=== PATIENT | male | born 1970 | race Caucasian/White ===

== ENCOUNTER 2019-01-29 12:25 | Emergency (ER) | payer MEDICARE, MEDICAID, SELFPAY ==
[2019-01-29 12:52] VITALS: BP 137/80; PULSE 95; RESP 20; TEMP 36.4; O2SAT 98
--- NOTE | 2019-01-29 12:58 | DI.RAD.S_ITS ---
PROCEDURE: XR THORACIC SPINE 3V INDICATIONS: pain TECHNIQUE: 3 views of the thoracic spine were acquired. COMPARISON: None. FINDINGS: Bones: No fractures or dislocations. No suspicious bony lesions. All pairs of ribs are noted, and appear intact where visualized. Mild thoracic spinal degenerative change. Soft tissues: No paravertebral stripe thickening. IMPRESSION: No evidence acute bony abnormality of the thoracic spine. Mild degenerative change. Dictated by: Alejandro Gaston M.D. on 01/29/2019 at 14:03 Approved by: Alejandro Gaston M.D. on 01/29/2019 at 14:04
--- NOTE | 2019-01-29 13:12 | PC.NURSE ---
pt reports the day after mothers day his back pain started, believed he was bending over too much. helped when he went to chiropractor. yesterday pain started back up, states never been this bad. denies weakness, numbness, tingling.
--- NOTE | 2019-01-29 13:20 | ED.BACK ---
HPI - Back Pain/Injury <TALIB Chapman - Last Filed: 01/29/19 14:41> General Chief Complaint: Back Pain/Injury Stated Complaint: middle back something happened since mothers day Time Seen by Provider: 01/29/19 13:10 Source: patient Mode of arrival: ambulatory Limitations: no limitations History of Present Illness HPI Narrative: The patient is a 48-year-old male current smoker with history of hypertension who presents with a chief complaint of back pain. This has been ongoing since mother's Day in October. He states it started after he was hunched over a grill while cooking for his neighborhood for mother's Day. Since then his pain has been coming and going. He has seen a chiropractor. He has not tried any Tylenol or ibuprofen. He states that his pain got worse last night so elected to come to the emergency department today. He denies any incontinence of bowel, incontinence of bladder or saddle anesthesia. He denies any fevers or history of cancer. He denies any chest pain, shortness of breath, nausea vomiting or diarrhea. He states that the pain is in the middle of his back, worse with movement. Related Data Home Medications Medication Instructions Recorded Confirmed lisinopril 20 mg PO BID #0 03/06/10 01/29/19 amlodipine 5 mg PO BID 01/29/19 01/29/19 doxepin 150 mg PO BEDTIME 01/29/19 01/29/19 fenofibrate 160 mg PO DAILY 01/29/19 01/29/19 gabapentin 300 mg PO DAILY PRN 01/29/19 01/29/19 Previous Rx's Medication Instructions Recorded ketorolac 10 mg PO TID PRN #20 tab 01/29/19 Allergies Allergy/AdvReac Type Severity Reaction Status Date / Time No Known Drug Allergies Allergy Verified 01/29/19 12:55 Review of Systems <TALIB Chapman - Last Filed: 01/29/19 14:41> Review of Systems GENERAL: Denies chills, fatigue, malaise, fever, sweats. HEENT: Denies sinus pain, ear pain, sore throat, difficulty swallowing, dizziness. RESPIRATORY: Denies dyspnea, cough, wheezing, hemoptysis, sputum. CARDIOVASCULAR: Denies chest pain, palpitations, orthopnea, edema, GASTROINTESTINAL: Denies nausea, vomiting, abdominal pain, diarrhea, constipation, melena. : Denies dysuria, frequency, incontinence, hematuria, urinary retention. MUSCULOSKELETAL: see HPI SKIN: Denies rash, skin lesions, or other NEUROLOGIC: Denies weakness, headache, numbness, change in speech, confusion, seizures, incoordination. PSYCHIATRIC: No concerning psychosocial issues. 12 point review of systems is negative except for those stated above PFSH <TALIB Chapman - Last Filed: 01/29/19 14:41> Medical History Hypertension (Acute) Social History Smoking Status: Current every day smoker Social History Smoking Status: Current every day smoker Exam <TALIB Chapman - Last Filed: 01/29/19 14:41> Narrative Exam Narrative: GENERAL: This is a well-nourished, well-developed patient, appears slightly uncomfortable HEAD: Atraumatic. Normocephalic. No temporal or scalp tenderness. EYES: Pupils equal round and reactive. Extraocular motions intact. No scleral icterus. No injection or drainage. ENT: Nose without bleeding, purulent drainage or septal hematoma. Throat without erythema, tonsillar hypertrophy or exudate. Uvula midline. Airway patent. NECK: Trachea midline. No JVD or lymphadenopathy. Supple, nontender, no meningeal signs. CARDIOVASCULAR: Regular rate and rhythm without murmurs, gallops, or rubs. RESPIRATORY: Clear to auscultation. Breath sounds equal bilaterally. No wheezes, rales, or rhonchi. No cough. No increased respiratory effort. No accessory muscle use. GASTROINTESTINAL: Abdomen soft, non-tender, nondistended. No hepato-splenomegaly, or palpable masses. No guarding. EXTREMITIES: No clubbing, cyanosis, or edema. No joint tenderness, effusion, or edema noted. BACK: Generalized pain to thoracic spine palpation. No pain to CT or L-spine palpation. Pain to bilateral paraspinal muscles. NEURO: AOx3. Strength is equal upper and lower extremities bilaterally. Stable gait. No gross cranial nerve deficit. SKIN: No rash or erythema. No erythema ecchymosis rash laceration or abrasion noted on back. Initial Vital Signs Initial Vital Signs: Vital Signs Temperature 97.5 F L 01/29/19 12:52 Pulse Rate 95 H 01/29/19 12:52 Respiratory Rate 20 01/29/19 12:52 Blood Pressure 137/80 01/29/19 12:52 Pulse Oximetry 98 01/29/19 12:52 <Fausto Rae DO - Last Filed: 01/29/19 15:21> Initial Vital Signs Initial Vital Signs: Vital Signs Temperature 97.5 F L 01/29/19 12:52 Pulse Rate 95 H 01/29/19 12:52 Respiratory Rate 20 01/29/19 12:52 Blood Pressure 137/80 01/29/19 12:52 Pulse Oximetry 98 01/29/19 12:52 Course <TALIB Chapman - Last Filed: 01/29/19 14:41> Orders Ordered: ED Orders 01/29/19 12:58 XR thoracic spine 3V Stat Discontinued Medications Ketorolac Tromethamine (Toradol) 60 mg IM NOW ONE Stop: 01/29/19 13:21 Last Admin: 01/29/19 13:33 Dose: 60 mg Lidocaine (Lidoderm) 1 each TOP NOW ONE Stop: 01/29/19 13:21 Last Admin: 01/29/19 13:33 Dose: 1 each Vital Signs - 8 hr 01/29/19 12:52 01/29/19 14:37 Temperature 97.5 F L Pulse Rate 95 H 83 Respiratory Rate 20 18 Blood Pressure 137/80 134/84 Pulse Oximetry 98 <DO Emil Leonard Last Filed: 01/29/19 15:21> Orders Ordered: ED Orders 01/29/19 12:58 XR thoracic spine 3V Stat Discontinued Medications Ketorolac Tromethamine (Toradol) 60 mg IM NOW ONE Stop: 01/29/19 13:21 Last Admin: 01/29/19 13:33 Dose: 60 mg Lidocaine (Lidoderm) 1 each TOP NOW ONE Stop: 01/29/19 13:21 Last Admin: 01/29/19 13:33 Dose: 1 each Vital Signs - 8 hr 01/29/19 12:52 01/29/19 14:37 Temperature 97.5 F L Pulse Rate 95 H 83 Respiratory Rate 20 18 Blood Pressure 137/80 134/84 Pulse Oximetry 98 MDM - Back Pain/Injury <TALIB Chapman - Last Filed: 01/29/19 14:41> Imaging Data T-spine x-ray: Radiologist's impression: [address] [address] XRay Report Signed Patient: Joao Candelaria MMR#: [id number] : 1970Acct:[id number] Age/Sex: 48 / MDate of Service: 01/29/19 Loc: ED Accession Number: [id number] Procedure: XR thoracic spine 3V Ordering Provider: Ev Poe PROCEDURE: XR THORACIC SPINE 3V INDICATIONS: pain TECHNIQUE: 3 views of the thoracic spine were acquired. COMPARISON: None. FINDINGS: Bones: No fractures or dislocations. No suspicious bony lesions. All pairs of ribs are noted, and appear intact where visualized. Mild thoracic spinal degenerative change. Soft tissues: No paravertebral stripe thickening. IMPRESSION: No evidence acute bony abnormality of the thoracic spine. Mild degenerative change. Dictated by: Alejandro Gaston M.D. on 01/29/2019 at 14:03 Approved by: Alejandro Gaston M.D. on 01/29/2019 at 14:04 [facility] Narrative Medical decision making narrative: The patient is a 48-year-old male who presents with a chief complaint of thoracic back pain since October. He does not have any red flag symptoms of incontinence of bowel, incontinence of bladder saddle anesthesia. I discussed at length to come back to the ER if he develops any of these red flag symptoms. He is afebrile with no history of cancer. I did obtain images, which shows no acute bony abnormality. He was treated in the emergency department with Toradol as well as a lidocaine patch and felt much relief. I discussed at length following up with primary care provider as well as coming back to the emergency department for any acute concerns as we discussed such as incontinence, neurological changes etc. Patient has no questions or concerns upon discharge and states understanding of follow-up precautions as well as return precautions. Discharge Plan Departure Patient Disposition: Home Clinical Impression: Thoracic back pain Qualifiers: Chronicity: acute Back pain laterality: bilateral Qualified Code(s): M54.6 - Pain in thoracic spine Discharge Date/Time: 01/29/19 14:37 Interventions: ED Discharge Assessment Last Done: 01/29/19 14:37 Instructions: DI for Back Strain or Sprain, DI for Thoracic Back Pain Activity Restrictions/Additional Instructions: Your x-ray showed no acute abnormality. I have given you a prescription of anti-inflammatory medicine. Do not take it with ibuprofen or Aleve or any other NSAIDs. Please monitor for any acute neurological concerns such as incontinence of bowel, incontinence of bladder or groin numbness. Please follow up with primary care provider. I have given you contact information for [facility] human resources director, who can help you identify a primary care provider. Come back to the emergency department for any acute concerns. Prescriptions: New ketorolac 10 mg tablet 10 mg PO TID PRN (Reason: pain) Qty: 20 RF: 0 No Action lisinopril 20 MG tablet 20 mg PO BID Qty: 0 RF: 0 doxepin 50 mg capsule 150 mg PO BEDTIME RF: 0 amlodipine 5 mg tablet 5 mg PO BID RF: 0 gabapentin 300 mg capsule 300 mg PO DAILY PRN (Reason: nerve pain) RF: 0 fenofibrate 160 mg tablet 160 mg PO DAILY RF: 0 Referrals: [facility] [Outside] <Fausto Rae DO - Last Filed: 01/29/19 15:21> [facility] Attending Susanne Attestation: I was available for consultation during this patient's emergency department encounter
[2019-01-29] MEDS: KETOROLAC 60 MG/2 ML VIAL IM (13:33)
[2019-01-29] MEDS: LIDOCAINE PATCH 1 EACH ADH..PATCH TOP (13:33)
--- NOTE | 2019-01-29 13:41 | ED_ITS ---
HPI - Back Pain/Injury <TALIB Chapman - Last Filed: 01/29/19 14:41> General Chief Complaint: Back Pain/Injury Stated Complaint: middle back something happened since mothers day Time Seen by Provider: 01/29/19 13:10 Source: patient Mode of arrival: ambulatory Limitations: no limitations History of Present Illness HPI Narrative: The patient is a 48-year-old male current smoker with history of hypertension who presents with a chief complaint of back pain. This has been ongoing since mother's Day in October. He states it started after he was hunched over a grill while cooking for his neighborhood for mother's Day. Since then his pain has been coming and going. He has seen a chiropractor. He has not tried any Tylenol or ibuprofen. He states that his pain got worse last night so elected to come to the emergency department today. He denies any incontinence of bowel, incontinence of bladder or saddle anesthesia. He denies any fevers or history of cancer. He denies any chest pain, shortness of breath, nausea vomiting or diarrhea. He states that the pain is in the middle of his back, worse with movement. Related Data Home Medications Medication Instructions Recorded Confirmed lisinopril 20 mg PO BID #0 03/06/10 01/29/19 amlodipine 5 mg PO BID 01/29/19 01/29/19 doxepin 150 mg PO BEDTIME 01/29/19 01/29/19 fenofibrate 160 mg PO DAILY 01/29/19 01/29/19 gabapentin 300 mg PO DAILY PRN 01/29/19 01/29/19 Previous Rx's Medication Instructions Recorded ketorolac 10 mg PO TID PRN #20 tab 01/29/19 Allergies Allergy/AdvReac Type Severity Reaction Status Date / Time No Known Drug Allergies Allergy Verified 01/29/19 12:55 Review of Systems <TALIB Chapman - Last Filed: 01/29/19 14:41> Review of Systems GENERAL: Denies chills, fatigue, malaise, fever, sweats. HEENT: Denies sinus pain, ear pain, sore throat, difficulty swallowing, dizziness. RESPIRATORY: Denies dyspnea, cough, wheezing, hemoptysis, sputum. CARDIOVASCULAR: Denies chest pain, palpitations, orthopnea, edema, GASTROINTESTINAL: Denies nausea, vomiting, abdominal pain, diarrhea, constipation, melena. : Denies dysuria, frequency, incontinence, hematuria, urinary retention. MUSCULOSKELETAL: see HPI SKIN: Denies rash, skin lesions, or other NEUROLOGIC: Denies weakness, headache, numbness, change in speech, confusion, seizures, incoordination. PSYCHIATRIC: No concerning psychosocial issues. 12 point review of systems is negative except for those stated above PFSH <TALIB Chapman - Last Filed: 01/29/19 14:41> Medical History Hypertension (Acute) Social History Smoking Status: Current every day smoker Social History Smoking Status: Current every day smoker Exam <TALIB Chapman - Last Filed: 01/29/19 14:41> Narrative Exam Narrative: GENERAL: This is a well-nourished, well-developed patient, appears slightly uncomfortable HEAD: Atraumatic. Normocephalic. No temporal or scalp tenderness. EYES: Pupils equal round and reactive. Extraocular motions intact. No scleral icterus. No injection or drainage. ENT: Nose without bleeding, purulent drainage or septal hematoma. Throat without erythema, tonsillar hypertrophy or exudate. Uvula midline. Airway patent. NECK: Trachea midline. No JVD or lymphadenopathy. Supple, nontender, no meningeal signs. CARDIOVASCULAR: Regular rate and rhythm without murmurs, gallops, or rubs. RESPIRATORY: Clear to auscultation. Breath sounds equal bilaterally. No wheezes, rales, or rhonchi. No cough. No increased respiratory effort. No accessory muscle use. GASTROINTESTINAL: Abdomen soft, non-tender, nondistended. No hepato- splenomegaly, or palpable masses. No guarding. EXTREMITIES: No clubbing, cyanosis, or edema. No joint tenderness, effusion, or edema noted. BACK: Generalized pain to thoracic spine palpation. No pain to CT or L-spine palpation. Pain to bilateral paraspinal muscles. NEURO: AOx3. Strength is equal upper and lower extremities bilaterally. Stable gait. No gross cranial nerve deficit. SKIN: No rash or erythema. No erythema ecchymosis rash laceration or abrasion noted on back. Initial Vital Signs Initial Vital Signs: Vital Signs Temperature 97.5 F L 01/29/19 12:52 Pulse Rate 95 H 01/29/19 12:52 Respiratory Rate 20 01/29/19 12:52 Blood Pressure 137/80 01/29/19 12:52 Pulse Oximetry 98 01/29/19 12:52 <Fausto Rae DO - Last Filed: 01/29/19 15:21> Initial Vital Signs Initial Vital Signs: Vital Signs Temperature 97.5 F L 01/29/19 12:52 Pulse Rate 95 H 01/29/19 12:52 Respiratory Rate 20 01/29/19 12:52 Blood Pressure 137/80 01/29/19 12:52 Pulse Oximetry 98 01/29/19 12:52 Course <TALIB Chapman - Last Filed: 01/29/19 14:41> Orders Ordered: ED Orders 01/29/19 12:58 XR thoracic spine 3V Stat Discontinued Medications Ketorolac Tromethamine (Toradol) 60 mg IM NOW ONE Stop: 01/29/19 13:21 Last Admin: 01/29/19 13:33 Dose: 60 mg Lidocaine (Lidoderm) 1 each TOP NOW ONE Stop: 01/29/19 13:21 Last Admin: 01/29/19 13:33 Dose: 1 each Vital Signs - 8 hr 01/29/19 12:52 01/29/19 14:37 Temperature 97.5 F L Pulse Rate 95 H 83 Respiratory Rate 20 18 Blood Pressure 137/80 134/84 Pulse Oximetry 98 <DO Emil Leonard Last Filed: 01/29/19 15:21> Orders Ordered: ED Orders 01/29/19 12:58 XR thoracic spine 3V Stat Discontinued Medications Ketorolac Tromethamine (Toradol) 60 mg IM NOW ONE Stop: 01/29/19 13:21 Last Admin: 01/29/19 13:33 Dose: 60 mg Lidocaine (Lidoderm) 1 each TOP NOW ONE Stop: 01/29/19 13:21 Last Admin: 01/29/19 13:33 Dose: 1 each Vital Signs - 8 hr 01/29/19 12:52 01/29/19 14:37 Temperature 97.5 F L Pulse Rate 95 H 83 Respiratory Rate 20 18 Blood Pressure 137/80 134/84 Pulse Oximetry 98 MDM - Back Pain/Injury <TALIB Chapman - Last Filed: 01/29/19 14:41> Imaging Data T-spine x-ray: Radiologist's impression: [address] [address] XRay Report Signed Patient: Joao Candelaria MMR#: [id number] : 1970Acct:[id number] Age/Sex: 48 / MDate of Service: 01/29/19 Loc: ED Accession Number: [id number] Procedure: XR thoracic spine 3V Ordering Provider: Ev Poe PROCEDURE: XR THORACIC SPINE 3V INDICATIONS: pain TECHNIQUE: 3 views of the thoracic spine were acquired. COMPARISON: None. FINDINGS: Bones: No fractures or dislocations. No suspicious bony lesions. All pairs of ribs are noted, and appear intact where visualized. Mild thoracic spinal degenerative change. Soft tissues: No paravertebral stripe thickening. IMPRESSION: No evidence acute bony abnormality of the thoracic spine. Mild degenerative change. Dictated by: Alejandro Gaston M.D. on 01/29/2019 at 14:03 Approved by: Alejandro Gaston M.D. on 01/29/2019 at 14:04 [facility] Narrative Medical decision making narrative: The patient is a 48-year-old male who presents with a chief complaint of thoracic back pain since October. He does not have any red flag symptoms of incontinence of bowel, incontinence of bladder saddle anesthesia. I discussed at length to come back to the ER if he develops any of these red flag symptoms. He is afebrile with no history of cancer. I d id obtain images, which shows no acute bony abnormality. He was treated in the emergency department with Toradol as well as a lidocaine patch and felt much relief. I discussed at length following up with primary care provider as well as coming back to the emergency department for any acute concerns as we discussed such as incontinence, neurological changes etc. Patient has no questions or concerns upon discharge and states understanding of follow-up precautions as well as return precautions. Discharge Plan Departure Patient Disposition: Home Clinical Impression: Thoracic back pain Qualifiers: Chronicity: acute Back pain laterality: bilateral Qualified Code(s): M54.6 - Pain in thoracic spine Discharge Date/Time: 01/29/19 14:37 Interventions: ED Discharge Assessment Last Done: 01/29/19 14:37 Instructions: DI for Back Strain or Sprain, DI for Thoracic Back Pain Activity Restrictions/Additional Instructions: Your x-ray showed no acute abnormality. I have given you a prescription of anti-inflammatory medicine. Do not take it with ibuprofen or Aleve or any other NSAIDs. Please monitor for any acute neurological concerns such as incontinence of bowel, incontinence of bladder or groin numbness. Please follow up with primary care provider. I have given you contact information for Located within [facility] human resources trainee, who can help you identify a primary care provider. Come back to the emergency department for any acute concerns. Prescriptions: New ketorolac 10 mg tablet 10 mg PO TID PRN (Reason: pain) Qty: 20 RF: 0 No Action lisinopril 20 MG tablet 20 mg PO BID Qty: 0 RF: 0 doxepin 50 mg capsule 150 mg PO BEDTIME RF: 0 amlodipine 5 mg tablet 5 mg PO BID RF: 0 gabapentin 300 mg capsule 300 mg PO DAILY PRN (Reason: nerve pain) RF: 0 fenofibrate 160 mg tablet 160 mg PO DAILY RF: 0 Referrals: [facility] [Outside] <Fausto Rae DO - Last Filed: 01/29/19 15:21> [facility] Attending Susanne Attestation: I was available for consultation during this patient's emergency department encounter
[2019-01-29 14:37] VITALS: BP 134/84; PULSE 83; RESP 18
== END 2019-01-29 14:37 | disposition home or self-care (01) ==
PROVIDERS: Emergency Provider Nurse Practitioner Family
DX: M54.6 Pain in thoracic spine (principal)
CPT/HCPCS: 72072; 96372; 99282; 99283; J1885

== ENCOUNTER 2019-02-14 13:51 | Emergency (ER) | payer MEDICARE, MEDICAID, SELFPAY ==
[2019-02-14 13:52] VITALS: BP 145/88; PULSE 86; RESP 14; O2SAT 98
[2019-02-14] MEDS: KETOROLAC 60 MG/2 ML VIAL IM (14:57)
[2019-02-14 15:09] VITALS: BP 142/94; PULSE 81; RESP 17; O2SAT 100
--- NOTE | 2019-02-14 16:43 | ED_ITS ---
HPI - Dental/Oral <PERICO Chapman-BC - Last Filed: 02/14/19 16:47> General Chief complaint: Dental/Oral Stated complaint: chest lump [id number] tooth pain Time Seen by Provider: 02/14/19 14:00 Source: patient Mode of arrival: ambulatory Limitations: no limitations History of Present Illness HPI Narrative: The patient is a 48-year-old male current smoker with history of thoracic back pain who presents with a chief complaint of tooth pain. He states that he had is left upper 2nd molar pulled 3 weeks ago and states he has increasing pain and swelling. He is concerned about a dental infection, and he was evaluated by a friend dentist to recommend he comes in for antibiotics. He denies any fevers nausea vomiting or diarrhea. He states he also has a mole on the front of his chest that has been there for months that you would like looked at. Related Data Home Medications Medication Instructions Recorded Confirmed lisinopril 20 mg PO BID #0 03/06/10 01/29/19 amlodipine 5 mg PO BID 01/29/19 01/29/19 doxepin 150 mg PO BEDTIME 01/29/19 01/29/19 fenofibrate 160 mg PO DAILY 01/29/19 01/29/19 gabapentin 300 mg PO DAILY PRN 01/29/19 01/29/19 Previous Rx's Medication Instructions Recorded ketorolac 10 mg PO TID PRN #20 tab 01/29/19 ketorolac 10 mg PO TID PRN #20 tab 02/14/19 penicillin V potassium 500 mg PO QID #40 tab 02/14/19 Allergies Allergy/AdvReac Type Severity Reaction Status Date / Time No Known Drug Allergies Allergy Verified 02/14/19 14:30 Review of Systems <PERICO Chapman-BC - Last Filed: 02/14/19 16:47> Review of Systems Narrative: GENERAL: Denies chills, fatigue, malaise, fever, sweats. HEENT: See HPI RESPIRATORY: Denies dyspnea, cough, wheezing, hemoptysis, sputum. CARDIOVASCULAR: Denies chest pain, palpitations, orthopnea, edema, GASTROINTESTINAL: Denies nausea, vomiting, abdominal pain, diarrhea, constipation, melena. : Denies dysuria, frequency, incontinence, hematuria, urinary retention. MUSCULOSKELETAL: denies weakness, joint pain, or bony pain SKIN: See HPI NEUROLOGIC: Denies weakness, headache, numbness, change in speech, confusion, seizures, incoordination. PSYCHIATRIC: No concerning psychosocial issues. 12 point review of systems is negative except for those stated above PFSH <TALIB Chapman - Last Filed: 02/14/19 16:47> Social History Smoking Status: Current every day smoker Social History Smoking Status: Current every day smoker Exam <TALIB Chapman - Last Filed: 02/14/19 16:47> Narrative Exam Narrative: GENERAL: This is a well-nourished, well-developed patient, no acute distress HEAD: Atraumatic. Normocephalic. No temporal or scalp tenderness. EYES: Pupils equal round and reactive. Extraocular motions intact. No scleral icterus. No injection or drainage. ENT: Nose without bleeding, purulent drainage or septal hematoma. Throat without erythema, tonsillar hypertrophy or exudate. Uvula midline. Airway patent. Poor dentition noted. Left 2nd molar noted pulled, surrounding erythema and gumline. No palpable or obvious abscess to drain. NECK: Trachea midline. No JVD or lymphadenopathy. Supple, nontender, no meningeal signs. CARDIOVASCULAR: Regular rate and rhythm RESPIRATORY: Clear to auscultation. Breath sounds equal bilaterally. No wheezes, rales, or rhonchi. No cough. No increased respiratory effort. No accessory muscle use. GASTROINTESTINAL: Abdomen soft, non-tender, nondistended. No hepato- splenomegaly, or palpable masses. No guarding. EXTREMITIES: No clubbing, cyanosis, or edema. No joint tenderness, effusion, or edema noted. BACK: Nontender without deformity or crepitance. No flank tenderness. NEURO: AOx3. SKIN: 2 mm nevus on center of chest Initial Vital Signs Initial Vital Signs: Vital Signs Pulse Rate 86 02/14/19 13:52 Respiratory Rate 14 02/14/19 13:52 Blood Pressure 145/88 H 02/14/19 13:52 Pulse Oximetry 98 02/14/19 13:52 <Fausto Rae DO - Last Filed: 02/14/19 16:58> Initial Vital Signs Initial Vital Signs: Vital Signs Pulse Rate 86 02/14/19 13:52 Respiratory Rate 14 02/14/19 13:52 Blood Pressure 145/88 H 02/14/19 13:52 Pulse Oximetry 98 02/14/19 13:52 Course <TALIB Chapman - Last Filed: 02/14/19 16:47> Orders Ordered: Discontinued Medications Ketorolac Tromethamine (Toradol) 60 mg IM NOW ONE Stop: 02/14/19 14:09 Last Admin: 02/14/19 14:57 Dose: 60 mg Documented by: SUNNY Vital Signs Vital signs: Vital Signs - 8 hr 02/14/19 13:52 02/14/19 15:09 Pulse Rate 86 81 Respiratory Rate 14 17 Blood Pressure 145/88 H Blood Pressure [Left Arm] 142/94 H Pulse Oximetry 98 100 <Fausto Rae DO - Last Filed: 02/14/19 16:58> Orders Ordered: Discontinued Medications Ketorolac Tromethamine (Toradol) 60 mg IM NOW ONE Stop: 02/14/19 14:09 Last Admin: 02/14/19 14:57 Dose: 60 mg Documented by: SUNNY Vital Signs Vital signs: Vital Signs - 8 hr 02/14/19 13:52 02/14/19 15:09 Pulse Rate 86 81 Respiratory Rate 14 17 Blood Pressure 145/88 H Blood Pressure [Left Arm] 142/94 H Pulse Oximetry 98 100 MDM - Dental/Oral <TALIB Chapman - Last Filed: 02/14/19 16:47> MDM Narrative Medical decision making narrative: The patient is a 48-year-old male who presents with a chief complaint of a mole on the center of his chest as well as a possible dental infection. His exam is concerning for dental infection, so I started him on penicillin. I discussed at length that he needs to follow up with primary care provider regarding his skin concerns, as I am unable to do a biopsy in the emergency department. Encourage PCP follow-up the next few days. Discussed at length follow up with a dentist as well. Encourage monitoring for signs of systemic illness such as fever, vomiting etc. Patient has no questions or concerns upon discharge. I did give him a prescription of Toradol for pain. Discussed not taking with Aleve ibuprofen or any other NSAIDs Discharge Plan Departure Patient Disposition: Home Clinical Impression: Dental infection, Skin mole Discharge Date/Time: 02/14/19 15:15 Instructions: Moles, DI for Tooth Abscess, DI for Dental Pain Activity Restrictions/Additional Instructions: I have started you on antibiotics for your tooth infection. Please follow up with your dentist. I have also given you a prescription of Toradol. Do not combine this with other anti-inflammatory such as Mobic or ibuprofen Regarding your new chest nevus, please follow up with primary care provider Prescriptions: New penicillin V potassium 500 mg tablet 500 mg PO QID Qty: 40 RF: 0 ketorolac 10 mg tablet 10 mg PO TID PRN (Reason: pain) Qty: 20 RF: 0 No Action lisinopril 20 MG tablet 20 mg PO BID Qty: 0 RF: 0 doxepin 50 mg capsule 150 mg PO BEDTIME RF: 0 amlodipine 5 mg tablet 5 mg PO BID RF: 0 gabapentin 300 mg capsule 300 mg PO DAILY PRN (Reason: nerve pain) RF: 0 fenofibrate 160 mg tablet 160 mg PO DAILY RF: 0 ketorolac 10 mg tablet 10 mg PO TID PRN (Reason: pain) Qty: 20 RF: 0 Referrals: Yazan Dailey MD [Primary Care Provider] - <Fausto Rae DO - Last Filed: 02/14/19 16:58> Sign Out Provider Sign Out Attestation: I was available for consultation during this patient's emergency department encounter
== END 2019-02-14 15:15 | disposition home or self-care (01) ==
PROVIDERS: Emergency Provider Nurse Practitioner Family; PCP Internal Medicine
DX: K04.7 Periapical abscess without sinus (principal); D22.9 Melanocytic nevi, unspecified
CPT/HCPCS: 96372; 99282; J1885

== ENCOUNTER → 2019-05-18 10:51 | Outpatient (CLI) | payer MEDICARE, MEDICAID, SELFPAY ==
[2019-05-18 12:09] LABS: Alanine Aminotransferase 26 IU/L (<50); Albumin 4.6 g/dL (3.5-5.0); Albumin Globulin Ratio 1.5 (1.0-2.8); Alkaline Phosphatase 82 U/L (38-126); Aspartate Aminotransferase 31 IU/L (17-59); BUN Creatinine Ratio 12.5 (6-22); Bilirubin Total 0.5 mg/dL (0.2-1.3); Blood Urea Nitrogen 10 mg/dL (9-20); Calcium 9.5 mg/dL (8.4-10.2); Carbon Dioxide 29 mmol/L (22-32); Chloride 100 mmol/L (98-107); Cholesterol 228 mg/dL (140-199); Estimated Glomerular Filt Rate > 60.0 mL/min (>60); Glucose 120 mg/dL (70-100); HDL Cholesterol 38 mg/dL (40-60); HEMOLYSIS < 15 (0-50); Potassium 4.9 mmol/L (3.4-5.1); Sodium 139 mmol/L (137-145); Total Protein 7.6 g/dL (6.3-8.2); Triglycerides 437 mg/dL (35-150)
[2019-05-22 09:58] LABS: Testosterone Free 54.2 pg/mL (35.0-155.0); Testosterone Total 464 ng/dL (250-1100)
== END ==
PROVIDERS: PCP Internal Medicine; Visit Provider Internal Medicine
DX: I10 Essential (primary) hypertension (principal)
CPT/HCPCS: 36415; 80053; 80061; 84402; 84403

== ENCOUNTER → 2019-07-21 10:45 | Outpatient (CLI) | payer MEDICARE, MEDICAID, SELFPAY ==
[2019-07-21 12:30] LABS: Cholesterol 239 mg/dL (140-199); HDL Cholesterol 36 mg/dL (40-60); Triglycerides 502 mg/dL (35-150)
== END ==
PROVIDERS: PCP Internal Medicine; Referring Provider Internal Medicine; Visit Provider Internal Medicine
DX: E78.5 Hyperlipidemia, unspecified (principal)
CPT/HCPCS: 36415; 80061

== ENCOUNTER → 2019-07-28 12:46 | Outpatient (CLI) | payer MEDICARE, MEDICAID, SELFPAY ==
--- NOTE | 2019-07-28 12:50 | DI.RAD.S_ITS ---
PROCEDURE: XR LUMBAR SPINE MIN 4V INDICATIONS: LBP with foot paresthesias TECHNIQUE: 4 views of the lumbar spine were acquired. COMPARISON: [facility], [place], ABDOMEN WITH CONTRAST, 06/21/2015, 9:55. FINDINGS: Bones: 5 nonrib-bearing vertebrae are present. There is normal bony alignment. No acute vertebral body compression fractures. No suspicious bony lesions. Multilevel lumbar spondylitic changes identified most pronounced at L3-4 and L4-5. Anterior bridging osteophyte noted at T12-L1. Mid and lower lumbar facet arthropathy. Soft tissues: Overlying bowel gas pattern is normal. No suspicious soft tissue calcifications. Oblique images: No pars defects. IMPRESSION: Lumbar spine without acute fracture or malalignment. Multilevel lumbar spondylosis. No pars defects identified. Dictated by: Steven Lay M.D. on 07/28/2019 at 16:41 Approved by: Steven Lay M.D. on 07/28/2019 at 16:43
== END ==
PROVIDERS: PCP Internal Medicine; Referring Provider Physical Medicine & Rehabilitation; Visit Provider Physical Medicine & Rehabilitation
DX: M54.5 Low back pain (principal); R20.0 Anesthesia of skin; M47.816 Spondylosis without myelopathy or radiculopathy, lumbar region
CPT/HCPCS: 72110

== ENCOUNTER → 2019-08-18 14:08 | Outpatient (CLI) | payer MEDICARE, MEDICAID, SELFPAY ==
[2019-08-18 15:20] LABS: Add Manual Diff / Slide Review NO; Basophils Absolute Auto 0 /uL (0-100); Basophils Percent Auto 0.5 % (0-2); Eosinophils Absolute Auto 300 /uL (0-450); Eosinophils Percent Auto 4.4 % (2-4); Hematocrit 42.5 % (41-53); Hemoglobin 15.2 g/dL (13.5-17.5); Lymphocytes Absolute Auto 1800 /uL (1100-4500); Lymphocytes Percent Auto 24.3 % (25-40); Mean Corpuscular HGB Conc 35.8 % (30-36); Mean Corpuscular Hemoglobin 33.2 PG (26-34); Mean Corpuscular Volume 92.7 fL (80-100); Monocytes Absolute Auto 500 /uL (0-900); Monocytes Percent Auto 6.8 % (3-14); Neutrophils Absolute Auto 4700 /uL (1500-7000); Platelet Count 201 X10^3/uL (150-400); Red Blood Cell Count 4.59 X10^6/uL (4.5-5.9); Red Cell Distribution Width 12.6 % (11.6-14.8); White Blood Cell Count 7.3 X10^3/uL (4.5-11.0)
[2019-08-18 15:39] LABS: Glucose 90 mg/dL (70-100)
[2019-08-18 15:57] LABS: Free T3, Triiodothyronine Free 4.22 pg/mL (2.77-5.27); T7 (Free Thyroxine Index) 2.28 (1.65-3.89); Triiodothryronine T3 Uptake 32.1 % (23.5-40.5)
[2019-08-18 16:11] LABS: Thyroid Stimulating Hormone 1.61 uIU/mL (0.47-4.68)
[2019-08-18 16:30] LABS: Vitamin B12 325 pg/mL (239-931)
[2019-08-18 19:04] LABS: Folate 8.2 ng/mL (2.76-20.0)
== END ==
PROVIDERS: PCP Internal Medicine; Referring Provider Podiatrist; Visit Provider Podiatrist
DX: G60.9 Hereditary and idiopathic neuropathy, unspecified (principal)
CPT/HCPCS: 36415; 82607; 82746; 82947; 84436; 84443; 84479; 84481; 85025

== ENCOUNTER 2019-10-29 10:12 | Emergency (ER) | payer MEDICARE, MEDICAID, SELFPAY ==
[2019-10-29 10:20] VITALS: BP 141/80; PULSE 80; RESP 15; TEMP 36.3; O2SAT 98
--- NOTE | 2019-10-29 10:23 | ED_ITS ---
HPI - Back Pain/Injury General Chief Complaint: Back Pain/Injury Stated Complaint: back pain Time Seen by Provider: 10/29/19 10:18 Source: patient Mode of arrival: Ambulatory Limitations: no limitations History of Present Illness HPI Narrative: 49M smoker with history of hypertension and back pain for over 1 year presents with a chief complaint of ongoing, gradually worsening back pain and requesting an MRI. He denies any saddle anesthesia nor difficulty with controlling bowel or bladder. He denies any numbness or weakness of his lower extremities. He denies any foot drop. He denies any recent injuries or worsening of pain. He states that 1 of his doctors said he could come to the emergency department and requested an MRI if he wanted one MD Complaint: back pain Onset (ago): month(s) Duration: constant Similar Symptoms Previously: Yes Location: lumbar spine Severity: moderate Quality: aching Radiation: none Relieving factors: supine Exacerbating factors: movement and walking Associated symptoms: denies other symptoms Related Data Home Medications Medication Instructions Recorded Confirmed lisinopril 20 mg PO BID #0 03/06/10 07/29/19 amlodipine 5 mg PO BID 01/29/19 07/29/19 doxepin 150 mg PO BEDTIME 01/29/19 01/29/19 fenofibrate 160 mg PO DAILY 01/29/19 01/29/19 gabapentin 300 mg PO DAILY PRN 01/29/19 01/29/19 Previous Rx's Medication Instructions Recorded ketorolac 10 mg PO TID PRN #20 tab 01/29/19 ketorolac 10 mg PO TID PRN #20 tab 02/14/19 Allergies Allergy/AdvReac Type Severity Reaction Status Date / Time No Known Drug Allergies Allergy Verified 10/29/19 10:24 Review of Systems Constitutional Constitutional: Denies chills, Denies fatigue, Denies fever(s), Denies frequent falls, Denies lethargy and Denies weakness Eyes Eyes: Denies change in vision, Denies eye discharge, Denies irritation and Denies loss of vision ENT Ears, Nose, Mouth, and Throat: Denies change in voice, Denies dizziness, Denies neck pain, Denies sore throat and Denies throat swelling Cardiovascular Cardiovascular: Denies chest pain, Denies irregular heart rhythm, Denies lightheadedness, Denies palpitations, Denies dyspnea, Denies dyspnea on exertion and Denies orthopnea Respiratory Respiratory: Denies cough, Denies dyspnea, Denies dyspnea on exertion and Denies wheezing Gastrointestinal Gastrointestinal: Denies abdominal pain, Denies change in bowel habits, Denies diarrhea, Denies nausea and Denies vomiting Genitourinary Genitourinary: Denies hematuria, Denies flank pain, Denies urinary incontinence and Denies urinary urgency Musculoskeletal Musculoskeletal: Reports back pain, Denies muscle weakness, Denies neck pain, Denies numbness and Denies tingling Integumentary/Breasts Skin/Breast: Denies pruritus, Denies erythema, Denies rash and Denies wounds Neurologic Neurologic: Denies behavioral changes, Denies confusion, Denies dizziness, Denies frequent falls, Denies loss of vision, Denies numbness, Denies tingling and Denies weakness Psychiatric Psychiatric: Denies anxiety, Denies behavioral changes, Denies confusion, Denies depression, Denies homicidal ideation and Denies suicidal ideation Endocrine Endocrine: Denies fatigue, Denies flushing and Denies palpitations Hematologic/Lymphatic Hematologic/Lymphatic: Denies easy bruising Allergic/Immunologic Allergic/Immunologic: Denies urticaria, Denies throat swelling and Denies wheezing Patient History Medical History Bilateral foot pain (Acute) Hypertension (Acute) Lumbosacral spondylosis (Acute) Recto-perineal fistula (Acute) Family History Father Alive and well Mother Alive and well Social History marital status: unmarried,single occupational status: disabled Smoking Status: Current every day smoker second hand exposure: No alcohol intake: current Smoking Status: Current every day smoker alcohol intake frequency: 0-2 drinks per day Substance Use Type: does not use Exam Narrative Exam Narrative: GENERAL: [49] year old patient appears stated age. Well- nourished, well-developed patient, in mild distress. HEAD: Atraumatic. Normocephalic. EYES: Pupils equal round and reactive. Extraocular motions intact. No scleral icterus. No injection or drainage. ENT: Nose without bleeding, purulent drainage. Throat without erythema, tonsillar hypertrophy or exudate. Airway patent. NECK: Trachea midline. Non tender CARDIOVASCULAR: Regular rate and rhythm without murmurs, gallops, or rubs. RESPIRATORY: Clear to auscultation. Breath sounds equal bilaterally. No wheezes, rales, or rhonchi. GASTROINTESTINAL: Abdomen soft, non-tender, nondistended. EXTREMITIES: No edema or joint tenderness. BACK: Nontender without deformity or crepitance. No flank tenderness. No saddle anesthesia, relexes 1+ bilaterally. 5/5 strength NEURO: AOx3. SKIN: No rash or erythema of visible areas Initial Vital Signs Initial Vital Signs: Vital Signs Temperature 97.3 F L 10/29/19 10:20 Pulse Rate 80 10/29/19 10:20 Respiratory Rate 15 10/29/19 10:20 Blood Pressure 141/80 H 10/29/19 10:20 Pulse Oximetry 98 10/29/19 10:20 Course Course Course Narrative: call to [facility], Dr. Dewitt, who reviews Dr. Zelaya's notes which state patient is to get PT and follow up in 2 months which would be about now. Vital Signs Vital signs: Vital Signs - 8 hr 10/29/19 10:20 Temperature 97.3 F L Pulse Rate 80 Respiratory Rate 15 Blood Pressure 141/80 H Pulse Oximetry 98 Discharge Plan Departure Patient Disposition: Home Clinical Impression: Lumbosacral spondylosis Discharge Date/Time: 10/29/19 11:10 Instructions: DI for Low Back Pain Activity Restrictions/Additional Instructions: *You have been diagnosed with [ acute on chronic lumbar pain with spondylolysis ] *What to do: *Take medications as directed *Follow up with Dr. Zelaya in 2-3 days, call for an appointment. Let them know you were seen in the Emergency Department and that we ask that you be seen in follow up *Return to ER if you should have any new, worsening or concerning symptoms Prescriptions: No Action lisinopril 20 MG tablet 20 mg PO BID Qty: 0 RF: 0 doxepin 50 mg capsule 150 mg PO BEDTIME RF: 0 amlodipine 5 mg tablet 5 mg PO BID RF: 0 gabapentin 300 mg capsule 300 mg PO DAILY PRN (Reason: nerve pain) RF: 0 fenofibrate 160 mg tablet 160 mg PO DAILY RF: 0 ketorolac 10 mg tablet 10 mg PO TID PRN (Reason: pain) Qty: 20 RF: 0 ketorolac 10 mg tablet 10 mg PO TID PRN (Reason: pain) Qty: 20 RF: 0 Referrals: Yazan Dailey MD [Primary Care Provider] - Rafael Zelaya MD [Physician] -
== END 2019-10-29 11:10 | disposition home or self-care (01) ==
PROVIDERS: Emergency Provider Emergency Medicine; PCP Internal Medicine
DX: M47.817 Spondylosis without myelopathy or radiculopathy, lumbosacral region (principal)
CPT/HCPCS: 99281

== ENCOUNTER 2019-11-03 16:33 | Emergency (ER) | payer MEDICARE, MEDICAID, SELFPAY ==
[2019-11-03 16:42] VITALS: BP 118/75; PULSE 82; RESP 18; TEMP 37.2; O2SAT 96; BMI 32.5
--- NOTE | 2019-11-03 17:00 | ED_ITS ---
HPI - Back Pain/Injury <JENARO Faith - Last Filed: 11/03/19 17:43> General Chief Complaint: Back Pain/Injury Stated Complaint: back pain Time Seen by Provider: 11/03/19 16:36 History of Present Illness HPI Narrative: 49-year-old male with a history of chronic back pain for the past year hypertension, and current smoker, presents emergency department an anti- inflammatory shot and ketorolac for the pain. Patient was seen for back pain on 10/29/2019 in the emergency department, at that time he requested MRI. Patient has been seeing Dr. Zelaya who recommends physical therapy and follow-up with for imaging (per prior note). Patient states that he has been drinking alcohol today to help with pain. He states this pain is a dull aching right-sided pain with occasional sharp radiation to his leg with various movements. He does report intermittent muscle spasms that occur with certain movements. He denies any saddle paresthesias, loss of bowel or bladder control, fevers, chills, trauma to the area, dizziness, chest pain, shortness of breath, or any other concerns. Related Data Home Medications Medication Instructions Recorded Confirmed lisinopril 20 mg PO BID #0 03/06/10 07/29/19 amlodipine 5 mg PO BID 01/29/19 07/29/19 doxepin 150 mg PO BEDTIME 01/29/19 01/29/19 fenofibrate 160 mg PO DAILY 01/29/19 01/29/19 gabapentin 300 mg PO DAILY PRN 01/29/19 01/29/19 Previous Rx's Medication Instructions Recorded ketorolac 10 mg PO TID PRN #20 tab 01/29/19 ketorolac 10 mg PO TID PRN #20 tab 02/14/19 cyclobenzaprine 10 mg PO BEDTIME PRN #14 tab 11/03/19 ketorolac 10 mg PO Q6H PRN 5 Days #20 tab 11/03/19 Allergies Allergy/AdvReac Type Severity Reaction Status Date / Time No Known Drug Allergies Allergy Verified 10/29/19 10:24 Review of Systems <JENARO Faith - Last Filed: 11/03/19 17:43> Review of Systems Narrative: REVIEW OF SYSTEMS: GENERAL: Denies fever or chills. HENT: No head trauma. CARDIOVASCULAR: No chest pain. RESPIRATORY: No shortness of breath or cough. GASTROINTESTINAL: No nausea, vomiting, diarrhea, or constipation. GENITOURINARY: No flank pain or dysuria. MUSCULOSKELETAL: Complains of right-sided low back pain, see HPI. INTEGUMENTARY: No rash, lesions, or pruritus. NEURO: No saddle paresthesias. Patient History <JENARO Faith - Last Filed: 11/03/19 17:43> Medical History Bilateral foot pain (Acute) Hypertension (Acute) Lumbosacral spondylosis (Acute) Recto-perineal fistula (Acute) Family History Father Alive and well Mother Alive and well Social History marital status: unmarried,single occupational status: disabled Smoking Status: Current every day smoker second hand exposure: No alcohol intake: current Smoking Status: Current every day smoker alcohol intake frequency: 3 or more drinks per day Alcohol type: beer and hard liquor Substance Use Type: does not use Exam <JENARO Faith - Last Filed: 11/03/19 17:43> Initial Vital Signs Initial Vital Signs: Vital Signs Temperature 99.0 F 11/03/19 16:42 Pulse Rate 82 11/03/19 16:42 Respiratory Rate 18 11/03/19 16:42 Blood Pressure 118/75 11/03/19 16:42 Pulse Oximetry 96 11/03/19 16:42 PHYSICAL EXAMINATION: GENERAL: Disheveled, cooperative. Appears intoxicated but alert and answered questions appropriately. Vital signs noted. HENT: Normocephalic, atraumatic. EYES: Symmetrical, sclera white, no periorbital swelling. RESPIRATORY: Normal respiratory rate, trachea midline, airway patent. No stridor, nasal flaring or accessory muscle use. MUSCULOSKELETAL: Tenderness to palpation of the lower lumbar muscle, no spinal tenderness. no hip tenderness. Positive straight leg test to right leg. Normal gait and coordination. Equal tone and mass bilaterally. No spinal tenderness or deformities. Patient wearing a cloth brace. EXTREMITIES: CMS intact. SKIN: Warm, dry, soft, appropriate color for ethnicity. No lesions, rashes, or wounds. NEURO: Alert and Oriented X 3. No sensory deficits. PSYCH: Appropriate affect and mood. <Fausto Rae DO - Last Filed: 11/03/19 17:50> Initial Vital Signs Initial Vital Signs: Vital Signs Temperature 99.0 F 11/03/19 16:42 Pulse Rate 82 11/03/19 16:42 Respiratory Rate 18 11/03/19 16:42 Blood Pressure 118/75 11/03/19 16:42 Pulse Oximetry 96 11/03/19 16:42 Course <JENARO Faith - Last Filed: 11/03/19 17:43> Course Course Narrative: Patient given a Toradol injection, reports improved pain. Orders Ordered: Discontinued Medications Ketorolac Tromethamine (Toradol) 30 mg IM NOW ONE Stop: 11/03/19 17:01 Last Admin: 11/03/19 17:23 Dose: 30 mg Documented by: RONY Vital Signs Vital signs: Vital Signs - 8 hr 11/03/19 16:42 Temperature 99.0 F Pulse Rate 82 Respiratory Rate 18 Blood Pressure 118/75 Pulse Oximetry 96 <Fausto Rae DO - Last Filed: 11/03/19 17:50> Orders Ordered: Discontinued Medications Ketorolac Tromethamine (Toradol) 30 mg IM NOW ONE Stop: 11/03/19 17:01 Last Admin: 11/03/19 17:23 Dose: 30 mg Documented by: RONY Vital Signs Vital signs: Vital Signs - 8 hr 11/03/19 16:42 Temperature 99.0 F Pulse Rate 82 Respiratory Rate 18 Blood Pressure 118/75 Pulse Oximetry 96 [facility] - Back Pain/Injury <JENARO Faith - Last Filed: 11/03/19 17:43> Medical Records Attestation: I reviewed the patient's medical records. Lab Data Attestation: I reviewed the patient's lab results. [facility] Narrative Medical decision making narrative: 49-year-old male with chronic back pain, presents emergency department for continued pain and requesting a anti- inflammatory shot, ketorolac, Flexeril. Due to examination and description of pain, patient appears to be having muscle spasms along with suspected sciatica. Less concern for spinal injury due to lack of trauma, no spinal tenderness. No indication for images at this time. Less concern for cauda equina due to lack of saddle paresthesias, no loss of bowel or bladder control. Patient able to ambulate without difficulty. Patient was recently seen in the emergency department and requested MRI, was told to follow up with Dr. Zelaya for physical therapy prior to MRI. Patient was referred back to Dr. Zelaya. He was instructed to avoid taking Flexeril and alcohol together. Patient was agreeable to plan of care, denies any other concerns. Discharge Plan Departure Patient Disposition: Home Clinical Impression: Muscle spasm Chronic back pain Qualifiers: Back pain location: low back pain Back pain laterality: right Sciatica presence: without sciatica Qualified Code(s): M54.5 - Low back pain Discharge Date/Time: 11/03/19 17:46 Instructions: DI for Back Spasm Activity Restrictions/Additional Instructions: Thank you for entrusting me with your care today. As discussed, I prescribed you ketorolac and Flexeril to help with pain and spasms. These medications were sent to [facility] in [place]. Please follow-up with Dr. Zelaya in the next week as suggested from last visit. Please return emergency department for any new or worsening symptoms loss of bowel or bladder control, numbness or tingling in your pelvis, limb weakness, or any other concerns. Prescriptions: New ketorolac 10 mg tablet 10 mg PO Q6H PRN (Reason: pain) 5 Days Qty: 20 RF: 0 cyclobenzaprine 10 mg tablet 10 mg PO BEDTIME PRN (Reason: muscle spasm) Qty: 14 RF: 0 No Action lisinopril 20 MG tablet 20 mg PO BID Qty: 0 RF: 0 doxepin 50 mg capsule 150 mg PO BEDTIME RF: 0 amlodipine 5 mg tablet 5 mg PO BID RF: 0 gabapentin 300 mg capsule 300 mg PO DAILY PRN (Reason: nerve pain) RF: 0 fenofibrate 160 mg tablet 160 mg PO DAILY RF: 0 ketorolac 10 mg tablet 10 mg PO TID PRN (Reason: pain) Qty: 20 RF: 0 ketorolac 10 mg tablet 10 mg PO TID PRN (Reason: pain) Qty: 20 RF: 0 Referrals: Yazan Dailey MD [Primary Care Provider] - <Fausto Rae DO - Last Filed: 11/03/19 17:50> Cosign ED Attending Cosignature Attestation: Dr Rae Co-Sign Statement: I was available for consultation during this patient's emergency department visit. This chart is signed by myself for administrative purposes only. I did not have direct contact with this patient during this visit. They were seen independently by the APC.
[2019-11-03] MEDS: KETOROLAC 60 MG/2 ML VIAL 30 MG IM (17:23)
== END 2019-11-03 17:46 | disposition home or self-care (01) ==
PROVIDERS: Emergency Provider Nurse Practitioner; PCP Internal Medicine
DX: M54.5 Low back pain (principal); M62.830 Muscle spasm of back
CPT/HCPCS: 96372; 99283; J1885

== ENCOUNTER → 2019-11-05 15:58 | Outpatient (CLI) | payer MEDICARE, MEDICAID, SELFPAY ==
--- NOTE | 2019-11-05 15:59 | DI.MRI.S_ITS ---
PROCEDURE: MR LUMBAR SPINE WO CON INDICATIONS: USPECIFIED THPORACIC, THOROCOLOMBAR AND LUMBOSACRAL TECHNIQUE: Noncontrast sagittal T1 spin echo and T2 fast echo, sagittal STIR, axial T1 and T2 fast spin echo through the lumbar spine. In cases with scoliosis, additional coronal T2 fast spin echo may be performed. COMPARISON: None. FINDINGS: Image quality: Excellent. Alignment and Curvature: There is normal bony alignment. Bone Marrow: Marrow is of normal overall signal. No acute vertebral body compression fractures. Spinal Cord: Conus medullaris terminates at the L1 level. Visualized cord demonstrates normal signal and size. Paraspinous Soft Tissues: No paravertebral masses. T12-L1: Normal appearance. L1-L2: Normal appearance. L2-L3: No significant central canal narrowing is seen. L3-L4: The disc height is well-preserved. Loss of disc signal is seen at this level. Mild to moderate disc bulge is seen. There is mild bilateral neural foraminal narrowing seen. Mild to moderate central canal narrowing is seen. L4-L5: The disc height and disc signal relatively well-preserved. Mild to moderate disc bulge is seen. There is a mild central disc protrusion. Mild facet joint hypertrophy is seen. There is minimal to mild right-sided and mild to moderate left-sided neural foraminal narrowing seen. Mild central canal narrowing is seen. L5-S1: No significant abnormality is seen. IMPRESSION: Mild lower lumbar spine degenerative changes are seen. Dictated by: Robert Wise M.D. on 11/05/2019 at 16:23 Approved by: Robert Wise M.D. on 11/05/2019 at 16:26
== END ==
PROVIDERS: PCP Internal Medicine; Referring Provider Orthopaedic Surgery Orthopaedic Surgery of the Spine; Visit Provider Orthopaedic Surgery Orthopaedic Surgery of the Spine
DX: M51.9 Unspecified thoracic, thoracolumbar and lumbosacral intervertebral disc disorder (principal); M47.816 Spondylosis without myelopathy or radiculopathy, lumbar region
CPT/HCPCS: 72148

== ENCOUNTER → 2020-03-15 10:18 | Outpatient (CLI) | payer MEDICARE, MEDICAID, SELFPAY ==
[2020-03-15 12:07] LABS: Alanine Aminotransferase 60 IU/L (<50); Albumin 4.2 g/dL (3.5-5.0); Albumin Globulin Ratio 1.4 (1.0-2.8); Alkaline Phosphatase 129 U/L (38-126); Aspartate Aminotransferase 61 IU/L (17-59); BUN Creatinine Ratio 11.9 (6-22); Bilirubin Total 0.5 mg/dL (0.2-1.3); Blood Urea Nitrogen 8 mg/dL (9-20); Calcium 9.2 mg/dL (8.4-10.2); Carbon Dioxide 30 mmol/L (22-32); Chloride 104 mmol/L (98-107); Cholesterol 222 mg/dL (140-199); Estimated Glomerular Filt Rate > 60.0 mL/min (>60); Globulin 3.1 g/dL (1.7-4.1); Glucose 124 mg/dL (70-100); HDL Cholesterol 55 mg/dL (40-60); HEMOLYSIS < 15 (0-50); LDL Cholesterol Calculated 110 mg/dL (<100); Potassium 4.3 mmol/L (3.4-5.1); Sodium 141 mmol/L (137-145); Total Protein 7.3 g/dL (6.3-8.2); Triglycerides 286 mg/dL (35-150)
[2020-03-15 12:45] LABS: Free T3, Triiodothyronine Free 4.35 pg/mL (2.77-5.27)
[2020-03-15 12:58] LABS: Thyroid Stimulating Hormone 1.91 uIU/mL (0.47-4.68)
[2020-03-15 14:43] LABS: Creatinine Urine Random 212.3 mg/dL
[2020-03-15 14:47] LABS: Microalbumi Creatinin Ratio Ur 8.4 ug/mg CR (<30); Microalbumin Urine Random 1.8 mg/dL (0-1.6)
[2020-03-17 16:11] LABS: Prostate Specific Antigen 0.515 ng/mL (0.10-4.00)
== END ==
PROVIDERS: PCP Nurse Practitioner; Referring Provider Nurse Practitioner; Visit Provider Nurse Practitioner
DX: Z00.00 Encounter for general adult medical examination without abnormal findings (principal); E78.5 Hyperlipidemia, unspecified; I10 Essential (primary) hypertension; Z79.899 Other long term (current) drug therapy
CPT/HCPCS: 36415; 80053; 80061; 82043; 82570; 84153; 84439; 84443; 84481

== ENCOUNTER → 2020-07-08 09:17 | Outpatient (CLI) | payer MEDICARE, MEDICAID, SELFPAY ==
--- NOTE | 2020-07-08 09:20 | DI.US.S_ITS ---
PROCEDURE: US SCROTUM INDICATIONS: RIGHT TESTICULAR PAIN, prior history of torsion, patient reports bilateral fixation procedure approximately 25 years ago. 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 TECHNIQUE: Real-time scanning was performed of the scrotum and testicles, with image documentation. Color and pulse Doppler interrogation was performed of both testicles. COMPARISON: None. FINDINGS: Right: Testicle is normal in size at 1.8 x 3.4 x 4.6 cm, and homogenous in echotexture. Epididymis is normal in overall size and morphology. No hydrocele or varicoceles. Overlying scrotal skin is normal in thickness. Left: Testicle is normal in size at 2.1 x 2.7 x 4.7 cm, and homogeneous in echotexture. Epididymis is normal in overall size and morphology. No hydrocele or varicoceles. Overlying scrotal skin is normal in thickness. Doppler: Color and pulse Doppler demonstrate normal and symmetric arterial flow in both testicles. IMPRESSION: No sign of torsion, intact arterial and venous flow at this time. 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 Dictated by: Roverto Cedeno M.D. on 07/08/2020 at 11:13 Approved by: Roverto Cedeno M.D. on 07/08/2020 at 11:15
[2020-07-08 11:18] LABS: Alanine Aminotransferase 56 IU/L (<50); Albumin 4.4 g/dL (3.5-5.0); Albumin Globulin Ratio 1.3 (1.0-2.8); Alkaline Phosphatase 107 U/L (38-126); Aspartate Aminotransferase 51 IU/L (17-59); BUN Creatinine Ratio 16.1 (6-22); Bilirubin Total 0.5 mg/dL (0.2-1.3); Blood Urea Nitrogen 10 mg/dL (9-20); Calcium 9.3 mg/dL (8.4-10.2); Carbon Dioxide 33 mmol/L (22-32); Chloride 103 mmol/L (98-107); Cholesterol 213 mg/dL (140-199); Estimated Glomerular Filt Rate > 60.0 mL/min (>60); Globulin 3.3 g/dL (1.7-4.1); Glucose 124 mg/dL (70-100); HDL Cholesterol 47 mg/dL (40-60); HEMOLYSIS < 15 (0-50); LDL Cholesterol Calculated 126 mg/dL (<100); Potassium 4.2 mmol/L (3.4-5.1); Sodium 140 mmol/L (137-145); Total Protein 7.7 g/dL (6.3-8.2); Triglycerides 201 mg/dL (35-150)
[2020-07-08 11:57] LABS: Hemoglobin A1C% w Est Avg Glu 5.5 % (4.0-6.0)
[2020-07-10 05:17] LABS: Hepatitis B Surface Antigen NEGATIVE s/c (NEGATIVE)
[2020-07-10 05:35] LABS: Hep C Virus Ab w/Reflex Quant NEGATIVE s/c (NEGATIVE)
== END ==
PROVIDERS: Family Provider Nurse Practitioner; PCP Nurse Practitioner; Referring Provider Nurse Practitioner; Visit Provider Nurse Practitioner
DX: N50.811 Right testicular pain (principal); R79.89 Other specified abnormal findings of blood chemistry; R73.9 Hyperglycemia, unspecified; E78.5 Hyperlipidemia, unspecified; F10.20 Alcohol dependence, uncomplicated; I10 Essential (primary) hypertension; Z87.438 Personal history of other diseases of male genital organs
CPT/HCPCS: 36415; 76870; 80053; 80061; 83036; 86803; 87340

== ENCOUNTER 2020-07-12 10:30 | Outpatient (RCR) | payer MEDICARE, MEDICAID, SELFPAY ==
[2020-04-11 14:33] VITALS: BP 136/70
--- NOTE | 2020-04-11 17:15 | PT.OIE ---
Current Diagnoses Spondylosis without myelopathy or radiculopathy, lumbosacral region (04/11/20) Pain in right foot (04/11/20) Pain in left foot (04/11/20) Past Medical History Alcohol dependence, daily use (Acute) Bilateral foot pain (Acute) Blood glucose elevated (Acute) Class 1 obesity in adult (Acute) Elevated LFTs (Acute) Hyperlipidemia (Acute) Hypertension (Acute) Hypertension (Acute) Lumbosacral spondylosis (Acute) Recto-perineal fistula (Acute) Smokes tobacco daily (Acute) Visit Care Team Role Provider Type JENARO Ashford Attending Provider Advanced Supervisor Of Research Family Provider Primary Care Provider Referring Provider Specialty: Family Practice Address: [address] [place] [address], [facility] Email: [email or web address] Physical Therapy Initial Evaluation PT-OP-A Visit Information Start: 04/11/20 12:51 Freq: Status: Active Protocol: Document 04/11/20 14:33 (Rec: 04/11/20 17:14 [email or web address]) Out-Patient Physical Therapy Visit Information Visit Information Visit Type Initial Evaluation Visit Start Time 14:33 Visit Stop Time 15:15 Total Visit Minutes 42 Visit Number 1 Number of SUPERVISOR BUILDING MAINTENANCE Visits 0 Evaluation Information Evaluation Date 04/11/20 PT-OP-B Current Condition Start: 04/11/20 12:51 Freq: Status: Active Protocol: Document 04/11/20 14:33 HH (Rec: 04/11/20 12:58 [email or web address]) Current Condition History of Current Condition Onset Date more than a year ago Current Complaints Chronic LBP and bilateral foot pain History of Current Condition Pt is a 49yo male with a hx of chronic LBP, along with hypertension, current smoker ( 1.5 packs/day) and drinker (6 cans of beer and 2 fingers of vodka with orange juice daily) . Pt said that he tends to drink alcohol to take the pain away. His pain is mostly achy and located at the center of low back and R side with occasional sharp pain with certain movements. Lifting, moving around, bending over tend to aggravate his symptoms . And he has been moving slowly since last year and wearing back brace since a few months ago. Pt was admitted to ER twice 10/29/19 and 11/03/19 d/t severe back pain. He went to see orthopedist Dr. Zelaya for consult who recommended him physical therapy and stated he does not require surgery. 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 Prior Treatments and Tests MRI 11/05/19 T12-L1: Normal appearance. L1-L2: Normal appearance. L2-L3: No significant central canal narrowing is seen. L3-L4: The disc height is well-preserved. Loss of disc signal is seen at this level. Mild to moderate disc bulge is seen. There is mild bilateral neural foraminal narrowing seen. Mild to moderate central canal narrowing is seen. L4-L5: The disc height and disc signal relatively well- preserved. Mild to moderate disc bulge is seen. There is a mild central disc protrusion. Mild facet joint hypertrophy is seen. There is minimal to mild right-sided and mild to moderate left-sided neural foraminal narrowing seen. Mild central canal narrowing is seen. L5-S1: No significant abnormality is seen. Personal Factors Other Personal Factors That May Effect hypertension, current smoker ( Therapy/Recovery 1.5 packs/day) and drinker (6 cans of beer and 2 fingers of vodka with orange juice daily) PT-OP-C Subjective Start: 04/11/20 12:51 Freq: Status: Active Protocol: Document 04/11/20 14:33 (Rec: 04/11/20 17:14 [email or web address]) Patient Questionnaires Lower Extremity Functional Scale LEFS Score 25 LEFS Impairment 60 to 79% Impaired (Score 17- 31) Oswestry Low Back Index Oswestry Score 42 Oswestry Impairment 40 to 59% Impaired (Score 40- 59) OP-PT Pain Assessment Location lumbar Pain Location Details lumbar spine Intensity 6 Scale Used Numeric (0 - 10) Description Aching,Sharp,Tightness,With Movement Frequency Constant Pain Aggravating Factors Position,Changing Position, Activity,Exercise,Standing, Walking,Bending,Lifting Pain Alleviating Factors Lying Supine PT-OP-D Balance Start: 04/11/20 12:51 Freq: Status: Active Protocol: Document 04/11/20 14:33 HH (Rec: 04/11/20 17:14 [email or web address]) Balance Tests Single Limb Standing Single Limb- Right 10 Single Limb- Left 12 PT-OP-F Manual Assessment Start: 04/11/20 12:51 Freq: Status: Active Protocol: Document 04/11/20 14:33 HH (Rec: 04/11/20 17:14 [email or web address]) Manual Assessments Joint Mobility Assessment Joint Mobility Assessment significant pain to PA mob from T4-T10 mild pain to PA mob L2-L5 PT-OP-H Neuro Start: 04/11/20 12:51 Freq: Status: Active Protocol: Document 04/11/20 14:33 HH (Rec: 04/11/20 17:14 [email or web address]) Sensation Evaluation Gross Sensation Gross Sensation WNL Deep Tendon Reflex & Clonus Assessment Deep Tendon Reflex Bilateral Achilles Deep Tendon Reflex 2+ Normal Bilateral Patellar Deep Tendon Reflex 1+ Diminished Vital Signs Blood Pressure Sitting Blood Pressure (90/60-120/80 mmHg) 136/70 H Blood Pressure Source Manual Cuff,Right Upper Extremity PT-OP-K Range of Motion Start: 04/11/20 12:51 Freq: Status: Active Protocol: Document 04/11/20 14:33 HH (Rec: 04/11/20 17:14 [email or web address]) Lumbar Spine Range of Motion Lumbar Spine Active Degrees Comments toe toe test= 3' from floor with pain at LB L lateral flexion = 25 R lateral flexion= 25 extension = shoulder meet heels with significant pain. Hip Goniometric Range of Motion Hip Left Active Straight Leg Raise 75 Comments slight discomfort at R low back Right Active Hip ROM WFL Yes Straight Leg Raise 85 Comments no discomfort noted except hamstrings tightness PT-OP-L Special Tests Start: 04/11/20 12:51 Freq: Status: Active Protocol: Document 04/11/20 14:33 HH (Rec: 04/11/20 17:14 [email or web address]) Special Tests Lumbar Spine Special Tests PA mob Test Results at mid to low T spine Comments significant pain to PA mob from T4-T10 Straight Leg Raise Test Results +ve L Comments slight discomfort at R low back with SLR on L Prone Instability Test Test Results +ve B Comments pain improved Will Test Results -ve B PT-OP-T Assessment and Plan Start: 04/11/20 12:51 Freq: Status: Active Protocol: Document 04/11/20 14:33 HH (Rec: 04/11/20 17:14 [email or web address]) Physical Therapy Assessment Rehab Potential Rehabilitation Potential Good Evaluation Complexity Number of Personal Factors/Comorbidities 3 or More Number of Body Systems Impaired 3 Clinical Presentation at Evaluation Stable Impairments Impairments Activity Tolerance,Balance, Functional Activities, Functional Mobility,Gait,Pain, Posture,ROM,Soft Tissue Mobility,Strength Other Concerns Barriers to Rehabilitation Pt is a current smoker (1.5 packs/ day) and alcohol abuser (6 cans/week). 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 LTG Duration 12 weeks LEFS Impairment pt scores 25 on LEFS Short Term Goal (STG) pt will score 40 or above on LEFS STG Duration 6 weeks Floorwalker Goal (LTG) pt will score 50 or above on LEFS to improve his functional mobility and strength so he can work on his [employer] project without aggravation. LTG Duration 12 weeks Assessment Summary Assessment Pt is a 49yo male presented to clinic with c/o chronic LBP > 1 year who is also a current smoker (1.5 packs a day) and alcohol user (6 cans/day). Upon assessment, pt does not have any neurological signs except slight increased pain at R lumbar with SLR on L. He does not have any radiating pain nor significant LE weakness/ sensation loss. Pt overall demonstrates good trunk (worst at T-spine) and hip mobility but he was extremely cautious with his movements. Pt did report he is very skeptical regarding mvoing his body. In my professional opinion, Pt possibly has Complex regional pain syndrome who is very pain sensitive to movement and pressure at his lumbar region. This Pt spent approx 15 mins to explain role of PT and pain science regarding chronic pain. Pt was receptive and agreed to attempt PT even though this is possibly going to be a long course of rehab d /t his chronic pain and his tobacco and alcohol use. 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 Physical Therapy Plan Frequency and Duration Frequency of Treatment 2x/Week Duration of Treatment 12 weeks Plan of Care Start Date 04/11/20 Plan of Care End Date 07/10/20 Next Visit Focus/Plan Next Note Type Treatment Note Next Visit Plan bike cat camel seated reach LTR with ball ab curl with ball.
--- NOTE | 2020-04-11 17:15 | PT.OPPOC ---
Physical, Occupational & Speech Therapy At [facility] Current Diagnoses Spondylosis without myelopathy or radiculopathy, lumbosacral region (04/11/20) Pain in right foot (04/11/20) Pain in left foot (04/11/20) Visit Care Team Role Provider Type JENARO Ashford Attending Provider Advanced Clock Repair Technician Family Provider Primary Care Provider Referring Provider Specialty: Family Practice Address: [address] [place] [address], [facility] Email: [email or web address] Plan Of Care PT-OP-T Assessment and Plan Start: 04/11/20 12:51 Freq: Status: Active Protocol: Document 04/11/20 14:33 HH (Rec: 04/11/20 17:14 [email or web address]) Physical Therapy Assessment Rehab Potential Rehabilitation Potential Good Evaluation Complexity Number of Personal Factors/Comorbidities 3 or More Number of Body Systems Impaired 3 Clinical Presentation at Evaluation Stable Impairments Impairments Activity Tolerance,Balance, Functional Activities, Functional Mobility,Gait,Pain, Posture,ROM,Soft Tissue Mobility,Strength Other Concerns Barriers to Rehabilitation Pt is a current smoker (1.5 packs/ day) and alcohol abuser (6 cans/week). 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 LTG Duration 12 weeks LEFS Impairment pt scores 25 on LEFS Short Term Goal (STG) pt will score 40 or above on LEFS STG Duration 6 weeks Mcfp Goal (LTG) pt will score 50 or above on LEFS to improve his functional mobility and strength so he can work on his [employer] project without aggravation. LTG Duration 12 weeks Assessment Summary Assessment Pt is a 49yo male presented to clinic with c/o chronic LBP > 1 year who is also a current smoker (1.5 packs a day) and alcohol user (6 cans/day). Upon assessment, pt does not have any neurological signs except slight increased pain at R lumbar with SLR on L. He does not have any radiating pain nor significant LE weakness/ sensation loss. Pt overall demonstrates good trunk (worst at T-spine) and hip mobility but he was extremely cautious with his movements. Pt did report he is very skeptical regarding mvoing his body. In my professional opinion, Pt possibly has Complex regional pain syndrome who is very pain sensitive to movement and pressure at his lumbar region. This Pt spent approx 15 mins to explain role of PT and pain science regarding chronic pain. Pt was receptive and agreed to attempt PT even though this is possibly going to be a long course of rehab d /t his chronic pain and his tobacco and alcohol use. 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 Physical Therapy Plan Frequency and Duration Frequency of Treatment 2x/Week Duration of Treatment 12 weeks Plan of Care Start Date 04/11/20 Plan of Care End Date 07/10/20 Next Visit Focus/Plan Next Note Type Treatment Note Next Visit Plan bike cat camel seated reach LTR with ball ab curl with ball. Plan of Care Dates Plan of Care Start Date 04/11/20 Plan of Care End Date 07/10/20 Electronically Signed by: Juan A Bermudez PT 04/11/20 [id number] Please Sign and Return: I have reviewed this Plan of Care and certify that the skilled therapy services above are required to meet the patient?s needs. Physician Signature Date Printed Name and Credentials Clinical Instructor Signature Printed Name and Credentials
--- NOTE | 2020-04-21 07:29 | PT-OP ANOTE ---
Pt cancelled today's appt last night, couldn't sleep.
--- NOTE | 2020-04-26 11:13 | PT.OTN ---
Current Diagnoses Spondylosis without myelopathy or radiculopathy, lumbosacral region (04/26/20) Pain in right foot (04/26/20) Pain in left foot (04/26/20) Physical Therapy Treatment Note PT-OP-A Visit Information Start: 04/11/20 12:51 Freq: Status: Active Protocol: Document 04/26/20 10:35 HH (Rec: 04/26/20 11:13 HH [id number]) Out-Patient Physical Therapy Visit Information Visit Information Visit Type Treatment Note Visit Start Time 10:32 Visit Stop Time 11:15 Total Visit Minutes 43 Visit Number 2 Number of LEAD SOFTWARE TESTER Visits 0 PT-OP-B Current Condition Start: 04/11/20 12:51 Freq: Status: Active Protocol: Document 04/11/20 14:33 HH (Rec: 04/11/20 12:58 HH [email or web address]) Current Condition History of Current Condition Onset Date more than a year ago Current Complaints Chronic LBP and bilateral foot pain History of Current Condition Pt is a 49yo male with a hx of chronic LBP, along with hypertension, current smoker ( 1.5 packs/day) and drinker (6 cans of beer and 2 fingers of vodka with orange juice daily) . Pt said that he tends to drink alcohol to take the pain away. His pain is mostly achy and located at the center of low back and R side with occasional sharp pain with certain movements. Lifting, moving around, bending over tend to aggravate his symptoms . And he has been moving slowly since last year and wearing back brace since a few months ago. Pt was admitted to ER twice 10/29/19 and 11/03/19 d/t severe back pain. He went to see orthopedist Dr. Zelaya for consult who recommended him physical therapy and stated he does not require surgery. 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 Prior Treatments and Tests MRI 11/05/19 T12-L1: Normal appearance. L1-L2: Normal appearance. L2-L3: No significant central canal narrowing is seen. L3-L4: The disc height is well-preserved. Loss of disc signal is seen at this level. Mild to moderate disc bulge is seen. There is mild bilateral neural foraminal narrowing seen. Mild to moderate central canal narrowing is seen. L4-L5: The disc height and disc signal relatively well- preserved. Mild to moderate disc bulge is seen. There is a mild central disc protrusion. Mild facet joint hypertrophy is seen. There is minimal to mild right-sided and mild to moderate left-sided neural foraminal narrowing seen. Mild central canal narrowing is seen. L5-S1: No significant abnormality is seen. Personal Factors Other Personal Factors That May Effect hypertension, current smoker ( Therapy/Recovery 1.5 packs/day) and drinker (6 cans of beer and 2 fingers of vodka with orange juice daily) PT-OP-C Subjective Start: 04/11/20 12:51 Freq: Status: Active Protocol: Document 04/26/20 10:35 HH (Rec: 04/26/20 11:13 HH [id number]) OP-PT Subjective Patient Comments Patient Comments Im very sleepy and i am not a morning person. PT-OP-D Balance Start: 04/11/20 12:51 Freq: Status: Active Protocol: Document 04/11/20 14:33 HH (Rec: 04/11/20 17:14 HH [email or web address]) Balance Tests Single Limb Standing Single Limb- Right 10 Single Limb- Left 12 PT-OP-F Manual Assessment Start: 04/11/20 12:51 Freq: Status: Active Protocol: Document 04/11/20 14:33 HH (Rec: 04/11/20 17:14 HH [email or web address]) Manual Assessments Joint Mobility Assessment Joint Mobility Assessment significant pain to PA mob from T4-T10 mild pain to PA mob L2-L5 PT-OP-H Neuro Start: 04/11/20 12:51 Freq: Status: Active Protocol: Document 04/11/20 14:33 HH (Rec: 04/11/20 17:14 HH [email or web address]) Sensation Evaluation Gross Sensation Gross Sensation WNL Deep Tendon Reflex & Clonus Assessment Deep Tendon Reflex Bilateral Achilles Deep Tendon Reflex 2+ Normal Bilateral Patellar Deep Tendon Reflex 1+ Diminished Vital Signs Blood Pressure Sitting Blood Pressure (90/60-120/80 mmHg) 136/70 H Blood Pressure Source Manual Cuff,Right Upper Extremity PT-OP-K Range of Motion Start: 04/11/20 12:51 Freq: Status: Active Protocol: Document 04/11/20 14:33 HH (Rec: 04/11/20 17:14 HH [email or web address]) Lumbar Spine Range of Motion Lumbar Spine Active Degrees Comments toe toe test= 3' from floor with pain at LB L lateral flexion = 25 R lateral flexion= 25 extension = shoulder meet heels with significant pain. Hip Goniometric Range of Motion Hip Left Active Straight Leg Raise 75 Comments slight discomfort at R low back Right Active Hip ROM WFL Yes Straight Leg Raise 85 Comments no discomfort noted except hamstrings tightness PT-OP-L Special Tests Start: 04/11/20 12:51 Freq: Status: Active Protocol: Document 04/11/20 14:33 HH (Rec: 04/11/20 17:14 [email or web address]) Special Tests Lumbar Spine Special Tests PA mob Test Results at mid to low T spine Comments significant pain to PA mob from T4-T10 Straight Leg Raise Test Results +ve L Comments slight discomfort at R low back with SLR on L Prone Instability Test Test Results +ve B Comments pain improved Will Test Results -ve B PT-OP-Q Treatments Start: 04/11/20 12:51 Freq: Status: Active Protocol: Document 04/26/20 10:35 HH (Rec: 04/26/20 11:13 [id number]) Cardio Equipment Bicycle (Upright) Duration (Minutes) 6 Resistance 5 Therapeutic Exercises Prone Exercises cat camel Side bilateral Reps/Minutes 15 x 2 Sidelying Exercises seated flexion and extension Sidelying Exercise Name floor touch then back to neutral spine Reps/Minutes 10 x2 Sitting Exercises pelvic tilt Reps/Minutes 10x2 Comments for hep, min cues needed. Manual Therapy Treatment Soft Tissue Mobilization paraspinals Mobilization Type Rolling,Sustained Pressure, Trigger Point Release Intensity/Depth Moderate Body Position Prone Joint Mobilizations T spine Joint PA mob Direction PA mob Grade II Body Position Prone Comments significant discomfort during mob PT-OP-R Modalities Start: 04/11/20 12:51 Freq: Status: Active Protocol: Document 04/26/20 11:13 HH (Rec: 04/26/20 11:13 [id number]) Hot Pack/Cold Pack Treatment Hot Pack Location lumbar Patient Position Supine Treatment Duration (minutes) 10 Patient Tolerance Good PT-OP-T Assessment and Plan Start: 04/11/20 12:51 Freq: Status: Active Protocol: Document 04/26/20 10:35 HH (Rec: 04/26/20 11:13 [id number]) Physical Therapy Assessment Goals pain Impairment Pt has constant LBP >6/10 in a daily basis Short Term Goal (STG) pt will have no more than 5/10 in a daily basis STG Duration 6 weeks Fpc Goal (LTG) pt will have no more than 4/10 LBP in a daily basis including light lifting activities and walk >0.5 miles LTG Duration 12 weeks Oswestry LBP Impairment Pt scores 42% on Oswestry Short Term Goal (STG) Pt will score less than 30 on Oswestry LBP questionnaire STG Duration 6 weeks Fpc Goal (LTG) pt will score less than 20 on Oswestry LBP questionnaire so 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 LTG Duration 12 weeks LEFS Impairment pt scores 25 on LEFS Short Term Goal (STG) pt will score 40 or above on LEFS STG Duration 6 weeks Fpc Goal (LTG) pt will score 50 or above on LEFS to improve his functional mobility and strength so he can work on his [employer] project without aggravation. LTG Duration 12 weeks Assessment Summary Assessment Pt is very sleepy today and he stated that this is normal to him since this is morning session. Pt had a hard time staying awake but he acutually felt a lot better with his LB after manual therapy and movement education. Pt was able to toe touch with min discomfort at the end of session. Physical Therapy Plan Frequency and Duration Frequency of Treatment 2x/Week Duration of Treatment 12 weeks Plan of Care Start Date 04/11/20 Plan of Care End Date 07/10/20 Next Visit Focus/Plan Next Note Type Treatment Note Next Visit Plan bike cat camel seated reach LTR with ball ab curl with ball.
--- NOTE | 2020-04-28 13:45 | PT.OTN ---
Current Diagnoses Spondylosis without myelopathy or radiculopathy, lumbosacral region (04/28/20) Pain in right foot (04/28/20) Pain in left foot (04/28/20) Physical Therapy Treatment Note PT-OP-A Visit Information Start: 04/11/20 12:51 Freq: Status: Active Protocol: Document 04/28/20 13:01 HH (Rec: 04/28/20 13:43 [id number]) Out-Patient Physical Therapy Visit Information Visit Information Visit Type Treatment Note Visit Start Time 13:02 Visit Stop Time 13:45 Total Visit Minutes 43 Visit Number 3 Number of DIESEL TRUCK DRIVER Visits 0 PT-OP-B Current Condition Start: 04/11/20 12:51 Freq: Status: Active Protocol: Document 04/11/20 14:33 HH (Rec: 04/11/20 12:58 [email or web address]) Current Condition History of Current Condition Onset Date more than a year ago Current Complaints Chronic LBP and bilateral foot pain History of Current Condition Pt is a 49yo male with a hx of chronic LBP, along with hypertension, current smoker ( 1.5 packs/day) and drinker (6 cans of beer and 2 fingers of vodka with orange juice daily) . Pt said that he tends to drink alcohol to take the pain away. His pain is mostly achy and located at the center of low back and R side with occasional sharp pain with certain movements. Lifting, moving around, bending over tend to aggravate his symptoms . And he has been moving slowly since last year and wearing back brace since a few months ago. Pt was admitted to ER twice 10/29/19 and 11/03/19 d/t severe back pain. He went to see orthopedist Dr. Zelaya for consult who recommended him physical therapy and stated he does not require surgery. 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 Prior Treatments and Tests MRI 11/05/19 T12-L1: Normal appearance. L1-L2: Normal appearance. L2-L3: No significant central canal narrowing is seen. L3-L4: The disc height is well-preserved. Loss of disc signal is seen at this level. Mild to moderate disc bulge is seen. There is mild bilateral neural foraminal narrowing seen. Mild to moderate central canal narrowing is seen. L4-L5: The disc height and disc signal relatively well- preserved. Mild to moderate disc bulge is seen. There is a mild central disc protrusion. Mild facet joint hypertrophy is seen. There is minimal to mild right-sided and mild to moderate left-sided neural foraminal narrowing seen. Mild central canal narrowing is seen. L5-S1: No significant abnormality is seen. Personal Factors Other Personal Factors That May Effect hypertension, current smoker ( Therapy/Recovery 1.5 packs/day) and drinker (6 cans of beer and 2 fingers of vodka with orange juice daily) PT-OP-C Subjective Start: 04/11/20 12:51 Freq: Status: Active Protocol: Document 04/28/20 13:01 HH (Rec: 04/28/20 13:43 HH [id number]) OP-PT Subjective Patient Comments Patient Comments Im doing pretty good and i felt really good after last session Patient Reported Progress Improving PT-OP-D Balance Start: 04/11/20 12:51 Freq: Status: Active Protocol: Document 04/11/20 14:33 HH (Rec: 04/11/20 17:14 [email or web address]) Balance Tests Single Limb Standing Single Limb- Right 10 Single Limb- Left 12 PT-OP-F Manual Assessment Start: 04/11/20 12:51 Freq: Status: Active Protocol: Document 04/11/20 14:33 HH (Rec: 04/11/20 17:14 [email or web address]) Manual Assessments Joint Mobility Assessment Joint Mobility Assessment significant pain to PA mob from T4-T10 mild pain to PA mob L2-L5 PT-OP-H Neuro Start: 04/11/20 12:51 Freq: Status: Active Protocol: Document 04/11/20 14:33 HH (Rec: 04/11/20 17:14 [email or web address]) Sensation Evaluation Gross Sensation Gross Sensation WNL Deep Tendon Reflex & Clonus Assessment Deep Tendon Reflex Bilateral Achilles Deep Tendon Reflex 2+ Normal Bilateral Patellar Deep Tendon Reflex 1+ Diminished Vital Signs Blood Pressure Sitting Blood Pressure (90/60-120/80 mmHg) 136/70 H Blood Pressure Source Manual Cuff,Right Upper Extremity PT-OP-K Range of Motion Start: 04/11/20 12:51 Freq: Status: Active Protocol: Document 04/11/20 14:33 HH (Rec: 04/11/20 17:14 [email or web address]) Lumbar Spine Range of Motion Lumbar Spine Active Degrees Comments toe toe test= 3' from floor with pain at LB L lateral flexion = 25 R lateral flexion= 25 extension = shoulder meet heels with significant pain. Hip Goniometric Range of Motion Hip Left Active Straight Leg Raise 75 Comments slight discomfort at R low back Right Active Hip ROM WFL Yes Straight Leg Raise 85 Comments no discomfort noted except hamstrings tightness PT-OP-L Special Tests Start: 04/11/20 12:51 Freq: Status: Active Protocol: Document 04/11/20 14:33 HH (Rec: 04/11/20 17:14 HH [email or web address]) Special Tests Lumbar Spine Special Tests PA mob Test Results at mid to low T spine Comments significant pain to PA mob from T4-T10 Straight Leg Raise Test Results +ve L Comments slight discomfort at R low back with SLR on L Prone Instability Test Test Results +ve B Comments pain improved Will Test Results -ve B PT-OP-Q Treatments Start: 04/11/20 12:51 Freq: Status: Active Protocol: Document 04/28/20 13:01 HH (Rec: 04/28/20 13:43 [id number]) Cardio Equipment Recumbent Stepper (Sci-Fit) Duration (Minutes) 8 Seat Position position ten Gym Equipment Shuttle Recovery U squat Resistance #50 Shuttle Recovery Platform Stable Therapeutic Exercises Supine Exercises piriformis stretch Side bilateral Reps/Minutes 10 sec hold x 5 Comments PT assisted, pt reports pain is gone for SLR after. HS stretch Side bilateral Reps/Minutes 10 sec hold x5 Comments PT assisted Prone Exercises cat camel Side bilateral Reps/Minutes 15 x 2 Sidelying Exercises seated flexion and extension Sidelying Exercise Name floor touch then back to neutral spine Reps/Minutes 10 x2 Sitting Exercises seated Tspine flexion and extension Reps/Minutes 10 x 2 pelvic tilt Reps/Minutes 10x2 Comments for hep, min cues needed. Manual Therapy Treatment Soft Tissue Mobilization paraspinals Mobilization Type Rolling,Sustained Pressure, Trigger Point Release Intensity/Depth Moderate Body Position Prone Joint Mobilizations T spine Joint PA mob Direction PA mob Grade II Body Position Prone Comments min discomfort during mob PT-OP-R Modalities Start: 04/11/20 12:51 Freq: Status: Active Protocol: Document 04/26/20 11:13 HH (Rec: 04/26/20 11:13 [id number]) Hot Pack/Cold Pack Treatment Hot Pack Location lumbar Patient Position Supine Treatment Duration (minutes) 10 Patient Tolerance Good PT-OP-T Assessment and Plan Start: 04/11/20 12:51 Freq: Status: Active Protocol: Document 04/28/20 13:01 (Rec: 04/28/20 13:43 [id number]) Physical Therapy Assessment Goals pain Impairment Pt has constant LBP >6/10 in a daily basis Short Term Goal (STG) pt will have no more than 5/10 in a daily basis STG Duration 6 weeks Buffet Attendant Goal (LTG) pt will have no more than 4/10 LBP in a daily basis including light lifting activities and walk >0.5 miles LTG Duration 12 weeks Oswestry LBP Impairment Pt scores 42% on Oswestry Short Term Goal (STG) Pt will score less than 30 on Oswestry LBP questionnaire STG Duration 6 weeks Detention Goal (LTG) pt will score less than 20 on Oswestry LBP questionnaire so he can lift 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 LTG Duration 12 weeks LEFS Impairment pt scores 25 on LEFS Short Term Goal (STG) pt will score 40 or above on LEFS STG Duration 6 weeks Buffet Attendant Goal (LTG) pt will score 50 or above on LEFS to improve his functional mobility and strength so he can work on his [employer] project without aggravation. LTG Duration 12 weeks Assessment Summary Assessment Pt shows good progress today with min discomfort during PA mob. He is also able to full ROM ex for T spine and L spine . Pt overall shows decreased pain sensivitity to movement today. Cont POC Physical Therapy Plan Frequency and Duration Frequency of Treatment 2x/Week Duration of Treatment 12 weeks Plan of Care Start Date 04/11/20 Plan of Care End Date 07/10/20 Next Visit Focus/Plan Next Note Type Treatment Note Next Visit Plan bike cat camel seated reach LTR with ball ab curl with ball.
--- NOTE | 2020-05-09 12:05 | PT.OTN ---
Current Diagnoses Spondylosis without myelopathy or radiculopathy, lumbosacral region (05/09/20) Pain in right foot (05/09/20) Pain in left foot (05/09/20) Physical Therapy Treatment Note PT-OP-A Visit Information Start: 04/11/20 12:51 Freq: Status: Active Protocol: Document 05/09/20 11:25 HH (Rec: 05/09/20 12:05 [id number]) Out-Patient Physical Therapy Visit Information Visit Information Visit Type Treatment Note Visit Start Time 11:19 Visit Stop Time 12:00 Total Visit Minutes 41 Visit Number 4 Number of AUTOMOTIVE SALES SPECIALIST Visits 0 PT-OP-B Current Condition Start: 04/11/20 12:51 Freq: Status: Active Protocol: Document 04/11/20 14:33 HH (Rec: 04/11/20 12:58 [email or web address]) Current Condition History of Current Condition Onset Date more than a year ago Current Complaints Chronic LBP and bilateral foot pain History of Current Condition Pt is a 49yo male with a hx of chronic LBP, along with hypertension, current smoker ( 1.5 packs/day) and drinker (6 cans of beer and 2 fingers of vodka with orange juice daily) . Pt said that he tends to drink alcohol to take the pain away. His pain is mostly achy and located at the center of low back and R side with occasional sharp pain with certain movements. Lifting, moving around, bending over tend to aggravate his symptoms . And he has been moving slowly since last year and wearing back brace since a few months ago. Pt was admitted to ER twice 10/29/19 and 11/03/19 d/t severe back pain. He went to see orthopedist Dr. Zelaya for consult who recommended him physical therapy and stated he does not require surgery. 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 Prior Treatments and Tests MRI 11/05/19 T12-L1: Normal appearance. L1-L2: Normal appearance. L2-L3: No significant central canal narrowing is seen. L3-L4: The disc height is well-preserved. Loss of disc signal is seen at this level. Mild to moderate disc bulge is seen. There is mild bilateral neural foraminal narrowing seen. Mild to moderate central canal narrowing is seen. L4-L5: The disc height and disc signal relatively well- preserved. Mild to moderate disc bulge is seen. There is a mild central disc protrusion. Mild facet joint hypertrophy is seen. There is minimal to mild right-sided and mild to moderate left-sided neural foraminal narrowing seen. Mild central canal narrowing is seen. L5-S1: No significant abnormality is seen. Personal Factors Other Personal Factors That May Effect hypertension, current smoker ( Therapy/Recovery 1.5 packs/day) and drinker (6 cans of beer and 2 fingers of vodka with orange juice daily) PT-OP-C Subjective Start: 04/11/20 12:51 Freq: Status: Active Protocol: Document 05/09/20 11:25 HH (Rec: 05/09/20 12:05 HH [id number]) OP-PT Subjective Patient Comments Patient Comments Im more confident for bending over now. Overall its pretty good and elena been doing my exercises. Patient Reported Progress Improving PT-OP-D Balance Start: 04/11/20 12:51 Freq: Status: Active Protocol: Document 04/11/20 14:33 HH (Rec: 04/11/20 17:14 HH [email or web address]) Balance Tests Single Limb Standing Single Limb- Right 10 Single Limb- Left 12 PT-OP-F Manual Assessment Start: 04/11/20 12:51 Freq: Status: Active Protocol: Document 04/11/20 14:33 HH (Rec: 04/11/20 17:14 HH [email or web address]) Manual Assessments Joint Mobility Assessment Joint Mobility Assessment significant pain to PA mob from T4-T10 mild pain to PA mob L2-L5 PT-OP-H Neuro Start: 04/11/20 12:51 Freq: Status: Active Protocol: Document 04/11/20 14:33 HH (Rec: 04/11/20 17:14 HH [email or web address]) Sensation Evaluation Gross Sensation Gross Sensation WNL Deep Tendon Reflex & Clonus Assessment Deep Tendon Reflex Bilateral Achilles Deep Tendon Reflex 2+ Normal Bilateral Patellar Deep Tendon Reflex 1+ Diminished Vital Signs Blood Pressure Sitting Blood Pressure (90/60-120/80 mmHg) 136/70 H Blood Pressure Source Manual Cuff,Right Upper Extremity PT-OP-K Range of Motion Start: 04/11/20 12:51 Freq: Status: Active Protocol: Document 04/11/20 14:33 HH (Rec: 04/11/20 17:14 HH [email or web address]) Lumbar Spine Range of Motion Lumbar Spine Active Degrees Comments toe toe test= 3' from floor with pain at LB L lateral flexion = 25 R lateral flexion= 25 extension = shoulder meet heels with significant pain. Hip Goniometric Range of Motion Hip Left Active Straight Leg Raise 75 Comments slight discomfort at R low back Right Active Hip ROM WFL Yes Straight Leg Raise 85 Comments no discomfort noted except hamstrings tightness PT-OP-L Special Tests Start: 04/11/20 12:51 Freq: Status: Active Protocol: Document 04/11/20 14:33 HH (Rec: 04/11/20 17:14 [email or web address]) Special Tests Lumbar Spine Special Tests PA mob Test Results at mid to low T spine Comments significant pain to PA mob from T4-T10 Straight Leg Raise Test Results +ve L Comments slight discomfort at R low back with SLR on L Prone Instability Test Test Results +ve B Comments pain improved Will Test Results -ve B PT-OP-Q Treatments Start: 04/11/20 12:51 Freq: Status: Active Protocol: Document 05/09/20 11:25 HH (Rec: 05/09/20 12:05 [id number]) Cardio Equipment Bicycle (Upright) Duration (Minutes) 6 Resistance 5 Therapeutic Exercises Supine Exercises piriformis stretch Side bilateral Reps/Minutes 10 sec hold x 5 Comments PT assisted, pt reports pain is gone for SLR after. HS stretch Side bilateral Reps/Minutes 10 sec hold x5 Comments PT assisted Sidelying Exercises open book Side bilateral Reps/Minutes 10 x1 Comments pt reports feel good seated flexion and extension Sidelying Exercise Name floor touch then back to neutral spine Reps/Minutes 10 x2 Sitting Exercises seated Tspine flexion and extension Reps/Minutes 10 x 2 pelvic tilt Reps/Minutes 10x2 Comments for hep, min cues needed. Standing Exercises J curl Side bilateral Reps/Minutes 5 x 2 Manual Therapy Treatment Soft Tissue Mobilization paraspinals Mobilization Type Rolling,Sustained Pressure, Trigger Point Release Intensity/Depth Moderate Body Position Prone Joint Mobilizations T spine Joint PA mob Direction PA mob Grade II Body Position Prone Comments min discomfort during mob PT-OP-R Modalities Start: 04/11/20 12:51 Freq: Status: Active Protocol: Document 04/26/20 11:13 HH (Rec: 04/26/20 11:13 [id number]) Hot Pack/Cold Pack Treatment Hot Pack Location lumbar Patient Position Supine Treatment Duration (minutes) 10 Patient Tolerance Good PT-OP-T Assessment and Plan Start: 04/11/20 12:51 Freq: Status: Active Protocol: Document 05/09/20 11:25 (Rec: 05/09/20 12:05 [id number]) Physical Therapy Assessment Goals pain Impairment Pt has constant LBP >6/10 in a daily basis Short Term Goal (STG) pt will have no more than 5/10 in a daily basis STG Duration 6 weeks Business Line Controller Goal (LTG) pt will have no more than 4/10 LBP in a daily basis including light lifting activities and walk >0.5 miles LTG Duration 12 weeks Oswestry LBP Impairment Pt scores 42% on Oswestry Short Term Goal (STG) Pt will score less than 30 on Oswestry LBP questionnaire STG Duration 6 weeks Senior Care Goal (LTG) pt will score less than 20 on Oswestry LBP questionnaire so 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 LTG Duration 12 weeks Assessment Summary Assessment Pt has min discomfort for PA mob but needs cue for segmental spinal flexion, especially mid Tspine. Physical Therapy Plan Frequency and Duration Frequency of Treatment 2x/Week Duration of Treatment 12 weeks Plan of Care Start Date 04/11/20 Plan of Care End Date 07/10/20 Next Visit Focus/Plan Next Note Type Treatment Note Next Visit Plan bike cat camel seated reach LTR with ball ab curl with ball.
--- NOTE | 2020-05-23 14:30 | PT.OTN ---
Current Diagnoses Spondylosis without myelopathy or radiculopathy, lumbosacral region (05/23/20) Pain in right foot (05/23/20) Pain in left foot (05/23/20) Physical Therapy Treatment Note PT-OP-A Visit Information Start: 04/11/20 12:51 Freq: Status: Active Protocol: Document 05/23/20 13:50 HH (Rec: 05/23/20 14:30 HH [id number]) Out-Patient Physical Therapy Visit Information Visit Information Visit Type Treatment Note Visit Start Time 13:48 Visit Stop Time 14:30 Total Visit Minutes 42 Visit Number 5 Number of GRAPHIC DESIGN SPECIALIST Visits 0 PT-OP-B Current Condition Start: 04/11/20 12:51 Freq: Status: Active Protocol: Document 04/11/20 14:33 HH (Rec: 04/11/20 12:58 HH [email or web address]) Current Condition History of Current Condition Onset Date more than a year ago Current Complaints Chronic LBP and bilateral foot pain History of Current Condition Pt is a 49yo male with a hx of chronic LBP, along with hypertension, current smoker ( 1.5 packs/day) and drinker (6 cans of beer and 2 fingers of vodka with orange juice daily) . Pt said that he tends to drink alcohol to take the pain away. His pain is mostly achy and located at the center of low back and R side with occasional sharp pain with certain movements. Lifting, moving around, bending over tend to aggravate his symptoms . And he has been moving slowly since last year and wearing back brace since a few months ago. Pt was admitted to ER twice 10/29/19 and 11/03/19 d/t severe back pain. He went to see orthopedist Dr. Zelaya for consult who recommended him physical therapy and stated he does not require surgery. 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 Prior Treatments and Tests MRI 11/05/19 T12-L1: Normal appearance. L1-L2: Normal appearance. L2-L3: No significant central canal narrowing is seen. L3-L4: The disc height is well-preserved. Loss of disc signal is seen at this level. Mild to moderate disc bulge is seen. There is mild bilateral neural foraminal narrowing seen. Mild to moderate central canal narrowing is seen. L4-L5: The disc height and disc signal relatively well- preserved. Mild to moderate disc bulge is seen. There is a mild central disc protrusion. Mild facet joint hypertrophy is seen. There is minimal to mild right-sided and mild to moderate left-sided neural foraminal narrowing seen. Mild central canal narrowing is seen. L5-S1: No significant abnormality is seen. Personal Factors Other Personal Factors That May Effect hypertension, current smoker ( Therapy/Recovery 1.5 packs/day) and drinker (6 cans of beer and 2 fingers of vodka with orange juice daily) PT-OP-C Subjective Start: 04/11/20 12:51 Freq: Status: Active Protocol: Document 05/23/20 13:50 HH (Rec: 05/23/20 14:30 HH [id number]) OP-PT Subjective Patient Comments Patient Comments Im doing pretty good and i dont have much of the pain as before. But my back is still sore often Patient Reported Progress Improving PT-OP-D Balance Start: 04/11/20 12:51 Freq: Status: Active Protocol: Document 04/11/20 14:33 HH (Rec: 04/11/20 17:14 HH [email or web address]) Balance Tests Single Limb Standing Single Limb- Right 10 Single Limb- Left 12 PT-OP-F Manual Assessment Start: 04/11/20 12:51 Freq: Status: Active Protocol: Document 04/11/20 14:33 HH (Rec: 04/11/20 17:14 HH [email or web address]) Manual Assessments Joint Mobility Assessment Joint Mobility Assessment significant pain to PA mob from T4-T10 mild pain to PA mob L2-L5 PT-OP-H Neuro Start: 04/11/20 12:51 Freq: Status: Active Protocol: Document 04/11/20 14:33 HH (Rec: 04/11/20 17:14 HH [email or web address]) Sensation Evaluation Gross Sensation Gross Sensation WNL Deep Tendon Reflex & Clonus Assessment Deep Tendon Reflex Bilateral Achilles Deep Tendon Reflex 2+ Normal Bilateral Patellar Deep Tendon Reflex 1+ Diminished Vital Signs Blood Pressure Sitting Blood Pressure (90/60-120/80 mmHg) 136/70 H Blood Pressure Source Manual Cuff,Right Upper Extremity PT-OP-K Range of Motion Start: 04/11/20 12:51 Freq: Status: Active Protocol: Document 04/11/20 14:33 HH (Rec: 04/11/20 17:14 [email or web address]) Lumbar Spine Range of Motion Lumbar Spine Active Degrees Comments toe toe test= 3' from floor with pain at LB L lateral flexion = 25 R lateral flexion= 25 extension = shoulder meet heels with significant pain. Hip Goniometric Range of Motion Hip Left Active Straight Leg Raise 75 Comments slight discomfort at R low back Right Active Hip ROM WFL Yes Straight Leg Raise 85 Comments no discomfort noted except hamstrings tightness PT-OP-L Special Tests Start: 04/11/20 12:51 Freq: Status: Active Protocol: Document 04/11/20 14:33 HH (Rec: 04/11/20 17:14 [email or web address]) Special Tests Lumbar Spine Special Tests PA mob Test Results at mid to low T spine Comments significant pain to PA mob from T4-T10 Straight Leg Raise Test Results +ve L Comments slight discomfort at R low back with SLR on L Prone Instability Test Test Results +ve B Comments pain improved Will Test Results -ve B PT-OP-Q Treatments Start: 04/11/20 12:51 Freq: Status: Active Protocol: Document 05/23/20 13:50 HH (Rec: 05/23/20 14:30 [id number]) Therapeutic Exercises Supine Exercises piriformis stretch Side bilateral Reps/Minutes 10 sec hold x 5 Comments PT assisted, pt reports pain is gone for SLR after. HS stretch Side bilateral Reps/Minutes 10 sec hold x5 Comments PT assisted Sitting Exercises seated Tspine flexion and extension Reps/Minutes 10 x 2 Standing Exercises pigeon stretch Side bilateral Reps/Minutes 10 sec each x 3 sets J curl Side bilateral Equipment Used 20lbs KB Reps/Minutes 6 x2 Comments cues on segmental mobility Manual Therapy Treatment Soft Tissue Mobilization paraspinals Mobilization Type Rolling,Sustained Pressure, Trigger Point Release Intensity/Depth Moderate Body Position Prone Joint Mobilizations T spine Joint PA mob Direction PA mob Grade II Body Position Prone Comments min discomfort during mob PT-OP-R Modalities Start: 04/11/20 12:51 Freq: Status: Active Protocol: Document 04/26/20 11:13 HH (Rec: 04/26/20 11:13 [id number]) Hot Pack/Cold Pack Treatment Hot Pack Location lumbar Patient Position Supine Treatment Duration (minutes) 10 Patient Tolerance Good PT-OP-T Assessment and Plan Start: 04/11/20 12:51 Freq: Status: Active Protocol: Document 05/23/20 13:50 HH (Rec: 05/23/20 14:30 HH [id number]) Physical Therapy Assessment Goals pain Impairment Pt has constant LBP >6/10 in a daily basis Short Term Goal (STG) pt will have no more than 5/10 in a daily basis STG Duration 6 weeks Intermediate Goal (LTG) pt will have no more than 4/10 LBP in a daily basis including light lifting activities and walk >0.5 miles LTG Duration 12 weeks Oswestry LBP Impairment Pt scores 42% on Oswestry Short Term Goal (STG) Pt will score less than 30 on Oswestry LBP questionnaire STG Duration 6 weeks Instrument Repair Supervisor Goal (LTG) pt will score less than 20 on Oswestry LBP questionnaire so he can lift 30 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 LTG Duration 12 weeks LEFS Impairment pt scores 25 on LEFS Short Term Goal (STG) pt will score 40 or above on LEFS STG Duration 6 weeks Instrument Repair Supervisor Goal (LTG) pt will score 50 or above on LEFS to improve his functional mobility and strength so he can work on his [employer] project without aggravation. LTG Duration 12 weeks Assessment Summary Assessment Pt progress well so far who doesnt show lea sign recovering from bend over position. Added weighted J curl and deadlift with 20lbs KB. Physical Therapy Plan Frequency and Duration Frequency of Treatment 2x/Week Duration of Treatment 12 weeks Plan of Care Start Date 04/11/20 Plan of Care End Date 07/10/20 Next Visit Focus/Plan Next Note Type Treatment Note Next Visit Plan bike cat camel seated reach LTR with ball ab curl with ball.
--- NOTE | 2020-05-26 14:30 | PT.OTN ---
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 Pt said that he tends to drink alcohol to take the pain away. His pain is mostly achy and located at the center of low back and R side with occasional sharp pain with certain movements. Lifting, moving around, bending over tend to aggravate his symptoms . And he has been moving slowly since last year and wearing back brace since a few months ago. Pt was admitted to ER twice 10/29/19 and 11/03/19 d/t severe back pain. He went to see orthopedist Dr. Zelaya for consult who recommended him physical therapy and stated he does not require surgery. 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 Prior Treatments and Tests MRI 11/05/19 T12-L1: Normal appearance. L1-L2: Normal appearance. L2-L3: No significant central canal narrowing is seen. L3-L4: The disc height is well-preserved. Loss of disc signal is seen at this level. Mild to moderate disc bulge is seen. There is mild bilateral neural foraminal narrowing seen. Mild to moderate central canal narrowing is seen. L4-L5: The disc height and disc signal relatively well- preserved. Mild to moderate disc bulge is seen. There is a mild central disc protrusion. Mild facet joint hypertrophy is seen. There is minimal to mild right-sided and mild to moderate left-sided neural foraminal narrowing seen. Mild central canal narrowing is seen. L5-S1: No significant abnormality is seen. Personal Factors Other Personal Factors That May Effect hypertension, current smoker ( Therapy/Recovery 1.5 packs/day) and drinker (6 cans of beer and 2 fingers of vodka with orange juice daily) PT-OP-C Subjective Start: 04/11/20 12:51 Freq: Status: Active Protocol: Document 05/26/20 13:47 HH (Rec: 05/26/20 14:26 HH [id number]) OP-PT Subjective Patient Comments Patient Comments I felt very good from last time and my pain was totally gone. Patient Reported Progress Improving PT-OP-D Balance Start: 04/11/20 12:51 Freq: Status: Active Protocol: Document 04/11/20 14:33 HH (Rec: 04/11/20 17:14 HH [email or web address]) Balance Tests Single Limb Standing Single Limb- Right 10 Single Limb- Left 12 PT-OP-F Manual Assessment Start: 04/11/20 12:51 Freq: Status: Active Protocol: Document 04/11/20 14:33 HH (Rec: 04/11/20 17:14 HH [email or web address]) Manual Assessments Joint Mobility Assessment Joint Mobility Assessment significant pain to PA mob from T4-T10 mild pain to PA mob L2-L5 PT-OP-H Neuro Start: 04/11/20 12:51 Freq: Status: Active Protocol: Document 04/11/20 14:33 HH (Rec: 04/11/20 17:14 HH [email or web address]) Sensation Evaluation Gross Sensation Gross Sensation WNL Deep Tendon Reflex & Clonus Assessment Deep Tendon Reflex Bilateral Achilles Deep Tendon Reflex 2+ Normal Bilateral Patellar Deep Tendon Reflex 1+ Diminished Vital Signs Blood Pressure Sitting Blood Pressure (90/60-120/80 mmHg) 136/70 H Blood Pressure Source Manual Cuff,Right Upper Extremity PT-OP-K Range of Motion Start: 04/11/20 12:51 Freq: Status: Active Protocol: Document 04/11/20 14:33 HH (Rec: 04/11/20 17:14 HH [email or web address]) Lumbar Spine Range of Motion Lumbar Spine Active Degrees Comments toe toe test= 3' from floor with pain at LB L lateral flexion = 25 R lateral flexion= 25 extension = shoulder meet heels with significant pain. Hip Goniometric Range of Motion Hip Left Active Straight Leg Raise 75 Comments slight discomfort at R low back Right Active Hip ROM WFL Yes Straight Leg Raise 85 Comments no discomfort noted except hamstrings tightness PT-OP-L Special Tests Start: 04/11/20 12:51 Freq: Status: Active Protocol: Document 04/11/20 14:33 HH (Rec: 04/11/20 17:14 [email or web address]) Special Tests Lumbar Spine Special Tests PA mob Test Results at mid to low T spine Comments significant pain to PA mob from T4-T10 Straight Leg Raise Test Results +ve L Comments slight discomfort at R low back with SLR on L Prone Instability Test Test Results +ve B Comments pain improved Will Test Results -ve B PT-OP-Q Treatments Start: 04/11/20 12:51 Freq: Status: Active Protocol: Document 05/26/20 13:47 HH (Rec: 05/26/20 14:26 [id number]) Therapeutic Exercises Supine Exercises piriformis stretch Side bilateral Reps/Minutes 10 sec hold x 5 Comments PT assisted, pt reports pain is gone for SLR after. HS stretch Side bilateral Reps/Minutes 10 sec hold x5 Comments PT assisted Prone Exercises quad stretch Side bilateral Reps/Minutes 15 sec x5 Comments no pain noted Sitting Exercises Tspine rotation Sitting Exercise Name PT assisted passively Side bilateral Reps/Minutes 5 x 3 seated Tspine flexion and extension Side bilateral Reps/Minutes 10 x 2 Standing Exercises deadlift Side bilateral Equipment Used 20lbs KB Reps/Minutes 8 x2 Comments cues on hip hinge, neutral spine pigeon stretch Side bilateral Reps/Minutes 10 sec each x 3 sets J curl Side bilateral Equipment Used 20lbs KB Reps/Minutes 6 x2 Comments cues on segmental mobility Manual Therapy Treatment Soft Tissue Mobilization paraspinals Mobilization Type Rolling,Sustained Pressure, Trigger Point Release Intensity/Depth Moderate Body Position Prone Joint Mobilizations T spine Joint PA mob Direction PA mob Grade II Body Position Prone Comments min discomfort during mob PT-OP-R Modalities Start: 04/11/20 12:51 Freq: Status: Active Protocol: Document 04/26/20 11:13 HH (Rec: 04/26/20 11:13 [id number]) Hot Pack/Cold Pack Treatment Hot Pack Location lumbar Patient Position Supine Treatment Duration (minutes) 10 Patient Tolerance Good PT-OP-T Assessment and Plan Start: 04/11/20 12:51 Freq: Status: Active Protocol: Document 05/26/20 13:47 (Rec: 05/26/20 14:26 [id number]) Physical Therapy Assessment Goals pain Impairment Pt has constant LBP >6/10 in a daily basis Short Term Goal (STG) pt will have no more than 5/10 in a daily basis STG Duration 6 weeks Fci Goal (LTG) pt will have no more than 4/10 LBP in a daily basis including light lifting activities and walk >0.5 miles LTG Duration 12 weeks Oswestry LBP Impairment Pt scores 42% on Oswestry Short Term Goal (STG) Pt will score less than 30 on Oswestry LBP questionnaire STG Duration 6 weeks Fci Goal (LTG) pt will score less than 20 on Oswestry LBP questionnaire so 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 LTG Duration 12 weeks LEFS Impairment pt scores 25 on LEFS Short Term Goal (STG) pt will score 40 or above on LEFS STG Duration 6 weeks Fci Goal (LTG) pt will score 50 or above on LEFS to improve his functional mobility and strength so he can work on his RV project without aggravation. LTG Duration 12 weeks Assessment Summary Assessment Pt shows good progress with less pain recently. Able to tolerate ROM and strengthening ex very well. Physical Therapy Plan Frequency and Duration Frequency of Treatment 2x/Week Duration of Treatment 12 weeks Plan of Care Start Date 04/11/20 Plan of Care End Date 07/10/20 Next Visit Focus/Plan Next Note Type Treatment Note Next Visit Plan bike cat camel seated reach LTR with ball ab curl with ball.
--- NOTE | 2020-06-13 14:50 | PT-OP ANOTE ---
Pt has been cancelling his 3-4 appointments d/t being sick from stomach virus. Will f/u with him once he is fully recovered.
--- NOTE | 2020-07-04 12:20 | PT.OPPOC ---
Physical, Occupational & Speech Therapy At [facility] Current Diagnoses Spondylosis without myelopathy or radiculopathy, lumbosacral region (07/04/20) Pain in right foot (07/04/20) Pain in left foot (07/04/20) Visit Care Team Role Provider Type JENARO Ash[place] Attending Provider Advanced Convertible Sofa Bedspring Tester Family Provider Primary Care Provider Referring Provider Specialty: Family Practice Address: [address] [place] [address], [id number] Email: [email or web address] Plan Of Care PT-OP-T Assessment and Plan Start: 04/11/20 12:51 Freq: Status: Active Protocol: Document 07/04/20 10:33 HH (Rec: 07/04/20 12:20 HH [id number]) Physical Therapy Assessment Goals pain Impairment Pt has constant LBP >6/10 in a daily basis Short Term Goal (STG) 07/04/20 pt has pain at 4/10 in average during the week, but 6 when he has to lift often pt will have no more than 5/10 in a daily basis STG Duration 6 weeks Long-Term Goal (LTG) pt will have no more than 4/10 LBP in a daily basis including light lifting activities and walk >0.5 miles LTG Duration 12 weeks Oswestry LBP Impairment Pt scores 46% on Oswestry Short Term Goal (STG) 07/04/20 pt scores 40 on Oswestry Pt will score less than 30 on Oswestry LBP questionnaire STG Duration 6 weeks Long-Term Goal (LTG) pt will score less than 20 on Oswestry LBP questionnaire so 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 LTG Duration 12 weeks LEFS Impairment pt scores 25 on LEFS Short Term Goal (STG) 07/04 pt scores 36 on LEFS STG Duration 6 weeks Art Class Model Goal (LTG) pt will score 50 or above on LEFS to improve his functional mobility and strength so he can work on his RV project without aggravation. LTG Duration 12 weeks Progress Towards Goals Progress Towards Goals Slow Progress due to Attendance Issues,Slow Progress due to Noncompliance Assessment Summary Assessment Pt's last session = 05/26/20 d /t freya mehta . Pt has shown good progress for pain, trunk and hip mobility considering with 1 month of rehab (Nov) but he still lacks of trunk stability and strength since pt tends to get sore as his activity increases. In addition, pt admits he cont to have drinking issue and intend to seek for conseling to assist him. Pt will cont benefit from skilled therapy to address his overall trunk, hip mobility and strengthen his trunk stabilizers so he can cont with his lifting activities with minimal discomfort. Physical Therapy Plan Frequency and Duration Frequency of Treatment 2x/Week Duration of Treatment 12 weeks Plan of Care Start Date 07/04/20 Plan of Care End Date 10/02/20 Therapeutic Interventions Therapeutic Interventions Balance Training,Gait Training ,Home Exercise Program,Joint Mobilizations,Manual Therapy, Neuromuscular Re-education, Patient/Caregiver Education, Self-Care/Home Management,Soft Tissue Mobilization,Taping, Therapeutic Activities, Therapeutic Exercises Modalities Cold Pack/Ice Massage,Electric Stimulation,Hot Packs, Infrared Therapy,Traction- Mechanical,Ultrasound Next Visit Focus/Plan Next Note Type Treatment Note Next Visit Plan bike cat camel seated reach LTR with ball ab curl with ball. Plan of Care Dates Plan of Care Start Date 07/04/20 Plan of Care End Date 10/02/20 Electronically Signed by: Juan A Bermudez PT 07/04/20 0739 Please Sign and Return: I have reviewed this Plan of Care and certify that the skilled therapy services above are required to meet the patient?s needs. Physician Signature Date Printed Name and Credentials Clinical Instructor Signature Printed Name and Credentials
--- NOTE | 2020-07-04 12:21 | PT.OTN ---
Current Diagnoses Spondylosis without myelopathy or radiculopathy, lumbosacral region (07/04/20) Pain in right foot (07/04/20) Pain in left foot (07/04/20) Physical Therapy Treatment Note PT-OP-A Visit Information Start: 04/11/20 12:51 Freq: Status: Active Protocol: Document 07/04/20 10:33 HH (Rec: 07/04/20 12:20 [id number]) Out-Patient Physical Therapy Visit Information Visit Information Visit Type Progress Note Visit Note Last session = 05/26 due to his stomache Visit Start Time 10:32 Visit Stop Time 11:15 Total Visit Minutes 43 Visit Number 7 Number of GAMING DEPARTMENT HEAD Visits 0 PT-OP-B Current Condition Start: 04/11/20 12:51 Freq: Status: Active Protocol: Document 04/11/20 14:33 HH (Rec: 04/11/20 12:58 HH [email or web address]) Current Condition History of Current Condition Onset Date more than a year ago Current Complaints Chronic LBP and bilateral foot pain History of Current Condition Pt is a 49yo male with a hx of chronic LBP, along with hypertension, current smoker ( 1.5 packs/day) and drinker (6 cans of beer and 2 fingers of vodka with orange juice daily) . Pt said that he tends to drink alcohol to take the pain away. His pain is mostly achy and located at the center of low back and R side with occasional sharp pain with certain movements. Lifting, moving around, bending over tend to aggravate his symptoms . And he has been moving slowly since last year and wearing back brace since a few months ago. Pt was admitted to ER twice 10/29/19 and 11/03/19 d/t severe back pain. He went to see orthopedist Dr. Zelaya for consult who recommended him physical therapy and stated he does not require surgery. 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 Prior Treatments and Tests MRI 11/05/19 T12-L1: Normal appearance. L1-L2: Normal appearance. L2-L3: No significant central canal narrowing is seen. L3-L4: The disc height is well-preserved. Loss of disc signal is seen at this level. Mild to moderate disc bulge is seen. There is mild bilateral neural foraminal narrowing seen. Mild to moderate central canal narrowing is seen. L4-L5: The disc height and disc signal relatively well- preserved. Mild to moderate disc bulge is seen. There is a mild central disc protrusion. Mild facet joint hypertrophy is seen. There is minimal to mild right-sided and mild to moderate left-sided neural foraminal narrowing seen. Mild central canal narrowing is seen. L5-S1: No significant abnormality is seen. Personal Factors Other Personal Factors That May Effect hypertension, current smoker ( Therapy/Recovery 1.5 packs/day) and drinker (6 cans of beer and 2 fingers of vodka with orange juice daily) PT-OP-C Subjective Start: 04/11/20 12:51 Freq: Status: Active Protocol: Document 07/04/20 10:33 HH (Rec: 07/04/20 12:20 [id number]) OP-PT Subjective Patient Comments Patient Comments My back is doing pretty good so far. I did my stretches here and there and it does help. However, my back does hurt sometimes since im not as compliant Patient Reported Progress Improving PT-OP-D Balance Start: 04/11/20 12:51 Freq: Status: Active Protocol: Document 04/11/20 14:33 HH (Rec: 04/11/20 17:14 HH [email or web address]) Balance Tests Single Limb Standing Single Limb- Right 10 Single Limb- Left 12 PT-OP-F Manual Assessment Start: 04/11/20 12:51 Freq: Status: Active Protocol: Document 04/11/20 14:33 HH (Rec: 04/11/20 17:14 HH [email or web address]) Manual Assessments Joint Mobility Assessment Joint Mobility Assessment significant pain to PA mob from T4-T10 mild pain to PA mob L2-L5 PT-OP-H Neuro Start: 04/11/20 12:51 Freq: Status: Active Protocol: Document 04/11/20 14:33 HH (Rec: 04/11/20 17:14 HH [email or web address]) Sensation Evaluation Gross Sensation Gross Sensation WNL Deep Tendon Reflex & Clonus Assessment Deep Tendon Reflex Bilateral Achilles Deep Tendon Reflex 2+ Normal Bilateral Patellar Deep Tendon Reflex 1+ Diminished Vital Signs Blood Pressure Sitting Blood Pressure (90/60-120/80 mmHg) 136/70 H Blood Pressure Source Manual Cuff,Right Upper Extremity PT-OP-K Range of Motion Start: 04/11/20 12:51 Freq: Status: Active Protocol: Document 04/11/20 14:33 HH (Rec: 04/11/20 17:14 [email or web address]) Lumbar Spine Range of Motion Lumbar Spine Active Degrees Comments toe toe test= 3' from floor with pain at LB L lateral flexion = 25 R lateral flexion= 25 extension = shoulder meet heels with significant pain. Hip Goniometric Range of Motion Hip Left Active Straight Leg Raise 75 Comments slight discomfort at R low back Right Active Hip ROM WFL Yes Straight Leg Raise 85 Comments no discomfort noted except hamstrings tightness PT-OP-L Special Tests Start: 04/11/20 12:51 Freq: Status: Active Protocol: Document 04/11/20 14:33 HH (Rec: 04/11/20 17:14 [email or web address]) Special Tests Lumbar Spine Special Tests PA mob Test Results at mid to low T spine Comments significant pain to PA mob from T4-T10 Straight Leg Raise Test Results +ve L Comments slight discomfort at R low back with SLR on L Prone Instability Test Test Results +ve B Comments pain improved Will Test Results -ve B PT-OP-Q Treatments Start: 04/11/20 12:51 Freq: Status: Active Protocol: Document 07/04/20 10:33 HH (Rec: 07/04/20 12:20 [id number]) Cardio Equipment Bicycle (Upright) Duration (Minutes) 8 Resistance 7 Seat Position 6 Therapeutic Exercises Supine Exercises piriformis stretch Side bilateral Reps/Minutes 10 sec hold x 5 Comments PT assisted, pt reports pain is gone for SLR after. Prone Exercises quad stretch Side bilateral Reps/Minutes 15 sec x5 Comments no pain noted Sidelying Exercises open book Side bilateral Reps/Minutes 8x2 seated flexion and extension Side bilateral Reps/Minutes 8 x2 Manual Therapy Treatment Soft Tissue Mobilization paraspinals Mobilization Type Rolling,Sustained Pressure, Trigger Point Release Intensity/Depth Moderate Body Position Prone Joint Mobilizations T spine Joint PA mob Direction PA mob Grade II Body Position Prone Comments min discomfort during mob PT-OP-R Modalities Start: 04/11/20 12:51 Freq: Status: Active Protocol: Document 04/26/20 11:13 HH (Rec: 04/26/20 11:13 [id number]) Hot Pack/Cold Pack Treatment Hot Pack Location lumbar Patient Position Supine Treatment Duration (minutes) 10 Patient Tolerance Good PT-OP-T Assessment and Plan Start: 04/11/20 12:51 Freq: Status: Active Protocol: Document 07/04/20 10:33 (Rec: 07/04/20 12:20 [id number]) Physical Therapy Assessment Goals pain Impairment Pt has constant LBP >6/10 in a daily basis Short Term Goal (STG) 07/04/20 pt has pain at 4/10 in average during the week, but 6 when he has to lift often pt will have no more than 5/10 in a daily basis STG Duration 6 weeks Intermediate Goal (LTG) pt will have no more than 4/10 LBP in a daily basis including light lifting activities and walk >0.5 miles LTG Duration 12 weeks Oswestry LBP Impairment Pt scores 46% on Oswestry Short Term Goal (STG) 07/04/20 pt scores 40 on Oswestry Pt will score less than 30 on Oswestry LBP questionnaire STG Duration 6 weeks Steam Box Operator Goal (LTG) pt will score less than 20 on Oswestry LBP questionnaire so 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 LTG Duration 12 weeks LEFS Impairment pt scores 25 on LEFS Short Term Goal (STG) 07/04 pt scores 36 on LEFS STG Duration 6 weeks Intermediate Goal (LTG) pt will score 50 or above on LEFS to improve his functional mobility and strength so he can work on his RV project without aggravation. LTG Duration 12 weeks Progress Towards Goals Progress Towards Goals Slow Progress due to Attendance Issues,Slow Progress due to Noncompliance Assessment Summary Assessment Pt's last session = 05/26/20 d /t freya mehta . Pt has shown good progress for pain, trunk and hip mobility considering with 1 month of rehab (Nov) but he still lacks of trunk stability and strength since pt tends to get sore as his activity increases. In addition, pt admits he cont to have drinking issue and intend to seek for conseling to assist him. Pt will cont benefit from skilled therapy to address his overall trunk, hip mobility and strengthen his trunk stabilizers so he can cont with his lifting activities with minimal discomfort. Physical Therapy Plan Frequency and Duration Frequency of Treatment 2x/Week Duration of Treatment 12 weeks Plan of Care Start Date 07/04/20 Plan of Care End Date 10/02/20 Therapeutic Interventions Therapeutic Interventions Balance Training,Gait Training ,Home Exercise Program,Joint Mobilizations,Manual Therapy, Neuromuscular Re-education, Patient/Caregiver Education, Self-Care/Home Management,Soft Tissue Mobilization,Taping, Therapeutic Activities, Therapeutic Exercises Modalities Cold Pack/Ice Massage,Electric Stimulation,Hot Packs, Infrared Therapy,Traction- Mechanical,Ultrasound Next Visit Focus/Plan Next Note Type Treatment Note Next Visit Plan bike cat camel seated reach LTR with ball ab curl with ball.
--- NOTE | 2020-07-08 13:00 | PT.OTN ---
Current Diagnoses Spondylosis without myelopathy or radiculopathy, lumbosacral region (07/08/20) Pain in right foot (07/08/20) Pain in left foot (07/08/20) Physical Therapy Treatment Note PT-OP-A Visit Information Start: 04/11/20 12:51 Freq: Status: Active Protocol: Document 07/08/20 12:14 SP (Rec: 07/08/20 13:04 SP [id number]) Out-Patient Physical Therapy Visit Information Visit Information Visit Type Treatment Note Visit Start Time 12:14 Visit Stop Time 13:00 Total Visit Minutes 44 Visit Number 8 Number of DIRECTOR SHIP Visits 1 PT-OP-B Current Condition Start: 04/11/20 12:51 Freq: Status: Active Protocol: Document 04/11/20 14:33 HH (Rec: 04/11/20 12:58 HH [email or web address]) Current Condition History of Current Condition Onset Date more than a year ago Current Complaints Chronic LBP and bilateral foot pain History of Current Condition Pt is a 49yo male with a hx of chronic LBP, along with hypertension, current smoker ( 1.5 packs/day) and drinker (6 cans of beer and 2 fingers of vodka with orange juice daily) . Pt said that he tends to drink alcohol to take the pain away. His pain is mostly achy and located at the center of low back and R side with occasional sharp pain with certain movements. Lifting, moving around, bending over tend to aggravate his symptoms . And he has been moving slowly since last year and wearing back brace since a few months ago. Pt was admitted to ER twice 10/29/19 and 11/03/19 d/t severe back pain. He went to see orthopedist Dr. Zelaya for consult who recommended him physical therapy and stated he does not require surgery. 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 Prior Treatments and Tests MRI 11/05/19 T12-L1: Normal appearance. L1-L2: Normal appearance. L2-L3: No significant central canal narrowing is seen. L3-L4: The disc height is well-preserved. Loss of disc signal is seen at this level. Mild to moderate disc bulge is seen. There is mild bilateral neural foraminal narrowing seen. Mild to moderate central canal narrowing is seen. L4-L5: The disc height and disc signal relatively well- preserved. Mild to moderate disc bulge is seen. There is a mild central disc protrusion. Mild facet joint hypertrophy is seen. There is minimal to mild right-sided and mild to moderate left-sided neural foraminal narrowing seen. Mild central canal narrowing is seen. L5-S1: No significant abnormality is seen. Personal Factors Other Personal Factors That May Effect hypertension, current smoker ( Therapy/Recovery 1.5 packs/day) and drinker (6 cans of beer and 2 fingers of vodka with orange juice daily) PT-OP-C Subjective Start: 04/11/20 12:51 Freq: Status: Active Protocol: Document 07/08/20 12:14 SP (Rec: 07/08/20 13:04 SP [id number]) OP-PT Subjective Patient Comments Patient Comments Pt stated was hurting in LB after last tx but finds PT has been very beneficial and seeing imrovements, It is ok so far but when hurts has been 2-3/10 lately. Compliant with HEP as much as can with pain, wanting to get back to the gym. Trying to quit smoking using nicotine gum and patch. Only puffs at time and only 4 in past 2 days. Patient Reported Progress Improving PT-OP-D Balance Start: 04/11/20 12:51 Freq: Status: Active Protocol: Document 04/11/20 14:33 HH (Rec: 04/11/20 17:14 HH [email or web address]) Balance Tests Single Limb Standing Single Limb- Right 10 Single Limb- Left 12 PT-OP-F Manual Assessment Start: 04/11/20 12:51 Freq: Status: Active Protocol: Document 04/11/20 14:33 HH (Rec: 04/11/20 17:14 HH [email or web address]) Manual Assessments Joint Mobility Assessment Joint Mobility Assessment significant pain to PA mob from T4-T10 mild pain to PA mob L2-L5 PT-OP-H Neuro Start: 04/11/20 12:51 Freq: Status: Active Protocol: Document 04/11/20 14:33 HH (Rec: 04/11/20 17:14 HH [email or web address]) Sensation Evaluation Gross Sensation Gross Sensation WNL Deep Tendon Reflex & Clonus Assessment Deep Tendon Reflex Bilateral Achilles Deep Tendon Reflex 2+ Normal Bilateral Patellar Deep Tendon Reflex 1+ Diminished Vital Signs Blood Pressure Sitting Blood Pressure (90/60-120/80 mmHg) 136/70 H Blood Pressure Source Manual Cuff,Right Upper Extremity PT-OP-K Range of Motion Start: 04/11/20 12:51 Freq: Status: Active Protocol: Document 04/11/20 14:33 HH (Rec: 04/11/20 17:14 HH [email or web address]) Lumbar Spine Range of Motion Lumbar Spine Active Degrees Comments toe toe test= 3' from floor with pain at LB L lateral flexion = 25 R lateral flexion= 25 extension = shoulder meet heels with significant pain. Hip Goniometric Range of Motion Hip Left Active Straight Leg Raise 75 Comments slight discomfort at R low back Right Active Hip ROM WFL Yes Straight Leg Raise 85 Comments no discomfort noted except hamstrings tightness PT-OP-L Special Tests Start: 04/11/20 12:51 Freq: Status: Active Protocol: Document 04/11/20 14:33 HH (Rec: 04/11/20 17:14 HH [email or web address]) Special Tests Lumbar Spine Special Tests PA mob Test Results at mid to low T spine Comments significant pain to PA mob from T4-T10 Straight Leg Raise Test Results +ve L Comments slight discomfort at R low back with SLR on L Prone Instability Test Test Results +ve B Comments pain improved Will Test Results -ve B PT-OP-Q Treatments Start: 04/11/20 12:51 Freq: Status: Active Protocol: Document 07/08/20 12:14 SP (Rec: 07/08/20 13:04 SP [id number]) Cardio Equipment Recumbent Stepper (Sci-Fit) Duration (Minutes) 8 Resistance 3 Seat Position 14 Other RPMs 44, 0.95miles Therapeutic Exercises Supine Exercises LTR Supine Exercise Name review Side bilateral Resistance vc Reps/Minutes 30 x3 Comments did as home self ex. piriformis stretch Supine Exercise Name reivew Side bilateral Reps/Minutes 10 sec hold x 5 Comments PT assisted, pt reports pain is gone for SLR after. HS stretch Supine Exercise Name seated, supine (review) Side bilateral Equipment Used strap in supine Reps/Minutes 10 sec hold x5 Comments PT assisted Prone Exercises cat camel Prone Exercise Name review Side bilateral Reps/Minutes 15 x 2 Sidelying Exercises open book Sidelying Exercise Name review Side bilateral Reps/Minutes 8x2 Sitting Exercises seated trunk flex/ ext Sitting Exercise Name review Side bilateral Reps/Minutes 8x2 seated Tspine flexion and extension Sitting Exercise Name review Side bilateral Reps/Minutes 10 x 2, pause end feel Standing Exercises deadlift Standing Exercise Name review Side bilateral Equipment Used 20lbs KB Reps/Minutes 8 Comments cues on hip hinge, neutral spine PT-OP-R Modalities Start: 04/11/20 12:51 Freq: Status: Active Protocol: Document 04/26/20 11:13 HH (Rec: 04/26/20 11:13 HH [email or web address]) Hot Pack/Cold Pack Treatment Hot Pack Location lumbar Patient Position Supine Treatment Duration (minutes) 10 Patient Tolerance Good PT-OP-T Assessment and Plan Start: 04/11/20 12:51 Freq: Status: Active Protocol: Document 07/08/20 12:14 SP (Rec: 07/08/20 13:04 SP [id number]) Physical Therapy Assessment Goals pain Impairment Pt has constant LBP >6/10 in a daily basis Short Term Goal (STG) 07/04/20 pt has pain at 4/10 in average during the week, but 6 when he has to lift often pt will have no more than 5/10 in a daily basis STG Duration 6 weeks Quality Assurance Consultant Goal (LTG) pt will have no more than 4/10 LBP in a daily basis including light lifting activities and walk >0.5 miles LTG Duration 12 weeks Oswestry LBP Impairment Pt scores 46% on Oswestry Short Term Goal (STG) 07/04/20 pt scores 40 on Oswestry Pt will score less than 30 on Oswestry LBP questionnaire STG Duration 6 weeks Quality Assurance Consultant Goal (LTG) pt will score less than 20 on Oswestry LBP questionnaire so he can 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 LTG Duration 12 weeks LEFS Impairment pt scores 25 on LEFS Short Term Goal (STG) 07/04 pt scores 36 on LEFS STG Duration 6 weeks Mcc Goal (LTG) pt will score 50 or above on LEFS to improve his functional mobility and strength so he can work on his RV project without aggravation. LTG Duration 12 weeks Assessment Summary Assessment Tx focused on HEP review, poor recall, provided chart copy for self recall and Mod cuing for set up and proper form for most. Pt responded well to tx , commented R LB discomfort at end range L LTR when return to neutral, cued for core facilitation to decrease LS over recruit. Physical Therapy Plan Frequency and Duration Frequency of Treatment 2x/Week Duration of Treatment 12 weeks Plan of Care Start Date 07/04/20 Plan of Care End Date 10/02/20 Therapeutic Interventions Therapeutic Interventions Balance Training,Gait Training ,Home Exercise Program,Joint Mobilizations,Manual Therapy, Neuromuscular Re-education, Patient/Caregiver Education, Self-Care/Home Management,Soft Tissue Mobilization,Taping, Therapeutic Activities, Therapeutic Exercises Modalities Cold Pack/Ice Massage,Electric Stimulation,Hot Packs, Infrared Therapy,Traction- Mechanical,Ultrasound Next Visit Focus/Plan Next Note Type Treatment Note Next Visit Plan Assess HEP review last tx: Continue per PT POC: bike cat camel seated reach LTR with ball ab curl with ball.
--- NOTE | 2020-07-12 11:20 | PT.OTN ---
Current Diagnoses Spondylosis without myelopathy or radiculopathy, lumbosacral region (07/12/20) Pain in right foot (07/12/20) Pain in left foot (07/12/20) Physical Therapy Treatment Note PT-OP-A Visit Information Start: 04/11/20 12:51 Freq: Status: Active Protocol: Document 07/12/20 10:35 SP (Rec: 07/12/20 11:42 SP [id number]) Out-Patient Physical Therapy Visit Information Visit Information Visit Type Treatment Note Visit Note MIKHAIL Acevedo attended, provided cues when needed to support DIRECTOR RISK [place]. Visit Start Time 10:35 Visit Stop Time 11:20 Total Visit Minutes 45 Visit Number 9 Number of DIRECTOR RISK Visits 2 PT-OP-B Current Condition Start: 04/11/20 12:51 Freq: Status: Active Protocol: Document 04/11/20 14:33 HH (Rec: 04/11/20 12:58 HH [email or web address]) Current Condition History of Current Condition Onset Date more than a year ago Current Complaints Chronic LBP and bilateral foot pain History of Current Condition Pt is a 49yo male with a hx of chronic LBP, along with hypertension, current smoker ( 1.5 packs/day) and drinker (6 cans of beer and 2 fingers of vodka with orange juice daily) . Pt said that he tends to drink alcohol to take the pain away. His pain is mostly achy and located at the center of low back and R side with occasional sharp pain with certain movements. Lifting, moving around, bending over tend to aggravate his symptoms . And he has been moving slowly since last year and wearing back brace since a few months ago. Pt was admitted to ER twice 10/29/19 and 11/03/19 d/t severe back pain. He went to see orthopedist Dr. Zelaya for consult who recommended him physical therapy and stated he does not require surgery. 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 Prior Treatments and Tests MRI 11/05/19 T12-L1: Normal appearance. L1-L2: Normal appearance. L2-L3: No significant central canal narrowing is seen. L3-L4: The disc height is well-preserved. Loss of disc signal is seen at this level. Mild to moderate disc bulge is seen. There is mild bilateral neural foraminal narrowing seen. Mild to moderate central canal narrowing is seen. L4-L5: The disc height and disc signal relatively well- preserved. Mild to moderate disc bulge is seen. There is a mild central disc protrusion. Mild facet joint hypertrophy is seen. There is minimal to mild right-sided and mild to moderate left-sided neural foraminal narrowing seen. Mild central canal narrowing is seen. L5-S1: No significant abnormality is seen. Personal Factors Other Personal Factors That May Effect hypertension, current smoker ( Therapy/Recovery 1.5 packs/day) and drinker (6 cans of beer and 2 fingers of vodka with orange juice daily) PT-OP-C Subjective Start: 04/11/20 12:51 Freq: Status: Active Protocol: Document 07/12/20 10:35 SP (Rec: 07/12/20 11:42 SP [id number]) OP-PT Subjective Patient Comments Patient Comments Pt reported doing well / LBP, had my birthday yesterday and had little to much fun/ some drinks. Patient Reported Progress Improving PT-OP-D Balance Start: 04/11/20 12:51 Freq: Status: Active Protocol: Document 04/11/20 14:33 HH (Rec: 04/11/20 17:14 HH [email or web address]) Balance Tests Single Limb Standing Single Limb- Right 10 Single Limb- Left 12 PT-OP-F Manual Assessment Start: 04/11/20 12:51 Freq: Status: Active Protocol: Document 04/11/20 14:33 HH (Rec: 04/11/20 17:14 HH [email or web address]) Manual Assessments Joint Mobility Assessment Joint Mobility Assessment significant pain to PA mob from T4-T10 mild pain to PA mob L2-L5 PT-OP-H Neuro Start: 04/11/20 12:51 Freq: Status: Active Protocol: Document 04/11/20 14:33 HH (Rec: 04/11/20 17:14 HH [email or web address]) Sensation Evaluation Gross Sensation Gross Sensation WNL Deep Tendon Reflex & Clonus Assessment Deep Tendon Reflex Bilateral Achilles Deep Tendon Reflex 2+ Normal Bilateral Patellar Deep Tendon Reflex 1+ Diminished Vital Signs Blood Pressure Sitting Blood Pressure (90/60-120/80 mmHg) 136/70 H Blood Pressure Source Manual Cuff,Right Upper Extremity PT-OP-K Range of Motion Start: 04/11/20 12:51 Freq: Status: Active Protocol: Document 04/11/20 14:33 HH (Rec: 04/11/20 17:14 HH [email or web address]) Lumbar Spine Range of Motion Lumbar Spine Active Degrees Comments toe toe test= 3' from floor with pain at LB L lateral flexion = 25 R lateral flexion= 25 extension = shoulder meet heels with significant pain. Hip Goniometric Range of Motion Hip Left Active Straight Leg Raise 75 Comments slight discomfort at R low back Right Active Hip ROM WFL Yes Straight Leg Raise 85 Comments no discomfort noted except hamstrings tightness PT-OP-L Special Tests Start: 04/11/20 12:51 Freq: Status: Active Protocol: Document 04/11/20 14:33 HH (Rec: 04/11/20 17:14 HH [email or web address]) Special Tests Lumbar Spine Special Tests PA mob Test Results at mid to low T spine Comments significant pain to PA mob from T4-T10 Straight Leg Raise Test Results +ve L Comments slight discomfort at R low back with SLR on L Prone Instability Test Test Results +ve B Comments pain improved Will Test Results -ve B PT-OP-Q Treatments Start: 04/11/20 12:51 Freq: Status: Active Protocol: Document 07/12/20 10:35 SP (Rec: 07/12/20 11:42 SP [id number]) Cardio Equipment Recumbent Elliptical (Biodex) Duration (Minutes) 8 Resistance 5 Seat Position 12 Other SPM , miles Therapeutic Exercises Prone Exercises bird dog Prone Exercise Name quadruped (initated PT only) Side bilateral Resistance AROM Reps/Minutes 5 reps Comments max cued slow pacing, LE contact slide, PPT/ level scap complex cat camel Prone Exercise Name review Side bilateral Reps/Minutes 15 x 2 Sidelying Exercises open book Sidelying Exercise Name review Side bilateral Reps/Minutes 10x2 Comments cued stable pelvis Sitting Exercises seated trunk flex/ ext Sitting Exercise Name HEP review: lumbar trunk flexion Side bilateral Equipment Used chair 18 Reps/Minutes 8x2 Tspine rotation Sitting Exercise Name PT AAROM Side bilateral Equipment Used chair 18 Reps/Minutes 5 x 3 seated Tspine flexion and extension Sitting Exercise Name HEP review Side bilateral Equipment Used chair 18 Reps/Minutes 10 x 2, pause end feel Standing Exercises deadlift Standing Exercise Name HEP review Side bilateral Equipment Used 20lbs KB Reps/Minutes 8 Comments cues on hip hinge, neutral spine pigeon stretch Standing Exercise Name discontinue Comments unable due to maintain lack range hip ER Manual Therapy Treatment Joint Mobilizations T spine Joint PA mob Direction PA mob Grade II Body Position Prone Comments no pain PT-OP-R Modalities Start: 04/11/20 12:51 Freq: Status: Active Protocol: Document 04/26/20 11:13 HH (Rec: 04/26/20 11:13 HH [id number]) Hot Pack/Cold Pack Treatment Hot Pack Location lumbar Patient Position Supine Treatment Duration (minutes) 10 Patient Tolerance Good PT-OP-T Assessment and Plan Start: 04/11/20 12:51 Freq: Status: Active Protocol: Document 07/12/20 10:35 SP (Rec: 07/12/20 11:42 SP [id number]) Physical Therapy Assessment Goals pain Impairment Pt has constant LBP >6/10 in a daily basis Short Term Goal (STG) 07/04/20 pt has pain at 4/10 in average during the week, but 6 when he has to lift often pt will have no more than 5/10 in a daily basis STG Duration 6 weeks Residential Goal (LTG) pt will have no more than 4/10 LBP in a daily basis including light lifting activities and walk >0.5 miles LTG Duration 12 weeks Oswestry LBP Impairment Pt scores 46% on Oswestry Short Term Goal (STG) 07/04/20 pt scores 40 on Oswestry Pt will score less than 30 on Oswestry LBP questionnaire STG Duration 6 weeks Residential Goal (LTG) pt will score less than 20 on Oswestry LBP questionnaire so 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 LTG Duration 12 weeks LEFS Impairment pt scores 25 on LEFS Short Term Goal (STG) 07/04 pt scores 36 on LEFS STG Duration 6 weeks Residential Goal (LTG) pt will score 50 or above on LEFS to improve his functional mobility and strength so he can work on his RV project without aggravation. LTG Duration 12 weeks Assessment Summary Assessment Tx focused on HEP review with education emphasis on self performance using HO at home for set up and recall to progress. Manual end of tx to decrease TS stiffness and LS soreness post activity with good result feedback. DIRECTOR RISK inquired how he feels is progressing, pt stated wants to return to gym and wondering if can do more. DIRECTOR RISK notices is still requirng cuing for set up, recall and proper form and unsure of home compliance . Physical Therapy Plan Frequency and Duration Frequency of Treatment 2x/Week Duration of Treatment 12 weeks Plan of Care Start Date 07/04/20 Plan of Care End Date 10/02/20 Therapeutic Interventions Therapeutic Interventions Balance Training,Gait Training ,Home Exercise Program,Joint Mobilizations,Manual Therapy, Neuromuscular Re-education, Patient/Caregiver Education, Self-Care/Home Management,Soft Tissue Mobilization,Taping, Therapeutic Activities, Therapeutic Exercises Modalities Cold Pack/Ice Massage,Electric Stimulation,Hot Packs, Infrared Therapy,Traction- Mechanical,Ultrasound Next Visit Focus/Plan Next Note Type Treatment Note Next Visit Plan Assess HEP review last tx: Next tx continue to recall HEP , add self STMs using rac balll wall and functional strengthening toward gym program. Continue per PT POC: bike (upright has been unavailable) cat camel seated reach *LTR with ball *ab curl with ball.
--- NOTE | 2020-07-18 12:03 | PT.OPDS ---
Current Diagnoses Spondylosis without myelopathy or radiculopathy, lumbosacral region (07/12/20) Pain in right foot (07/12/20) Pain in left foot (07/12/20) Visit Care Team Role Provider Type JENARO [place] Attending Provider Advanced Butt Maker Family Provider Primary Care Provider Referring Provider Specialty: [facility] Practice Address: [address] [place] [address], [facility] Email: [email or web address] Visit Number Visit Number 9 Discharge Summary PT-OP-T Assessment and Plan Start: 04/11/20 12:51 Freq: Status: Active Protocol: Document 07/18/20 12:01 (Rec: 07/18/20 12:03 [id number]) Physical Therapy Plan Discharge Physical Therapy Discharge Reasons Patient Request Discharge Comments Pt called in to cancel and wanted to reschedule in a couple weeks without specify particular reasons. Admin notified pt that we will not keep account opened and pt agreed to be DC at this point who has shown good progress so far. Pt stated he might get referral again if needed. DC from PT today.
== END 2020-07-18 14:07 | disposition home or self-care (01) ==
LOC: PHYS 10:30
PROVIDERS: Family Provider Nurse Practitioner; PCP Nurse Practitioner; Referring Provider Nurse Practitioner; Visit Provider Nurse Practitioner
DX: M47.817 Spondylosis without myelopathy or radiculopathy, lumbosacral region (principal); M79.671 Pain in right foot; M79.672 Pain in left foot
CPT/HCPCS: 97110; 97140; 97161

== ENCOUNTER → 2020-11-25 14:04 | Outpatient (CLI) | payer MEDICARE, MEDICAID, SELFPAY ==
[2020-11-25 15:52] LABS: Add Manual Diff / Slide Review NO; Basophils Absolute Auto 100 /uL (0-100); Basophils Percent Auto 0.8 % (0-2); Eosinophils Absolute Auto 300 /uL (0-450); Eosinophils Percent Auto 3.8 % (2-4); Hematocrit 37.9 % (41-53); Hemoglobin 13.1 g/dL (13.5-17.5); Lymphocytes Absolute Auto 2100 /uL (1100-4500); Lymphocytes Percent Auto 24.5 % (25-40); Mean Corpuscular HGB Conc 34.5 % (30-36); Mean Corpuscular Hemoglobin 32.3 PG (26-34); Mean Corpuscular Volume 93.6 fL (80-100); Monocytes Absolute Auto 600 /uL (0-900); Neutrophils Absolute Auto 5600 /uL (1500-7000); Neutrophils Percent Auto 63.9 % (50-75); Platelet Count 221 X10^3/uL (150-400); Red Blood Cell Count 4.05 X10^6/uL (4.5-5.9); White Blood Cell Count 8.7 X10^3/uL (4.5-11.0)
[2020-11-25 16:17] LABS: Alanine Aminotransferase 23 IU/L (<50); Albumin 4.4 g/dL (3.5-5.0); Albumin Globulin Ratio 1.5 (1.0-2.8); Alkaline Phosphatase 72 U/L (38-126); Aspartate Aminotransferase 27 IU/L (17-59); BUN Creatinine Ratio 13.1 (6-22); Bilirubin Total 0.4 mg/dL (0.2-1.3); Blood Urea Nitrogen 13 mg/dL (9-20); Calcium 9.9 mg/dL (8.4-10.2); Carbon Dioxide 28 mmol/L (22-32); Chloride 100 mmol/L (98-107); Cholesterol 178 mg/dL (140-199); Estimated Glomerular Filt Rate > 60.0 mL/min (>60); Glucose 98 mg/dL (70-100); HDL Cholesterol 38 mg/dL (40-60); HEMOLYSIS < 15 (0-50); LDL Cholesterol Calculated 79 mg/dL (<100); Potassium 4.1 mmol/L (3.4-5.1); Sodium 137 mmol/L (137-145); Total Protein 7.4 g/dL (6.3-8.2); Triglycerides 306 mg/dL (35-150)
[2020-11-25 16:32] LABS: Free T4, Direct Thyroxine 0.97 ng/dL (0.78-2.19)
[2020-11-25 16:46] LABS: Thyroid Stimulating Hormone 1.87 uIU/mL (0.47-4.68)
== END ==
PROVIDERS: Family Provider Nurse Practitioner; PCP Nurse Practitioner; Referring Provider Nurse Practitioner; Visit Provider Nurse Practitioner
DX: R53.83 Other fatigue (principal); E78.5 Hyperlipidemia, unspecified; R73.9 Hyperglycemia, unspecified; I10 Essential (primary) hypertension; F10.20 Alcohol dependence, uncomplicated; R79.89 Other specified abnormal findings of blood chemistry; Z79.899 Other long term (current) drug therapy
CPT/HCPCS: 36415; 80053; 80061; 83036; 84439; 84443; 84481; 85025

== ENCOUNTER 2021-05-13 15:45 | Emergency (ER) | payer MEDICARE, MEDICAID, SELFPAY ==
[2021-05-13 15:53] VITALS: BP 166/99; PULSE 92; RESP 18; TEMP 36.7; O2SAT 97; BMI 32.2
[2021-05-13 16:26] LABS: COVID19 -Nasal RAPID POSITIVE (Negative)
[2021-05-13 16:51] VITALS: BP 170/99; PULSE 97; RESP 18; O2SAT 97
--- NOTE | 2021-05-13 17:01 | PC.NURSE ---
Patient presents today for covid testing. States experiencing no signs/symptoms. Mother is covid+
--- NOTE | 2021-05-13 17:03 | ED.GENADULT ---
HPI - General Adult General Chief complaint: Upper Respiratory Symptoms Stated complaint: Thinks COPD Time Seen by Provider: 05/13/21 16:46 Source: patient Mode of arrival: Ambulatory Limitations: no limitations History of Present Illness HPI narrative: Patient is a 50-year-old male. History of high blood pressure. On vaccinated against COVID-19. Patient's mother was just admitted to the hospital today for respiratory distress secondary to COVID-19. Patient has no symptoms although he is concerned about COVID-19. A couple days ago he was biking. He states he has been trying to get more exercise that he can lose weight in became somewhat short of breath. He has no fevers. He is concerned about COVID-19 and also COPD. He does have a history of smoking. Does not currently smoke. Related Data Previous Rx's Medication Instructions Recorded amlodipine 5 mg tablet 5 mg PO BID #180 tab 07/15/20 gabapentin 300 mg capsule 300 mg PO DAILY PRN #90 cap 07/15/20 lisinopril 20 mg tablet 20 mg PO BID #180 tab 07/15/20 sildenafil 100 mg tablet 100 mg PO DAILY PRN #30 tab 07/15/20 simvastatin 20 mg tablet 20 mg PO QPM #90 tab 07/15/20 doxepin 150 mg capsule 150 mg PO BEDTIME #90 cap 01/30/21 hydrochlorothiazide 25 mg tablet 25 mg PO DAILY #90 tab 01/30/21 cyclobenzaprine 10 mg tablet See Rx Instructions .ROUTE 05/04/21 .COMPLEX #14 tab albuterol sulfate 90 mcg/actuation 2 puff INHALATION Q4-6H PRN #8.5 g 05/13/21 aerosol inhaler Allergies Allergy/AdvReac Type Severity Reaction Status Date / Time No Known Drug Allergies Allergy Verified 01/30/21 14:02 Review of Systems Constitutional Constitutional: Denies fever(s) and Denies headache(s) ENT Ears, Nose, Mouth, and Throat: Denies headache(s) Cardiovascular Cardiovascular: Reports system reviewed and no additional complaints, except as documented Respiratory Respiratory: Reports system reviewed and no additional complaints, except as documented Gastrointestinal Gastrointestinal: Reports system reviewed and no additional complaints, except as documented Integumentary/Breasts Skin/Breast: Reports system reviewed and no additional complaints, except as documented Neurologic Neurologic: Denies headache(s) Hematologic/Lymphatic On Anticoagulants: No Patient History Medical History Alcohol dependence, daily use Alcohol use disorder Atypical chest pain Back pain Bilateral foot pain Blood glucose elevated Class 1 obesity in adult COVID-19 vaccine series declined Depression with anxiety Elevated LFTs Hyperlipidemia Hypertension Hypertension Insomnia Lower GI bleed Lumbosacral spondylosis Rectal bleeding Recto-perineal fistula Smokes tobacco daily Tobacco use disorder, mild, in early remission Family History Father Alive and well Mother Alive and well Social History marital status: unmarried,single occupational status: disabled Smoking Status: Former smoker second hand exposure: No alcohol intake: current Smoking Status: Former smoker tobacco type: cigarettes alcohol intake frequency: 3 or more drinks per day Alcohol type: beer and hard liquor Substance Use Type: marijuana Exam Initial Vital Signs Initial Vital Signs: Vital Signs Temperature 98.1 F 05/13/21 15:53 Pulse Rate 92 H 05/13/21 15:53 Respiratory Rate 18 05/13/21 15:53 Blood Pressure 166/99 H 05/13/21 15:53 Pulse Oximetry 97 05/13/21 15:53 Const General: cooperative, healthy appearing, comfortable, well developed and well groomed Limitations: mental status not altered HENMT Head: normal to inspection and normocephalic Resp Effort & Inspection: normal respiratory effort Auscultation: clear to auscultation bilaterally Cardio Rate: regular rate Rhythm: regular rhythm GI Inspection: normal to inspection and non-distended Palpation: soft Skin General: no rashes or lesions noted Neuro General: patient alert, patient awake, patient oriented x3 and moves all extremities Extrem General: normal to inspection Psych Appearance: grossly normal and well kempt Course Orders Ordered: ED Orders 05/13/21 16:05 COVID19 -Nasal swab/Pre-Proc Stat Vital Signs Vital signs: Vital Signs - 8 hr 05/13/21 15:53 05/13/21 16:51 Temperature 98.1 F Pulse Rate 92 H 97 H Respiratory Rate 18 18 Blood Pressure 166/99 H 170/99 H Pulse Oximetry 97 97 Medical Decision Making Lab Data Lab results reviewed: Yes I reviewed the patient's lab results. Labs: Lab Results 05/13/21 Range/Units 16:05 SARS-CoV-2 (PCR) Positive H (Negative) MDM Narrative Medical decision making narrative: Patient is COVID positive. He has no symptoms. Afebrile. Not hypoxic. No further workup needed the emergency department. He was informed of his COVID diagnosis. He was informed that he needs to quarantine himself for the next 10 days and be symptom free. He was given return precautions. He expressed understanding agreement. I did offer him a referral to have monoclonal antibody infusion however the patient declined. Discharge Plan Departure Patient Disposition: Home Clinical Impression: COVID-19 Instructions: DI for COVID-19 (Suspected or Confirmed ) Activity Restrictions/Additional Instructions: You were positive for COVID-19 today. Current guidelines state that you need to quarantine yourself for the next 10 days and be fever free for 24 hours and any other symptoms need to be improving. Contact her primary doctor for follow-up. Return to the emergency department for any new or worsening symptoms Prescriptions: New albuterol sulfate 90 mcg/actuation HFA aerosol inhaler 2 puff inhalation Q4-6H PRN (Reason: shortness of breath or wheezing) Qty: 8.5 0RF No Action cyclobenzaprine 10 mg tablet See Rx Instructions .ROUTE .COMPLEX Qty: 14 0RF Dose Instruction: take 1 tablet by mouth at bedtime if needed for muscle spasm Rx Instructions: take 1 tablet by mouth at bedtime if needed for muscle spasm simvastatin 20 mg tablet 20 mg PO QPM Qty: 90 3RF Hold Instructions: patient stopped, concerned about s/e Rx Instructions: Take 1 tab every evening for elevated cholesterol lisinopril 20 mg tablet 20 mg PO BID Qty: 180 3RF Rx Instructions: Take 1 tab by mouth twice daily for hypertension gabapentin 300 mg capsule 300 mg PO DAILY PRN (Reason: nerve pain) Qty: 90 3RF Rx Instructions: Take 1 cap by mouth daily as needed for neuropathic pain amlodipine 5 mg tablet 5 mg PO BID Qty: 180 3RF Rx Instructions: Take 1 tab twice per day for hypertension sildenafil 100 mg tablet 100 mg PO DAILY PRN (Reason: sexual activity) Qty: 30 2RF Rx Instructions: administer 1/2 tab 30 minutes to 4 hours before activity doxepin 150 mg capsule 150 mg PO BEDTIME Qty: 90 3RF Rx Instructions: Take 1 capsule at bedtime daily for sleep. hydrochlorothiazide 25 mg tablet 25 mg PO DAILY Qty: 90 3RF Rx Instructions: Take 1 tab each morning for HTN Referrals: CarolA nn Dailey ARNP [Primary Care Provider] -
== END 2021-05-13 17:10 | disposition home or self-care (01) ==
PROVIDERS: Emergency Provider Emergency Medicine; Family Provider Nurse Practitioner; PCP Nurse Practitioner
DX: U07.1 COVID-19 (principal); Z87.891 Personal history of nicotine dependence; Z20.822 Contact with and (suspected) exposure to COVID-19
CPT/HCPCS: 87635; 99281; C9803

== ENCOUNTER → 2021-10-04 15:25 | Outpatient (CLI) | payer MEDICARE, MEDICAID, SELFPAY ==
[2021-10-04 16:39] LABS: Hematocrit 44.4 % (41-53); Hemoglobin 15.4 g/dL (13.5-17.5); Mean Corpuscular HGB Conc 34.6 % (30-36); Mean Corpuscular Hemoglobin 31.9 PG (26-34); Mean Corpuscular Volume 92.3 fL (80-100); Platelet Count 222 X10^3/uL (150-400); Red Blood Cell Count 4.81 X10^6/uL (4.5-5.9); Red Cell Distribution Width 12.4 % (11.6-14.8)
[2021-10-04 16:44] LABS: Alanine Aminotransferase 45 IU/L (<50); Albumin 4.9 g/dL (3.5-5.0); Albumin Globulin Ratio 1.4 (1.0-2.8); Alkaline Phosphatase 86 U/L (38-126); Aspartate Aminotransferase 50 IU/L (17-59); BUN Creatinine Ratio 10.8 (6-22); Bilirubin Total 0.7 mg/dL (0.2-1.3); Blood Urea Nitrogen 8 mg/dL (9-20); Calcium 9.4 mg/dL (8.4-10.2); Carbon Dioxide 29 mmol/L (22-32); Chloride 100 mmol/L (98-107); Cholesterol 290 mg/dL (140-199); Estimated Glomerular Filt Rate > 60 mL/min (>60); Globulin 3.6 g/dL (1.7-4.1); Glucose 183 mg/dL (70-100); HDL Cholesterol 36 mg/dL (40-60); HEMOLYSIS < 15 (0-50); Potassium 4.2 mmol/L (3.4-5.1); Sodium 140 mmol/L (137-145); Total Protein 8.5 g/dL (6.3-8.2)
[2021-10-04 16:52] LABS: Triglycerides 670 mg/dL (35-150)
[2021-10-04 17:04] LABS: Microalbumi Creatinin Ratio Ur 64.8 ug/mg CR (<30); Microalbumin Urine Random 9.4 mg/dL (0-1.6)
[2021-10-04 17:21] LABS: Free T3, Triiodothyronine Free 4.48 pg/mL (2.77-5.27); Free T4, Direct Thyroxine 1.27 ng/dL (0.78-2.19)
[2021-10-04 17:35] LABS: Thyroid Stimulating Hormone 1.65 uIU/mL (0.47-4.68)
== END ==
PROVIDERS: Family Provider Nurse Practitioner; PCP Nurse Practitioner; Referring Provider Nurse Practitioner; Visit Provider Nurse Practitioner
DX: I10 Essential (primary) hypertension (principal); Z00.00 Encounter for general adult medical examination without abnormal findings
CPT/HCPCS: 36415; 80053; 80061; 82043; 82570; 84439; 84443; 84481; 85027; 86900; 86901

== ENCOUNTER → 2021-10-09 16:08 | Outpatient (CLI) | payer MEDICARE, MEDICAID, SELFPAY ==
[2021-10-09 18:23] LABS: Hemoglobin A1C% w Est Avg Glu 7.6 % (4.0-6.0)
[2021-10-09 18:41] LABS: Glucose 191 mg/dL (70-100)
== END ==
PROVIDERS: Family Provider Nurse Practitioner; PCP Nurse Practitioner; Referring Provider Nurse Practitioner; Visit Provider Nurse Practitioner
DX: R73.01 Impaired fasting glucose (principal)
CPT/HCPCS: 36415; 82947; 83036

== ENCOUNTER 2021-12-03 20:49 | Emergency (ER) | payer MEDICARE, MEDICAID, SELFPAY ==
[2021-12-03] VITALS (7 sets, daily range): BP systolic 140–174; BP diastolic 67–104; PULSE 87–92; RESP 20; TEMP 36.9; O2SAT 94–99; BMI 32.7
--- NOTE | 2021-12-03 22:05 | ED_ITS ---
HPI - General Adult General Chief complaint: Diabetic Problem Stated complaint: BL swelling lower extremeties, T2D Time Seen by Provider: 12/03/21 21:46 History of Present Illness HPI narrative: Patient is a 51-year-old male history of hypertension diabetes hyperlipidemia with alcohol abuse presenting today with 5 days of bilateral lower extremity edema. He denies any chest pain or shortness of breath. He says the swelling actually goes down in the morning. Although it is becoming a little bit more painful. Today he noticed a little bit of redness on both legs. He has not had any fever or chills. He states he drinks quite a bit of vodka and hurrcaines. Related Data Previous Rx's Medication Instructions Recorded sildenafil 100 mg tablet 100 mg PO DAILY PRN sexual 07/15/20 activity #30 tabs simvastatin 20 mg tablet 20 mg PO QPM #90 tabs 07/15/20 doxepin 150 mg capsule 150 mg PO BEDTIME #90 caps 01/30/21 hydrochlorothiazide 25 mg tablet 25 mg PO DAILY #90 tabs 01/30/21 cyclobenzaprine 10 mg tablet See Rx Instructions .Route 05/04/21 .COMPLEX #14 tabs albuterol sulfate 90 mcg/actuation 2 puff inhalation Q4-6H PRN 05/13/21 aerosol inhaler shortness of breath or wheezing #8.5 grams amlodipine 5 mg tablet 5 mg PO BID #180 tabs 09/11/21 gabapentin 300 mg capsule 300 mg PO DAILY PRN nerve pain #90 09/11/21 caps lisinopril 20 mg tablet See Rx Instructions .Route 10/09/21 .COMPLEX #180 tabs Glucometer #1 ea 10/12/21 Glucometer Test Strips #100 ea 10/12/21 Lancettes #100 ea 10/12/21 Lancing Pen #1 ea 10/12/21 metformin 500 mg tablet 500 mg PO BID #60 tabs 12/01/21 omega-3 acid ethyl esters 1 gram 1 cap PO BID #180 caps 12/01/21 capsule (Lovaza) Allergies Allergy/AdvReac Type Severity Reaction Status Date / Time No Known Drug Allergies Allergy Verified 11/22/21 08:43 Review of Systems Review of Systems Narrative: GENERAL: Denies chills, fatigue, malaise, fever, sweats, travel HEENT: Denies sinus pain, ear pain, sore throat, difficulty swallowing, neck pain RESPIRATORY: Denies dyspnea, cough, wheezing, hemoptysis, sputum. CARDIOVASCULAR: Denies chest pain, palpitations, orthopnea, edema GASTROINTESTINAL: Denies nausea, vomiting, abdominal pain, diarrhea, constipation, melena. : Denies dysuria, frequency, incontinence, hematuria, urinary retention, flank pain. MUSCULOSKELETAL: See HPI SKIN: No rash, no erythema, no pruritus NEUROLOGIC: Denies weakness, dizziness, headache, numbness, change in speech, co nfusion PSYCHIATRIC: No concerning psychosocial issues. 12 point review of systems is negative except for those stated above and HPI Patient History Medical History Alcohol cessation counseling Alcohol dependence, daily use Alcohol use disorder Atypical chest pain Back pain Bilateral foot pain Blood glucose elevated Class 1 obesity in adult COVID-19 vaccine series declined Depression with anxiety Elevated fasting blood sugar Elevated LFTs High triglycerides Hyperlipidemia Hypertension Hypertension Insomnia Lower GI bleed Lumbosacral spondylosis Mixed hyperlipidemia due to type 2 diabetes mellitus Non-insulin dependent diabetes mellitus Paresthesia of both feet Rectal bleeding Recto-perineal fistula Smokes tobacco daily Tobacco use disorder, mild, in early remission Family History Father Alive and well Mother Alive and well Social History marital status: unmarried,single occupational status: disabled Smoking Status: Former smoker second hand exposure: No alcohol intake: current Smoking Status: Former smoker tobacco type: cigarettes alcohol intake frequency: 3 or more drinks per day Alcohol type: beer and hard liquor Substance Use Type: marijuana Exam Initial Vital Signs Initial Vital Signs: Vital Signs Blood Pressure 174/104 H 12/03/21 20:56 GENERAL: Alert pleasant well-appearing 51-year-old male and in no acute distress. HEENT: Head atraumatic,EOMI, pupils reactive, face symmetric, moist mucous membr anes CARDIOVASCULAR: Regular rate and rhythm without murmurs, rubs or gallops. RESPIRATORY: Breath sounds equal bilaterally, no wheezes rales or rhonchi. ABDOMEN: Soft, nontender. Normoactive bowel sounds all 4 quadrants. No guarding or rebound. EXTREMITIES: Normal range of motion, no clubbing. No lower extremity pitting edema +2. Neurovascularly intact NEUROLOGICAL: Alert and oriented x4. SKIN: Warm, dry, no laceration, no petechiae, no rashes or lesions. Course Orders Ordered: ED Orders 12/03/21 22:11 XR chest 1V Stat 12/03/21 22:19 Complete Blood Count AUTO DIFF Stat Comprehensive Metabolic Panel Stat D Dimer Stat Lipase Stat NT-proBNP (BNP-Adult 18+) Stat Troponin & CK Cardiac Panel Stat EKG-12 Lead Stat Vital Signs Vital signs: Vital Signs - 8 hr 12/03/21 21:01 12/03/21 20:56 12/03/21 20:57 Temperature 98.4 F Pulse Rate 90 92 H Respiratory Rate 20 Blood Pressure 174/104 H 174/104 H Pulse Oximetry 99 96 Oxygen Delivery Method Room Air Room Air 12/03/21 21:00 12/03/21 21:00 12/03/21 21:30 Temperature Pulse Rate 88 Respiratory Rate Blood Pressure 159/82 H 168/98 H Pulse Oximetry 94 Oxygen Delivery Method Room Air 12/03/21 21:30 12/03/21 22:00 12/03/21 22:00 Temperature Pulse Rate 92 H 87 Respiratory Rate Blood Pressure 140/67 Pulse Oximetry 94 94 Oxygen Delivery Method Room Air Room Air 12/03/21 23:34 Temperature Pulse Rate 90 Respiratory Rate Blood Pressure 168/97 H Pulse Oximetry 98 Oxygen Delivery Method Room Air Medical Decision Making Lab Data Result diagrams: 12/03/21 22:19 12/03/21 22:19 Labs: Lab Results 12/03/21 12/03/21 12/03/21 Range/Units 22:19 22:19 22:19 WBC 7.2 (4.5-11.0) X10^3/uL RBC 4.64 (4.5-5.9) X10^6/uL Hgb 15.3 (13.5-17.5) g/dL Hct 44.1 (41-53) % MCV 95.1 (80-100) fL MCH 32.8 (26-34) PG MCHC 34.6 (30-36) % RDW 13.3 (11.6-14.8) % Plt Count 192 (150-400) X10^3/uL Neut % (Auto) 63.6 (50-75) % Lymph % (Auto) 25.9 (25-40) % Rains % (Auto) 6.1 (3-14) % Eos % (Auto) 3.6 (2-4) % Baso % (Auto) 0.8 (0-2) % Neut # (Auto) 4600 (0433-0250) /uL Lymph # (Auto) 1900 (5836-9364) /uL Rains # (Auto) 400 (0-900) /uL Eos # (Auto) 300 (0-450) /uL Baso # (Auto) 100 (0-100) /uL D-Dimer < 200 (<230) ng/mL Sodium 138 (137-145) mmol/L Potassium 3.9 (3.4-5.1) mmol/L Chloride 102 (98-107) mmol/L Carbon Dioxide 27 (22-32) mmol/L BUN 12 (9-20) mg/dL Creatinine 0.75 (0.66-1.25) mg/dL Estimated GFR > 60 (>60) mL/min BUN/Creatinine Ratio 16.0 (6-22) Glucose 146 H (70-100) mg/dL Calcium 9.0 (8.4-10.2) mg/dL Total Bilirubin 0.6 (0.2-1.3) mg/dL AST 38 (17-59) IU/L ALT 35 (<50) IU/L Alkaline Phosphatase 89 (38-126) U/L Total Creatine Kinase 208 H (55-170) U/L CK-MB (CK-2) 2.42 H (<2.37) ng/mL CK-MB (CK-2) Rel Index 1.2 L (1.5-5.0) % Troponin I < 0.012 (0.01-0.034) ng/mL NT-Pro-B Natriuret Pep 39 (<125) pg/mL Total Protein 8.1 (6.3-8.2) g/dL Albumin 4.5 (3.5-5.0) g/dL Globulin 3.6 (1.7-4.1) g/dL Albumin/Globulin Ratio 1.3 (1.0-2.8) Lipase 66 (23-300) U/L Imaging Data Chest x-ray: My Impression: No acute cardiopulmonary process ECG Data Interpretation: Normal sinus rhythm rate 76 [place] interval 140 QRS [address] changes T-wave inversion, similar to previous in 2016 MDM Narrative Medical decision making narrative: Patient has bilateral lower extremity swelling. Blood work is overall reassuring D-dimer negative. Probably venous stasis, it seems to get better in the mornings. However he is on amlodipine this may also be contributing. He is at very minimal erythema he has not no fever or leukocytosis. At this time I not think antibiotics are indicated. However I distracted him to monitor it. Patient is quite anxious in the ED asking to leave multiple times. At this time he certainly does not meet or need any admission. Discharge Plan Departure Patient Disposition: Home Clinical Impression: Venous stasis Instructions: DI for Edema Due to Venous Stasis Activity Restrictions/Additional Instructions: *You have been diagnosed with venous stasis *What to do: At this time I recommend wearing compression socks as he felt helped her swelling. Please talk with her primary care provider if swelling is getting significantly worse you may need a water pill to help get some swelling off. Blood work today is overall reassuring. No need for antibiotics at this time. Please monitor redness. Swelling may also be due to a medication called amlodipine that you are taking. His again please follow-up your primary care provider. *Continue to take medications as directed *Follow up with your primary care provider in 2-3 days or call [phone] *Return to ER if you should have worsening redness, worsening swelling, chest pain shortness of breath or any new, worsening or concerning symptoms Prescriptions: No Action cyclobenzaprine 10 mg tablet See Rx Instructions .ROUTE .COMPLEX Qty: 14 0RF Dose Instruction: take 1 tablet by mouth at bedtime if needed for muscle spasm Rx Instructions: take 1 tablet by mouth at bedtime if needed for muscle spasm gabapentin 300 mg capsule 300 mg PO DAILY PRN (Reason: nerve pain) Qty: 90 0RF Rx Instructions: Take 1 cap by mouth daily as needed for neuropathic pain amlodipine 5 mg tablet 5 mg PO BID Qty: 180 0RF Rx Instructions: Take 1 tab twice per day for hypertension lisinopril 20 mg tablet See Rx Instructions .ROUTE .COMPLEX Qty: 180 2RF Dose Instruction: take 1 tablet by mouth twice a day Rx Instructions: take 1 tablet by mouth twice a day metformin 500 mg tablet 500 mg PO BID Qty: 60 1RF Rx Instructions: Take 500mg with dinner daily. If tolerated, in 2 weeks, start taking 500mg with breakfast daily. omega-3 acid ethyl esters [Lovaza] 1 gram capsule 1 cap PO BID Qty: 180 3RF Rx Instructions: Take 1 tab twice daily for elevated triglycerides simvastatin 20 mg tablet 20 mg PO QPM Qty: 90 3RF Hold Instructions: patient stopped, concerned about s/e Rx Instructions: Take 1 tab every evening for elevated cholesterol sildenafil 100 mg tablet 100 mg PO DAILY PRN (Reason: sexual activity) Qty: 30 2RF Rx Instructions: administer 1/2 tab 30 minutes to 4 hours before activity doxepin 150 mg capsule 150 mg PO BEDTIME Qty: 90 3RF Rx Instructions: Take 1 capsule at bedtime daily for sleep. hydrochlorothiazide 25 mg tablet 25 mg PO DAILY Qty: 90 3RF Rx Instructions: Take 1 tab each morning for HTN (DME) Glucometer See Rx Instructions .Route .MEDSUPPLY Qty: 1 0RF Rx Instructions: As directed, whatever is covered by patient's insurance (DME) Glucometer Test Strips See Rx Instructions .Route .MEDSUPPLY Qty: 100 3RF Rx Instructions: Check blood sugars daily fasting each morning (DME) Lancettes See Rx Instructions .Route .MEDSUPPLY Qty: 100 3RF Rx Instructions: Check blood sugars fasting each morning and as needed (DME) Lancing Pen See Rx Instructions .Route .MEDSUPPLY Qty: 1 0RF Rx Instructions: As directed albuterol sulfate 90 mcg/actuation HFA aerosol inhaler 2 puff inhalation Q4-6H PRN (Reason: shortness of breath or wheezing) Qty: 8.5 0RF Referrals: Carol Ann Dailey ARNP [Primary Care Provider] - Visit Report Forms: Patient Portal/API
--- NOTE | 2021-12-03 22:11 | DI.RAD.S_ITS ---
PROCEDURE: XR CHEST 1V INDICATIONS: leg swelling sob TECHNIQUE: One view of the chest was acquired. COMPARISON: [facility], , CHEST 1 VIEW, 01/21/2016, 15:57. FINDINGS: Surgical changes and devices: None. Lungs and pleura: Visualized lungs are clear. The medial lung apices are partially obscured by patient's neck soft tissues. No pleural effusions or definite pneumothorax. Mediastinum: Mediastinal contours appear normal. Heart size is normal. Bones and chest wall: No suspicious bony lesions. Overlying soft tissues appear unremarkable. IMPRESSION: 1. Slightly limited study demonstrates no definite acute cardiopulmonary disease. Dictated by: Arnaldo Ibrahim M.D. on 12/03/2021 at 23:33 Approved by: Arnaldo Ibrahim M.D. on 12/03/2021 at 23:34
[2021-12-03 22:29] LABS: Add Manual Diff / Slide Review NO; Basophils Absolute Auto 100 /uL (0-100); Basophils Percent Auto 0.8 % (0-2); Eosinophils Absolute Auto 300 /uL (0-450); Eosinophils Percent Auto 3.6 % (2-4); Hematocrit 44.1 % (41-53); Hemoglobin 15.3 g/dL (13.5-17.5); Lymphocytes Absolute Auto 1900 /uL (1100-4500); Lymphocytes Percent Auto 25.9 % (25-40); Mean Corpuscular HGB Conc 34.6 % (30-36); Mean Corpuscular Hemoglobin 32.8 PG (26-34); Mean Corpuscular Volume 95.1 fL (80-100); Monocytes Absolute Auto 400 /uL (0-900); Monocytes Percent Auto 6.1 % (3-14); Neutrophils Absolute Auto 4600 /uL (1500-7000); Neutrophils Percent Auto 63.6 % (50-75); Platelet Count 192 X10^3/uL (150-400); Red Blood Cell Count 4.64 X10^6/uL (4.5-5.9); Red Cell Distribution Width 13.3 % (11.6-14.8); White Blood Cell Count 7.2 X10^3/uL (4.5-11.0)
[2021-12-03 22:40] LABS: Alanine Aminotransferase 35 IU/L (<50); Albumin 4.5 g/dL (3.5-5.0); Albumin Globulin Ratio 1.3 (1.0-2.8); Alkaline Phosphatase 89 U/L (38-126); Aspartate Aminotransferase 38 IU/L (17-59); Bilirubin Total 0.6 mg/dL (0.2-1.3); Blood Urea Nitrogen 12 mg/dL (9-20); Carbon Dioxide 27 mmol/L (22-32); Chloride 102 mmol/L (98-107); Creatine Kinase 208 U/L (55-170); Estimated Glomerular Filt Rate > 60 mL/min (>60); Globulin 3.6 g/dL (1.7-4.1); Glucose 146 mg/dL (70-100); HEMOLYSIS 32 (0-50); Lipase 66 U/L (23-300); Potassium 3.9 mmol/L (3.4-5.1); Sodium 138 mmol/L (137-145); Total Protein 8.1 g/dL (6.3-8.2)
[2021-12-03 22:52] LABS: NT-proBNP (BNP-Adult 18+) 39 pg/mL (<125); Troponin I < 0.012 ng/mL (0.01-0.034)
[2021-12-03 22:56] LABS: CKMB % Relative Index 1.2 % (1.5-5.0); Creatine Kinase MB 2.42 ng/mL (<2.37)
[2021-12-03 23:02] LABS: D Dimer < 200 ng/mL (<230)
== END 2021-12-03 23:34 | disposition home or self-care (01) ==
PROVIDERS: Emergency Provider Emergency Medicine; Family Provider Nurse Practitioner; PCP Nurse Practitioner
DX: I87.8 Other specified disorders of veins (principal)
CPT/HCPCS: 36415; 71045; 80053; 82550; 82553; 83690; 83880; 84484; 85025; 85379; 93005; 99283; 99284

== ENCOUNTER → 2021-12-25 12:12 | Outpatient (CLI) | payer MEDICARE, MEDICAID, SELFPAY ==
--- NOTE | 2021-12-25 12:14 | DI.US.S_ITS ---
PROCEDURE: US PERIPH VENOUS LOW EXTREM BI INDICATIONS: LE edema, venous stasis TECHNIQUE: Real-time imaging, as well as color and pulse Doppler interrogation, were performed of the deep veins of both legs from the inguinal ligament to the popliteal fossa. COMPARISON: None. FINDINGS: Right: The common femoral, femoral and popliteal veins are normally compressible, and free of intraluminal thrombus. Color and pulse Doppler demonstrate normal phasic intravascular flow. There is normal augmentation response to distal compression maneuver. Left: The common femoral, femoral and popliteal veins are normally compressible, and free of intraluminal thrombus. Color and pulse Doppler demonstrate normal phasic intravascular flow. There is normal augmentation response to distal compression maneuver. IMPRESSION: No sonographic evidence of deep venous thrombosis in the right or left lower extremity. Dictated by: Nilay Guevara M.D. on 12/25/2021 at 12:52 Approved by: Nilay Guevara M.D. on 12/25/2021 at 12:53
== END ==
PROVIDERS: Family Provider Nurse Practitioner; PCP Nurse Practitioner; Referring Provider Nurse Practitioner; Visit Provider Nurse Practitioner
DX: I87.8 Other specified disorders of veins (principal); R60.0 Localized edema; R20.2 Paresthesia of skin; F17.201 Nicotine dependence, unspecified, in remission; I10 Essential (primary) hypertension
CPT/HCPCS: 93970

== ENCOUNTER 2021-12-26 02:07 | Emergency (ER) | payer MEDICARE, MEDICAID, SELFPAY ==
[2021-12-26 02:10] VITALS: BP 143/83; PULSE 105; RESP 20; TEMP 37.1; O2SAT 92; BMI 31.0
--- NOTE | 2021-12-26 02:46 | DI.RAD.S_ITS ---
PROCEDURE: XR FOOT LT MIN 3V INDICATIONS: pain on dorsum of foot TECHNIQUE: 3 views of the foot were acquired. COMPARISON: None. FINDINGS: Bones: No fractures or dislocations. No suspicious bony lesions. Scattered mild degenerative changes are noted in the midfoot and forefoot. Prominent posterior and plantar calcaneal enthesophytes. Soft tissues: Mild soft tissue edema is seen at the dorsum of the foot and surrounding the ankle IMPRESSION: No acute osseous abnormality. If clinical suspicion and/or symptoms persist, additional imaging with repeat plain films, or advanced imaging (e.g. CT, MRI) may be helpful for further assessment. There is no significant discrepancy when compared to the overnight preliminary report. Dictated by: Nilay Guevara M.D. on 12/26/2021 at 8:20 Approved by: Nilay Guevara M.D. on 12/26/2021 at 8:22
--- NOTE | 2021-12-26 02:46 | DI.RAD.S_ITS ---
PROCEDURE: XR ANKLE LT MIN 3V INDICATIONS: ankle swelling TECHNIQUE: Three views of the ankle were acquired. COMPARISON: None. FINDINGS: Bones: Small osseous fragment adjacent to the tip of the medial malleolus is of uncertain chronicity. Ankle mortise is normally aligned. No suspicious bony lesions. Prominent posterior calcaneal enthesophyte is seen as well as a moderate plantar calcaneal enthesophyte. Soft tissues: Soft tissue edema is seen surrounding the ankle. IMPRESSION: Small ossification adjacent to the medial malleolar tip is most likely the sequela of an avulsion injury of uncertain age. Recommend correlation for point tenderness. Nonspecific soft tissue edema surrounding the ankle. If the symptoms persist, consider cross sectional imaging such as MRI or CT for further assessment. There is no significant discrepancy when compared to the overnight preliminary report. Dictated by: Nilay Guevara M.D. on 12/26/2021 at 8:22 Approved by: Nilay Guevara M.D. on 12/26/2021 at 8:24
--- NOTE | 2021-12-26 02:46 | ED.SKABFB ---
HPI - Skin/Abscess/Foreign Bdy General Chief complaint: Skin/Abscess/Foreign Body Stated complaint: pain in left foot swollen Time Seen by Provider: 12/26/21 02:12 Source: patient and family Mode of arrival: Ambulatory History of Present Illness HPI narrative: 51-year-old male who is a gyf-kucaacp-dvxioptfd diabetic who is here for evaluation pain to his left foot and a swelling of his left ankle and color changes to the outside of his left foot. He has been seen here in the emergency department recently for lower extremity issues. Is determined that he would venous stasis changes. He had an ultrasound performed yesterday of his lower extremities which showed no signs of DVT. He denies any specific trauma. He does admit that he has sensation decreased in both of his feet but this is not new. He started having pain on the top of his left foot. He stated that he tried to ?drink away the pain ?however he gets sharp discomfort on the top of his foot seems to come and go. Not worse with palpation. Related Data Previous Rx's Medication Instructions Recorded simvastatin 20 mg tablet 20 mg PO QPM #90 tabs 07/15/20 doxepin 150 mg capsule 150 mg PO BEDTIME #90 caps 01/30/21 cyclobenzaprine 10 mg tablet See Rx Instructions .Route 05/04/21 .COMPLEX #14 tabs albuterol sulfate 90 mcg/actuation 2 puff inhalation Q4-6H PRN 05/13/21 aerosol inhaler shortness of breath or wheezing #8.5 grams gabapentin 300 mg capsule 300 mg PO DAILY PRN nerve pain #90 09/11/21 caps lisinopril 20 mg tablet See Rx Instructions .Route 10/09/21 .COMPLEX #180 tabs Glucometer #1 ea 10/12/21 Glucometer Test Strips #100 ea 10/12/21 Lancettes #100 ea 10/12/21 Lancing Pen #1 ea 10/12/21 metformin 500 mg tablet 500 mg PO BID #60 tabs 12/01/21 omega-3 acid ethyl esters 1 gram 1 cap PO BID #180 caps 12/01/21 capsule (Lovaza) amoxicillin 500 mg-potassium 1 tab PO Q12H #20 tabs 12/25/21 clavulanate 125 mg tablet (Augmentin) hydrochlorothiazide 25 mg tablet 50 mg PO DAILY #180 tabs 12/25/21 sildenafil 100 mg tablet 100 mg PO DAILY PRN sexual 12/25/21 activity #30 tabs Allergies Allergy/AdvReac Type Severity Reaction Status Date / Time No Known Drug Allergies Allergy Verified 12/25/21 11:43 Review of Systems Constitutional Constitutional: Denies fever(s) Musculoskeletal Musculoskeletal: Reports system reviewed and no additional complaints, except as documented and Reports as per HPI Integumentary/Breasts Skin/Breast: Reports system reviewed and no additional complaints, except as documented and Reports as per HPI Neurologic Neurologic: Reports system reviewed and no additional complaints, except as documented and Reports as per HPI Hematologic/Lymphatic On Anticoagulants: No Patient History Medical History Alcohol cessation counseling Alcohol dependence, daily use Alcohol use disorder Atypical chest pain Back pain Bilateral foot pain Blood glucose elevated Class 1 obesity in adult COVID-19 vaccine series declined Depression with anxiety Elevated fasting blood sugar Elevated LFTs High triglycerides Hyperlipidemia Hypertension Hypertension Insomnia Lower GI bleed Lumbosacral spondylosis Mixed hyperlipidemia due to type 2 diabetes mellitus Non-insulin dependent diabetes mellitus Paresthesia of both feet Rectal bleeding Recto-perineal fistula Smokes tobacco daily Tobacco use disorder, mild, in early remission Family History Father Alive and well Mother Alive and well Social History marital status: unmarried,single occupational status: disabled Smoking Status: Former smoker second hand exposure: No alcohol intake: current Smoking Status: Former smoker tobacco type: cigarettes alcohol intake frequency: 3 or more drinks per day Alcohol type: beer and hard liquor Substance Use Type: marijuana Exam Initial Vital Signs Initial Vital Signs: Vital Signs Temperature 98.8 F 12/26/21 02:10 Pulse Rate 105 H 12/26/21 02:10 Respiratory Rate 20 12/26/21 02:10 Blood Pressure 143/83 H 12/26/21 02:10 Pulse Oximetry 92 12/26/21 02:10 Oxygen Delivery Method 12/26/21 02:10 HENMT Head: normal to inspection and normocephalic Cardio Pulses: dorsalis pedis present on the left Skin Other: He does have skin changes in his lower extremity consistent with venous stasis changes. He also has a quarter-size blood blister on the lateral aspect at the base of his left little toe. Neuro Other: He reports decreased sensation of his lower extremity circumferentially from just proximal to the ankle to the toes. This is not new for him. Extrem Other: Does have swelling to his ankle and foot. No specific tenderness over medial or lateral malleoli. No reproducible tenderness to palpation on the dorsum of his foot. Course Orders Ordered: ED Orders 12/26/21 02:46 XR ankle LT min 3V Stat XR foot LT min 3V Stat 12/26/21 03:07 Basic Metabolic Panel Stat Complete Blood Count AUTO DIFF Stat Uric Acid Stat Discontinued Medications Hydrocodone Bitart/Acetaminophen (Hydrocodone/Acet 5/325 Tablet) 1 tab PO NOW ONE Stop: 12/26/21 02:48 Last Admin: 12/26/21 02:54 Dose: 1 tab Documented By: JADIEL Vital Signs Vital signs: Vital Signs - 8 hr 12/26/21 02:10 12/26/21 04:01 Temperature 98.8 F Pulse Rate 105 H 93 H Respiratory Rate 20 20 Blood Pressure 143/83 H 106/55 L Pulse Oximetry 92 94 Oxygen Delivery Method Room Air Room Air MDM - Skin/Abscess/Foreign Bdy Lab Data Attestation: I reviewed the patient's lab results. Result diagrams: 12/26/21 03:07 12/26/21 03:07 Labs: Lab Results 12/26/21 12/26/21 Range/Units 03:07 03:07 WBC 10.1 (4.5-11.0) X10^3/uL RBC 4.60 (4.5-5.9) X10^6/uL Hgb 15.1 (13.5-17.5) g/dL Hct 43.9 (41-53) % MCV 95.4 (80-100) fL MCH 32.8 (26-34) PG MCHC 34.4 (30-36) % RDW 13.2 (11.6-14.8) % Plt Count 189 (150-400) X10^3/uL Neut % (Auto) 72.5 (50-75) % Lymph % (Auto) 17.8 L (25-40) % [place] % (Auto) 7.9 (3-14) % Eos % (Auto) 1.6 L (2-4) % Baso % (Auto) 0.2 (0-2) % Neut # (Auto) 7300 H (6277-1161) /uL Lymph # (Auto) 1800 (0668-8261) /uL [place] # (Auto) 800 (0-900) /uL Eos # (Auto) 200 (0-450) /uL Baso # (Auto) 0 (0-100) /uL Sodium 138 (137-145) mmol/L Potassium 3.6 (3.4-5.1) mmol/L Chloride 100 (98-107) mmol/L Carbon Dioxide 23 (22-32) mmol/L BUN 12 (9-20) mg/dL Creatinine 0.79 (0.66-1.25) mg/dL Estimated GFR > 60 (>60) mL/min BUN/Creatinine Ratio 15.2 (6-22) Glucose 126 H (70-100) mg/dL Uric Acid 7.3 (3.5-8.5) mg/dL Calcium 8.9 (8.4-10.2) mg/dL Imaging Data Extremity x-ray #1: Radiologist's Impression: Soft tissue swelling consistent with contusion and/or sprain. Medial malleolar tip avulsion could be acute or chronic. Extremity x-ray #2: Radiologist's Impression: Dorsal soft tissue swelling. No fracture identified. Chronic changes MDM Narrative Medical decision making narrative: The blood blister was drained. There is no specific signs of any infection. He is no leukocytosis. The x-ray does show soft tissue swelling. He is no specific tenderness over the medial malleoli. Low suspicion for gout. Low suspicion for vascular injury. He denies any specific trauma however his exam is consistent with an ankle sprain. Patient is ambulatory. He feels better after 1 dose of pain medication. We will hold on further workup for now. Patient was given care instructions and return precautions. He expressed understanding and agreement. Discharge Plan Departure Patient Disposition: Home Clinical Impression: Injury of ankle, left, Blood blister Instructions: How To Perform RICE (Rest, Ice, Compress, Elevate) Activity Restrictions/Additional Instructions: Your labs today are reassuring and there does not appear to be any signs of an infection. The x-rays do not show any signs of fractures. I do recommend that you put topical antibiotic ointment over the blood blister that was drained here in the ER. Recommend that you keep your foot elevated. Keep ice over the area. Contact your primary doctor for follow-up. Return to the emergency department for new symptoms. Prescriptions: No Action cyclobenzaprine 10 mg tablet See Rx Instructions .ROUTE .COMPLEX Qty: 14 0RF Dose Instruction: take 1 tablet by mouth at bedtime if needed for muscle spasm Rx Instructions: take 1 tablet by mouth at bedtime if needed for muscle spasm gabapentin 300 mg capsule 300 mg PO DAILY PRN (Reason: nerve pain) Qty: 90 0RF Rx Instructions: Take 1 cap by mouth daily as needed for neuropathic pain lisinopril 20 mg tablet See Rx Instructions .ROUTE .COMPLEX Qty: 180 2RF Dose Instruction: take 1 tablet by mouth twice a day Rx Instructions: take 1 tablet by mouth twice a day metformin 500 mg tablet 500 mg PO BID Qty: 60 1RF Rx Instructions: Take 500mg with dinner daily. If tolerated, in 2 weeks, start taking 500mg with breakfast daily. omega-3 acid ethyl esters [Lovaza] 1 gram capsule 1 cap PO BID Qty: 180 3RF Rx Instructions: Take 1 tab twice daily for elevated triglycerides simvastatin 20 mg tablet 20 mg PO QPM Qty: 90 3RF Hold Instructions: patient stopped, concerned about s/e Rx Instructions: Take 1 tab every evening for elevated cholesterol doxepin 150 mg capsule 150 mg PO BEDTIME Qty: 90 3RF Rx Instructions: Take 1 capsule at bedtime daily for sleep. (DME) Glucometer See Rx Instructions .Route .MEDSUPPLY Qty: 1 0RF Rx Instructions: As directed, whatever is covered by patient's insurance (DME) Glucometer Test Strips See Rx Instructions .Route .MEDSUPPLY Qty: 100 3RF Rx Instructions: Check blood sugars daily fasting each morning (DME) Lancettes See Rx Instructions .Route .MEDSUPPLY Qty: 100 3RF Rx Instructions: Check blood sugars fasting each morning and as needed (DME) Lancing Pen See Rx Instructions .Route .MEDSUPPLY Qty: 1 0RF Rx Instructions: As directed hydrochlorothiazide 25 mg tablet 50 mg PO DAILY Qty: 180 3RF Rx Instructions: Take 2 tabs each morning for HTN sildenafil 100 mg tablet 100 mg PO DAILY PRN (Reason: sexual activity) Qty: 30 2RF Rx Instructions: administer 1/2 tab 30 minutes to 4 hours before activity amoxicillin-pot clavulanate [Augmentin] 500-125 mg tablet 1 tab PO Q12H Qty: 20 0RF Rx Instructions: Take 1 tab every 12 hours x10 days albuterol sulfate 90 mcg/actuation HFA aerosol inhaler 2 puff inhalation Q4-6H PRN (Reason: shortness of breath or wheezing) Qty: 8.5 0RF Referrals: Carol Ann Dailey ARNP [Primary Care Provider] - Visit Report Forms: Patient Portal/API
[2021-12-26] MEDS: HYDROCODONE/ACET 5/325 TABLET 1 TAB PO (02:54)
[2021-12-26 03:20] LABS: Add Manual Diff / Slide Review NO; Basophils Absolute Auto 0 /uL (0-100); Basophils Percent Auto 0.2 % (0-2); Eosinophils Absolute Auto 200 /uL (0-450); Eosinophils Percent Auto 1.6 % (2-4); Hematocrit 43.9 % (41-53); Hemoglobin 15.1 g/dL (13.5-17.5); Lymphocytes Absolute Auto 1800 /uL (1100-4500); Lymphocytes Percent Auto 17.8 % (25-40); Mean Corpuscular HGB Conc 34.4 % (30-36); Mean Corpuscular Hemoglobin 32.8 PG (26-34); Mean Corpuscular Volume 95.4 fL (80-100); Monocytes Absolute Auto 800 /uL (0-900); Monocytes Percent Auto 7.9 % (3-14); Neutrophils Absolute Auto 7300 /uL (1500-7000); Neutrophils Percent Auto 72.5 % (50-75); Platelet Count 189 X10^3/uL (150-400); Red Cell Distribution Width 13.2 % (11.6-14.8); White Blood Cell Count 10.1 X10^3/uL (4.5-11.0)
[2021-12-26 03:31] LABS: BUN Creatinine Ratio 15.2 (6-22); Blood Urea Nitrogen 12 mg/dL (9-20); Calcium 8.9 mg/dL (8.4-10.2); Carbon Dioxide 23 mmol/L (22-32); Chloride 100 mmol/L (98-107); Estimated Glomerular Filt Rate > 60 mL/min (>60); Glucose 126 mg/dL (70-100); HEMOLYSIS < 15 (0-50); Potassium 3.6 mmol/L (3.4-5.1); Sodium 138 mmol/L (137-145); Uric Acid 7.3 mg/dL (3.5-8.5)
[2021-12-26 04:01] VITALS: BP 106/55; PULSE 93; RESP 20; O2SAT 94
== END 2021-12-26 04:03 | disposition home or self-care (01) ==
PROVIDERS: Emergency Provider Emergency Medicine; Family Provider Nurse Practitioner; PCP Nurse Practitioner
DX: S93.402A Sprain of unspecified ligament of left ankle, initial encounter (principal); S90.425A Blister (nonthermal), left lesser toe(s), initial encounter
CPT/HCPCS: 36415; 73610; 73630; 80048; 84550; 85025; 99283; 99284

== ENCOUNTER → 2021-12-28 15:27 | Outpatient (CLI) | payer MEDICARE, MEDICAID, SELFPAY ==
[2021-12-28 16:28] LABS: Hemoglobin A1C% w Est Avg Glu 6.6 % (4.0-6.0)
[2021-12-28 16:31] LABS: Alanine Aminotransferase 27 IU/L (<50); Albumin 4.2 g/dL (3.5-5.0); Albumin Globulin Ratio 1.2 (1.0-2.8); Alkaline Phosphatase 112 U/L (38-126); Aspartate Aminotransferase 32 IU/L (17-59); BUN Creatinine Ratio 14.1 (6-22); Bilirubin Total 0.5 mg/dL (0.2-1.3); Blood Urea Nitrogen 11 mg/dL (9-20); Calcium 9.1 mg/dL (8.4-10.2); Carbon Dioxide 31 mmol/L (22-32); Chloride 98 mmol/L (98-107); Cholesterol 158 mg/dL (140-199); Estimated Glomerular Filt Rate > 60 mL/min (>60); Globulin 3.4 g/dL (1.7-4.1); Glucose 203 mg/dL (70-100); HDL Cholesterol 28 mg/dL (40-60); HEMOLYSIS < 15 (0-50); LDL Cholesterol Calculated 74 mg/dL (<100); Potassium 3.9 mmol/L (3.4-5.1); Sodium 138 mmol/L (137-145); Total Protein 7.6 g/dL (6.3-8.2); Triglycerides 279 mg/dL (35-150)
[2021-12-28 16:49] LABS: Free T3, Triiodothyronine Free 4.45 pg/mL (2.77-5.27); Free T4, Direct Thyroxine 1.25 ng/dL (0.78-2.19)
[2021-12-28 16:50] LABS: Creatinine Urine Random 95.7 mg/dL
[2021-12-28 16:55] LABS: Microalbumi Creatinin Ratio Ur 11.4 ug/mg CR (<30); Microalbumin Urine Random 1.1 mg/dL (0-1.6)
[2021-12-28 17:02] LABS: Thyroid Stimulating Hormone 1.65 uIU/mL (0.47-4.68)
== END ==
PROVIDERS: Family Provider Nurse Practitioner; PCP Nurse Practitioner; Referring Provider Nurse Practitioner; Visit Provider Nurse Practitioner
DX: E11.69 Type 2 diabetes mellitus with other specified complication (principal); E78.1 Pure hyperglyceridemia; E78.2 Mixed hyperlipidemia; I10 Essential (primary) hypertension; Z79.899 Other long term (current) drug therapy
CPT/HCPCS: 36415; 80053; 80061; 82043; 82570; 83036; 84439; 84443; 84481

== ENCOUNTER 2022-04-18 10:13 | Emergency (ER) | payer MEDICARE, MEDICAID, SELFPAY ==
[2022-04-18 10:58] VITALS: BP 186/114; PULSE 85; RESP 15; TEMP 36.3; O2SAT 94; BMI 30.6
--- NOTE | 2022-04-18 13:36 | DI.CT.S_ITS ---
PROCEDURE: CT HEAD/BRAIN WO CON INDICATIONS: numbness TECHNIQUE: Noncontrast 4.5 mm thick angled axial sections acquired from the foramen magnum to the vertex, with coronal and sagittal reformats. For radiation dose reduction, the following was used: automated exposure control, adjustment of mA and/or kV according to patient size. COMPARISON: None. FINDINGS: Image quality: Excellent. CSF spaces: Basal cisterns are patent. No extra-axial fluid collections. The ventricles are symmetric in size and shape. Brain: No acute intracranial hemorrhage, mass effect, or midline shift. Normal brain parenchymal attenuation. Skull and face: Calvarium and visualized facial bones appear intact, without suspicious lesions. Sinuses: Visualized sinuses and mastoids are clear. IMPRESSION: No acute intracranial finding Dictated by: Mark Chapman M.D. on 04/18/2022 at 14:56 Approved by: Mark Chapman M.D. on 04/18/2022 at 14:58
--- NOTE | 2022-04-18 13:38 | ED.HA ---
HPI - Headache General Chief Complaint: Headache Stated Complaint: headache, left side of head x2 wks,head pain Time Seen by Provider: 04/18/22 12:42 Mode of arrival: Ambulatory History of Present Illness HPI Narrative: This is a 51-year-old male who presents to the emergency department complaining of a headache on the left side of his scalp. Denies having pain deep to his scalp, he states it is tender to palpation without any wounds. States that a month or so prior he body use pillow and sores on his head which have been resolving. Patient states that he recently had a video appointment with his primary care provider Carol Ann chase, on chart review it appears that this is true. He had this appointment on 04/11/2022 regarding hypertension. Patient tells me that he does not check his blood sugar but he does take metformin, states that he has been taking his medications as prescribed. He has a history of hyperlipidemia, haw-xymwrnd-[id number] diabetes, hypertension, uses daily alcohol, estimates 10 beers with a half of a 5th mixed with cranberry juice does not check his blood sugar. Related Data Previous Rx's Medication Instructions Recorded simvastatin 20 mg tablet 20 mg PO QPM #90 tabs 07/15/20 doxepin 150 mg capsule 150 mg PO BEDTIME #90 caps 01/30/21 cyclobenzaprine 10 mg tablet See Rx Instructions .Route 05/04/21 .COMPLEX #14 tabs albuterol sulfate 90 mcg/actuation 2 puff inhalation Q4-6H PRN 05/13/21 aerosol inhaler shortness of breath or wheezing #8.5 grams gabapentin 300 mg capsule 300 mg PO DAILY PRN nerve pain #90 09/11/21 caps lisinopril 20 mg tablet See Rx Instructions .Route 10/09/21 .COMPLEX #180 tabs Glucometer #1 ea 10/12/21 Glucometer Test Strips #100 ea 10/12/21 Lancettes #100 ea 10/12/21 Lancing Pen #1 ea 10/12/21 omega-3 acid ethyl esters 1 gram 1 cap PO BID #180 caps 12/01/21 capsule (Lovaza) hydrochlorothiazide 25 mg tablet 50 mg PO DAILY #180 tabs 12/25/21 sildenafil 100 mg tablet 100 mg PO DAILY PRN sexual 12/25/21 activity #30 tabs metformin 500 mg tablet 1,000 mg PO BIDWMEAL #360 tabs 01/22/22 Allergies Allergy/AdvReac Type Severity Reaction Status Date / Time No Known Drug Allergies Allergy Verified 04/18/22 10:57 Review of Systems Review of Systems Narrative: Review of systems is negative for acute abnormalities unless otherwise noted in HPI Patient History Medical History Alcohol cessation counseling Alcohol dependence, daily use Alcohol use disorder Alcohol use disorder, moderate, dependence Atypical chest pain Back pain Bilateral foot pain Blood glucose elevated Class 1 obesity in adult COVID-19 vaccine series declined Depression with anxiety Elevated fasting blood sugar Elevated LFTs High triglycerides Hyperlipidemia Hypertension Hypertension Insomnia Lower GI bleed Lumbosacral spondylosis Mixed hyperlipidemia due to type 2 diabetes mellitus Non-insulin dependent diabetes mellitus Paresthesia of both feet Rectal bleeding Recto-perineal fistula Smokes tobacco daily Tobacco use disorder, mild, in early remission Family History Father Alive and well Mother Alive and well Social History marital status: unmarried,single occupational status: disabled Smoking Status: Former smoker second hand exposure: No alcohol intake: current Smoking Status: Former smoker tobacco type: cigarettes alcohol intake frequency: 3 or more drinks per day Alcohol type: beer and hard liquor Substance Use Type: marijuana Exam Narrative Exam Narrative: Reviewed vitals signs and nursing notes. General: cooperative, comfortable, in no acute distress, well groomed, overweight, flight of ideas, alert and oriented x3 HEENT: symmetrical facial expressions, without nystagmus moist mucous membranes, 2 scaled lesions on his scalp without any erythema, drainage, no tenderness over his temporal region on the left parietal scalp, EOMI, Cardiovascular: regular rate and rhythm, no peripheral edema, warm extremities Respiratory: normal effort, able to speak in complete sentences, without wheezing, stridor, or abnormal breath sounds. No retractions or tachypnea. GI: abdomen soft, nontender to palpation, nondistended, without masses, rebound tenderness or exquisite tenderness with exam. MSK: moves all extremities, neurovascularly intact, no weakness, normal tone Skin: brisk capillary refill, without pallor or erythema Neuro: normal speech and cognition, A&O x3, ambulatory, clear speech Psych: mental status is grossly normal, congruent mood, normal affect, pleasant and cooperative Initial Vital Signs Initial Vital Signs: Vital Signs Temperature 97.4 F L 04/18/22 10:58 Pulse Rate 85 04/18/22 10:58 Respiratory Rate 15 04/18/22 10:58 Blood Pressure 186/114 H 04/18/22 10:58 Pulse Oximetry 94 04/18/22 10:58 Oxygen Delivery Method 04/18/22 10:58 Course Orders Ordered: ED Orders 04/18/22 13:36 CT head/brain wo con Stat Vital Signs Vital signs: Vital Signs - 8 hr 04/18/22 10:58 Temperature 97.4 F L Pulse Rate 85 Respiratory Rate 15 Blood Pressure 186/114 H Pulse Oximetry 94 Oxygen Delivery Method Room Air MDM - Headache Imaging Data CT scan - head: Radiologist's Impression: PROCEDURE:? CT HEAD/BRAIN WO CON ? INDICATIONS:? numbness ? TECHNIQUE:? Noncontrast 4.5 mm thick angled axial sections acquired from the foramen magnum to the vertex, with coronal and sagittal reformats.? For radiation dose reduction, the following was used:? automated exposure control, adjustment of mA and/or kV according to patient size.? ? COMPARISON:? None. ? FINDINGS:? Image quality:? Excellent.? ? CSF spaces:? Basal cisterns are patent.? No extra-axial fluid collections.? The ventricles are symmetric in size and shape.? ? Brain:? No acute intracranial hemorrhage, mass effect, or midline shift.? Normal brain parenchymal attenuation. ? Skull and face:? Calvarium and visualized facial bones appear intact, without suspicious lesions.? ? Sinuses:? Visualized sinuses and mastoids are clear.? ? IMPRESSION:? No acute intracranial finding ? ? Dictated by: Mark Chapman M.D. on 04/18/2022 at 14:56 ? ? Approved by: Mark Chapman M.D. on 04/18/2022 at 14:58 ? MDM Narrative Medical decision making narrative: At 13:44, patient walks up after his head CT and states that he needs to leave and he refuses the COVID test as well as IV and additional lab orders. They were canceled, patient is leaving after being seen, will update HPI. Patient came up to the desk and stated that he had his head CT, wanted to leave Against Medical Advice, wishes that we send his labs and results to Dr. Chase and he states he will follow-up with her. In the emergency department, he refused his respiratory panel, IV placement, endorses left parietal scalp numbness and tingling as well as tenderness to palpation. He did not have any tenderness over the temporal region, differential included alcohol withdrawal, altered mental status, diabetic neuropathy, temporal arteritis, alcohol withdrawal, and other. His lab work did result, his glucose is 118, hemoglobin A1c is 6.0. Patient left Against Medical Advice prior to any of his results coming back. CT was negative for acute intracranial abnormality. Discharge Plan Departure Patient Disposition: Left Against Medical Advice Clinical Impression: Patient left before treatment completed, Head pain, Left against medical advice, History of diabetes mellitus, Alcohol abuse Prescriptions: No Action cyclobenzaprine 10 mg tablet See Rx Instructions .ROUTE .COMPLEX Qty: 14 0RF Dose Instruction: take 1 tablet by mouth at bedtime if needed for muscle spasm Rx Instructions: take 1 tablet by mouth at bedtime if needed for muscle spasm gabapentin 300 mg capsule 300 mg PO DAILY PRN (Reason: nerve pain) Qty: 90 0RF Rx Instructions: Take 1 cap by mouth daily as needed for neuropathic pain lisinopril 20 mg tablet See Rx Instructions .ROUTE .COMPLEX Qty: 180 2RF Dose Instruction: take 1 tablet by mouth twice a day Rx Instructions: take 1 tablet by mouth twice a day omega-3 acid ethyl esters [Lovaza] 1 gram capsule 1 cap PO BID Qty: 180 3RF Rx Instructions: Take 1 tab twice daily for elevated triglycerides metformin 500 mg tablet 1,000 mg PO BIDWMEAL Qty: 360 3RF Rx Instructions: Increase dose to 2 tabs with food, twice daily. simvastatin 20 mg tablet 20 mg PO QPM Qty: 90 3RF Hold Instructions: patient stopped, concerned about s/e Rx Instructions: Take 1 tab every evening for elevated cholesterol doxepin 150 mg capsule 150 mg PO BEDTIME Qty: 90 3RF Rx Instructions: Take 1 capsule at bedtime daily for sleep. (DME) Glucometer See Rx Instructions .Route .MEDSUPPLY Qty: 1 0RF Rx Instructions: As directed, whatever is covered by patient's insurance (DME) Glucometer Test Strips See Rx Instructions .Route .MEDSUPPLY Qty: 100 3RF Rx Instructions: Check blood sugars daily fasting each morning (DME) Lancettes See Rx Instructions .Route .MEDSUPPLY Qty: 100 3RF Rx Instructions: Check blood sugars fasting each morning and as needed (DME) Lancing Pen See Rx Instructions .Route .MEDSUPPLY Qty: 1 0RF Rx Instructions: As directed hydrochlorothiazide 25 mg tablet 50 mg PO DAILY Qty: 180 3RF Rx Instructions: Take 2 tabs each morning for HTN sildenafil 100 mg tablet 100 mg PO DAILY PRN (Reason: sexual activity) Qty: 30 2RF Rx Instructions: administer 1/2 tab 30 minutes to 4 hours before activity albuterol sulfate 90 mcg/actuation HFA aerosol inhaler 2 puff inhalation Q4-6H PRN (Reason: shortness of breath or wheezing) Qty: 8.5 0RF Stand Alone Forms: Against Medical Advice
--- NOTE | 2022-04-18 13:39 | PC.NURSE ---
pt refusing nasal swab for covid RSV and flu.
--- NOTE | 2022-04-18 13:44 | PC.NURSE ---
Pt refusing IV. states he just had labs drawn outpt. Call placed to lab and pt needs few extra tubes drawn for add on tests. Pt refused. Pt completed head CT. on arrival back pt walked up to RN station and states i got my head CT im alverto take off now thanks and ambulated out of department with steady gait. Colette PABLO made aware and pt was advised that he needs to f/u with Carol Ann Dailey, PCP.
--- NOTE | 2022-04-18 13:47 | PC.NURSE ---
pt states he had 2 pimples on the side of his head which resolved and states he is having residual pain. concern for shingles. pt AAOx3, ambulatory and no lesions noted on face. pt is wearing a beanie hat which he would not remove for nursing. this RN unable to assess.
== END 2022-04-18 13:53 | disposition left against medical advice (07) ==
PROVIDERS: Emergency Provider Nurse Practitioner Critical Care Medicine; Family Provider Nurse Practitioner; PCP Nurse Practitioner
DX: R51.9 Headache, unspecified (principal); F10.20 Alcohol dependence, uncomplicated; E11.69 Type 2 diabetes mellitus with other specified complication; I10 Essential (primary) hypertension; E78.2 Mixed hyperlipidemia
CPT/HCPCS: 36415; 70450; 80053; 83036; 99283

== ENCOUNTER → 2022-04-18 12:20 | Outpatient (CLI) | payer MEDICARE, MEDICAID, SELFPAY ==
[2022-04-18 13:16] LABS: Alanine Aminotransferase 30 IU/L (<50); Albumin 4.8 g/dL (3.5-5.0); Albumin Globulin Ratio 1.5 (1.0-2.8); Alkaline Phosphatase 85 U/L (38-126); Aspartate Aminotransferase 33 IU/L (17-59); BUN Creatinine Ratio 13.8 (6-22); Bilirubin Total 0.6 mg/dL (0.2-1.3); Blood Urea Nitrogen 11 mg/dL (9-20); Calcium 9.5 mg/dL (8.4-10.2); Carbon Dioxide 34 mmol/L (22-32); Chloride 96 mmol/L (98-107); Estimated Glomerular Filt Rate > 60 mL/min (>60); Globulin 3.3 g/dL (1.7-4.1); Glucose 118 mg/dL (70-100); HEMOLYSIS < 15 (0-50); Potassium 3.9 mmol/L (3.4-5.1); Sodium 139 mmol/L (137-145); Total Protein 8.1 g/dL (6.3-8.2)
== END ==
PROVIDERS: Family Provider Nurse Practitioner; PCP Nurse Practitioner; Referring Provider Nurse Practitioner; Visit Provider Nurse Practitioner
DX: E11.69 Type 2 diabetes mellitus with other specified complication (principal); E78.2 Mixed hyperlipidemia; I10 Essential (primary) hypertension
CPT/HCPCS: 36415; 80053; 83036

== ENCOUNTER 2022-04-22 14:15 | Emergency (ER) | payer MEDICARE, MEDICAID, SELFPAY ==
[2022-04-22 14:23] VITALS: PULSE 97; O2SAT 96
[2022-04-22 14:27] VITALS: BP 192/97; PULSE 99; RESP 18; TEMP 36.2; O2SAT 99
[2022-04-22 14:30] VITALS: PULSE 93; RESP 24; O2SAT 97
[2022-04-22 14:31] VITALS: BP 160/96; PULSE 92; RESP 13; O2SAT 97
--- NOTE | 2022-04-22 14:52 | PC.NURSE ---
Pt reports taking his blood pressure at home and states it was in the 180-190's. Pt reports RALPH at home, denies RALPH at this time. Pt does take lisinopril and HCTZ, does not remember the doses. at bedside at this time discussing his meds.
--- NOTE | 2022-04-22 14:56 | ED_ITS ---
HPI - General Adult General Chief complaint: Hypertension Stated complaint: high blood pressure per pt Time Seen by Provider: 04/22/22 14:26 Source: patient Mode of arrival: Ambulatory History of Present Illness HPI narrative: Patient is a 51-year-old male. History of high blood pressure. Is on 50 mg of hydrochlorothiazide in the morning and 20 mg of lisinopril in the morning and another 20 mg of lisinopril in the evening. He has been taking all of his medications as directed. He has been taking his blood pressure at home over the past 4 days. He was told to do this because he has been having headaches and he was told that maybe his elevated blood pressure was causing his headache. He is not currently having a headache. Ibuprofen seems to improve the symptoms. He denies chest pain. No shortness of breath. He took his blood pressure last evening and the systolic blood pressure was greater than 200. He thought that maybe the machine was broken so he decided to continue to keep drinking with his friend and then passed out him when he rechecked his blood pressure this morning it was 180 systolic. He has been in the 180s systolic over the past several days. He came in because of these elevated pressures. Related Data Previous Rx's Medication Instructions Recorded simvastatin 20 mg tablet 20 mg PO QPM #90 tabs 07/15/20 doxepin 150 mg capsule 150 mg PO BEDTIME #90 caps 01/30/21 cyclobenzaprine 10 mg tablet See Rx Instructions .Route 05/04/21 .COMPLEX #14 tabs albuterol sulfate 90 mcg/actuation 2 puff inhalation Q4-6H PRN 05/13/21 aerosol inhaler shortness of breath or wheezing #8.5 grams gabapentin 300 mg capsule 300 mg PO DAILY PRN nerve pain #90 09/11/21 caps lisinopril 20 mg tablet See Rx Instructions .Route 10/09/21 .COMPLEX #180 tabs Glucometer #1 ea 10/12/21 Glucometer Test Strips #100 ea 10/12/21 Lancettes #100 ea 10/12/21 Lancing Pen #1 ea 10/12/21 omega-3 acid ethyl esters 1 gram 1 cap PO BID #180 caps 12/01/21 capsule (Lovaza) hydrochlorothiazide 25 mg tablet 50 mg PO DAILY #180 tabs 12/25/21 sildenafil 100 mg tablet 100 mg PO DAILY PRN sexual 12/25/21 activity #30 tabs metformin 500 mg tablet 1,000 mg PO BIDWMEAL #360 tabs 01/22/22 amlodipine 2.5 mg tablet 2.5 mg PO DAILY 14 days #14 tabs 04/22/22 losartan 25 mg tablet 25 mg PO DAILY 14 days #14 tabs 04/22/22 Allergies Allergy/AdvReac Type Severity Reaction Status Date / Time No Known Drug Allergies Allergy Verified 04/18/22 10:57 Review of Systems Constitutional Constitutional: Reports system reviewed and no additional complaints, except as documented Cardiovascular Cardiovascular: Reports system reviewed and no additional complaints, except as documented Respiratory Respiratory: Reports system reviewed and no additional complaints, except as documented Gastrointestinal Gastrointestinal: Reports system reviewed and no additional complaints, except as documented Hematologic/Lymphatic On Anticoagulants: No Patient History Medical History Alcohol cessation counseling Alcohol dependence, daily use Alcohol use disorder Alcohol use disorder, moderate, dependence Atypical chest pain Back pain Bilateral foot pain Blood glucose elevated Class 1 obesity in adult COVID-19 vaccine series declined Depression with anxiety Elevated fasting blood sugar Elevated LFTs High triglycerides Hyperlipidemia Hypertension Hypertension Insomnia Lower GI bleed Lumbosacral spondylosis Mixed hyperlipidemia due to type 2 diabetes mellitus Non-insulin dependent diabetes mellitus Paresthesia of both feet Rectal bleeding Recto-perineal fistula Smokes tobacco daily Tobacco use disorder, mild, in early remission Family History Father Alive and well Mother Alive and well Social History marital status: unmarried,single occupational status: disabled Smoking Status: Former smoker second hand exposure: No alcohol intake: current Smoking Status: Former smoker tobacco type: cigarettes alcohol intake frequency: 3 or more drinks per day Alcohol type: beer and hard liquor Substance Use Type: marijuana Exam Initial Vital Signs Initial Vital Signs: Vital Signs Pulse Rate 97 H 04/22/22 14:23 Pulse Oximetry 96 04/22/22 14:23 Oxygen Delivery Method 04/22/22 14:23 Const General: cooperative and comfortable Resp Effort & Inspection: normal respiratory effort Auscultation: clear to auscultation bilaterally Cardio Rate: regular rate Rhythm: regular rhythm Skin General: no rashes or lesions noted Neuro General: patient alert, patient awake, patient oriented x3 and moves all extremities Extrem General: normal to inspection Course Orders Ordered: ED Orders 04/22/22 14:31 EKG-12 Lead Stat Vital Signs Vital signs: Vital Signs - 8 hr 04/22/22 14:27 04/22/22 14:23 04/22/22 14:30 Temperature 97.2 F L Pulse Rate 99 H 97 H 93 H Respiratory Rate 18 24 Blood Pressure 192/97 H Pulse Oximetry 99 96 97 Oxygen Delivery Method Room Air Room Air Room Air 04/22/22 14:31 04/22/22 14:31 Temperature Pulse Rate 92 H Respiratory Rate 13 Blood Pressure 160/96 H Pulse Oximetry 97 Oxygen Delivery Method Room Air Medical Decision Making ECG Data Attestation: I personally reviewed and interpreted this ECG as follows: Interpretation: Sinus rhythm Ventricular rate 92 Normal QRS Normal QTC Nonspecific ST T wave changes MDM Narrative Medical decision making narrative: Patient is maxed out on his lisinopril and also hydrochlorothiazide. His systolic blood pressure here in the ER is 160. He is asymptomatic. He has no chest pain. No shortness of breath. No headache. No lower extremity swelling. 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 I discussed his blood pressure with him. He has a follow-up with his primary doct or the end of this week. The plan will be is start him on a low dose of losartan. I will give him 14 days of this medication so that if he sees his primary doctor this week and his primary provider would like to start him on another medicine that there would not be a waste of the losartan. This medicine is agreeable to his primary provider then she can provide a longer prescription for this. He will continue to take his blood pressure at home. I also informed him that his drinking is not helping the situation both of his diabetes and also his high blood pressure. He expressed understanding of this. Discharge Plan Departure Patient Disposition: Home Clinical Impression: Hypertension Instructions: DI for High Blood Pressure Activity Restrictions/Additional Instructions: Continue to take your blood pressure at home. Record these numbers. Keep your appointment with your primary provider at the end of this week. Return to the emergency department for any new or worsening symptoms. Initially I prescribed you a medicine called losartan. After further thought I feel that a medicine called amlodipine would be best for you. This is why both of these medicines appear on this discharge instruction however you should only receive the amlodipine and start taking this with your other blood pressure medicines. Prescriptions: New losartan 25 mg tablet 25 mg PO DAILY 14 Days Qty: 14 0RF amlodipine 2.5 mg tablet 2.5 mg PO DAILY 14 Days Qty: 14 0RF No Action cyclobenzaprine 10 mg tablet See Rx Instructions .ROUTE .COMPLEX Qty: 14 0RF Dose Instruction: take 1 tablet by mouth at bedtime if needed for muscle spasm Rx Instructions: take 1 tablet by mouth at bedtime if needed for muscle spasm gabapentin 300 mg capsule 300 mg PO DAILY PRN (Reason: nerve pain) Qty: 90 0RF Rx Instructions: Take 1 cap by mouth daily as needed for neuropathic pain lisinopril 20 mg tablet See Rx Instructions .ROUTE .COMPLEX Qty: 180 2RF Dose Instruction: take 1 tablet by mouth twice a day Rx Instructions: take 1 tablet by mouth twice a day omega-3 acid ethyl esters [Lovaza] 1 gram capsule 1 cap PO BID Qty: 180 3RF Rx Instructions: Take 1 tab twice daily for elevated triglycerides metformin 500 mg tablet 1,000 mg PO BIDWMEAL Qty: 360 3RF Rx Instructions: Increase dose to 2 tabs with food, twice daily. simvastatin 20 mg tablet 20 mg PO QPM Qty: 90 3RF Hold Instructions: patient stopped, concerned about s/e Rx Instructions: Take 1 tab every evening for elevated cholesterol doxepin 150 mg capsule 150 mg PO BEDTIME Qty: 90 3RF Rx Instructions: Take 1 capsule at bedtime daily for sleep. (DME) Glucometer See Rx Instructions .Route .MEDSUPPLY Qty: 1 0RF Rx Instructions: As directed, whatever is covered by patient's insurance (DME) Glucometer Test Strips See Rx Instructions .Route .MEDSUPPLY Qty: 100 3RF Rx Instructions: Check blood sugars daily fasting each morning (DME) Lancettes See Rx Instructions .Route .MEDSUPPLY Qty: 100 3RF Rx Instructions: Check blood sugars fasting each morning and as needed (DME) Lancing Pen See Rx Instructions .Route .MEDSUPPLY Qty: 1 0RF Rx Instructions: As directed hydrochlorothiazide 25 mg tablet 50 mg PO DAILY Qty: 180 3RF Rx Instructions: Take 2 tabs each morning for HTN sildenafil 100 mg tablet 100 mg PO DAILY PRN (Reason: sexual activity) Qty: 30 2RF Rx Instructions: administer 1/2 tab 30 minutes to 4 hours before activity albuterol sulfate 90 mcg/actuation HFA aerosol inhaler 2 puff inhalation Q4-6H PRN (Reason: shortness of breath or wheezing) Qty: 8.5 0RF Referrals: Carol Ann Dailey ARNP [Primary Care Provider] -
[2022-04-22 15:00] VITALS: BP 178/101; PULSE 95; RESP 19; O2SAT 96
[2022-04-22 15:39] VITALS: BP 175/103; PULSE 89; RESP 14; O2SAT 94
== END 2022-04-22 15:40 | disposition home or self-care (01) ==
PROVIDERS: Emergency Provider Emergency Medicine; Family Provider Nurse Practitioner; PCP Nurse Practitioner
DX: I10 Essential (primary) hypertension (principal)
CPT/HCPCS: 93005; 93010; 99283

== ENCOUNTER 2022-05-13 12:19 | Emergency (ER) | payer MEDICARE, MEDICAID, SELFPAY ==
[2022-05-13 12:41] VITALS: BP 166/97; PULSE 86; RESP 16; TEMP 37.1; O2SAT 96; BMI 32.1
== END 2022-05-13 13:00 | disposition left against medical advice (07) ==
PROVIDERS: Emergency Provider Emergency Medicine; Family Provider Nurse Practitioner; PCP Nurse Practitioner
CPT/HCPCS: 99281

== ENCOUNTER 2022-05-23 18:50 | Emergency (ER) | payer MEDICARE, MEDICAID, SELFPAY ==
[2022-05-23 19:11] VITALS: BP 176/95; PULSE 88; RESP 16; TEMP 36.1; O2SAT 95; BMI 32.5
== END 2022-05-23 19:19 | disposition left against medical advice (07) ==
PROVIDERS: Emergency Provider Emergency Medicine; Family Provider Nurse Practitioner; PCP Nurse Practitioner
CPT/HCPCS: 99281

== ENCOUNTER 2022-05-25 08:53 | Emergency (ER) | payer MEDICARE, MEDICAID, SELFPAY ==
[2022-05-25 08:58] VITALS: BP 170/105; PULSE 77; RESP 18; TEMP 36.6; O2SAT 99
--- NOTE | 2022-05-25 09:05 | ED.GENADULT ---
HPI - General Adult General Stated complaint: trouble breathing/phlem blocking airway Time Seen by Provider: 05/25/22 08:56 Source: patient Mode of arrival: Ambulatory Limitations: no limitations History of Present Illness HPI narrative: 51-year-old male. History of high blood pressure. States that approximately 1 week ago he had a ?cold ?he did not have a fever but did have sinus congestion and a cough. He feels better now than what he did then but however this morning he had episodes where he had quite a bit of phlegm. He states he tried to cough it up but it got caught in his throat. He was having some problems breathing. He contacted 911. Things did seem to improve so he did not come in by ambulance but did come in by private vehicle. Right now he states that he feels ?great? Related Data Previous Rx's Medication Instructions Recorded simvastatin 20 mg tablet 20 mg PO QPM #90 tabs 07/15/20 doxepin 150 mg capsule 150 mg PO BEDTIME #90 caps 01/30/21 cyclobenzaprine 10 mg tablet See Rx Instructions .Route 05/04/21 .COMPLEX #14 tabs albuterol sulfate 90 mcg/actuation 2 puff inhalation Q4-6H PRN 05/13/21 aerosol inhaler shortness of breath or wheezing #8.5 grams gabapentin 300 mg capsule 300 mg PO DAILY PRN nerve pain #90 09/11/21 caps Glucometer Test Strips #100 ea 10/12/21 Lancettes #100 ea 10/12/21 Lancing Pen #1 ea 10/12/21 hydrochlorothiazide 25 mg tablet 50 mg PO DAILY #180 tabs 12/25/21 metformin 500 mg tablet 1,000 mg PO BIDWMEAL #360 tabs 01/22/22 clonidine HCl 0.2 mg tablet 0.2 mg PO BID #180 tabs 04/25/22 diltiazem HCl 60 mg 60 mg PO BID 14 days #180 caps 04/25/22 capsule,extended release 12 hr omega-3 acid ethyl esters 1 gram 1 cap PO BID #180 caps 04/25/22 capsule (Lovaza) sildenafil 100 mg tablet 100 mg PO DAILY PRN sexual 04/30/22 activity #30 tabs lisinopril 20 mg tablet See Rx Instructions .Route 05/07/22 .COMPLEX #180 tabs blood-glucose meter (OneTouch #1 ea 05/17/22 Verio Flex Meter) Allergies Allergy/AdvReac Type Severity Reaction Status Date / Time No Known Drug Allergies Allergy Verified 05/23/22 19:11 Review of Systems Constitutional Constitutional: Reports system reviewed and no additional complaints, except as documented ENT Ears, Nose, Mouth, and Throat: Reports system reviewed and no additional complaints, except as documented Respiratory Respiratory: Reports system reviewed and no additional complaints, except as documented Integumentary/Breasts Skin/Breast: Reports system reviewed and no additional complaints, except as documented Hematologic/Lymphatic On Anticoagulants: No Patient History Medical History Alcohol cessation counseling Alcohol dependence, daily use Alcohol use disorder Alcohol use disorder, moderate, dependence Atypical chest pain Back pain Bilateral foot pain Blood glucose elevated Class 1 obesity in adult COVID-19 vaccine series declined Depression with anxiety Elevated fasting blood sugar Elevated LFTs High triglycerides Hyperlipidemia Hypertension Hypertension Insomnia Lower GI bleed Lumbosacral spondylosis Mixed hyperlipidemia due to type 2 diabetes mellitus Non-insulin dependent diabetes mellitus Paresthesia of both feet Rectal bleeding Recto-perineal fistula Smokes tobacco daily Tobacco use disorder, mild, in early remission Family History Father Alive and well Mother Alive and well Social History marital status: unmarried,single occupational status: disabled Smoking Status: Former smoker second hand exposure: No alcohol intake: current Smoking Status: Former smoker tobacco type: cigarettes alcohol intake frequency: 3 or more drinks per day Alcohol type: beer and hard liquor Substance Use Type: marijuana Exam HENMT Head: normal to inspection Resp Effort & Inspection: normal respiratory effort Auscultation: clear to auscultation bilaterally Cardio Rate: regular rate Rhythm: regular rhythm Skin General: no rashes or lesions noted Neuro General: patient alert, patient awake and moves all extremities Extrem General: normal to inspection and capillary refill normal Medical Decision Making MDM Narrative Medical decision making narrative: Lungs are clear. Afebrile. No respiratory distress. No indication for radiologic studies. Was given information with regard to expectorants. Will discharge home with return precautions. No indication for antibiotics. Discharge Plan Departure Patient Disposition: Home Clinical Impression: Phlegm in throat, Hypertension Activity Restrictions/Additional Instructions: Recommend that you try some [id number] expectorants such as Mucinex. You can also try Robitussin. These medications can help you break up the phlegm that is in your chest/throat. It is important you continue all of your medications as directed. You do need to stay away from medications such as Sudafed because this can make your blood pressure more elevated. Contact your primary doctor for follow-up. Prescriptions: No Action cyclobenzaprine 10 mg tablet See Rx Instructions .ROUTE .COMPLEX Qty: 14 0RF Dose Instruction: take 1 tablet by mouth at bedtime if needed for muscle spasm Rx Instructions: take 1 tablet by mouth at bedtime if needed for muscle spasm gabapentin 300 mg capsule 300 mg PO DAILY PRN (Reason: nerve pain) Qty: 90 0RF Rx Instructions: Take 1 cap by mouth daily as needed for neuropathic pain metformin 500 mg tablet 1,000 mg PO BIDWMEAL Qty: 360 3RF Rx Instructions: Increase dose to 2 tabs with food, twice daily. sildenafil 100 mg tablet 100 mg PO DAILY PRN (Reason: sexual activity) Qty: 30 2RF Rx Instructions: administer 1/2 tab 30 minutes to 4 hours before activity lisinopril 20 mg tablet See Rx Instructions .ROUTE .COMPLEX Qty: 180 0RF Dose Instruction: take 1 tablet by mouth twice a day Rx Instructions: take 1 tablet by mouth twice a day (DME) blood-glucose meter [OneTouch Verio Flex meter] [facility] [place] See Rx Instructions .ROUTE .COMPLEX Qty: 1 0RF Dose Instruction: use as directed Rx Instructions: use as directed clonidine HCl 0.2 mg tablet 0.2 mg PO BID Qty: 180 2RF Rx Instructions: Take 1 tab twice per day to keep BP under 130/80 consistently. diltiazem HCl 60 mg capsule,extended release 12 hr 60 mg PO BID 14 Days Qty: 180 3RF Rx Instructions: Take 1 tab by mouth twice per day for HTN, keep BP under 130/80 consistently goal omega-3 acid ethyl esters [Lovaza] 1 gram capsule 1 cap PO BID Qty: 180 3RF Rx Instructions: Take 1 tab twice daily for elevated triglycerides simvastatin 20 mg tablet 20 mg PO QPM Qty: 90 3RF Hold Instructions: patient stopped, concerned about s/e Rx Instructions: Take 1 tab every evening for elevated cholesterol doxepin 150 mg capsule 150 mg PO BEDTIME Qty: 90 3RF Rx Instructions: Take 1 capsule at bedtime daily for sleep. (DME) Glucometer Test Strips See Rx Instructions .Route .MEDSUPPLY Qty: 100 3RF Rx Instructions: Check blood sugars daily fasting each morning (DME) Lancettes See Rx Instructions .Route .MEDSUPPLY Qty: 100 3RF Rx Instructions: Check blood sugars fasting each morning and as needed (DME) Lancing Pen See Rx Instructions .Route .MEDSUPPLY Qty: 1 0RF Rx Instructions: As directed hydrochlorothiazide 25 mg tablet 50 mg PO DAILY Qty: 180 3RF Rx Instructions: Take 2 tabs each morning for HTN albuterol sulfate 90 mcg/actuation HFA aerosol inhaler 2 puff inhalation Q4-6H PRN (Reason: shortness of breath or wheezing) Qty: 8.5 0RF Referrals: Carol Ann Dailey ARNP [Primary Care Provider] -
[2022-05-25 09:20] VITALS: BP 158/96; PULSE 76; RESP 18; O2SAT 99
== END 2022-05-25 09:20 | disposition home or self-care (01) ==
PROVIDERS: Emergency Provider Emergency Medicine; Family Provider Nurse Practitioner; PCP Nurse Practitioner
DX: R06.00 Dyspnea, unspecified (principal)
CPT/HCPCS: 99281

== ENCOUNTER 2022-06-06 09:46 | Emergency (ER) | payer MEDICARE, MEDICAID, SELFPAY ==
[2022-06-06 09:55] VITALS: BP 183/98; PULSE 109; RESP 16; TEMP 38.3; O2SAT 94; BMI 32.5
--- NOTE | 2022-06-06 10:24 | DI.RAD.S_ITS ---
PROCEDURE: XR CHEST 1V INDICATIONS: cough fever TECHNIQUE: One view of the chest was acquired. COMPARISON: [facility], CR, XR CHEST 1V, 12/03/2021, 22:24. FINDINGS: Surgical changes and devices: None. Lungs and pleura: Lungs are clear. No pleural effusions or pneumothorax. Mediastinum: Mediastinal contours appear normal. Heart size is normal. Bones and chest wall: No suspicious bony lesions. Overlying soft tissues appear unremarkable. IMPRESSION: No acute cardiopulmonary findings. Dictated by: Criselda Sampson M.D. on 06/06/2022 at 10:56 Approved by: Criselda Sampson M.D. on 06/06/2022 at 10:56
--- NOTE | 2022-06-06 10:24 | ED.SEPSIS ---
HPI - Sepsis General Chief Complaint: Urogenital-Male Mode of arrival: Ambulatory Source: patient Limitations: no limitations Evaluation Sepsis Screen: Possible Sepsis Risk Sepsis Infection Criteria Present: Suspected New Infection Narrative: Patient is a 51-year-old male history of diabetes hypertension alcohol abuse hyperlipidemia presenting today with fever and bright of complaints. He says for the last 2 days it hurts every time he pees. He does not feel like he is peeing very much. Has no abdominal pain nausea or vomiting. He denies any flank pain. Questionable penile discharge. Denies testicular pain. He also is really complaining of a lot of phlegm in his throat. He says he chokes on it and can not breathe he feels like he is almost multiple times. He feels like sometimes his chest is tight from not being able to breathe but currently denies chest pain. He is noted to be febrile and tachycardic here in the ED. He is quite adamant he does not want a nasal swab for COVID afraid that it might give him cancer. He states that he drinks vodka and cranberry every single night to help him go to sleep at least a 5th. Review of Systems Review of Systems ROS Unobtainable: All systems reviewed & are unremarkable except as noted in HPI and below Patient History Medical History Alcohol cessation counseling Alcohol dependence, daily use Alcohol use disorder Alcohol use disorder, moderate, dependence Atypical chest pain Back pain Bilateral foot pain Blood glucose elevated Class 1 obesity in adult COVID-19 vaccine series declined Depression with anxiety Elevated fasting blood sugar Elevated LFTs High triglycerides Hyperlipidemia Hypertension Hypertension Insomnia Lower GI bleed Lumbosacral spondylosis Mixed hyperlipidemia due to type 2 diabetes mellitus Non-insulin dependent diabetes mellitus Paresthesia of both feet Rectal bleeding Recto-perineal fistula Smokes tobacco daily Tobacco use disorder, mild, in early remission Family History Father Alive and well Mother Alive and well Social History marital status: unmarried,single occupational status: disabled Smoking Status: Former smoker second hand exposure: No alcohol intake: current Smoking Status: Former smoker tobacco type: cigarettes alcohol intake frequency: 3 or more drinks per day Alcohol type: beer and hard liquor Substance Use Type: marijuana Exam Initial Vital Signs Initial Vital Signs: Vital Signs Temperature 101.0 F H 06/06/22 09:55 Pulse Rate 109 H 06/06/22 09:55 Respiratory Rate 16 06/06/22 09:55 Blood Pressure 183/98 H 06/06/22 09:55 Pulse Oximetry 94 06/06/22 09:55 Oxygen Delivery Method 06/06/22 09:55 GENERAL: Alert well-dressed appearing 51-year-old male HEENT: Head atraumatic,EOMI, pupils reactive, face symmetric, moist mucous membranes CARDIOVASCULAR: Regular rate and rhythm without murmurs, rubs or gallops. RESPIRATORY: Breath sounds equal bilaterally, no wheezes rales or rhonchi. ABDOMEN: Soft, nontender. Normoactive bowel sounds all 4 quadrants. No guarding or rebound. : No CVA tenderness, minimal suprapubic pain EXTREMITIES: Normal range of motion, no clubbing or edema. Neurovascularly intact NEUROLOGICAL: Alert and oriented x4.Normal gait and speech. SKIN: Warm, dry, no laceration, no petechiae, no rashes or lesions. Course Orders Ordered: ED Orders 06/06/22 10:05 Chlamydia Gonorrhea PCR -URINE Stat Urine Culture Stat Urine Microscopic Stat 06/06/22 10:24 XR chest 1V Stat EKG-12 Lead Stat 06/06/22 11:00 Blood Culture Stat Complete Blood Count AUTO DIFF Stat Comprehensive Metabolic Panel Stat ETOH [Ethanol (ETOH)] Stat Lactate (Lactic Acid) Stat NT-proBNP (BNP-Adult 18+) Stat Partial Thromboplastin Time Stat Procalcitonin Stat Prothrombin Time INR Stat Troponin & CK Cardiac Panel Stat Discontinued Medications Sodium Chloride (Normal Saline 0.9%) 3,538.02 mls @ 1,179.34 mls/hr 30 ml/kg infuse over 3 hr (3538.02 ml) IV NOW ONE Stop: 06/06/22 13:23 Last Infusion: 06/06/22 13:42 Dose: 0 mls/hr Documented By: Admin: 06/06/22 11:04 Dose: 1,179.34 mls/hr Documented By: ADRI Ceftriaxone Sodium 2,000 mg/ (Sodium Chloride) 100 mls @ 200 mls/hr IV NOW ONE Stop: 06/06/22 10:44 Last Infusion: 06/06/22 11:40 Dose: 0 mls/hr Documented By: Admin: 06/06/22 11:05 Dose: 200 mls/hr Documented By: ADRI Vital Signs Vital signs: Vital Signs - 8 hr 06/06/22 13:50 Temperature 99.2 F Pulse Rate 87 Respiratory Rate 18 Blood Pressure 164/72 H Pulse Oximetry 95 Oxygen Delivery Method Room Air Sepsis Evaluation (ED) Triage Screening Sepsis Screen: Possible Sepsis Risk Level 1 - Infection Sepsis Infection Criteria Present: Suspected New Infection Response It is my opinion that his patient have a likely infectious etiology for meeting sepsis criteria: Does Not Fluid calculation based on 30 mL/kg within 1hr of criteria: IBW used due to BMI>30 Antibiotics initiated within 1 hr of Sepis dx: No Tissue Perfusion Reassessed within 6 hrs of infusion start time: No MDM - Sepsis Lab Data Result diagrams: 06/06/22 11:00 06/06/22 11:00 Labs: Lab Results 06/06/22 06/06/22 06/06/22 Range/Units 10:05 10:05 11:00 WBC 10.0 (4.5-11.0) X10^3/uL RBC 4.33 L (4.5-5.9) X10^6/uL Hgb 13.7 (13.5-17.5) g/dL Hct 39.7 L (41-53) % MCV 91.7 (80-100) fL MCH 31.6 (26-34) PG MCHC 34.5 (30-36) % RDW 12.7 (11.6-14.8) % Plt Count 135 L (150-400) X10^3/uL Neut % (Auto) 87.5 H (50-75) % Lymph % (Auto) 5.7 L (25-40) % [place] % (Auto) 6.0 (3-14) % Eos % (Auto) 0.6 L (2-4) % Baso % (Auto) 0.2 (0-2) % Neut # (Auto) 8800 H (6666-0957) /uL Lymph # (Auto) 600 L (4818-7140) /uL [place] # (Auto) 600 (0-900) /uL Eos # (Auto) 100 (0-450) /uL Baso # (Auto) 0 (0-100) /uL PT (10.1-12.7) SECONDS INR (0.9-1.3) APTT (26-36) SECONDS Sodium (137-145) mmol/L Potassium (3.4-5.1) mmol/L Chloride (98-107) mmol/L Carbon Dioxide (22-32) mmol/L BUN (9-20) mg/dL Creatinine (0.66-1.25) mg/dL Estimated GFR (>60) mL/min BUN/Creatinine Ratio (6-22) Glucose (70-100) mg/dL Lactate (0.7-2.1) mmol/L Calcium (8.4-10.2) mg/dL Total Bilirubin (0.2-1.3) mg/dL AST (17-59) IU/L ALT (<50) IU/L Alkaline Phosphatase (38-126) U/L Total Creatine Kinase (55-170) U/L CK-MB (CK-2) CK-MB (CK-2) Rel Index Troponin I (0.01-0.034) ng/mL NT-Pro-B Natriuret Pep (<125) pg/mL Total Protein (6.3-8.2) g/dL Albumin (3.5-5.0) g/dL Globulin (1.7-4.1) g/dL Albumin/Globulin Ratio (1.0-2.8) Procalcitonin (<0.5) ng/mL Urine RBC 10-30/hpf H (0-5/HPF) Urine WBC >100/hpf H (0-5/HPF) Urine Bacteria Many (>30) H (None) Ur Culture Indicated? Specimen cultured Ethyl Alcohol ( - 10) mg/dL Ur Chlamydia DNA (PCR) Not detected N gonorrhoeae DNA (PCR) Not detected 06/06/22 06/06/22 06/06/22 Range/Units 11:00 11:00 11:00 WBC (4.5-11.0) X10^3/uL RBC (4.5-5.9) X10^6/uL Hgb (13.5-17.5) g/dL Hct (41-53) % MCV (80-100) fL MCH (26-34) PG MCHC (30-36) % RDW (11.6-14.8) % Plt Count (150-400) X10^3/uL Neut % (Auto) (50-75) % Lymph % (Auto) (25-40) % [place] % (Auto) (3-14) % Eos % (Auto) (2-4) % Baso % (Auto) (0-2) % Neut # (Auto) (7550-5484) /uL Lymph # (Auto) (6183-5663) /uL [place] # (Auto) (0-900) /uL Eos # (Auto) (0-450) /uL Baso # (Auto) (0-100) /uL PT 16.8 H (10.1-12.7) SECONDS INR 1.5 H (0.9-1.3) APTT (26-36) SECONDS Sodium 135 L (137-145) mmol/L Potassium 3.2 L (3.4-5.1) mmol/L Chloride 92 L (98-107) mmol/L Carbon Dioxide 32 (22-32) mmol/L BUN 8 L (9-20) mg/dL Creatinine 0.77 (0.66-1.25) mg/dL Estimated GFR > 60 (>60) mL/min BUN/Creatinine Ratio 10.4 (6-22) Glucose 171 H (70-100) mg/dL Lactate 1.2 (0.7-2.1) mmol/L Calcium 9.5 (8.4-10.2) mg/dL Total Bilirubin 1.4 H (0.2-1.3) mg/dL AST 21 (17-59) IU/L ALT 25 (<50) IU/L Alkaline Phosphatase 68 (38-126) U/L Total Creatine Kinase 92 (55-170) U/L CK-MB (CK-2) TNP CK-MB (CK-2) Rel Index TNP Troponin I 0.013 (0.01-0.034) ng/mL NT-Pro-B Natriuret Pep 545 H (<125) pg/mL Total Protein 8.2 (6.3-8.2) g/dL Albumin 4.4 (3.5-5.0) g/dL Globulin 3.8 (1.7-4.1) g/dL Albumin/Globulin Ratio 1.2 (1.0-2.8) Procalcitonin 0.70 H (<0.5) ng/mL Urine RBC (0-5/HPF) Urine WBC (0-5/HPF) Urine Bacteria (None) Ur Culture Indicated? Ethyl Alcohol ( - 10) mg/dL Ur Chlamydia DNA (PCR) N gonorrhoeae DNA (PCR) 06/06/22 06/06/22 Range/Units 11:00 11:00 WBC (4.5-11.0) X10^3/uL RBC (4.5-5.9) X10^6/uL Hgb (13.5-17.5) g/dL Hct (41-53) % MCV (80-100) fL MCH (26-34) PG MCHC (30-36) % RDW (11.6-14.8) % Plt Count (150-400) X10^3/uL Neut % (Auto) (50-75) % Lymph % (Auto) (25-40) % [place] % (Auto) (3-14) % Eos % (Auto) (2-4) % Baso % (Auto) (0-2) % Neut # (Auto) (5855-9834) /uL Lymph # (Auto) (5363-0587) /uL [place] # (Auto) (0-900) /uL Eos # (Auto) (0-450) /uL Baso # (Auto) (0-100) /uL PT (10.1-12.7) SECONDS INR (0.9-1.3) APTT 32 (26-36) SECONDS Sodium (137-145) mmol/L Potassium (3.4-5.1) mmol/L Chloride (98-107) mmol/L Carbon Dioxide (22-32) mmol/L BUN (9-20) mg/dL Creatinine (0.66-1.25) mg/dL Estimated GFR (>60) mL/min BUN/Creatinine Ratio (6-22) Glucose (70-100) mg/dL Lactate (0.7-2.1) mmol/L Calcium (8.4-10.2) mg/dL Total Bilirubin (0.2-1.3) mg/dL AST (17-59) IU/L ALT (<50) IU/L Alkaline Phosphatase (38-126) U/L Total Creatine Kinase (55-170) U/L CK-MB (CK-2) CK-MB (CK-2) Rel Index Troponin I (0.01-0.034) ng/mL NT-Pro-B Natriuret Pep (<125) pg/mL Total Protein (6.3-8.2) g/dL Albumin (3.5-5.0) g/dL Globulin (1.7-4.1) g/dL Albumin/Globulin Ratio (1.0-2.8) Procalcitonin (<0.5) ng/mL Urine RBC (0-5/HPF) Urine WBC (0-5/HPF) Urine Bacteria (None) Ur Culture Indicated? Ethyl Alcohol < 10 ( - 10) mg/dL Ur Chlamydia DNA (PCR) N gonorrhoeae DNA (PCR) Urine Dip Bedside Urine Glucose Negative Bedside Urine Bilirubin - Negative Bedside Urine Ketone +/- 5 Urine Specific [place] 1.015 Bedside Urine Occult Blood +++ Bedside Urine pH 6.0 Bedside Urine Protein ++ 100 Bedside Urine Nitrite + Positive Bedside Urine Leukocytes +++ 500 Esterase Imaging Data Chest x-ray: Radiologist's Impression: Signed Patient: Joao Candelaria MR#: [id number] : 1970 Acct:[id number] Age/Sex: 51 / M Date of Service: 06/06/22 Loc: ED Accession Number: [id number] ?? Procedure: XR chest 1V Ordering Provider: Edie Irizarry D.O. PROCEDURE:? XR CHEST 1V ? INDICATIONS:? cough fever ? TECHNIQUE:? One view of the chest was acquired.? ? COMPARISON:? [facility], , XR CHEST 1V, 12/03/2021, 22:24. ? FINDINGS:? ? Surgical changes and devices:? None.? ? Lungs and pleura:? Lungs are clear.? No pleural effusions or pneumothorax.? ? Mediastinum:? Mediastinal contours appear normal.? Heart size is normal.? ? Bones and chest wall:? No suspicious bony lesions.? Overlying soft tissues appear unremarkable.? ? IMPRESSION:? No acute cardiopulmonary findings. ? ? Dictated by: Criselda Sampson M.D. on 06/06/2022 at 10:56 ?? ECG Data Interpretation: Normal sinus rhythm rate 95 MN interval 136 QRS [address] changes artifact noted similar to previous EKG 04/22/2022 [facility] Narrative Medical decision making narrative: Patient presents febrile tachycardic complaints of both upper respiratory symptoms and UTI like symptoms. He has no flank pain. He refuses to let a swab his nose for COVID and influenza possible he has 1 of these his x-ray is negative. Treatment supportive care only. He is found to have UTI. Procalcitonin mildly elevated 0.7 but a normal lactate and leukocytosis of 10 with a mild left shift. He is given 1 dose of Rocephin for his UTI. Gonorrhea chlamydia checked has reported some discharge and is slightly atypical for a 51-year-old male to get a UTI. At this time no need for admission Discharge Plan Departure Patient Disposition: Home Clinical Impression: Urinary tract infection Instructions: DI for Urinary Tract Infection (UTI) Activity Restrictions/Additional Instructions: *You have been diagnosed with bladder infection *What to do: At this time you do have a bladder infection. You also likely have upper respiratory infection but no pneumonia. You will need antibiotics for your bladder infection. *Continue to take medications as directed Keflex 500 mg twice a day for 7 days --> [facility] *Follow up with your primary care provider in 2-3 days or call [phone] *Return to ER if you should have increasing confusion, difficulty breathing or any new, worsening or concerning symptoms Prescriptions: New cephalexin 500 mg capsule 500 mg PO BID 7 Days Qty: 14 0RF No Action gabapentin 300 mg capsule 300 mg PO DAILY PRN (Reason: nerve pain) Qty: 90 0RF Rx Instructions: Take 1 cap by mouth daily as needed for neuropathic pain metformin 500 mg tablet 1,000 mg PO BIDWMEAL Qty: 360 3RF Rx Instructions: Increase dose to 2 tabs with food, twice daily. sildenafil 100 mg tablet 100 mg PO DAILY PRN (Reason: sexual activity) Qty: 30 2RF Rx Instructions: administer 1/2 tab 30 minutes to 4 hours before activity lisinopril 20 mg tablet See Rx Instructions .ROUTE .COMPLEX Qty: 180 0RF Dose Instruction: take 1 tablet by mouth twice a day Rx Instructions: take 1 tablet by mouth twice a day (DME) blood-glucose meter [OneTouch Verio Flex meter[place] [facility] [place] Rx Instructions .ROUTE .COMPLEX Qty: 1 0RF Dose Instruction: use as directed Rx Instructions: use as directed clonidine HCl 0.2 mg tablet 0.2 mg PO BID Qty: 180 2RF Rx Instructions: Take 1 tab twice per day to keep BP under 130/80 consistently. diltiazem HCl 60 mg capsule,extended release 12 hr 60 mg PO BID 14 Days Qty: 180 3RF Rx Instructions: Take 1 tab by mouth twice per day for HTN, keep BP under 130/80 consistently goal omega-3 acid ethyl esters [Lovaza] 1 gram capsule 1 cap PO BID Qty: 180 3RF Rx Instructions: Take 1 tab twice daily for elevated triglycerides simvastatin 20 mg tablet 20 mg PO QPM Qty: 90 3RF Hold Instructions: patient stopped, concerned about s/e Rx Instructions: Take 1 tab every evening for elevated cholesterol doxepin 150 mg capsule 150 mg PO BEDTIME Qty: 90 3RF Rx Instructions: Take 1 capsule at bedtime daily for sleep. (DME) Glucometer Test Strips See Rx Instructions .Route .MEDSUPPLY Qty: 100 3RF Rx Instructions: Check blood sugars daily fasting each morning (DME) Lancettes See Rx Instructions .Route .MEDSUPPLY Qty: 100 3RF Rx Instructions: Check blood sugars fasting each morning and as needed (DME) Lancing Pen See Rx Instructions .Route .MEDSUPPLY Qty: 1 0RF Rx Instructions: As directed hydrochlorothiazide 25 mg tablet 50 mg PO DAILY Qty: 180 3RF Rx Instructions: Take 2 tabs each morning for HTN Referrals: Carol Ann Dailey ARNP [Primary Care Provider] - Visit Report Forms: Patient Portal/API
[2022-06-06] MEDS: SODIUM CHLORIDE 0.9% 3,538.02 ML 1179.34 ML IV (11:04)
[2022-06-06] MEDS: cefTRIAXone 2,000 MG in SODIUM CHLORIDE 0.9% 100 ML 200 MG IV (11:05)
[2022-06-06 11:16] LABS: Bacteria Urine Many (>30); Culture Indicated Urine Specimen Cultured; RBC Urine 10-30/HPF (0-5/HPF); WBC Urine >100/HPF (0-5/HPF)
[2022-06-06 11:22] LABS: Add Manual Diff / Slide Review NO; Basophils Absolute Auto 0 /uL (0-100); Basophils Percent Auto 0.2 % (0-2); Eosinophils Absolute Auto 100 /uL (0-450); Eosinophils Percent Auto 0.6 % (2-4); Hematocrit 39.7 % (41-53); Hemoglobin 13.7 g/dL (13.5-17.5); Lymphocytes Absolute Auto 600 /uL (1100-4500); Lymphocytes Percent Auto 5.7 % (25-40); Mean Corpuscular HGB Conc 34.5 % (30-36); Mean Corpuscular Hemoglobin 31.6 PG (26-34); Mean Corpuscular Volume 91.7 fL (80-100); Monocytes Absolute Auto 600 /uL (0-900); Neutrophils Absolute Auto 8800 /uL (1500-7000); Neutrophils Percent Auto 87.5 % (50-75); Platelet Count 135 X10^3/uL (150-400); Red Blood Cell Count 4.33 X10^6/uL (4.5-5.9); Red Cell Distribution Width 12.7 % (11.6-14.8)
--- NOTE | 2022-06-06 11:26 | PC.NURSE ---
Dr. Irizarry aware that patient reused his nasal swab.
[2022-06-06 11:29] LABS: INR 1.5 (0.9-1.3); Prothrombin Time 16.8 SECONDS (10.1-12.7)
[2022-06-06 11:35] LABS: Alanine Aminotransferase 25 IU/L (<50); Albumin 4.4 g/dL (3.5-5.0); Albumin Globulin Ratio 1.2 (1.0-2.8); Alkaline Phosphatase 68 U/L (38-126); Aspartate Aminotransferase 21 IU/L (17-59); BUN Creatinine Ratio 10.4 (6-22); Bilirubin Total 1.4 mg/dL (0.2-1.3); Blood Urea Nitrogen 8 mg/dL (9-20); Calcium 9.5 mg/dL (8.4-10.2); Carbon Dioxide 32 mmol/L (22-32); Chloride 92 mmol/L (98-107); Creatine Kinase 92 U/L (55-170); Estimated Glomerular Filt Rate > 60 mL/min (>60); Globulin 3.8 g/dL (1.7-4.1); Glucose 171 mg/dL (70-100); HEMOLYSIS < 15 (0-50); Lactate (Lactic Acid) 1.2 mmol/L (0.7-2.1); Potassium 3.2 mmol/L (3.4-5.1); Sodium 135 mmol/L (137-145); Total Protein 8.2 g/dL (6.3-8.2)
[2022-06-06 11:36] LABS: PTT Partial Thromboplastin Tim 32 SECONDS (26-36)
[2022-06-06 11:40] LABS: Ethanol (ETOH) < 10 mg/dL
[2022-06-06 11:47] LABS: NT-proBNP (BNP-Adult 18+) 545 pg/mL (<125); Troponin I 0.013 ng/mL (0.01-0.034)
[2022-06-06 12:27] LABS: Urine N gonorrhoeae NOT DETECTED
[2022-06-06 12:29] LABS: Urine Chlamydia NOT DETECTED
[2022-06-06 13:50] VITALS: BP 164/72; PULSE 87; RESP 18; TEMP 37.3; O2SAT 95
== END 2022-06-06 13:50 | disposition home or self-care (01) ==
PROVIDERS: Emergency Provider Emergency Medicine; Family Provider Nurse Practitioner; PCP Nurse Practitioner
DX: N39.0 Urinary tract infection, site not specified (principal); R05.9 Cough, unspecified; R50.9 Fever, unspecified; R07.9 Chest pain, unspecified
CPT/HCPCS: 36415; 71045; 80053; 80320; 81003; 81015; 82550; 83605; 83880; 84145; 84484; 85025; 85610; 85730; 87040; 87077; 87086; 87186; 87491; 87591; 93005; 96365; 99284; J0696

== ENCOUNTER 2022-06-27 19:14 | Emergency (ER) | payer MEDICARE, MEDICAID, SELFPAY ==
[2022-06-27] VITALS (9 sets, daily range): BP systolic 158–199; BP diastolic 81–104; PULSE 74–89; RESP 17–20; TEMP 36.6; O2SAT 94–98; BMI 30.3
--- NOTE | 2022-06-27 20:09 | DI.CT.S_ITS ---
PROCEDURE: CT ANGIO HEAD AND NECK INDICATIONS: rt side moreau/blurry vision TECHNIQUE: Pre-contrast 4.5 mm thick sections acquired from the foramen magnum to the vertex. After the administration of intravenous contrast, 1 mm thick sections acquired from the aortic arch through the [place] of [place]. Post-contrast 4.5 mm thick sections then re-acquired from the foramen magnum to the vertex. 3-dimensional rgisayu-isbhusexc-ludfueqsgl (MIP) and/or volume rendering reformats were acquired of the central intracranial vasculature and neck separately. For radiation dose reduction, the following was used: automated exposure control, adjustment of mA and/or kV according to patient size. COMPARISON: [facility], CT, CT HEAD/BRAIN WO CON, 04/18/2022, 13:39. FINDINGS: Image quality: Excellent. BRAIN: CSF spaces: Basal cisterns are patent. No extra-axial fluid collections. Ventricles are normal in size and shape. Brain: No intracranial hemorrhage, mass, or mass effect. [place]-white matter interface appears preserved. No abnormal intracranial enhancement. Skull and face: Calvarium and facial bones appear intact, without suspicious lesions. Orbits appear normal. Sinuses: Sinuses and mastoids are clear. HEAD CT ANGIOGRAPHY: Anterior circulation: Intracranial internal carotid arteries are normal in size and appear patent bilaterally. There is mild atherosclerotic calcification along the cavernous segments of the internal carotid arteries. The paired anterior cerebral arteries appear patent bilaterally. The anterior communicating artery also appears patent. The middle cerebral arteries appear patent bilaterally. No high-grade stenosis, occlusion, or filling defects. There is mild focal aneurysmal dilatation in the M2 segment of the left middle cerebral artery measuring up to approximately 0.3 cm. Posterior circulation: Visualized portions of the vertebral arteries demonstrate normal caliber, and join to form a patent basilar artery. The posterior cerebral arteries appears patent bilaterally. No high-grade stenosis, occlusion, or filling defects. No cerebral aneurysms identified. NECK CT ANGIOGRAPHY: Carotid system: The great vessels demonstrate a bovine aortic arch with common origin of the right brachiocephalic and left common carotid arteries as they arise from the aortic arch. The origins of the common carotid arteries appear patent. The common carotid arteries demonstrate normal caliber and courses. The carotid bulbs appear widely patent. There are a few minimal foci of calcified plaque within the right carotid bulb. The internal carotid arteries demonstrate normal calibers and courses. Posterior circulation: The origins of the vertebral arteries both appear patent. The more superior extracranial portions of both vertebral arteries also demonstrate normal courses and calibers. They join to form a patent basilar artery. Soft tissues: Visualized neck soft tissues demonstrate no suspicious abnormalities. Bones: No suspicious bony lesions. Visualized cervical spine demonstrates straightening of the cervical lordosis. There is multilevel degenerative disc disease and facet joint arthropathy. IMPRESSION: 1. No acute intracranial abnormality. 2. No high-grade stenosis or occlusion of the central intracranial arteries. 3. 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 4. No high-grade stenosis or occlusion of the head and neck arteries. Carotid bulbs appear widely patent. Any quantitative measurements of stenosis were performed using NASCET criteria. Dictated by: Arnaldo Ibrahim M.D. on 06/27/2022 at 20:41 Approved by: Arnaldo Ibrahim M.D. on 06/27/2022 at 20:49
--- NOTE | 2022-06-27 20:10 | ED.GENADULT ---
HPI - General Adult General Chief complaint: Hypertension Stated complaint: BP 194/126, jittery, dizzy, vision changes Time Seen by Provider: 06/27/22 19:48 Source: patient Mode of arrival: Ambulatory History of Present Illness HPI narrative: Patient with history of high blood pressure and chronic alcoholism, here for right side head discomfort with pressure behind the right eye but no vision changes, again no blurry vision or double vision he states. Denies any chest pain. But did have palpitations. Patient states he drinks alcohol every night usually half a 5th of vodka any passes out which is not uncommon for him, he did this last night as well. He went to his AA meeting at noon today any usually drinks half a cup of coffee but he drank 1-1/2 cups today. He felt like someone had spiked his coffee with a stimulant. He was very jittery. Blood pressure noted, he just took his lisinopril and clonidine prior to arrival. He states he takes lisinopril 20 mg twice a day and clonidine 0.2 mg twice a day. It was just recently changed. Denies any recent illness fever chills cough cold or congestion. Denies any injuries. He states he passed out last night from alcohol use but denies any fall or injury. Patient is in no distress at this time. Blood pressure is improving. Does desire Tylenol or ibuprofen for his right-sided head discomfort which she describes as moderate. No slurred speech facial droop or limb numbness tingling or weakness. No recent illness nausea vomiting diarrhea. Fast exam is negative Related Data Previous Rx's Medication Instructions Recorded simvastatin 20 mg tablet 20 mg PO QPM #90 tabs 07/15/20 doxepin 150 mg capsule 150 mg PO BEDTIME #90 caps 01/30/21 gabapentin 300 mg capsule 300 mg PO DAILY PRN nerve pain #90 09/11/21 caps Glucometer Test Strips #100 ea 10/12/21 Lancettes #100 ea 10/12/21 Lancing Pen #1 ea 10/12/21 hydrochlorothiazide 25 mg tablet 50 mg PO DAILY #180 tabs 12/25/21 metformin 500 mg tablet 1,000 mg PO BIDWMEAL #360 tabs 01/22/22 clonidine HCl 0.2 mg tablet 0.2 mg PO BID #180 tabs 04/25/22 diltiazem HCl 60 mg 60 mg PO BID 14 days #180 caps 04/25/22 capsule,extended release 12 hr omega-3 acid ethyl esters 1 gram 1 cap PO BID #180 caps 04/25/22 capsule (Lovaza) sildenafil 100 mg tablet 100 mg PO DAILY PRN sexual 04/30/22 activity #30 tabs lisinopril 20 mg tablet See Rx Instructions .Route 05/07/22 .COMPLEX #180 tabs blood-glucose meter (OneTouch #1 ea 05/17/22 Verio Flex Meter) metoprolol succinate 25 mg 25 mg PO DAILY #14 tabs 06/27/22 tablet,extended release 24 hr Allergies Allergy/AdvReac Type Severity Reaction Status Date / Time No Known Drug Allergies Allergy Verified 06/27/22 19:38 Review of Systems Review of Systems Narrative: GENERAL: negative chills, fatigue, malaise, fever, sweats. HEENT: negative sinus pain, ear pain, sore throat negative vision changes RESPIRATORY: negative dyspnea, cough CARDIOVASCULAR: negative chest pain, positive palpitations GASTROINTESTINAL: negative nausea, vomiting, abdominal pain : negative dysuria, frequency, hematuria MUSCULOSKELETAL: negative muscle or bony pain SKIN: negative rash, skin lesions NEUROLOGIC: negative weakness, numbness, positive headache, negative slurred speech or facial droop ROS Unobtainable: All systems reviewed & are unremarkable except as noted in HPI and below Patient History Medical History Alcohol cessation counseling Alcohol dependence, daily use Alcohol use disorder Alcohol use disorder, moderate, dependence Atypical chest pain Back pain Bilateral foot pain Blood glucose elevated Class 1 obesity in adult COVID-19 vaccine series declined Depression with anxiety Elevated fasting blood sugar Elevated LFTs High triglycerides Hyperlipidemia Hypertension Hypertension Insomnia Lower GI bleed Lumbosacral spondylosis Mixed hyperlipidemia due to type 2 diabetes mellitus Non-insulin dependent diabetes mellitus Paresthesia of both feet Rectal bleeding Recto-perineal fistula Smokes tobacco daily Tobacco use disorder, mild, in early remission Family History Father Alive and well Mother Alive and well Social History marital status: unmarried,single occupational status: disabled Smoking Status: Former smoker second hand exposure: No alcohol intake: current Smoking Status: Former smoker tobacco type: cigarettes alcohol intake frequency: 3 or more drinks per day Alcohol type: beer and hard liquor Substance Use Type: marijuana Exam Narrative Exam Narrative: GENERAL: in no distress, not toxic not dyspneic HEAD: Normocephalic. EYES: Pupils equal round No scleral icterus. ENT: Mucous membranes moist. NECK: Trachea midline. CARDIOVASCULAR: Regular rate and rhythm without murmurs RESPIRATORY: Clear to auscultation. Breath sounds equal bilaterally. No wheezes, rales, or rhonchi. GASTROINTESTINAL: Abdomen soft, non-tender EXTREMITIES: No gross deformities. BACK: No flank tenderness. NEURO: AOx4.Clear speech no facial droop. ?Light touch intact to bilateral face hands and legs. ?Strong equal housekeeping associate bilaterally and ankle flexion hip flexion and knee flexion. ?Strong bilateral patellar reflexes. ?No pronator drift. ? SKIN: Warm and dry PSYCH: Not anxious, is cooperative Initial Vital Signs Initial Vital Signs: Vital Signs Temperature 98 F 06/27/22 19:32 Pulse Rate 85 06/27/22 19:32 Respiratory Rate 17 06/27/22 19:32 Blood Pressure 199/104 H 06/27/22 19:32 Pulse Oximetry 96 06/27/22 19:32 Oxygen Delivery Method 06/27/22 19:32 Scores NIH Stroke Scale Level of Conciousness: Alert, keenly responsive Ask month/age: Answers both questions correctly. Open/close eyes, close hand: Performs both tasks correctly Best gaze horizontal: Normal Visual fox: No visual loss Facial palsy: Normal symetrical movement Left arm drift: No drift for full 10 sec Right arm drift: No drift for full 10 sec Left leg drift: No drift for full 5 sec Right leg drift: No drift for full 5 sec Limb ataxia: Absent Sensory on face/arms/legs: Normal, no sensory loss Best language: No aphasia, normal Dysarthria: Normal Extinction or inattention: No abnormality Total NIH Stroke scale score: 0 Course Orders Ordered: ED Orders 06/27/22 22:57 Urine Drug Screen, Rapid Stat Discontinued Medications Sodium Chloride (Normal Saline 0.9%) 1,000 mls @ 1,000 mls/hr IV BOLUS ONE Stop: 06/27/22 21:08 Last Admin: 06/27/22 20:47 Dose: Not Given Documented By: OW Ibuprofen (Ibuprofen 400 Mg Tablet) 600 mg PO NOW ONE Stop: 06/27/22 20:26 Last Admin: 06/27/22 20:44 Dose: 600 mg Documented By: DEANNA Metoprolol Succinate (Metoprolol Er 25 Mg Tablet) 25 mg PO NOW ONE Stop: 06/27/22 21:33 Last Admin: 06/27/22 21:57 Dose: 25 mg Documented By: SONNY Vital Signs Vital signs: Vital Signs - 8 hr 06/27/22 19:32 06/27/22 20:10 06/27/22 20:32 Temperature 98 F Pulse Rate 85 84 86 Respiratory Rate 17 20 20 Blood Pressure 199/104 H 171/81 H 188/104 H Pulse Oximetry 96 98 95 Oxygen Delivery Method Room Air Room Air Room Air 06/27/22 21:13 06/27/22 21:57 Temperature Pulse Rate 78 74 Respiratory Rate 20 Blood Pressure 175/98 H 158/93 H Pulse Oximetry 97 Oxygen Delivery Method Room Air Medical Decision Making Lab Data Result diagrams: 06/27/22 19:55 06/27/22 19:55 Labs: Lab Results 06/27/22 06/27/22 06/27/22 Range/Units 19:55 19:55 22:57 WBC 8.7 (4.5-11.0) X10^3/uL RBC 4.25 L (4.5-5.9) X10^6/uL Hgb 13.7 (13.5-17.5) g/dL Hct 39.2 L (41-53) % MCV 92.2 (80-100) fL MCH 32.2 (26-34) PG MCHC 34.9 (30-36) % RDW 13.1 (11.6-14.8) % Plt Count 229 (150-400) X10^3/uL Neut % (Auto) 78.0 H (50-75) % Lymph % (Auto) 13.7 L (25-40) % Freestone % (Auto) 6.6 (3-14) % Eos % (Auto) 1.0 L (2-4) % Baso % (Auto) 0.7 (0-2) % Neut # (Auto) 6800 (1827-0113) /uL Lymph # (Auto) 1200 (8670-2197) /uL Freestone # (Auto) 600 (0-900) /uL Eos # (Auto) 100 (0-450) /uL Baso # (Auto) 100 (0-100) /uL Sodium 134 L (137-145) mmol/L Potassium 3.2 L (3.4-5.1) mmol/L Chloride 88 L (98-107) mmol/L Carbon Dioxide 34 H (22-32) mmol/L BUN 8 L (9-20) mg/dL Creatinine 0.73 (0.66-1.25) mg/dL Estimated GFR > 60 (>60) mL/min BUN/Creatinine Ratio 11.0 (6-22) Glucose 104 H (70-100) mg/dL Calcium 9.6 (8.4-10.2) mg/dL Total Bilirubin 0.7 (0.2-1.3) mg/dL AST 34 (17-59) IU/L ALT 28 (<50) IU/L Alkaline Phosphatase 81 (38-126) U/L Total Creatine Kinase 230 H (55-170) U/L CK-MB (CK-2) 3.60 H (<2.37) ng/mL CK-MB (CK-2) Rel Index 1.6 (1.5-5.0) % Troponin I 0.012 (0.01-0.034) ng/mL Total Protein 8.2 (6.3-8.2) g/dL Albumin 4.7 (3.5-5.0) g/dL Globulin 3.5 (1.7-4.1) g/dL Albumin/Globulin Ratio 1.3 (1.0-2.8) U Opiates 300ng/mL cut Negative (Negative) Ur Oxycodone Screen Negative (Negative) Urine Methadone Screen Negative (Negative) Ur Barbiturates Screen Negative (Negative) U Tricyclic Antidepress Negative (Negative) Ur Phencyclidine Scrn Negative (Negative) Ur Amphetamines Screen Negative (Negative) U Methamphetamines Scrn Negative (Negative) Ur MDMA Scrn (Ecstasy) Negative (Negative) U Benzodiazepines Scrn Negative (Negative) Urine Cocaine Screen Negative (Negative) U Marijuana (THC) Screen Negative (Negative) Ethyl Alcohol < 10 ( - 10) mg/dL Imaging Data CTA - brain/neck: Radiologist's Impression: [address] [address] [address] Scan Report Signed Patient: Joao Candelaria MR#: [id number] : 1970 Acct:[id number] Age/Sex: 51 / M Date of Service: 06/27/22 Loc: ED Accession Number: [id number] ?? Procedure: CT angio head and neck Ordering Provider: Yazan Vick MD PROCEDURE:? CT ANGIO HEAD AND NECK ? INDICATIONS:? rt side moreau/blurry vision ? TECHNIQUE:? Pre-contrast 4.5 mm thick sections acquired from the foramen magnum to the vertex.? After the administration of intravenous contrast, 1 mm thick sections acquired from the aortic arch through the Duson of Gong.? Post-contrast 4.5 mm thick sections then re-acquired from the foramen magnum to the vertex.? 3-dimensional qfwqmuw-ggoqkxijz-stplinlgjo (MIP) and/or volume rendering reformats were acquired of the central intracranial vasculature and neck separately. For radiation dose reduction, the following was used:? automated exposure control, adjustment of mA and/or kV according to patient size.? ? COMPARISON:? [facility], CT, CT HEAD/BRAIN WO CON, 04/18/2022, 13:39. ? FINDINGS:? Image quality:? Excellent.? ? BRAIN:? CSF spaces:? Basal cisterns are patent.? No extra-axial fluid collections.? Ventricles are normal in size and shape.? ? Brain:? No intracranial hemorrhage, mass, or mass effect.? Kirkland-white matter interface appears preserved.? No abnormal intracranial enhancement.? ? Skull and face:? Calvarium and facial bones appear intact, without suspicious lesions.? Orbits appear normal.? ? Sinuses:? Sinuses and mastoids are clear.? ? HEAD CT ANGIOGRAPHY:? Anterior circulation:? Intracranial internal carotid arteries are normal in size and appear patent bilaterally.? There is mild atherosclerotic calcification along the cavernous segments of the internal carotid arteries.? The paired anterior cerebral arteries appear patent bilaterally.? The anterior communicating artery also appears patent. The middle cerebral arteries appear patent bilaterally.? No high-grade stenosis, occlusion, or filling defects.? There is mild focal aneurysmal dilatation in the M2 segment of the left middle cerebral artery measuring up to approximately 0.3 cm. ? Posterior circulation:? Visualized portions of the vertebral arteries demonstrate normal caliber, and join to form a patent basilar artery.? The posterior cerebral arteries appears patent bilaterally.? No high-grade stenosis, occlusion, or filling defects.? No cerebral aneurysms identified. ? NECK CT ANGIOGRAPHY:? Carotid system:? The great vessels demonstrate a bovine aortic arch with common origin of the right brachiocephalic and left common carotid arteries as they arise from the aortic arch.? The origins of the common carotid arteries appear patent.? The common carotid arteries demonstrate normal caliber and courses.? The carotid bulbs appear widely patent. ?There are a few minimal foci of calcified plaque within the right carotid bulb.? The internal carotid arteries demonstrate normal calibers and courses.? ? Posterior circulation:? The origins of the vertebral arteries both appear patent.? The more superior extracranial portions of both vertebral arteries also demonstrate normal courses and calibers.? They join to form a patent basilar artery.? ? Soft tissues:? Visualized neck soft tissues demonstrate no suspicious abnormalities.? ? Bones:? No suspicious bony lesions.? Visualized cervical spine demonstrates straightening of the cervical lordosis.? There is multilevel degenerative disc disease and facet joint arthropathy.? ? IMPRESSION:? ? 1. No acute intracranial abnormality. ? 2. No high-grade stenosis or occlusion of the central intracranial arteries. ? 3. 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 ? 4. No high-grade stenosis or occlusion of the head and neck arteries.? Carotid bulbs appear widely patent. ? Any quantitative measurements of stenosis were performed using NASCET criteria.? ? ? Dictated by: Arnaldo Ibrahim M.D. on 06/27/2022 at 20:41 ? ? Approved by: Arnaldo Ibrahim M.D. on 06/27/2022 at 20:49 ? ECG Data Interpretation: Sinus rhythm with no ST elevation or depression. Rate 86 Treatment and disposition Social Determinants of Health that impact treatment or disposition: Chronic alcohol abuse Code Status and discussions:: Full code MDM Narrative Medical decision making narrative: Patient with history of high blood pressure and chronic alcoholism, here for right side head discomfort with pressure behind the right eye but no vision changes, again no blurry vision or double vision he states. Denies any chest pain. But did have palpitations. Patient states he drinks alcohol every night usually half a 5th of vodka any passes out which is not uncommon for him, he did this last night as well. He went to his AA meeting at noon today any usually drinks half a cup of coffee but he drank 1-1/2 cups today. He felt like someone had spiked his coffee with a stimulant. He was very jittery. Blood pressure noted, he just took his lisinopril and clonidine prior to arrival. He states he takes lisinopril 20 mg twice a day and clonidine 0.2 mg twice a day. It was just recently changed. Denies any recent illness fever chills cough cold or congestion. Denies any injuries. He states he passed out last night from alcohol use but denies any fall or injury. Patient is in no distress at this time. Blood pressure is improving. Does desire Tylenol or ibuprofen for his right-sided head discomfort which she describes as moderate. No slurred speech facial droop or limb numbness tingling or weakness. No recent illness nausea vomiting diarrhea. Fast exam is negative After history and exam, I have ordered CBC CMP troponin CT angiogram head and neck/IV fluids/ibuprofen. Differential diagnosis includes but not limited to TIA/stroke/palpitations/caffeine induced hypertension/palpitations/alcohol withdrawal/substance abuse 9:34 p.m.. I have reviewed laboratory results CBC CMP troponin EKG as well as CT angiogram head and neck. I have spoken with transfer center at [facility] to consult neurosurgery for follow up likely for his CT angiogram finding of aneurysm. This is not likely due to patient's symptoms, likely incidental finding. Blood pressure was reviewed as well. After review of the past 3 or 4 months of blood pressure vital signs 175/90 is essentially patient's baseline. However patient states his primary care switched his amlodipine to clonidine recently. At this time I think it would be appropriate to add low-dose metoprolol ER 25 mg daily and follow up with primary care. Currently awaiting callback from [facility] neurosurgical services 10:01 p.m.. I spoke with [facility] neurosurgical center provider, Dr. Martin, she has reviewed CT imaging. No transferred indicated this time. She would like patient to follow up in their clinic in 1 or 2 months. Phone number [phone]. Transfer center has taken his information to reach out to him for appointment time as well. 10:05 p.m.. Blood pressure 158/93, I did review with patient results of CAT scan imaging/aneurysm finding which is likely incidental. Patient denies any left-sided head discomfort headache. Otherwise no neuro deficits. Appropriate for discharge home. Exam and laboratory studies and imaging otherwise reassuring. I did review with neurosurgical services well, likely incidental finding with aneurysm. Patient can follow up outpatient clinic. Patient's symptoms today are low risk for home observation. Symptoms likely due to blood pressure elevation the slightly higher than his baseline. Patient agrees with treatment plan and return precautions reviewed with him. He desires discharge home. He does not want admission or any further observation. Discharge Plan Departure Patient Disposition: Home Clinical Impression: Hypertension Instructions: DI for High Blood Pressure Activity Restrictions/Additional Instructions: Please continue home medications. I have added metoprolol extended-release 25 mg daily to take in the morning. Please see your family doctor this week for re-evaluation your blood pressure. Please do continue attending your AA meetings and to decrease your alcohol consumption. Return if worse if any questions or concerns. Your symptoms today may be related to your elevated blood pressure spikes. However today's laboratory studies and imaging are reassuring. We did speak with [facility] neurosurgical Centers. Regarding the finding on the CT scan of your head. Please call tomorrow to make appointment for follow-up. Phone number is [phone] Prescriptions: New metoprolol succinate 25 mg tablet extended release 24 hr 25 mg PO DAILY Qty: 14 0RF No Action gabapentin 300 mg capsule 300 mg PO DAILY PRN (Reason: nerve pain) Qty: 90 0RF Rx Instructions: Take 1 cap by mouth daily as needed for neuropathic pain metformin 500 mg tablet 1,000 mg PO BIDWMEAL Qty: 360 3RF Rx Instructions: Increase dose to 2 tabs with food, twice daily. sildenafil 100 mg tablet 100 mg PO DAILY PRN (Reason: sexual activity) Qty: 30 2RF Rx Instructions: administer 1/2 tab 30 minutes to 4 hours before activity lisinopril 20 mg tablet See Rx Instructions .ROUTE .COMPLEX Qty: 180 0RF Dose Instruction: take 1 tablet by mouth twice a day Rx Instructions: take 1 tablet by mouth twice a day ([facility]) blood-glucose meter [OneTouch Verio Flex meter] [facility] See Rx Instructions .ROUTE .COMPLEX Qty: 1 0RF Dose Instruction: use as directed Rx Instructions: use as directed clonidine HCl 0.2 mg tablet 0.2 mg PO BID Qty: 180 2RF Rx Instructions: Take 1 tab twice per day to keep BP under 130/80 consistently. diltiazem HCl 60 mg capsule,extended release 12 hr 60 mg PO BID 14 Days Qty: 180 3RF Rx Instructions: Take 1 tab by mouth twice per day for HTN, keep BP under 130/80 consistently goal omega-3 acid ethyl esters [Lovaza] 1 gram capsule 1 cap PO BID Qty: 180 3RF Rx Instructions: Take 1 tab twice daily for elevated triglycerides simvastatin 20 mg tablet 20 mg PO QPM Qty: 90 3RF Hold Instructions: patient stopped, concerned about s/e Rx Instructions: Take 1 tab every evening for elevated cholesterol doxepin 150 mg capsule 150 mg PO BEDTIME Qty: 90 3RF Rx Instructions: Take 1 capsule at bedtime daily for sleep. (DME) Glucometer Test Strips See Rx Instructions .Route .MEDSUPPLY Qty: 100 3RF Rx Instructions: Check blood sugars daily fasting each morning (DME) Lancettes See Rx Instructions .Route .MEDSUPPLY Qty: 100 3RF Rx Instructions: Check blood sugars fasting each morning and as needed (DME) Lancing Pen See Rx Instructions .Route .MEDSUPPLY Qty: 1 0RF Rx Instructions: As directed hydrochlorothiazide 25 mg tablet 50 mg PO DAILY Qty: 180 3RF Rx Instructions: Take 2 tabs each morning for HTN Referrals: Carol Ann Dailey ARNP [Primary Care Provider] - Stand Alone Forms: Patient Portal/API
[2022-06-27 20:15] LABS: Add Manual Diff / Slide Review NO; Basophils Absolute Auto 100 /uL (0-100); Basophils Percent Auto 0.7 % (0-2); Eosinophils Absolute Auto 100 /uL (0-450); Hematocrit 39.2 % (41-53); Hemoglobin 13.7 g/dL (13.5-17.5); Lymphocytes Absolute Auto 1200 /uL (1100-4500); Lymphocytes Percent Auto 13.7 % (25-40); Mean Corpuscular HGB Conc 34.9 % (30-36); Mean Corpuscular Hemoglobin 32.2 PG (26-34); Mean Corpuscular Volume 92.2 fL (80-100); Monocytes Absolute Auto 600 /uL (0-900); Monocytes Percent Auto 6.6 % (3-14); Neutrophils Absolute Auto 6800 /uL (1500-7000); Platelet Count 229 X10^3/uL (150-400); Red Blood Cell Count 4.25 X10^6/uL (4.5-5.9); Red Cell Distribution Width 13.1 % (11.6-14.8); White Blood Cell Count 8.7 X10^3/uL (4.5-11.0)
[2022-06-27 20:22] LABS: Alanine Aminotransferase 28 IU/L (<50); Albumin 4.7 g/dL (3.5-5.0); Albumin Globulin Ratio 1.3 (1.0-2.8); Alkaline Phosphatase 81 U/L (38-126); Aspartate Aminotransferase 34 IU/L (17-59); Bilirubin Total 0.7 mg/dL (0.2-1.3); Blood Urea Nitrogen 8 mg/dL (9-20); Calcium 9.6 mg/dL (8.4-10.2); Carbon Dioxide 34 mmol/L (22-32); Chloride 88 mmol/L (98-107); Creatine Kinase 230 U/L (55-170); Estimated Glomerular Filt Rate > 60 mL/min (>60); Ethanol (ETOH) < 10 mg/dL; Globulin 3.5 g/dL (1.7-4.1); Glucose 104 mg/dL (70-100); HEMOLYSIS < 15 (0-50); Potassium 3.2 mmol/L (3.4-5.1); Sodium 134 mmol/L (137-145); Total Protein 8.2 g/dL (6.3-8.2)
[2022-06-27 20:33] LABS: Troponin I 0.012 ng/mL (0.01-0.034)
[2022-06-27 20:37] LABS: CKMB % Relative Index 1.6 % (1.5-5.0)
[2022-06-27] MEDS: IBUPROFEN 400 MG TABLET 600 MG PO (20:44)
[2022-06-27] MEDS: METOPROLOL ER 25 MG TABLET PO (21:57)
[2022-06-27 23:06] LABS: UR Morphine/Opiate cutoff 300 Negative (Negative); Ur Creatinine Normal (Normal); Ur Specific Gravity Normal (Normal); Urine Amphetamines Negative (Negative); Urine Barbiturates Negative (Negative); Urine Benzodiazepines Negative (Negative); Urine Cocaine Negative (Negative); Urine MDMA Negative (Negative); Urine Methadone Negative (Negative); Urine Methamphetamines Negative (Negative); Urine Oxycodone Negative (Negative); Urine Phencyclidine Negative (Negative); Urine Tetrahydrocannabinol Negative (Negative); Urine Tricyclic Antidepressant Negative (Negative); Urine pH Normal (Normal)
== END 2022-06-27 22:13 | disposition home or self-care (01) ==
PROVIDERS: Emergency Provider Emergency Medicine; Family Provider Nurse Practitioner; PCP Nurse Practitioner
DX: I10 Essential (primary) hypertension (principal); R00.2 Palpitations; H53.8 Other visual disturbances; R07.9 Chest pain, unspecified; Z79.899 Other long term (current) drug therapy
CPT/HCPCS: 36415; 70496; 70498; 80053; 80305; 80320; 82550; 82553; 84484; 85025; 93005; 93010; 99284; Q9967

== ENCOUNTER 2022-07-07 14:53 | Emergency (ER) | payer MEDICARE, MEDICAID, SELFPAY ==
[2022-07-07] VITALS (9 sets, daily range): BP systolic 149–215; BP diastolic 68–121; PULSE 75–96; RESP 16–20; TEMP 36.4; O2SAT 96–98; BMI 30.4
--- NOTE | 2022-07-07 15:54 | DI.CT.S_ITS ---
PROCEDURE: CT HEAD/BRAIN WO CON INDICATIONS: patient hx aneurysm, twinge on left side, + etoh hx TECHNIQUE: Noncontrast 4.5 mm thick angled axial sections acquired from the foramen magnum to the vertex, with coronal and sagittal reformats. For radiation dose reduction, the following was used: automated exposure control, adjustment of mA and/or kV according to patient size. COMPARISON: [facility], CT, CT HEAD/BRAIN WO CON, 04/18/2022, 13:39. FINDINGS: Image quality: Excellent. CSF spaces: Basal cisterns are patent. No extra-axial fluid collections. Ventricles are normal in size and shape. Brain: No midline shift. No intracranial masses or hemorrhage. Kirkland-white matter interface is normal. Skull and face: Calvarium and visualized facial bones are intact, without suspicious lesions. Sinuses: Mild mucosal thickening of the sphenoid sinuses. Visualized sinuses and mastoids are otherwise clear. IMPRESSION: 1. No CT evidence of acute intracranial process. Dictated by: Elham Garcia M.D. on 07/07/2022 at 16:48 Approved by: Elham Garcia M.D. on 07/07/2022 at 16:49
--- NOTE | 2022-07-07 15:55 | DI.CT.S_ITS ---
PROCEDURE: CT CERVICAL SPINE WO CON INDICATIONS: etoh hx TECHNIQUE: Noncontrast 3 mm thick sections acquired from the skull base to the T4 level. Sagittal and coronal reformats were then constructed. For radiation dose reduction, the following was used: automated exposure control, adjustment of mA and/or kV according to patient size. COMPARISON: [facility], CT, CT ANGIO HEAD AND NECK, 06/27/2022, 20:14. FINDINGS: Image quality: Excellent. Bones: No fractures or dislocations. Mild to moderate multilevel disc height loss and mild endplate spurring. Visualized superior ribs are intact. Soft tissues: Prevertebral soft tissues are normal in thickness. No paravertebral hematomas. No apical pneumothoraces. Dystrophic calcification in the dorsal soft tissues at the C4-5 level. IMPRESSION: 1. No CT evidence of acute cervical spine trauma. 2. Multilevel spondylosis. Dictated by: Elham Garcia M.D. on 07/07/2022 at 16:44 Approved by: Elham Garcia M.D. on 07/07/2022 at 16:47
--- NOTE | 2022-07-07 16:33 | ED_ITS ---
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 Patient presents today stating he is had twinges in his head occasionally. He states it is not really pain just feels funny. Patient denies any other symptoms he denies headache, he denies vision change, he denies numbness, tingling, no weakness, denies chest pain or shortness of breath, no nausea or vomiting, no GI symptoms. He does drink alcohol he states he drinks regularly typically a 5th a day. He did drink this morning and around noon. He denies tobacco and states he quit in April. He denies illicit. Patient states he ran out of his blood pressure medication clonidine at least 2 days ago, he is also unsure if he has been taking his regular blood pressure medications regularly or if he had them today. He states he still has a medications but he has trouble telling me which medications he is taking his list includes metoprolol which was started on the by Dr. Vick in the ED here, his med list includes clonidine, diltiazem, doxepin, gabapentin, HCTZ and lisinopril. Patient is aware he should be taking clonidine and lisinopril he is unsure about the other medications. He denies any prior surgeries. On Anticoagulants: No Related Data Home Medications Medication Instructions Recorded Confirmed clonidine HCl 0.2 mg tablet 0.2 mg PO BID 07/03/22 Previous Rx's Medication Instructions Recorded simvastatin 20 mg tablet 20 mg PO QPM #90 tabs 07/15/20 doxepin 150 mg capsule 150 mg PO BEDTIME #90 caps 01/30/21 gabapentin 300 mg capsule 300 mg PO DAILY PRN nerve pain #90 09/11/21 caps Glucometer Test Strips #100 ea 10/12/21 Lancettes #100 ea 10/12/21 Lancing Pen #1 ea 10/12/21 hydrochlorothiazide 25 mg tablet 50 mg PO DAILY #180 tabs 12/25/21 metformin 500 mg tablet 1,000 mg PO BIDWMEAL #360 tabs 01/22/22 diltiazem HCl 60 mg 60 mg PO BID 14 days #180 caps 04/25/22 capsule,extended release 12 hr omega-3 acid ethyl esters 1 gram 1 cap PO BID #180 caps 04/25/22 capsule (Lovaza) sildenafil 100 mg tablet 100 mg PO DAILY PRN sexual 04/30/22 activity #30 tabs lisinopril 20 mg tablet See Rx Instructions .Route 05/07/22 .COMPLEX #180 tabs blood-glucose meter (OneTouch #1 ea 05/17/22 Verio Flex Meter) metoprolol succinate 25 mg 25 mg PO DAILY #90 tabs 07/03/22 tablet,extended release 24 hr clonidine HCl 0.2 mg tablet 0.2 mg PO BID #180 tabs 07/07/22 Allergies Allergy/AdvReac Type Severity Reaction Status Date / Time No Known Drug Allergies Allergy Verified 07/03/22 15:10 Review of Systems <Ev Miller DO - Last Filed: 07/08/22 08:46> Review of Systems ROS Unobtainable: All systems reviewed & are unremarkable except as noted in HPI and below Hematologic/Lymphatic On Anticoagulants: No Patient History <Ev Miller DO - Last Filed: 07/08/22 08:46> Medical History Alcohol cessation counseling Alcohol dependence, daily use Alcohol use disorder Alcohol use disorder, moderate, dependence Atypical chest pain Back pain Bilateral foot pain Blood glucose elevated Class 1 obesity in adult COVID-19 vaccine series declined Depression with anxiety Elevated fasting blood sugar Elevated LFTs High triglycerides Hyperlipidemia Hypertension Hypertension Insomnia Lower GI bleed Lumbosacral spondylosis Mixed hyperlipidemia due to type 2 diabetes mellitus Non-insulin dependent diabetes mellitus Paresthesia of both feet Rectal bleeding Recto-perineal fistula Smokes tobacco daily Tobacco use disorder, mild, in early remission Family History Father Alive and well Mother Alive and well Social History marital status: unmarried,single occupational status: disabled Smoking Status: Former smoker second hand exposure: No alcohol intake: current Smoking Status: Former smoker tobacco type: cigarettes alcohol intake frequency: 3 or more drinks per day Alcohol type: beer and hard liquor Substance Use Type: marijuana Exam <Ev Miller DO - Last Filed: 07/08/22 08:46> Narrative Exam Narrative: GEN: well nourished, well appearing male, alert and oriented x 3, patient appears to be in mild distress. Patient has been ambulating in and out of the room intermittently. HEENT: Atraumatic, pupils are equal round reactive to light, extraocular movements are intact, nares are clear, there is no conjunctival pallor. Throat is clear without any exudates, erythema, tonsillar enlargement or uvular dev iation, facial droop. HEART: Regular rate and rhythm without murmur, clicks, rubs. LUNGS:Lungs clear to auscultation, no wheezes, rales, crackles, chest moves symmetrically ABD:bowel sounds normal, soft, non-tender, no guarding, rebound, rigidity, no masses noted, no hepatosplenomegaly :No CVA tenderness MSCL: Non-tender, no muscle atrophy, muscles strength 5/5 upper and lower extremities, full range of motion, normal gait NEURO:CN 2-12 intact, sensation normal, finger nose finger test normal, heel figueroa test normal Initial Vital Signs Initial Vital Signs: Vital Signs Temperature 97.6 F 07/07/22 15:20 Pulse Rate 75 07/07/22 15:20 Respiratory Rate 18 07/07/22 15:20 Blood Pressure 171/101 H 07/07/22 15:20 Pulse Oximetry 97 07/07/22 15:20 Oxygen Delivery Method 07/07/22 15:20 <Fausto Rae DO - Last Filed: 07/07/22 20:50> Initial Vital Signs Initial Vital Signs: Vital Signs Temperature 97.6 F 07/07/22 15:20 Pulse Rate 75 07/07/22 15:20 Respiratory Rate 18 07/07/22 15:20 Blood Pressure 171/101 H 07/07/22 15:20 Pulse Oximetry 97 07/07/22 15:20 Oxygen Delivery Method 07/07/22 15:20 Scores <Ev Miller DO - Last Filed: 07/08/22 08:46> GCS Kennedy coma scale eye opening: Spontaneous Kennedy coma scale verbal response: Orientated Kennedy coma scale motor response: Obey commands Kennedy coma scale total score: 15 <Fausto Rae DO - Last Filed: 07/07/22 20:50> GCS Kennedy coma scale total score: 15 Course <Ev Miller DO - Last Filed: 07/08/22 08:46> Orders Ordered: Discontinued Medications Clonidine HCl (Clonidine 0.1 Mg Tablet) 0.2 mg PO NOW ONE Stop: 07/07/22 17:13 Last Admin: 07/07/22 17:24 Dose: 0.2 mg Documented By: RB Diltiazem HCl (Diltiazem Sr 60 Mg) 60 mg PO NOW ONE Stop: 07/07/22 17:15 Last Admin: 07/07/22 18:24 Dose: Not Given Documented By: RB Vital Signs Vital signs: Vital Signs - 8 hr 07/07/22 15:20 07/07/22 16:46 07/07/22 17:24 Temperature 97.6 F Pulse Rate 75 80 Respiratory Rate 18 Blood Pressure 171/101 H 174/121 H 174/121 H Pulse Oximetry 97 Oxygen Delivery Method Room Air 07/07/22 17:27 07/07/22 17:00 07/07/22 18:10 Temperature Pulse Rate 80 96 H Respiratory Rate 18 20 Blood Pressure 210/102 H 215/105 H 175/100 H Pulse Oximetry 98 96 Oxygen Delivery Method Room Air 07/07/22 18:29 07/07/22 18:40 07/07/22 19:20 Temperature Pulse Rate 77 78 82 Respiratory Rate 20 16 16 Blood Pressure 156/93 H 157/80 H 149/68 H Pulse Oximetry 97 98 96 Oxygen Delivery Method Room Air Room Air Room Air <Fausto Rae DO - Last Filed: 07/07/22 20:50> Orders Ordered: Discontinued Medications Clonidine HCl (Clonidine 0.1 Mg Tablet) 0.2 mg PO NOW ONE Stop: 07/07/22 17:13 Last Admin: 07/07/22 17:24 Dose: 0.2 mg Documented By: RB Diltiazem HCl (Diltiazem Sr 60 Mg) 60 mg PO NOW ONE Stop: 07/07/22 17:15 Last Admin: 07/07/22 18:24 Dose: Not Given Documented By: RB Vital Signs Vital signs: Vital Signs - 8 hr 07/07/22 15:20 07/07/22 16:46 07/07/22 17:24 Temperature 97.6 F Pulse Rate 75 80 Respiratory Rate 18 Blood Pressure 171/101 H 174/121 H 174/121 H Pulse Oximetry 97 Oxygen Delivery Method Room Air 07/07/22 17:27 07/07/22 17:00 07/07/22 18:10 Temperature Pulse Rate 80 96 H Respiratory Rate 18 20 Blood Pressure 210/102 H 215/105 H 175/100 H Pulse Oximetry 98 96 Oxygen Delivery Method Room Air 07/07/22 18:29 07/07/22 18:40 07/07/22 19:20 Temperature Pulse Rate 77 78 82 Respiratory Rate 20 16 16 Blood Pressure 156/93 H 157/80 H 149/68 H Pulse Oximetry 97 98 96 Oxygen Delivery Method Room Air Room Air Room Air MDM - Neuro Symptoms/Deficit <Ev Miller, DO - Last Filed: 07/08/22 08:46> Lab Data Result diagrams: 07/07/22 16:40 07/07/22 16:40 Labs: Lab Results 07/07/22 07/07/22 Range/Units 16:40 16:40 WBC 5.5 (4.5-11.0) X10^3/uL RBC 4.53 (4.5-5.9) X10^6/uL Hgb 14.7 (13.5-17.5) g/dL Hct 42.2 (41-53) % MCV 93.2 (80-100) fL MCH 32.4 (26-34) PG MCHC 34.8 (30-36) % RDW 13.7 (11.6-14.8) % Plt Count 155 (150-400) X10^3/uL Neut % (Auto) 47.4 L (50-75) % Lymph % (Auto) 38.4 (25-40) % [place] % (Auto) 8.9 (3-14) % Eos % (Auto) 4.5 H (2-4) % Baso % (Auto) 0.8 (0-2) % Neut # (Auto) 2600 (6135-0861) /uL Lymph # (Auto) 2100 (4279-7582) /uL [place] # (Auto) 500 (0-900) /uL Eos # (Auto) 200 (0-450) /uL Baso # (Auto) 0 (0-100) /uL Sodium 141 (137-145) mmol/L Potassium 3.3 L (3.4-5.1) mmol/L Chloride 94 L (98-107) mmol/L Carbon Dioxide 33 H (22-32) mmol/L BUN 8 L (9-20) mg/dL Creatinine 0.63 L (0.66-1.25) mg/dL Estimated GFR > 60 (>60) mL/min BUN/Creatinine Ratio 12.7 (6-22) Glucose 97 (70-100) mg/dL Calcium 9.6 (8.4-10.2) mg/dL Total Bilirubin 0.5 (0.2-1.3) mg/dL AST 36 (17-59) IU/L ALT 31 (<50) IU/L Alkaline Phosphatase 72 (38-126) U/L Total Protein 8.5 H (6.3-8.2) g/dL Albumin 4.6 (3.5-5.0) g/dL Globulin 3.9 (1.7-4.1) g/dL Albumin/Globulin Ratio 1.2 (1.0-2.8) Lipase 60 (23-300) U/L Ethyl Alcohol 127 H ( - 10) mg/dL Imaging Data CT scan - head: Radiologist's Impression: [place] [id number] CT Scan Report Signed Patient: Joao Candelaria MR#: [id number] : 1970 Acct:[id number] Age/Sex: 51 / M Date of Service: 07/07/22 Loc: ED Accession Number: [id number] ?? Procedure: CT head/brain wo con Ordering Provider: Ev Miller D.O. PROCEDURE:? CT HEAD/BRAIN WO CON ? INDICATIONS:? patient hx aneurysm, twinge on left side, + etoh hx ? TECHNIQUE:? Noncontrast 4.5 mm thick angled axial sections acquired from the foramen magnum to the vertex, with coronal and sagittal reformats.? For radiation dose reduction, the following was used:? automated exposure control, adjustment of mA and/or kV according to patient size.? ? COMPARISON:? [facility], CT, CT HEAD/BRAIN WO CON, 04/18/2022, 13:39. ? FINDINGS:? Image quality:? Excellent.? ? CSF spaces:? Basal cisterns are patent.? No extra-axial fluid collections.? Ventricles are normal in size and shape.? ? Brain:? No midline shift.? No intracranial masses or hemorrhage.? [place]-white matter interface is normal.? ? Skull and face:? Calvarium and visualized facial bones are intact, without suspicious lesions.? ? Sinuses:? Mild mucosal thickening of the sphenoid sinuses.? Visualized sinuses and mastoids are otherwise clear.? ? IMPRESSION:? ? 1. No CT evidence of acute intracranial process. ? ? ? Dictated by: Elham Garcia M.D. on 07/07/2022 at 16:48 ? ? Approved by: Elham Garcia M.D. on 07/07/2022 at 16:49?? CT - cervical spine: Radiologist's Impression: Close Cervical Spine CT (Signed) Elham Garcia - 07/07/[address] (Signed) Elham Garcia - 07/07/22 Head/Neck CTA (Signed) Arnaldo Ibrahim - 06/27/22 Chest X-Ray (Signed) Criselda Sampson - 06/06/[address] (Signed) Mark Chapman - 04/18/22 Foot X-Ray (Signed) Nilay Guevara - 12/26/21 Ankle X-Ray (Signed) Nilay Guevara - 12/26/21 Vascular Ultrasound (Signed) Nilay Guevara - 12/25/21 Chest X-Ray (Signed) Arnaldo Ibrahim - 12/03/21 Scrotum Ultrasound (Signed) Roverto Cedeno - 07/08/20 Lumbar Spine MRI (Signed) Robert Wise - 11/05/19 Lumbar Spine X-Ray (Signed) Steven Lay - 07/28/19 Thoracic Spine X-Ray (Signed) Alejandro Gaston - 01/29/19 Launch?Image [address] [address] [address] Scan Report Signed Patient: Joao Candelaria MR#: [id number] : 1970 Acct:[id number] Age/Sex: 51 / M Date of Service: 07/07/22 Loc: ED Accession Number: [id number] ?? Procedure: CT cervical spine wo con Ordering Provider: Ev Miller D.O. PROCEDURE:? CT CERVICAL SPINE WO CON ? INDICATIONS:? etoh hx ? TECHNIQUE:? Noncontrast 3 mm thick sections acquired from the skull base to the T4 level.? Sagittal and coronal reformats were then constructed.? For radiation dose reduction, the following was used:? automated exposure control, adjustment of mA and/or kV according to patient size.? ? COMPARISON:? [facility], CT, CT ANGIO HEAD AND NECK, 06/27/2022, 20:14. ? FINDINGS:? Image quality:? Excellent.? ? Bones:? No fractures or dislocations.? Mild to moderate multilevel disc height loss and mild endplate spurring.? Visualized superior ribs are intact.? ? Soft tissues:? Prevertebral soft tissues are normal in thickness.? No paravertebral hematomas.? No apical pneumothoraces.? Dystrophic calcification in the dorsal soft tissues at the C4-5 level. ? ? IMPRESSION:? ? 1. No CT evidence of acute cervical spine trauma. ? 2. Multilevel spondylosis.? Dictated by: Elham Garcia M.D. on 07/07/2022 at 16:44 ? ? Approved by: Elham Garcia M.D. on 07/07/2022 at 16:47?? [facility] Narrative Medical decision making narrative: This is a 51-year-old male with known aneurysmal dilation of the M2 left segment of the left MCA, patient presents for sensation of twinges in his head intermittently. He was hypertensive upon arrival, during discussion my understanding is that he is not been taking his medication for at least 1 or 2 days possibly longer. Patient was given his home clonidine dose and while alexey iting diltiazem from pharmacy patient took his other home medications without telling staff including lisinopril, hctz, metoprolol, will recheck and evaluate blood pressure, CT imaging was obtained based on patient's history and history of alcohol use making exam is somewhat unreliable. Patient does not have any acute neurologic change in and appears clinically stable at this time. Plan to monitor for period of time to make sure BP improves and doesn't dip to low and signed out to Dr. Rae for monitoring. Dr Rae: Received turned over. Review patient's history and physical exam and radiologic studies up to this point. Head CT is negative. Patient's blood pressure did improve. I discussed this with him. He states he woke up and started drinking. He then fell back to sleep and when he woke up again he could not remember if he had taken his blood pressure medication so he did not take them again. Here in the ER he realized that he probably did not take his medicines. Has all of his medicines at home except for the clonidine. I will refill this for him. It was sent to the pharmacy of his choice. Patient was asking to be discharged home. He was given return precautions. He expressed understanding and agreement. <Fausto Rae, DO - Last Filed: 07/07/22 20:50> Differential Diagnosis Differential diagnosis: Likely delirium, subarachnoid hemorrhage, cerebrovascular accident and transient cerebral ischemia Lab Data Attestation: I reviewed the patient's lab results. Labs: Lab Results 07/07/22 07/07/22 Range/Units 16:40 16:40 WBC 5.5 (4.5-11.0) X10^3/uL RBC 4.53 (4.5-5.9) X10^6/uL Hgb 14.7 (13.5-17.5) g/dL Hct 42.2 (41-53) % MCV 93.2 (80-100) fL MCH 32.4 (26-34) PG MCHC 34.8 (30-36) % RDW 13.7 (11.6-14.8) % Plt Count 155 (150-400) X10^3/uL Neut % (Auto) 47.4 L (50-75) % Lymph % (Auto) 38.4 (25-40) % [place] % (Auto) 8.9 (3-14) % Eos % (Auto) 4.5 H (2-4) % Baso % (Auto) 0.8 (0-2) % Neut # (Auto) 2600 (5319-1405) /uL Lymph # (Auto) 2100 (5712-3024) /uL [place] # (Auto) 500 (0-900) /uL Eos # (Auto) 200 (0-450) /uL Baso # (Auto) 0 (0-100) /uL Sodium 141 (137-145) mmol/L Potassium 3.3 L (3.4-5.1) mmol/L Chloride 94 L (98-107) mmol/L Carbon Dioxide 33 H (22-32) mmol/L BUN 8 L (9-20) mg/dL Creatinine 0.63 L (0.66-1.25) mg/dL Estimated GFR > 60 (>60) mL/min BUN/Creatinine Ratio 12.7 (6-22) Glucose 97 (70-100) mg/dL Calcium 9.6 (8.4-10.2) mg/dL Total Bilirubin 0.5 (0.2-1.3) mg/dL AST 36 (17-59) IU/L ALT 31 (<50) IU/L Alkaline Phosphatase 72 (38-126) U/L Total Protein 8.5 H (6.3-8.2) g/dL Albumin 4.6 (3.5-5.0) g/dL Globulin 3.9 (1.7-4.1) g/dL Albumin/Globulin Ratio 1.2 (1.0-2.8) Lipase 60 (23-300) U/L Ethyl Alcohol 127 H ( - 10) mg/dL MDM Narrative Medical decision making narrative: This is a 1-year-old male with known aneurysmal dilation of the M2 left segment of the left MCA, patient presents for sensation of twinges in his head intermittently. He was hypertensive upon arrival, during discussion my understanding is that he is not been taking his medication for at least 1 or 2 days possibly longer. Patient was given his home clonidine dose and diltiazem, will recheck and evaluate blood pressure, CT imaging was obtained based on patie nt's history and history of alcohol use making exam is somewhat unreliable. Patient does not have any acute neurologic change in and appears clinically stable at this time. Dr Rae: Received turned over. Review patient's history and physical exam and radiologic studies up to this point. Head CT is negative. Patient's blood pressure did improve. I discussed this with him. He states he woke up and started drinking. He then fell back to sleep and when he woke up again he could not remember if he had taken his blood pressure medication so he did not take them again. Here in the ER he realized that he probably did not take his medicines. Has all of his medicines at home except for the clonidine. I will refill this for him. It was sent to the pharmacy of his choice. Patient was asking to be discharged home. He was given return precautions. He expressed understanding and agreement. Discharge Plan Departure Patient Disposition: Home Clinical Impression: Hypertension Instructions: High Blood Pressure Activity Restrictions/Additional Instructions: I recommend that you take all of your medications as directed. A refill of the clonidine was [facility] to [facility] per your report. Contact your primary doctor for a follow-up. Return to the emergency department for any new symptoms. Prescriptions: New clonidine HCl 0.2 mg tablet 0.2 mg PO BID Qty: 180 0RF No Action gabapentin 300 mg capsule 300 mg PO DAILY PRN (Reason: nerve pain) Qty: 90 0RF Rx Instructions: Take 1 cap by mouth daily as needed for neuropathic pain metformin 500 mg tablet 1,000 mg PO BIDWMEAL Qty: 360 3RF Rx Instructions: Increase dose to 2 tabs with food, twice daily. sildenafil 100 mg tablet 100 mg PO DAILY PRN (Reason: sexual activity) Qty: 30 2RF Rx Instructions: administer 1/2 tab 30 minutes to 4 hours before activity lisinopril 20 mg tablet See Rx Instructions .ROUTE .COMPLEX Qty: 180 0RF Dose Instruction: take 1 tablet by mouth twice a day Rx Instructions: take 1 tablet by mouth twice a day (DME) blood-glucose meter [OneTouch Verio Flex meter] [facility] [place] See Rx Instructions .ROUTE .COMPLEX Qty: 1 0RF Dose Instruction: use as directed Rx Instructions: use as directed diltiazem HCl 60 mg capsule,extended release 12 hr 60 mg PO BID 14 Days Qty: 180 3RF Rx Instructions: Take 1 tab by mouth twice per day for HTN, keep BP under 130/80 consistently goal omega-3 acid ethyl esters [Lovaza] 1 gram capsule 1 cap PO BID Qty: 180 3RF Rx Instructions: Take 1 tab twice daily for elevated triglycerides clonidine HCl 0.2 mg tablet 0.2 mg PO BID Rx Instructions: Take 1 tab twice per day to keep BP under 130/80 consistently. metoprolol succinate 25 mg tablet extended release 24 hr 25 mg PO DAILY Qty: 90 1RF simvastatin 20 mg tablet 20 mg PO QPM Qty: 90 3RF Hold Instructions: patient stopped, concerned about s/e Rx Instructions: Take 1 tab every evening for elevated cholesterol doxepin 150 mg capsule 150 mg PO BEDTIME Qty: 90 3RF Rx Instructions: Take 1 capsule at bedtime daily for sleep. (DME) Glucometer Test Strips See Rx Instructions .Route .MEDSUPPLY Qty: 100 3RF Rx Instructions: Check blood sugars daily fasting each morning (DME) Lancettes See Rx Instructions .Route .MEDSUPPLY Qty: 100 3RF Rx Instructions: Check blood sugars fasting each morning and as needed (DME) Lancing Pen See Rx Instructions .Route .MEDSUPPLY Qty: 1 0RF Rx Instructions: As directed hydrochlorothiazide 25 mg tablet 50 mg PO DAILY Qty: 180 3RF Rx Instructions: Take 2 tabs each morning for HTN Referrals: Carol Ann Dailey ARNP [Primary Care Provider] - Stand Alone Forms: Patient Portal/API
[2022-07-07 16:47] LABS: Add Manual Diff / Slide Review NO; Basophils Absolute Auto 0 /uL (0-100); Basophils Percent Auto 0.8 % (0-2); Eosinophils Absolute Auto 200 /uL (0-450); Eosinophils Percent Auto 4.5 % (2-4); Hematocrit 42.2 % (41-53); Hemoglobin 14.7 g/dL (13.5-17.5); Lymphocytes Absolute Auto 2100 /uL (1100-4500); Lymphocytes Percent Auto 38.4 % (25-40); Mean Corpuscular HGB Conc 34.8 % (30-36); Mean Corpuscular Hemoglobin 32.4 PG (26-34); Mean Corpuscular Volume 93.2 fL (80-100); Monocytes Absolute Auto 500 /uL (0-900); Monocytes Percent Auto 8.9 % (3-14); Neutrophils Absolute Auto 2600 /uL (1500-7000); Neutrophils Percent Auto 47.4 % (50-75); Platelet Count 155 X10^3/uL (150-400); Red Blood Cell Count 4.53 X10^6/uL (4.5-5.9); Red Cell Distribution Width 13.7 % (11.6-14.8); White Blood Cell Count 5.5 X10^3/uL (4.5-11.0)
[2022-07-07 17:00] LABS: Alanine Aminotransferase 31 IU/L (<50); Albumin 4.6 g/dL (3.5-5.0); Albumin Globulin Ratio 1.2 (1.0-2.8); Alkaline Phosphatase 72 U/L (38-126); Aspartate Aminotransferase 36 IU/L (17-59); BUN Creatinine Ratio 12.7 (6-22); Bilirubin Total 0.5 mg/dL (0.2-1.3); Blood Urea Nitrogen 8 mg/dL (9-20); Calcium 9.6 mg/dL (8.4-10.2); Carbon Dioxide 33 mmol/L (22-32); Chloride 94 mmol/L (98-107); Estimated Glomerular Filt Rate > 60 mL/min (>60); Ethanol (ETOH) 127 mg/dL; Globulin 3.9 g/dL (1.7-4.1); Glucose 97 mg/dL (70-100); HEMOLYSIS < 15 (0-50); Lipase 60 U/L (23-300); Potassium 3.3 mmol/L (3.4-5.1); Sodium 141 mmol/L (137-145); Total Protein 8.5 g/dL (6.3-8.2)
[2022-07-07] MEDS: cloNIDine 0.1 MG TABLET 0.2 MG PO (17:24)
--- NOTE | 2022-07-07 17:28 | PC.NURSE ---
walked in on patient filming room and monitor, pt stopped and set phone down to tell rn im going to scott you guys all of you your incompetent. pt given his po clonidine as ordered and pt took with water awating diltiazem po from coordinator as pharmacy is not in house currently. instructed pt not to film staff.
--- NOTE | 2022-07-07 18:18 | PC.NURSE ---
Patient got up to go to the bathroom and went to the bathroom with home medications in hand. I asked the patient not to take those medications as we had already given him some medication for blood pressure. Patient yelled obscenities and proceeded to the bathroom and took the home medications that he had. Upon returning to his room I asked if he could tell me what he took. Patient pulled out a number of medications bottles. Patient states that he took. 20mg lisinopril, 25mg metoprolol succinate, and 50mg of hydrochlorothiazide. I informed Dr. Miller of the medications that he took. She told me to hold the diltiazem.
== END 2022-07-07 19:51 | disposition home or self-care (01) ==
PROVIDERS: Emergency Medicine; Emergency Provider Emergency Medicine; Family Provider Nurse Practitioner; PCP Nurse Practitioner
DX: I10 Essential (primary) hypertension (principal); Z87.891 Personal history of nicotine dependence; I67.1 Cerebral aneurysm, nonruptured
CPT/HCPCS: 36415; 70450; 72125; 80053; 80320; 83690; 85025; 99283; 99284

== ENCOUNTER 2022-07-09 11:08 | Emergency (ER) | payer MEDICARE, MEDICAID, SELFPAY ==
[2022-07-09 11:11] VITALS: BP 157/100; PULSE 86; RESP 18; TEMP 37; O2SAT 96; BMI 32.5
[2022-07-09 11:28] VITALS: BP 173/104; PULSE 80; RESP 18; O2SAT 98
[2022-07-09 12:00] VITALS: BP 168/87
== END 2022-07-09 12:07 | disposition left against medical advice (07) ==
PROVIDERS: Emergency Provider Emergency Medicine; Family Provider Nurse Practitioner; PCP Nurse Practitioner
DX: I10 Essential (primary) hypertension (principal); Z87.891 Personal history of nicotine dependence
CPT/HCPCS: 93005; 99281

== ENCOUNTER 2022-07-13 14:03 | Emergency (ER) | payer MEDICARE, MEDICAID, SELFPAY ==
[2022-07-13 14:25] VITALS: BP 143/86; PULSE 78; RESP 18; TEMP 36.1; O2SAT 97
--- NOTE | 2022-07-13 14:31 | PC.NURSE ---
Patient's BP was stable in triage, denies symptoms of hypertension and requests to not be seen. Patient left under own power.
== END 2022-07-13 14:34 | disposition left against medical advice (07) ==
PROVIDERS: Emergency Provider Emergency Medicine; Family Provider Nurse Practitioner; PCP Nurse Practitioner
CPT/HCPCS: 99281

== ENCOUNTER 2022-07-31 17:55 | Emergency (ER) | payer MEDICARE, MEDICAID, SELFPAY ==
[2022-07-31] VITALS (17 sets, daily range): BP systolic 172–217; BP diastolic 78–107; PULSE 73–84; RESP 10–40; TEMP 36.3–36.9; O2SAT 93–98; BMI 31.0
--- NOTE | 2022-07-31 18:22 | ED.GENADULT ---
HPI - General Adult General Chief complaint: Hypertension Stated complaint: vision/head foggy Time Seen by Provider: 07/31/22 18:03 Source: patient Mode of arrival: Ambulatory Limitations: no limitations History of Present Illness HPI narrative: Patient is a 52-year-old male. Has a known history of alcohol abuse and also hypertension. He also has a known brain aneurysm. He states he is taking his blood pressure medicines at home as directed twice a day. He is still drinking which he knows affects his blood pressure and also sometimes affects his consistency with taking his medicines. He states he does take his blood pressure on a daily basis. He states that it has been as low as the 110's/80's and occasionally in the 130's-140's/90's. He states he did take his blood pressure medicines today. He states that this morning he took his blood pressure and it was elevated with a systolic in the 180s. He took an extra dose of his lisinopril. He stated that he started to feel little weird with some vision changes and foggy head. He then went to the local drug store and took his blood pressure again and it was again in the 180's/90-100's. He was concerned about the aneurysm in his head which is what brought him to the emergency department. He currently denies any headache. Denies chest pain, denies shortness of breath, denies numbness and tingling in his upper lower extremities. He also states he has been having problems with getting a follow-up with the [facility] neurosurgery department. He states that he has been told that there has been no referral placed for him and he was seeking assistance for help with this. Related Data Home Medications Medication Instructions Recorded Confirmed clonidine HCl 0.2 mg tablet 0.2 mg PO BID 07/03/22 Previous Rx's Medication Instructions Recorded simvastatin 20 mg tablet 20 mg PO QPM #90 tabs 07/15/20 doxepin 150 mg capsule 150 mg PO BEDTIME #90 caps 01/30/21 Glucometer Test Strips #100 ea 10/12/21 Lancettes #100 ea 10/12/21 Lancing Pen #1 ea 10/12/21 hydrochlorothiazide 25 mg tablet 50 mg PO DAILY #180 tabs 12/25/21 metformin 500 mg tablet 1,000 mg PO BIDWMEAL #360 tabs 08/08/22 diltiazem HCl 60 mg 60 mg PO BID 14 days #180 caps 04/25/22 capsule,extended release 12 hr omega-3 acid ethyl esters 1 gram 1 cap PO BID #180 caps 04/25/22 capsule (Lovaza) sildenafil 100 mg tablet 100 mg PO DAILY PRN sexual 04/30/22 activity #30 tabs lisinopril 20 mg tablet See Rx Instructions .Route 05/07/22 .COMPLEX #180 tabs blood-glucose meter (OneTouch #1 ea 05/17/22 Verio Flex Meter) metoprolol succinate 25 mg 25 mg PO DAILY #90 tabs 07/03/22 tablet,extended release 24 hr clonidine HCl 0.2 mg tablet 0.2 mg PO BID #180 tabs 07/07/22 gabapentin 300 mg capsule See Rx Instructions .Route 07/16/22 .COMPLEX #90 caps Allergies Allergy/AdvReac Type Severity Reaction Status Date / Time No Known Drug Allergies Allergy Verified 07/31/22 18:05 Review of Systems Review of Systems ROS Unobtainable: All systems reviewed & are unremarkable except as noted in HPI and below Patient History Medical History Alcohol cessation counseling Alcohol dependence, daily use Alcohol use disorder Alcohol use disorder, moderate, dependence Atypical chest pain Back pain Bilateral foot pain Blood glucose elevated Class 1 obesity in adult COVID-19 vaccine series declined Depression with anxiety Elevated fasting blood sugar Elevated LFTs High triglycerides Hyperlipidemia Hypertension Hypertension Insomnia Lower GI bleed Lumbosacral spondylosis Mixed hyperlipidemia due to type 2 diabetes mellitus Non-insulin dependent diabetes mellitus Paresthesia of both feet Rectal bleeding Recto-perineal fistula Smokes tobacco daily Tobacco use disorder, mild, in early remission Family History Father Alive and well Mother Alive and well Social History marital status: unmarried,single occupational status: disabled Smoking Status: Former smoker second hand exposure: No alcohol intake: current Smoking Status: Former smoker tobacco type: cigarettes alcohol intake frequency: 3 or more drinks per day Alcohol type: beer and hard liquor Substance Use Type: marijuana Exam Initial Vital Signs Initial Vital Signs: Vital Signs Temperature 98.5 F 07/31/22 17:57 Pulse Rate 84 07/31/22 17:57 Respiratory Rate 16 07/31/22 17:57 Blood Pressure 200/102 H 07/31/22 17:57 Pulse Oximetry 96 07/31/22 17:57 Oxygen Delivery Method 07/31/22 17:57 Const General: cooperative and comfortable HENMT Head: normal to inspection and normocephalic Face and sinus: normal facial exam Resp Effort & Inspection: normal respiratory effort Auscultation: clear to auscultation bilaterally Cardio Rate: regular rate Rhythm: regular rhythm GI Inspection: normal to inspection Skin General: no rashes or lesions noted Neuro General: patient alert, patient awake and moves all extremities Extrem General: normal to inspection and capillary refill normal Scores GCS [place] coma scale eye opening: Spontaneous [place] coma scale verbal response: Orientated [place] coma scale motor response: Obey commands [place] coma scale total score: 15 Course Orders Ordered: Discontinued Medications Clonidine HCl (Clonidine 0.1 Mg Tablet) 0.1 mg PO NOW ONE Stop: 07/31/22 19:11 Last Admin: 07/31/22 19:15 Dose: 0.1 mg Documented By: FABIAN Hydralazine HCl (Hydralazine 20 Mg/Ml Vial) 10 mg IV NOW ONE Stop: 07/31/22 20:01 Hydralazine HCl (Hydralazine 10 Mg Tablet) 10 mg PO NOW ONE Stop: 07/31/22 20:02 Last Admin: 07/31/22 20:13 Dose: 10 mg Documented By: ROBERT Vital Signs Vital signs: Vital Signs - 8 hr 07/31/22 17:57 07/31/22 18:00 07/31/22 18:00 Temperature 98.5 F Pulse Rate 84 84 Respiratory Rate 16 Blood Pressure 200/102 H 200/102 H Pulse Oximetry 96 94 Oxygen Delivery Method Room Air 07/31/22 18:15 07/31/22 18:15 07/31/22 18:21 Temperature Pulse Rate 81 82 Respiratory Rate 11 L 15 Blood Pressure 185/84 H Pulse Oximetry 95 95 Oxygen Delivery Method 07/31/22 18:21 07/31/22 18:30 07/31/22 19:00 Temperature Pulse Rate 84 83 Respiratory Rate 12 14 Blood Pressure 185/88 H 172/78 H Pulse Oximetry 93 96 Oxygen Delivery Method Room Air 07/31/22 19:15 07/31/22 19:09 07/31/22 19:09 Temperature Pulse Rate 78 83 Respiratory Rate 28 H Blood Pressure 172/88 H 172/78 H Pulse Oximetry 95 Oxygen Delivery Method 07/31/22 19:30 07/31/22 19:58 07/31/22 19:57 Temperature Pulse Rate 80 76 78 Respiratory Rate 17 16 19 Blood Pressure 217/107 H Pulse Oximetry 95 96 Oxygen Delivery Method Room Air 07/31/22 19:57 07/31/22 19:58 07/31/22 19:58 Temperature Pulse Rate 76 Respiratory Rate 10 L Blood Pressure 217/107 H 193/98 H Pulse Oximetry 96 Oxygen Delivery Method 07/31/22 20:00 07/31/22 20:00 07/31/22 20:13 Temperature Pulse Rate 73 74 Respiratory Rate 11 L Blood Pressure 207/106 H 207/106 H Pulse Oximetry 94 Oxygen Delivery Method 07/31/22 20:15 07/31/22 20:15 07/31/22 20:42 Temperature Pulse Rate 75 74 Respiratory Rate 20 Blood Pressure 199/98 H 197/90 H Pulse Oximetry Oxygen Delivery Method 07/31/22 20:30 07/31/22 20:30 07/31/22 20:56 Temperature 97.3 F L Pulse Rate 78 76 Respiratory Rate 40 H 16 Blood Pressure 194/90 H 176/86 H Pulse Oximetry 98 Oxygen Delivery Method Room Air Medical Decision Making Medical Records Medical records reviewed: Yes I reviewed the patient's medical records. Lab Data Lab results reviewed: Yes I reviewed the patient's lab results. Labs: Urine Dip Bedside Urine Glucose Negative Bedside Urine Bilirubin - Negative Bedside Urine Ketone - Negative Urine Specific [place] 1.010 Bedside Urine Occult Blood - Negative Bedside Urine pH 6.0 Bedside Urine Protein - Negative Bedside Urine Urobilinogen - Negative Bedside Urine Nitrite - Negative Bedside Urine Leukocytes - Negative Esterase Point of care testing: Urine Dip Bedside Urine Glucose Negative Bedside Urine Bilirubin - Negative Bedside Urine Ketone - Negative Urine Specific [place] 1.010 Bedside Urine Occult Blood - Negative Bedside Urine pH 6.0 Bedside Urine Protein - Negative Bedside Urine Urobilinogen - Negative Bedside Urine Nitrite - Negative Bedside Urine Leukocytes - Negative Esterase MDM Narrative Medical decision making narrative: Patient was hypertensive here in the emergency department but during my exam he was not having a headache and no vision changes no balance issues are no other signs of an acute intracerebral accident. Patient also not in heart failure. He has no chest pain. No respiratory distress. Essentially his hypertension is asymptomatic. We did talk about his alcohol use and how this is impacting his high blood pressure. He expressed understanding of this and stated that there was an AA meeting tomorrow that he could attend that he would attend. Tried to provide reassurance for him regarding this. Patient's blood pressure did improve with medications here in the ER. I also emailed his primary provider about the need for a referral for Neurosurgery. The patient already has contact information for his primary doctor and also the neurosurgery clinic. Will discharge patient home. Patient feels comfortable going home. He was given return precautions. He expressed understanding and agreement. Discharge Plan Departure Patient Disposition: Home Clinical Impression: Hypertension Instructions: DI for High Blood Pressure Activity Restrictions/Additional Instructions: I recommend that tomorrow you go to the AA meeting. This organization can be extremely helpful. It is important that you take your blood pressure medicines as directed. Continue to work with your primary doctor's office about the referral to see Neurosurgery. Return to the emergency department for any new or worsening symptoms. Prescriptions: No Action metformin 500 mg tablet 1,000 mg PO BIDWMEAL Qty: 360 3RF Rx Instructions: Increase dose to 2 tabs with food, twice daily. sildenafil 100 mg tablet 100 mg PO DAILY PRN (Reason: sexual activity) Qty: 30 2RF Rx Instructions: administer 1/2 tab 30 minutes to 4 hours before activity lisinopril 20 mg tablet See Rx Instructions .ROUTE .COMPLEX Qty: 180 0RF Dose Instruction: take 1 tablet by mouth twice a day Rx Instructions: take 1 tablet by mouth twice a day (DME) blood-glucose meter [OneTouch Verio Flex meter] [facility] See Rx Instructions .ROUTE .COMPLEX Qty: 1 0RF Dose Instruction: use as directed Rx Instructions: use as directed gabapentin 300 mg capsule See Rx Instructions .ROUTE .COMPLEX Qty: 90 0RF Dose Instruction: take 1 capsule by mouth once daily if needed for nerve pain Rx Instructions: take 1 capsule by mouth once daily if needed for nerve pain diltiazem HCl 60 mg capsule,extended release 12 hr 60 mg PO BID 14 Days Qty: 180 3RF Rx Instructions: Take 1 tab by mouth twice per day for HTN, keep BP under 130/80 consistently goal omega-3 acid ethyl esters [Lovaza] 1 gram capsule 1 cap PO BID Qty: 180 3RF Rx Instructions: Take 1 tab twice daily for elevated triglycerides clonidine HCl 0.2 mg tablet 0.2 mg PO BID Rx Instructions: Take 1 tab twice per day to keep BP under 130/80 consistently. metoprolol succinate 25 mg tablet extended release 24 hr 25 mg PO DAILY Qty: 90 1RF simvastatin 20 mg tablet 20 mg PO QPM Qty: 90 3RF Hold Instructions: patient stopped, concerned about s/e Rx Instructions: Take 1 tab every evening for elevated cholesterol doxepin 150 mg capsule 150 mg PO BEDTIME Qty: 90 3RF Rx Instructions: Take 1 capsule at bedtime daily for sleep. (DME) Glucometer Test Strips See Rx Instructions .Route .MEDSUPPLY Qty: 100 3RF Rx Instructions: Check blood sugars daily fasting each morning (DME) Lancettes See Rx Instructions .Route .MEDSUPPLY Qty: 100 3RF Rx Instructions: Check blood sugars fasting each morning and as needed (DME) Lancing Pen See Rx Instructions .Route .MEDSUPPLY Qty: 1 0RF Rx Instructions: As directed hydrochlorothiazide 25 mg tablet 50 mg PO DAILY Qty: 180 3RF Rx Instructions: Take 2 tabs each morning for HTN clonidine HCl 0.2 mg tablet 0.2 mg PO BID Qty: 180 0RF Referrals: Carol Ann Dailey ARNP [Primary Care Provider] - Stand Alone Forms: Patient Portal/API
--- NOTE | 2022-07-31 18:26 | PC.NURSE ---
Pt states he has been having blurred vision and feeling not right for about 2 hours. His blood pressure was high this morning when he took it at home, so he took it again when he was at [facility] and it was 200s/120s. because of the aneurysm in his head he worries about his blood pressure when it is high. he states he did take his blood pressure medications today. last one was taken prior to arrival in Emergency department. pt endorses drinking 1/5th vodka per night, wishes he could quit but is unable to do so himself.
[2022-07-31] MEDS: cloNIDine 0.1 MG TABLET PO (19:15)
[2022-07-31] MEDS: HYDRALAZINE 10 MG TABLET PO (20:13)
== END 2022-07-31 20:57 | disposition home or self-care (01) ==
PROVIDERS: Emergency Provider Emergency Medicine; Family Provider Nurse Practitioner; PCP Nurse Practitioner
DX: I10 Essential (primary) hypertension (principal); Z86.79 Personal history of other diseases of the circulatory system
CPT/HCPCS: 81003; 99283

== ENCOUNTER 2022-08-04 02:05 | Emergency (ER) | payer MEDICARE, MEDICAID, SELFPAY ==
--- NOTE | 2022-08-04 02:28 | PC.NURSE ---
Pt into to be triaged bp 107/58. Pt states bp is ok and he chose to leave. denied any symptoms of hypotension.
== END 2022-08-04 02:32 | disposition left against medical advice (07) ==
PROVIDERS: Emergency Provider Emergency Medicine; Family Provider Nurse Practitioner; PCP Nurse Practitioner

== ENCOUNTER 2022-08-06 17:13 | Emergency (ER) | payer MEDICARE, MEDICAID, SELFPAY ==
[2022-08-06 17:19] VITALS: BP 179/101; PULSE 90; RESP 18; TEMP 36.6; O2SAT 98; BMI 31.2
--- NOTE | 2022-08-06 17:28 | PC.NURSE ---
pt after triage completed states you know the game is on tonight you think i can go home? i think im gonna go home and watch the game. pt bp 179/101 and pt is due soon for evening meds for bp, instructed pt to take his night meds as scheduled and not miss any doses, advised to monitor bp's for primary care, cont follow up with primary care. pt reports going to aa meetings and considering rehab for alcohol advised to continue meetings and use resources he has from previous cell attendant helper for rehab placement, offered to see cell attendant helper today and pt declined. pt did not sign vdc form but verbalized understanding and will take meds, and can return at anytime
== END 2022-08-06 17:28 | disposition left against medical advice (07) ==
PROVIDERS: Emergency Provider Emergency Medicine; Family Provider Nurse Practitioner; PCP Nurse Practitioner
CPT/HCPCS: 99281

== ENCOUNTER 2022-08-24 18:56 | Emergency (ER) | payer MEDICARE, MEDICAID, SELFPAY | END 2022-08-24 21:07 | disposition left against medical advice (07) | PROVIDERS: Emergency Provider Emergency Medicine; Family Provider Nurse Practitioner; PCP Nurse Practitioner | CPT/HCPCS: 99281 ==

== ENCOUNTER 2022-08-31 14:52 | Emergency (ER) | payer MEDICARE, MEDICAID, SELFPAY ==
[2022-08-31 14:59] VITALS: BP 130/75; PULSE 88; RESP 14; TEMP 36.2; O2SAT 99
[2022-08-31 15:29] LABS: Add Manual Diff / Slide Review NO; Basophils Absolute Auto 0 /uL (0-100); Basophils Percent Auto 0.8 % (0-2); Eosinophils Absolute Auto 100 /uL (0-450); Eosinophils Percent Auto 2.1 % (2-4); Hemoglobin 13.2 g/dL (13.5-17.5); Lymphocytes Absolute Auto 1200 /uL (1100-4500); Lymphocytes Percent Auto 25.1 % (25-40); Mean Corpuscular HGB Conc 34.8 % (30-36); Mean Corpuscular Hemoglobin 32.3 PG (26-34); Mean Corpuscular Volume 92.9 fL (80-100); Monocytes Absolute Auto 400 /uL (0-900); Monocytes Percent Auto 9.2 % (3-14); Neutrophils Absolute Auto 3100 /uL (1500-7000); Neutrophils Percent Auto 62.8 % (50-75); Platelet Count 190 X10^3/uL (150-400); Red Blood Cell Count 4.09 X10^6/uL (4.5-5.9); Red Cell Distribution Width 14.1 % (11.6-14.8); White Blood Cell Count 4.9 X10^3/uL (4.5-11.0)
[2022-08-31 15:32] LABS: Acetaminophen < 10 ug/mL (10-30); Alanine Aminotransferase 59 IU/L (<50); Albumin 4.7 g/dL (3.5-5.0); Albumin Globulin Ratio 1.4 (1.0-2.8); Alkaline Phosphatase 60 U/L (38-126); Aspartate Aminotransferase 43 IU/L (17-59); BUN Creatinine Ratio 14.3 (6-22); Bilirubin Total 0.6 mg/dL (0.2-1.3); Blood Urea Nitrogen 12 mg/dL (9-20); Calcium 9.5 mg/dL (8.4-10.2); Carbon Dioxide 35 mmol/L (22-32); Chloride 95 mmol/L (98-107); Estimated Glomerular Filt Rate > 60 mL/min (>60); Ethanol (ETOH) < 10 mg/dL; Globulin 3.3 g/dL (1.7-4.1); Glucose 169 mg/dL (70-100); HEMOLYSIS < 15 (0-50); Potassium 3.4 mmol/L (3.4-5.1); Salicylate < 1.0 mg/dL (<20); Sodium 140 mmol/L (137-145)
[2022-08-31 15:35] LABS: Appearance Urine UA CLEAR; Bilirubin Urine UA NEGATIVE (NEGATIVE); Color Urine UA YELLOW; Glucose Urine UA NEGATIVE (Negative); Ketones Urine UA NEGATIVE (NEGATIVE); Leukocyte Esterase Urine UA NEGATIVE (NEGATIVE); Nitrite Urine UA NEGATIVE (Negative); Occult Blood Urine UA NEGATIVE (Negative); Protein Urine UA NEGATIVE (Negative); Specific Gravity Urine UA 1.015 (1.000-1.035); Urobilinogen Urine UA 0.2 E.U./dL (0.2); pH Urine UA 6.5 (4.5-8.0)
[2022-08-31 15:37] LABS: UR Morphine/Opiate cutoff 300 Negative (Negative); Ur Creatinine Normal (Normal); Ur Specific Gravity Normal (Normal); Urine Amphetamines Negative (Negative); Urine Barbiturates Negative (Negative); Urine Benzodiazepines Negative (Negative); Urine Cocaine Negative (Negative); Urine MDMA Negative (Negative); Urine Methadone Negative (Negative); Urine Methamphetamines Negative (Negative); Urine Oxycodone Negative (Negative); Urine Phencyclidine Negative (Negative); Urine Tetrahydrocannabinol Negative (Negative); Urine Tricyclic Antidepressant Negative (Negative); Urine pH Normal (Normal)
[2022-08-31 15:45] LABS: Bacteria Urine None Seen; Culture Indicated Urine Cult Not Indicated; RBC Urine None Seen (0-5/HPF); Squamous Epithelial Cell Urine 1-5 /HPF (0-5/HPF); WBC Urine 1-5/HPF (0-5/HPF)
[2022-08-31 15:49] LABS: Free T4, Direct Thyroxine 1.14 ng/dL (0.78-2.19)
[2022-08-31 15:52] LABS: COVID19 -Nasal RAPID Negative (Negative)
[2022-08-31 16:02] LABS: Thyroid Stimulating Hormone 0.896 uIU/mL (0.47-4.68)
[2022-08-31 16:27] LABS: INR 1.2 (0.9-1.3); Prothrombin Time 13.2 SECONDS (10.1-12.7)
[2022-08-31 16:31] LABS: Magnesium 1.5 mg/dL (1.6-2.3)
--- NOTE | 2022-08-31 16:31 | ED_ITS ---
HPI - Alcohol <Oneyda Mo PSYCHIATRIC SOCIAL WORKER - Last Filed: 09/01/22 17:51> General Chief Complaint: Toxicology Problem Stated Complaint: alcohol detox has a brain anyrism Time Seen by Provider: 08/31/22 16:09 Source: patient Mode of arrival: Ambulatory History of Present Illness HPI narrative: This is a 52-year-old gentleman with history of alcohol abuse who presents to the emergency department complaining of seeking detox for alcoholism. He states he drinks 1/5 of vodka daily, endorses last drink was this morning, angi of the dog. He has been to inpatient detox many times. He was here in the emergency department on 08/24/2022 but left before triage assessment. Denies history of seizures, denies feeling alcohol withdrawal symptoms today. Patient states he is in alcoholics anonymous, has a supportive network at [employer] and wishes to quit drinking alcohol. He has quit smoking 2 years ago. Related Data Home Medications Medication Instructions Recorded Confirmed clonidine HCl 0.2 mg tablet 0.2 mg PO BID 07/03/22 08/06/22 Previous Rx's Medication Instructions Recorded doxepin 150 mg capsule 150 mg PO BEDTIME #90 caps 01/30/21 Glucometer Test Strips #100 ea 10/12/21 Lancettes #100 ea 10/12/21 Lancing Pen #1 ea 10/12/21 hydrochlorothiazide 25 mg tablet 50 mg PO DAILY #180 tabs 12/25/21 metformin 500 mg tablet 1,000 mg PO BIDWMEAL #360 tabs 01/22/22 diltiazem HCl 60 mg 60 mg PO BID 14 days #180 caps 04/25/22 capsule,extended release 12 hr omega-3 acid ethyl esters 1 gram 1 cap PO BID #180 caps 04/25/22 capsule (Lovaza) sildenafil 100 mg tablet 100 mg PO DAILY PRN sexual 04/30/22 activity #30 tabs lisinopril 20 mg tablet See Rx Instructions .Route 05/07/22 .COMPLEX #180 tabs blood-glucose meter (OneTouch #1 ea 05/17/22 Verio Flex Meter) metoprolol succinate 25 mg 25 mg PO DAILY #90 tabs 07/03/22 tablet,extended release 24 hr clonidine HCl 0.2 mg tablet 0.2 mg PO BID #180 tabs 07/07/22 gabapentin 300 mg capsule See Rx Instructions .Route 07/16/22 .COMPLEX #90 caps chlordiazepoxide HCl 25 mg capsule See Rx Instructions .Route 08/31/22 .COMPLEX PRN alcohol withdrawal #32 caps Allergies Allergy/AdvReac Type Severity Reaction Status Date / Time No Known Drug Allergies Allergy Verified 07/31/22 18:05 Review of Systems <JENARO Morales - Last Filed: 09/01/22 17:51> Review of Systems ROS Unobtainable: All systems reviewed & are unremarkable except as noted in HPI and below Patient History <JENARO Morales - Last Filed: 09/01/22 17:51> Medical History Alcohol cessation counseling Alcohol dependence, daily use Alcohol use disorder Alcohol use disorder, moderate, dependence Atypical chest pain Back pain Bilateral foot pain Blood glucose elevated Class 1 obesity in adult COVID-19 vaccine series declined Depression with anxiety Elevated fasting blood sugar Elevated LFTs High triglycerides Hyperlipidemia Hypertension Hypertension Insomnia Lower GI bleed Lumbosacral spondylosis Mixed hyperlipidemia due to type 2 diabetes mellitus Non-insulin dependent diabetes mellitus Paresthesia of both feet Rectal bleeding Recto-perineal fistula Smokes tobacco daily Tobacco use disorder, mild, in early remission Family History Father Alive and well Mother Alive and well Social History marital status: unmarried,single occupational status: disabled Smoking Status: Former smoker second hand exposure: No alcohol intake: current Smoking Status: Former smoker tobacco type: cigarettes alcohol intake frequency: 3 or more drinks per day Alcohol type: beer and hard liquor Substance Use Type: marijuana Exam <JENARO Morales - Last Filed: 09/01/22 17:51> Initial Vital Signs Initial Vital Signs: Vital Signs Temperature 97.1 F L 08/31/22 14:59 Pulse Rate 88 08/31/22 14:59 Respiratory Rate 14 08/31/22 14:59 Blood Pressure 130/75 08/31/22 14:59 Pulse Oximetry 99 08/31/22 14:59 Oxygen Delivery Method Room Air 08/31/22 14:59 Reviewed vitals signs and nursing notes. General: cooperative, in no acute distress, well groomed, patient is talkative, interactive and pleasant HEENT: symmetrical facial expressions, moist mucous membranes, neck is supple CV: regular rate and rhythm, warm extremities Respiratory: Without abnormal breath sounds, normal work of breathing, without tachypnea, hypoxia. GI: abdomen soft, nontender to palpation in all quadrants, nondistended, without masses, rebound tenderness or CVA tenderness bilaterally. MSK: moves all extremities, neurovascularly intact, no weakness, normal tone, mild tremor bilateral upper extremities with arms extended, no tongue fasciculations Skin: brisk capillary refill, without rash or wound Neuro: normal speech and cognition, A&O x3, ambulatory, clear speech <Darnell Pedroza DO - Last Filed: 09/01/22 03:18> Initial Vital Signs Initial Vital Signs: Vital Signs Temperature 97.1 F L 08/31/22 14:59 Pulse Rate 88 08/31/22 14:59 Respiratory Rate 14 08/31/22 14:59 Blood Pressure 130/75 08/31/22 14:59 Pulse Oximetry 99 08/31/22 14:59 Oxygen Delivery Method Room Air 08/31/22 14:59 Course <JENARO Morales - Last Filed: 09/01/22 17:51> Orders Ordered: Discontinued Medications Lorazepam (Lorazepam 0.5 Mg Tablet) 2 mg PO NOW ONE Stop: 08/31/22 16:18 Last Admin: 08/31/22 16:38 Dose: 2 mg Documented By: NR Ondansetron HCl (Ondansetron 4 Mg/2 Ml Inj) 4 mg IV Q6HR PRN PRN Reason: Nausea And Vomiting Vital Signs Vital signs: Vital Signs - 8 hr 08/31/22 20:19 08/31/22 20:20 08/31/22 20:20 Pulse Rate 73 76 Blood Pressure 206/108 H Pulse Oximetry 97 97 Oxygen Delivery Method 08/31/22 20:21 08/31/22 20:21 09/01/22 00:19 Pulse Rate 68 102 H Blood Pressure 196/95 H 145/95 H Pulse Oximetry 97 94 Oxygen Delivery Method Room Air <Darnell Pedroza DO - Last Filed: 09/01/22 03:18> Orders Ordered: Discontinued Medications Lorazepam (Lorazepam 0.5 Mg Tablet) 2 mg PO NOW ONE Stop: 08/31/22 16:18 Last Admin: 08/31/22 16:38 Dose: 2 mg Documented By: NR Ondansetron HCl (Ondansetron 4 Mg/2 Ml Inj) 4 mg IV Q6HR PRN PRN Reason: Nausea And Vomiting Vital Signs Vital signs: Vital Signs - 8 hr 08/31/22 20:19 08/31/22 20:20 08/31/22 20:20 Pulse Rate 73 76 Blood Pressure 206/108 H Pulse Oximetry 97 97 Oxygen Delivery Method 08/31/22 20:21 08/31/22 20:21 09/01/22 00:19 Pulse Rate 68 102 H Blood Pressure 196/95 H 145/95 H Pulse Oximetry 97 94 Oxygen Delivery Method Room Air MDM - Alcohol <JENARO Morales - Last Filed: 09/01/22 17:51> Lab Data 08/31/22 13:11 08/31/22 13:11 Labs: Lab Results 08/31/22 08/31/22 08/31/22 Range/Units 13:11 13:11 13:11 WBC 4.9 (4.5-11.0) X10^3/uL RBC 4.09 L (4.5-5.9) X10^6/uL Hgb 13.2 L (13.5-17.5) g/dL Hct 38.0 L (41-53) % MCV 92.9 (80-100) fL MCH 32.3 (26-34) PG MCHC 34.8 (30-36) % RDW 14.1 (11.6-14.8) % Plt Count 190 (150-400) X10^3/uL Neut % (Auto) 62.8 (50-75) % Lymph % (Auto) 25.1 (25-40) % [place] % (Auto) 9.2 (3-14) % Eos % (Auto) 2.1 (2-4) % Baso % (Auto) 0.8 (0-2) % Neut # (Auto) 3100 (9210-4797) /uL Lymph # (Auto) 1200 (1650-4980) /uL [place] # (Auto) 400 (0-900) /uL Eos # (Auto) 100 (0-450) /uL Baso # (Auto) 0 (0-100) /uL PT (10.1-12.7) SECONDS INR (0.9-1.3) Sodium 140 (137-145) mmol/L Potassium 3.4 (3.4-5.1) mmol/L Chloride 95 L (98-107) mmol/L Carbon Dioxide 35 H (22-32) mmol/L BUN 12 (9-20) mg/dL Creatinine 0.84 (0.66-1.25) mg/dL Estimated GFR > 60 (>60) mL/min BUN/Creatinine Ratio 14.3 (6-22) Glucose 169 H (70-100) mg/dL Calcium 9.5 (8.4-10.2) mg/dL Magnesium (1.6-2.3) mg/dL Total Bilirubin 0.6 (0.2-1.3) mg/dL AST 43 (17-59) IU/L ALT 59 H (<50) IU/L Alkaline Phosphatase 60 (38-126) U/L Total Protein 8.0 (6.3-8.2) g/dL Albumin 4.7 (3.5-5.0) g/dL Globulin 3.3 (1.7-4.1) g/dL Albumin/Globulin Ratio 1.4 (1.0-2.8) TSH 0.896 (0.47-4.68) uIU/mL Free T4 1.14 (0.78-2.19) ng/dL Urine Color Urine Appearance Urine pH (4.5-8.0) Ur Specific [place] (1.000-1.035) Urine Protein (Negative) Urine Glucose (UA) (Negative) g/dL Urine Ketones (NEGATIVE) Urine Occult Blood (Negative) Urine Nitrate (Negative) Urine Bilirubin (NEGATIVE) Urine Urobilinogen (0.2) E.U./dL Ur Leukocyte Esterase (NEGATIVE) Urine RBC (0-5/HPF) Urine WBC (0-5/HPF) Ur Squamous Epith Cells (0-5/HPF) Urine Bacteria (None) Ur Culture Indicated? Salicylates < 1.0 (<20) mg/dL U Opiates 300ng/mL cut (Negative) Ur Oxycodone Screen (Negative) Urine Methadone Screen (Negative) Acetaminophen < 10 (10-30) ug/mL Ur Barbiturates Screen (Negative) U Tricyclic Antidepress (Negative) Ur Phencyclidine Scrn (Negative) Ur Amphetamines Screen (Negative) U Methamphetamines Scrn (Negative) Ur MDMA Scrn (Ecstasy) (Negative) U Benzodiazepines Scrn (Negative) Urine Cocaine Screen (Negative) U Marijuana (THC) Screen (Negative) Ethyl Alcohol < 10 ( - 10) mg/dL SARS-CoV-2 (PCR) (Negative) 08/31/22 08/31/22 08/31/22 Range/Units 13:11 13:11 15:23 WBC (4.5-11.0) X10^3/uL RBC (4.5-5.9) X10^6/uL Hgb (13.5-17.5) g/dL Hct (41-53) % MCV (80-100) fL MCH (26-34) PG MCHC (30-36) % RDW (11.6-14.8) % Plt Count (150-400) X10^3/uL Neut % (Auto) (50-75) % Lymph % (Auto) (25-40) % [place] % (Auto) (3-14) % Eos % (Auto) (2-4) % Baso % (Auto) (0-2) % Neut # (Auto) (2527-5223) /uL Lymph # (Auto) (3019-1307) /uL [place] # (Auto) (0-900) /uL Eos # (Auto) (0-450) /uL Baso # (Auto) (0-100) /uL PT 13.2 H (10.1-12.7) SECONDS INR 1.2 (0.9-1.3) Sodium (137-145) mmol/L Potassium (3.4-5.1) mmol/L Chloride (98-107) mmol/L Carbon Dioxide (22-32) mmol/L BUN (9-20) mg/dL Creatinine (0.66-1.25) mg/dL Estimated GFR (>60) mL/min BUN/Creatinine Ratio (6-22) Glucose (70-100) mg/dL Calcium (8.4-10.2) mg/dL Magnesium 1.5 L (1.6-2.3) mg/dL Total Bilirubin (0.2-1.3) mg/dL AST (17-59) IU/L ALT (<50) IU/L Alkaline Phosphatase (38-126) U/L Total Protein (6.3-8.2) g/dL Albumin (3.5-5.0) g/dL Globulin (1.7-4.1) g/dL Albumin/Globulin Ratio (1.0-2.8) TSH (0.47-4.68) uIU/mL Free T4 (0.78-2.19) ng/dL Urine Color Urine Appearance Urine pH (4.5-8.0) Ur Specific [place] (1.000-1.035) Urine Protein (Negative) Urine Glucose (UA) (Negative) g/dL Urine Ketones (NEGATIVE) Urine Occult Blood (Negative) Urine Nitrate (Negative) Urine Bilirubin (NEGATIVE) Urine Urobilinogen (0.2) E.U./dL Ur Leukocyte Esterase (NEGATIVE) Urine RBC (0-5/HPF) Urine WBC (0-5/HPF) Ur Squamous Epith Cells (0-5/HPF) Urine Bacteria (None) Ur Culture Indicated? Salicylates (<20) mg/dL U Opiates 300ng/mL cut (Negative) Ur Oxycodone Screen (Negative) Urine Methadone Screen (Negative) Acetaminophen (10-30) ug/mL Ur Barbiturates Screen (Negative) U Tricyclic Antidepress (Negative) Ur Phencyclidine Scrn (Negative) Ur Amphetamines Screen (Negative) U Methamphetamines Scrn (Negative) Ur MDMA Scrn (Ecstasy) (Negative) U Benzodiazepines Scrn (Negative) Urine Cocaine Screen (Negative) U Marijuana (THC) Screen (Negative) Ethyl Alcohol ( - 10) mg/dL SARS-CoV-2 (PCR) Negative (Negative) 08/31/22 08/31/22 Range/Units 15:27 15:27 WBC (4.5-11.0) X10^3/uL RBC (4.5-5.9) X10^6/uL Hgb (13.5-17.5) g/dL Hct (41-53) % MCV (80-100) fL MCH (26-34) PG MCHC (30-36) % RDW (11.6-14.8) % Plt Count (150-400) X10^3/uL Neut % (Auto) (50-75) % Lymph % (Auto) (25-40) % [place] % (Auto) (3-14) % Eos % (Auto) (2-4) % Baso % (Auto) (0-2) % Neut # (Auto) (1111-5186) /uL Lymph # (Auto) (9271-9047) /uL [place] # (Auto) (0-900) /uL Eos # (Auto) (0-450) /uL Baso # (Auto) (0-100) /uL PT (10.1-12.7) SECONDS INR (0.9-1.3) Sodium (137-145) mmol/L Potassium (3.4-5.1) mmol/L Chloride (98-107) mmol/L Carbon Dioxide (22-32) mmol/L BUN (9-20) mg/dL Creatinine (0.66-1.25) mg/dL Estimated GFR (>60) mL/min BUN/Creatinine Ratio (6-22) Glucose (70-100) mg/dL Calcium (8.4-10.2) mg/dL Magnesium (1.6-2.3) mg/dL Total Bilirubin (0.2-1.3) mg/dL AST (17-59) IU/L ALT (<50) IU/L Alkaline Phosphatase (38-126) U/L Total Protein (6.3-8.2) g/dL Albumin (3.5-5.0) g/dL Globulin (1.7-4.1) g/dL Albumin/Globulin Ratio (1.0-2.8) TSH (0.47-4.68) uIU/mL Free T4 (0.78-2.19) ng/dL Urine Color Yellow Urine Appearance Clear Urine pH 6.5 (4.5-8.0) Ur Specific [place] 1.015 (1.000-1.035) Urine Protein Negative (Negative) Urine Glucose (UA) Negative (Negative) g/dL Urine Ketones Negative (NEGATIVE) Urine Occult Blood Negative (Negative) Urine Nitrate Negative (Negative) Urine Bilirubin Negative (NEGATIVE) Urine Urobilinogen 0.2 (0.2) E.U./dL Ur Leukocyte Esterase Negative (NEGATIVE) Urine RBC None seen (0-5/HPF) Urine WBC 1-5/hpf (0-5/HPF) Ur Squamous Epith Cells 1-5 /hpf (0-5/HPF) Urine Bacteria None seen (None) Ur Culture Indicated? Cult not indicated Salicylates (<20) mg/dL U Opiates 300ng/mL cut Negative (Negative) Ur Oxycodone Screen Negative (Negative) Urine Methadone Screen Negative (Negative) Acetaminophen (10-30) ug/mL Ur Barbiturates Screen Negative (Negative) U Tricyclic Antidepress Negative (Negative) Ur Phencyclidine Scrn Negative (Negative) Ur Amphetamines Screen Negative (Negative) U Methamphetamines Scrn Negative (Negative) Ur MDMA Scrn (Ecstasy) Negative (Negative) U Benzodiazepines Scrn Negative (Negative) Urine Cocaine Screen Negative (Negative) U Marijuana (THC) Screen Negative (Negative) Ethyl Alcohol ( - 10) mg/dL SARS-CoV-2 (PCR) (Negative) ECG Data Interpretation: EKG independently reviewed by myself at 1715 reveals normal sinus rhythm at 81 bpm with regular axis and intervals. No STEMI, ST segment changes, arrhythmia, or acute ischemic changes. MDM Narrative Medical decision making narrative: Chief Complaint: Seeking detox for alcohol abuse Independent historian: Patient Differential diagnoses include but are not limited to: Alcohol use disorder, alcohol withdrawal, electrolyte abnormalities I have independently reviewed the patient's vital signs and nursing notes as well as prior records if available. Pertinent lab findings reviewed: Patient's lab work is overall unremarkable, no leukocytosis, no significant anemia or electrolyte abnormalities, mild hypomagnesemia 1.5, normal TSH, UA is normal, urine drug screen is negative for all agents, COVID PCR is negative today Alcohol level is less than 10 Patient was given 2 mg of lorazepam, medical screening evaluation is complete and patient is medically cleared at 16:37 Course of care: Ordered medical clearance orders including alcohol level, CIWA protocol, seizure precautions. Patient's CIWA score currently is 3 points at 16:00. He has a mild tremor with arms extended, very talkative and pleasant but is mildly anxious. No diaphoresis, fever, altered mentation or vision changes. EKGs negative for abnormalities. Social considerations that may affect disposition: none Questions are addressed and there is agreement with the plan and for follow-up. Patient is appropriate for outpatient management. MIPS: This encounter doesn't have any diagnosis' associated with MIPS criteria. <Darnell Pedroza, DO - Last Filed: 09/01/22 03:18> Lab Data Labs: Lab Results 08/31/22 08/31/22 08/31/22 Range/Units 13:11 13:11 13:11 WBC 4.9 (4.5-11.0) X10^3/uL RBC 4.09 L (4.5-5.9) X10^6/uL Hgb 13.2 L (13.5-17.5) g/dL Hct 38.0 L (41-53) % MCV 92.9 (80-100) fL MCH 32.3 (26-34) PG MCHC 34.8 (30-36) % RDW 14.1 (11.6-14.8) % Plt Count 190 (150-400) X10^3/uL Neut % (Auto) 62.8 (50-75) % Lymph % (Auto) 25.1 (25-40) % [place] % (Auto) 9.2 (3-14) % Eos % (Auto) 2.1 (2-4) % Baso % (Auto) 0.8 (0-2) % Neut # (Auto) 3100 (2070-1567) /uL Lymph # (Auto) 1200 (5578-1832) /uL [place] # (Auto) 400 (0-900) /uL Eos # (Auto) 100 (0-450) /uL Baso # (Auto) 0 (0-100) /uL PT (10.1-12.7) SECONDS INR (0.9-1.3) Sodium 140 (137-145) mmol/L Potassium 3.4 (3.4-5.1) mmol/L Chloride 95 L (98-107) mmol/L Carbon Dioxide 35 H (22-32) mmol/L BUN 12 (9-20) mg/dL Creatinine 0.84 (0.66-1.25) mg/dL Estimated GFR > 60 (>60) mL/min BUN/Creatinine Ratio 14.3 (6-22) Glucose 169 H (70-100) mg/dL Calcium 9.5 (8.4-10.2) mg/dL Magnesium (1.6-2.3) mg/dL Total Bilirubin 0.6 (0.2-1.3) mg/dL AST 43 (17-59) IU/L ALT 59 H (<50) IU/L Alkaline Phosphatase 60 (38-126) U/L Total Protein 8.0 (6.3-8.2) g/dL Albumin 4.7 (3.5-5.0) g/dL Globulin 3.3 (1.7-4.1) g/dL Albumin/Globulin Ratio 1.4 (1.0-2.8) TSH 0.896 (0.47-4.68) uIU/mL Free T4 1.14 (0.78-2.19) ng/dL Urine Color Urine Appearance Urine pH (4.5-8.0) Ur Specific [place] (1.000-1.035) Urine Protein (Negative) Urine Glucose (UA) (Negative) g/dL Urine Ketones (NEGATIVE) Urine Occult Blood (Negative) Urine Nitrate (Negative) Urine Bilirubin (NEGATIVE) Urine Urobilinogen (0.2) E.U./dL Ur Leukocyte Esterase (NEGATIVE) Urine RBC (0-5/HPF) Urine WBC (0-5/HPF) Ur Squamous Epith Cells (0-5/HPF) Urine Bacteria (None) Ur Culture Indicated? Salicylates < 1.0 (<20) mg/dL U Opiates 300ng/mL cut (Negative) Ur Oxycodone Screen (Negative) Urine Methadone Screen (Negative) Acetaminophen < 10 (10-30) ug/mL Ur Barbiturates Screen (Negative) U Tricyclic Antidepress (Negative) Ur Phencyclidine Scrn (Negative) Ur Amphetamines Screen (Negative) U Methamphetamines Scrn (Negative) Ur MDMA Scrn (Ecstasy) (Negative) U Benzodiazepines Scrn (Negative) Urine Cocaine Screen (Negative) U Marijuana (THC) Screen (Negative) Ethyl Alcohol < 10 ( - 10) mg/dL SARS-CoV-2 (PCR) (Negative) 08/31/22 08/31/22 08/31/22 Range/Units 13:11 13:11 15:23 WBC (4.5-11.0) X10^3/uL RBC (4.5-5.9) X10^6/uL Hgb (13.5-17.5) g/dL Hct (41-53) % MCV (80-100) fL MCH (26-34) PG MCHC (30-36) % RDW (11.6-14.8) % Plt Count (150-400) X10^3/uL Neut % (Auto) (50-75) % Lymph % (Auto) (25-40) % [place] % (Auto) (3-14) % Eos % (Auto) (2-4) % Baso % (Auto) (0-2) % Neut # (Auto) (6370-7902) /uL Lymph # (Auto) (4899-3502) /uL [place] # (Auto) (0-900) /uL Eos # (Auto) (0-450) /uL Baso # (Auto) (0-100) /uL PT 13.2 H (10.1-12.7) SECONDS INR 1.2 (0.9-1.3) Sodium (137-145) mmol/L Potassium (3.4-5.1) mmol/L Chloride (98-107) mmol/L Carbon Dioxide (22-32) mmol/L BUN (9-20) mg/dL Creatinine (0.66-1.25) mg/dL Estimated GFR (>60) mL/min BUN/Creatinine Ratio (6-22) Glucose (70-100) mg/dL Calcium (8.4-10.2) mg/dL Magnesium 1.5 L (1.6-2.3) mg/dL Total Bilirubin (0.2-1.3) mg/dL AST (17-59) IU/L ALT (<50) IU/L Alkaline Phosphatase (38-126) U/L Total Protein (6.3-8.2) g/dL Albumin (3.5-5.0) g/dL Globulin (1.7-4.1) g/dL Albumin/Globulin Ratio (1.0-2.8) TSH (0.47-4.68) uIU/mL Free T4 (0.78-2.19) ng/dL Urine Color Urine Appearance Urine pH (4.5-8.0) Ur Specific [place] (1.000-1.035) Urine Protein (Negative) Urine Glucose (UA) (Negative) g/dL Urine Ketones (NEGATIVE) Urine Occult Blood (Negative) Urine Nitrate (Negative) Urine Bilirubin (NEGATIVE) Urine Urobilinogen (0.2) E.U./dL Ur Leukocyte Esterase (NEGATIVE) Urine RBC (0-5/HPF) Urine WBC (0-5/HPF) Ur Squamous Epith Cells (0-5/HPF) Urine Bacteria (None) Ur Culture Indicated? Salicylates (<20) mg/dL U Opiates 300ng/mL cut (Negative) Ur Oxycodone Screen (Negative) Urine Methadone Screen (Negative) Acetaminophen (10-30) ug/mL Ur Barbiturates Screen (Negative) U Tricyclic Antidepress (Negative) Ur Phencyclidine Scrn (Negative) Ur Amphetamines Screen (Negative) U Methamphetamines Scrn (Negative) Ur MDMA Scrn (Ecstasy) (Negative) U Benzodiazepines Scrn (Negative) Urine Cocaine Screen (Negative) U Marijuana (THC) Screen (Negative) Ethyl Alcohol ( - 10) mg/dL SARS-CoV-2 (PCR) Negative (Negative) 08/31/22 08/31/22 Range/Units 15:27 15:27 WBC (4.5-11.0) X10^3/uL RBC (4.5-5.9) X10^6/uL Hgb (13.5-17.5) g/dL Hct (41-53) % MCV (80-100) fL MCH (26-34) PG MCHC (30-36) % RDW (11.6-14.8) % Plt Count (150-400) X10^3/uL Neut % (Auto) (50-75) % Lymph % (Auto) (25-40) % [place] % (Auto) (3-14) % Eos % (Auto) (2-4) % Baso % (Auto) (0-2) % Neut # (Auto) (6899-3169) /uL Lymph # (Auto) (1860-5287) /uL [place] # (Auto) (0-900) /uL Eos # (Auto) (0-450) /uL Baso # (Auto) (0-100) /uL PT (10.1-12.7) SECONDS INR (0.9-1.3) Sodium (137-145) mmol/L Potassium (3.4-5.1) mmol/L Chloride (98-107) mmol/L Carbon Dioxide (22-32) mmol/L BUN (9-20) mg/dL Creatinine (0.66-1.25) mg/dL Estimated GFR (>60) mL/min BUN/Creatinine Ratio (6-22) Glucose (70-100) mg/dL Calcium (8.4-10.2) mg/dL Magnesium (1.6-2.3) mg/dL Total Bilirubin (0.2-1.3) mg/dL AST (17-59) IU/L ALT (<50) IU/L Alkaline Phosphatase (38-126) U/L Total Protein (6.3-8.2) g/dL Albumin (3.5-5.0) g/dL Globulin (1.7-4.1) g/dL Albumin/Globulin Ratio (1.0-2.8) TSH (0.47-4.68) uIU/mL Free T4 (0.78-2.19) ng/dL Urine Color Yellow Urine Appearance Clear Urine pH 6.5 (4.5-8.0) Ur Specific [place] 1.015 (1.000-1.035) Urine Protein Negative (Negative) Urine Glucose (UA) Negative (Negative) g/dL Urine Ketones Negative (NEGATIVE) Urine Occult Blood Negative (Negative) Urine Nitrate Negative (Negative) Urine Bilirubin Negative (NEGATIVE) Urine Urobilinogen 0.2 (0.2) E.U./dL Ur Leukocyte Esterase Negative (NEGATIVE) Urine RBC None seen (0-5/HPF) Urine WBC 1-5/hpf (0-5/HPF) Ur Squamous Epith Cells 1-5 /hpf (0-5/HPF) Urine Bacteria None seen (None) Ur Culture Indicated? Cult not indicated Salicylates (<20) mg/dL U Opiates 300ng/mL cut Negative (Negative) Ur Oxycodone Screen Negative (Negative) Urine Methadone Screen Negative (Negative) Acetaminophen (10-30) ug/mL Ur Barbiturates Screen Negative (Negative) U Tricyclic Antidepress Negative (Negative) Ur Phencyclidine Scrn Negative (Negative) Ur Amphetamines Screen Negative (Negative) U Methamphetamines Scrn Negative (Negative) Ur MDMA Scrn (Ecstasy) Negative (Negative) U Benzodiazepines Scrn Negative (Negative) Urine Cocaine Screen Negative (Negative) U Marijuana (THC) Screen Negative (Negative) Ethyl Alcohol ( - 10) mg/dL SARS-CoV-2 (PCR) (Negative) MDM Narrative Medical decision making narrative: Chief Complaint: Seeking detox for alcohol abuse Independent historian: Patient Differential diagnoses include but are not limited to: Alcohol use disorder, alcohol withdrawal, electrolyte abnormalities I have independently reviewed the patient's vital signs and nursing notes as well as prior records if available. Pertinent lab findings reviewed: Patient's lab work is overall unremarkable, no leukocytosis, no significant anemia or electrolyte abnormalities, mild hypomagnesemia 1.5, normal TSH, UA is normal, urine drug screen is negative for all agents, COVID PCR is negative today Alcohol level is less than 10 Patient was given 2 mg of lorazepam, medical screening evaluation is complete and patient is medically cleared at 16:37 Course of care: Ordered medical clearance orders including alcohol level, CIWA protocol, seizure precautions. Patient's CIWA score currently is 3 points at 16:00. He has a mild tremor with arms extended, very talkative and pleasant but is mildly anxious. No diaphoresis, fever, altered mentation or vision changes. EKGs negative for abnormalities. Social considerations that may affect disposition: none Questions are addressed and there is agreement with the plan and for follow-up. Patient is appropriate for outpatient management. MIPS: This encounter doesn't have any diagnosis' associated with MIPS criteria. 1900 -I have assumed care of this patient and performed independent history and physical exam. Current plan is to pursue voluntary placement into an alcohol detox facility but currently no beds are available, patient will likely need to wait overnight, he is aware 2114 -patient asymptomatic. Denies headache or blurred vision, no agitation or anxiety, denies suicidal or homicidal ideation, denies visual or auditory hallucinations. He states that he is beginning to change his mind and no longer wants to wait overnight to pursue placement. We discussed the pros and cons of this plan and he understands that he may very well lose his medical clearance should he choose to leave but is willing to assume that risk. He is speaking clearly without slurring and able to walk a straight line, he demonstrates capacity to make his own decisions and understands the ramifications of this choice. I did discuss with him the possible utility of a Librium taper as the p atient states he wishes to quit. He states that he is quit cold turkey in the past multiple times without any evidence of alcohol withdrawal but is willing to entertain the idea of a prescription. We have discussed return precautions and questions have been answered to his apparent satisfaction Discharge Plan Departure Patient Disposition: Home Clinical Impression: Alcohol abuse, Alcohol use disorder Instructions: DI for Alcohol Use Disorder Activity Restrictions/Additional Instructions: *You have been diagnosed with [alcohol abuse and very minor if any withdrawal type symptoms. As we discussed your welcome back at any time if you would like her assistance with placement.] *What to do: *Please continue to take your regular medications as directed. [x ] New medication prescriptions sent to your pharmacy: [ [facility]] [ ] New medication written as a paper prescription [ ] No new medications given *Please follow up with your primary care provider in 2-3 days, call for an appointment. Let them know you were seen in the Emergency Department and that we asked that you be seen for follow-up. We will electronically transmit a record of today's note if your PCP is in our system *If you do not have a primary care provider please contact [phone] to establish care with one of the [facility] primary care providers. *Return to Emergency Department if you should have any new, worsening, or concerning symptoms, such as [fever greater than 101F, chills, worsening pain, persistent vomiting or other bothersome symptoms]. Prescriptions: New chlordiazepoxide HCl 25 mg capsule See Rx Instructions .ROUTE .COMPLEX PRN (Reason: alcohol withdrawal) Qty: 32 0RF Rx Instructions: Day 1: 50mg POq4 Day 2: 50mg POq6 Day 3: 50mg POq8 Day 4: 50mg POq12 Day 5: 50mg POqhs #32 No Action metformin 500 mg tablet 1,000 mg PO BIDWMEAL Qty: 360 3RF Rx Instructions: Increase dose to 2 tabs with food, twice daily. sildenafil 100 mg tablet 100 mg PO DAILY PRN (Reason: sexual activity) Qty: 30 2RF Rx Instructions: administer 1/2 tab 30 minutes to 4 hours before activity lisinopril 20 mg tablet See Rx Instructions .ROUTE .COMPLEX Qty: 180 0RF Dose Instruction: take 1 tablet by mouth twice a day Rx Instructions: take 1 tablet by mouth twice a day (DME) blood-glucose meter [OneTouch Verio Flex meter] [facility] [place] See Rx Instructions .ROUTE .COMPLEX Qty: 1 0RF Dose Instruction: use as directed Rx Instructions: use as directed gabapentin 300 mg capsule See Rx Instructions .ROUTE .COMPLEX Qty: 90 0RF Dose Instruction: take 1 capsule by mouth once daily if needed for nerve pain Rx Instructions: take 1 capsule by mouth once daily if needed for nerve pain diltiazem HCl 60 mg capsule,extended release 12 hr 60 mg PO BID 14 Days Qty: 180 3RF Rx Instructions: Take 1 tab by mouth twice per day for HTN, keep BP under 130/80 consistently goal omega-3 acid ethyl esters [Lovaza] 1 gram capsule 1 cap PO BID Qty: 180 3RF Rx Instructions: Take 1 tab twice daily for elevated triglycerides clonidine HCl 0.2 mg tablet 0.2 mg PO BID Rx Instructions: Take 1 tab twice per day to keep BP under 130/80 consistently. metoprolol succinate 25 mg tablet extended release 24 hr 25 mg PO DAILY Qty: 90 1RF doxepin 150 mg capsule 150 mg PO BEDTIME Qty: 90 3RF Rx Instructions: Take 1 capsule at bedtime daily for sleep. (DME) Glucometer Test Strips See Rx Instructions .Route .MEDSUPPLY Qty: 100 3RF Rx Instructions: Check blood sugars daily fasting each morning (DME) Lancettes See Rx Instructions .Route .MEDSUPPLY Qty: 100 3RF Rx Instructions: Check blood sugars fasting each morning and as needed (DME) Lancing Pen See Rx Instructions .Route .MEDSUPPLY Qty: 1 0RF Rx Instructions: As directed hydrochlorothiazide 25 mg tablet 50 mg PO DAILY Qty: 180 3RF Rx Instructions: Take 2 tabs each morning for HTN clonidine HCl 0.2 mg tablet 0.2 mg PO BID Qty: 180 0RF Referrals: Carol Ann Dailey ARNP [Primary Care Provider] - Stand Alone Forms: Patient Portal/API
--- NOTE | 2022-08-31 16:32 | PC.NURSE ---
pt is on phone for screening for placement to facility. med administration waiting till after call and assessment
[2022-08-31] MEDS: LORazepam 0.5 MG TABLET 2 MG PO (16:38)
--- NOTE | 2022-08-31 20:02 | CM.SWNOTE ---
SEAFOOD PROCESS WORKER Note This SEAFOOD PROCESS WORKER did not evaluate patient, SEAFOOD PROCESS WORKER was informed that patient is seeking detox and had bed at [facility]. SEAFOOD PROCESS WORKER f/u with [facility] detox, it is reported that they do not have beds and will have beds in the AM and request that patient call back then. SEAFOOD PROCESS WORKER calls [facility] it is reported that they do not have a bed until tomorrow AM and request to call back in AM. SEAFOOD PROCESS WORKER calls [facility], it is reported that they have a detox bed, SEAFOOD PROCESS WORKER faxes referral to review. SEAFOOD PROCESS WORKER informs patient and patient is agreeable to try to seek detox placement at [facility]. Aaliyah Koehler, LPN PER DIEM
[2022-08-31 20:19] VITALS: PULSE 73; O2SAT 97
[2022-08-31 20:20] VITALS: BP 206/108; PULSE 76; O2SAT 97
[2022-08-31 20:21] VITALS: BP 196/95; PULSE 68; O2SAT 97
[2022-09-01 00:19] VITALS: BP 145/95; PULSE 102; O2SAT 94
--- NOTE | 2022-09-01 17:42 | PC.NURSE ---
Reviewed record with [facility] where pt is for voluntary rehab.
== END 2022-09-01 00:21 | disposition home or self-care (01) ==
PROVIDERS: Emergency Medicine; Nurse Practitioner Critical Care Medicine; Emergency Provider Emergency Medicine; Family Provider Nurse Practitioner; PCP Nurse Practitioner
DX: F10.10 Alcohol abuse, uncomplicated (principal); R07.9 Chest pain, unspecified; Z20.822 Contact with and (suspected) exposure to COVID-19
CPT/HCPCS: 80053; 80305; 80320; 80329; 81001; 83735; 84439; 84443; 85025; 85610; 87635; 93005; 93010; 99283; 99284; C9803; G0480

== ENCOUNTER 2022-09-26 18:09 | Emergency (ER) | payer MEDICARE, MEDICAID, SELFPAY ==
[2022-09-26] VITALS (8 sets, daily range): BP systolic 163–215; BP diastolic 92–106; PULSE 63–77; RESP 12–25; TEMP 36.8; O2SAT 96–99; BMI 29.3
--- NOTE | 2022-09-26 18:21 | ED.HA ---
HPI - Headache General Chief Complaint: Headache Stated Complaint: brain anyrism pt/head pain worsening Time Seen by Provider: 09/26/22 18:20 Source: RN notes reviewed and old records reviewed Limitations: no limitations History of Present Illness HPI Narrative: This is a 52-year-old male with history of hypertension, diabetes, chronic alcohol use and known left MCA aneurysm. Patient presents with complaint of left-sided headache that is about 2/10. Patient states it has been there for a couple days. He is aware that he has not aneurysm in his brain, he is supposed to follow up with [facility] but missed his most recent appointment to establish. He has been rescheduled for October 08. Patient states headaches been gradual, he states it is not the worst headache of his life it is 2/10. He states sometimes low blurred vision but he states that is pretty normal for him. Denies any new numbness, tingling or weakness, no syncope, no chest pain, no shortness of breath, no nausea or vomiting, no GI or urinary symptoms. Patient states he does have chronic neuropathy bilateral feet from his diabetes. It has not changed. No known drug allergies. Patient states he usually takes Tylenol for his headaches typically a 1000 mg. He has been taking his blood pressure medications morning and evening according to the patient. He states he does continue to drink alcohol up to a 5th daily, no tobacco, no illicit. He has not had his evening blood pressure medications which he usually takes between 7 and 9:00 p.m. which are his lisinopril and clonidine. He is accompanied by his mother today. Related Data Home Medications Medication Instructions Recorded Confirmed clonidine HCl 0.2 mg tablet 0.2 mg PO BID 07/03/22 09/12/22 Previous Rx's Medication Instructions Recorded doxepin 150 mg capsule 150 mg PO BEDTIME #90 caps 01/30/21 Glucometer Test Strips #100 ea 10/12/21 Lancettes #100 ea 10/12/21 Lancing Pen #1 ea 10/12/21 hydrochlorothiazide 25 mg tablet 50 mg PO DAILY #180 tabs 12/25/21 metformin 500 mg tablet 1,000 mg PO BIDWMEAL #360 tabs 01/22/22 diltiazem HCl 60 mg 60 mg PO BID 14 days #180 caps 04/25/22 capsule,extended release 12 hr omega-3 acid ethyl esters 1 gram 1 cap PO BID #180 caps 04/25/22 capsule (Lovaza) sildenafil 100 mg tablet 100 mg PO DAILY PRN sexual 04/30/22 activity #30 tabs lisinopril 20 mg tablet See Rx Instructions .Route 05/07/22 .COMPLEX #180 tabs blood-glucose meter (OneTouch #1 ea 05/17/22 Verio Flex Meter) metoprolol succinate 25 mg 25 mg PO DAILY #90 tabs 07/03/22 tablet,extended release 24 hr clonidine HCl 0.2 mg tablet 0.2 mg PO BID #180 tabs 07/07/22 gabapentin 300 mg capsule See Rx Instructions .Route 07/16/22 .COMPLEX #90 caps chlordiazepoxide HCl 25 mg capsule See Rx Instructions .Route 08/31/22 .COMPLEX PRN alcohol withdrawal #32 caps peg 3350-electrolytes 236 240 ml PO Q10M #4,000 mL 09/13/22 gram-22.74 gram-6.74 gram-5.86 gram solution (Golytely) Allergies Allergy/AdvReac Type Severity Reaction Status Date / Time No Known Drug Allergies Allergy Verified 09/26/22 18:35 Review of Systems Review of Systems ROS Unobtainable: All systems reviewed & are unremarkable except as noted in HPI and below Patient History Medical History Alcohol cessation counseling Alcohol dependence, daily use Alcohol use disorder Alcohol use disorder, moderate, dependence Atypical chest pain Back pain Bilateral foot pain Blood glucose elevated Class 1 obesity in adult COVID-19 vaccine series declined Depression with anxiety Elevated fasting blood sugar Elevated LFTs High triglycerides Hyperlipidemia Hypertension Hypertension Insomnia Lower GI bleed Lumbosacral spondylosis Mixed hyperlipidemia due to type 2 diabetes mellitus Non-insulin dependent diabetes mellitus Paresthesia of both feet Rectal bleeding Recto-perineal fistula Smokes tobacco daily Tobacco use disorder, mild, in early remission Family History Father Alive and well Mother Alive and well Social History marital status: unmarried,single occupational status: disabled Smoking Status: Former smoker second hand exposure: No alcohol intake: current Smoking Status: Former smoker tobacco type: cigarettes alcohol intake frequency: 3 or more drinks per day Alcohol type: beer and hard liquor Substance Use Type: marijuana Exam Narrative Exam Narrative: GEN: well nourished, well appearing male, alert and oriented x 3, patient appears to be in mild distress. HEENT: Atraumatic, pupils are equal round reactive to light, extraocular movements are intact, nares are clear. Throat is clear without any exudates, erythema, tonsillar enlargement or uvular deviation HEART: Regular rate and rhythm without murmur, clicks, rubs. LUNGS:Lungs clear to auscultation, no wheezes, rales, crackles, chest moves symmetrically ABD:bowel sounds normal, soft, non-tender, no guarding, rebound, rigidity, no masses noted, no hepatosplenomegaly :No CVA tenderness MSCL: Non-tender, no muscle atrophy, muscles strength 5/5 upper and lower extremities, full range of motion, normal gait NEURO:CN 2-12 intact, sensation normal upper extremities. SKIN: No rash, erythema or other skin changes Initial Vital Signs Initial Vital Signs: Vital Signs Pulse Rate 76 09/26/22 18:19 Blood Pressure 175/96 H 09/26/22 18:19 Pulse Oximetry 97 09/26/22 18:19 Scores GCS [place] coma scale eye opening: Spontaneous [place] coma scale verbal response: Orientated [place] coma scale motor response: Obey commands [place] coma scale total score: 15 Course Orders Ordered: Discontinued Medications Acetaminophen (Acetaminophen 325 Mg Tablet) 975 mg PO NOW ONE Stop: 09/26/22 18:38 Last Admin: 09/26/22 18:45 Dose: 975 mg Documented By: OW Vital Signs Vital signs: Vital Signs - 8 hr 09/26/22 18:23 Temperature 98.3 F Pulse Rate 77 Respiratory Rate 20 Blood Pressure 175/96 H Pulse Oximetry 98 Oxygen Delivery Method Room Air MDM - Headache Lab Data 09/26/22 18:52 09/26/22 18:52 Labs: Lab Results 09/26/22 09/26/22 Range/Units 18:52 18:52 WBC 7.6 (4.5-11.0) X10^3/uL RBC 4.08 L (4.5-5.9) X10^6/uL Hgb 13.1 L (13.5-17.5) g/dL Hct 37.5 L (41-53) % MCV 92.0 (80-100) fL MCH 32.2 (26-34) PG MCHC 35.0 (30-36) % RDW 13.8 (11.6-14.8) % Plt Count 226 (150-400) X10^3/uL Neut % (Auto) 71.0 (50-75) % Lymph % (Auto) 21.4 L (25-40) % [place] % (Auto) 5.2 (3-14) % Eos % (Auto) 2.0 (2-4) % Baso % (Auto) 0.4 (0-2) % Neut # (Auto) 5400 (1718-0887) /uL Lymph # (Auto) 1600 (9142-1460) /uL [place] # (Auto) 400 (0-900) /uL Eos # (Auto) 100 (0-450) /uL Baso # (Auto) 0 (0-100) /uL Sodium 138 (137-145) mmol/L Potassium 3.5 (3.4-5.1) mmol/L Chloride 95 L (98-107) mmol/L Carbon Dioxide 38 H (22-32) mmol/L BUN 13 (9-20) mg/dL Creatinine 0.83 (0.66-1.25) mg/dL Estimated GFR > 60 (>60) mL/min BUN/Creatinine Ratio 15.7 (6-22) Glucose 101 H (70-100) mg/dL Calcium 10.0 (8.4-10.2) mg/dL Total Bilirubin 0.6 (0.2-1.3) mg/dL AST 33 (17-59) IU/L ALT 34 (<50) IU/L Alkaline Phosphatase 83 (38-126) U/L Total Protein 7.9 (6.3-8.2) g/dL Albumin 4.2 (3.5-5.0) g/dL Globulin 3.7 (1.7-4.1) g/dL Albumin/Globulin Ratio 1.1 (1.0-2.8) Urine Dip Bedside Urine Glucose Negative Bedside Urine Bilirubin - Negative Bedside Urine Ketone - Negative Urine Specific Alfred 1.010 Bedside Urine Occult Blood - Negative Bedside Urine pH 8.5 Bedside Urine Protein - Negative Bedside Urine Urobilinogen - Negative Bedside Urine Nitrite - Negative Bedside Urine Leukocytes - Negative Esterase Imaging Data CTA - brain/neck: Radiologist's Impression: Close Head/Neck CTA (Signed) Robert Wise - 09/26/22 Launch?[place] [address] CT Scan Report Signed Patient: Joao Candelaria MR#: [id number] : 1970 Acct:[id number] Age/Sex: 52 / M Date of Service: 09/26/22 Loc: ED Accession Number: [id number] ?? Procedure: CT angio head and neck Ordering Provider: Ev Miller D.O. PROCEDURE:? CT ANGIO HEAD AND NECK ? INDICATIONS:? moreau mild worried aneurysm is changing, missed f/u with neuro ? TECHNIQUE:? Pre-contrast 4.5 mm thick sections acquired from the foramen magnum to the vertex.? After the administration of intravenous contrast, 1 mm thick sections acquired from the aortic arch through the [place].? Post-contrast 4.5 mm thick sections then re-acquired from the foramen magnum to the vertex.? 3-dimensional wffaequ-uncirepoy-nmsxenjolk (MIP) and/or volume rendering reformats were acquired of the central intracranial vasculature and neck separately. For radiation dose reduction, the following was used:? automated exposure control, adjustment of mA and/or kV according to patient size.? ? COMPARISON:? [facility], CT, CT HEAD/BRAIN WO CON, 07/07/2022, 16:48.? [facility], CT, CT ANGIO HEAD AND NECK, 06/27/2022, 20:14. ? FINDINGS:? Image quality:? Mild streak artifact can be seen through the skull base. ? BRAIN:? CSF spaces:? Ventricles are normal in size and shape.? Basal cisterns are patent.? No extra-axial fluid collections.? ? Brain:? No midline shift.? No intracranial bleeds or masses.? [place]-white matter interface appears intact.? ? Skull and face:? Calvarium and facial bones appear intact, without suspicious lesions.? Orbits appear normal.? ? Sinuses:? Sinuses and mastoids are clear.? The ostiomeatal complexes are patent, yet they are constitutionally narrowed, with bilateral Dilshad cells.? There is [id number] rightward nasal septal deviation seen.? ? HEAD CT ANGIOGRAPHY:? Anterior circulation:? Intracranial internal carotid arteries are normal in size and flow.? The flow within the paired anterior cerebral arteries is normal and symmetric.? The flow within the middle cerebral arteries is normal and symmetric.? The anterior communicating artery is seen.? ? There is again seen a 3 mm broad-based aneurysm involving the distal left M1 segment at the trifurcation region, which is best seen on series 9, image 96. No additional aneurysms are seen. ? Posterior circulation:? Visualized portions of the vertebral arteries demonstrate normal caliber, and join to form a normal appearing basilar artery.? Flow within the posterior cerebral arteries is normal and symmetric.? No aneurysms are seen.? ? NECK CT ANGIOGRAPHY:? Carotid system:? The great vessels demonstrate a conventional anatomy as they arise from the aortic arch.? The origins of the common carotid arteries appear patent.? The common carotid arteries demonstrate normal caliber and courses.? The bifurcation regions are both widely patent.? The internal carotid arteries demonstrate normal calibers and courses.? ? Posterior circulation:? The origins of the vertebral arteries both appear widely patent.? The more superior extracranial portions of both vertebral arteries also demonstrate normal courses and calibers.? They join to form a normal appearing basilar artery.? ? Soft tissues:? Visualized neck soft tissues demonstrate no suspicious abnormalities.? ? Bones:? No suspicious bony lesions.? Visualized cervical spine appears normally aligned.? [id number] lower cervical spine degenerative change can be seen. ? ? IMPRESSION:? Stable 3 mm distal left M1 aneurysm, with a broad base. ? No additional significant intracranial arterial abnormality is seen. ? No acute intracranial hemorrhage is seen.? ? No acute intracranial process is seen.? ? Normal appearing carotid arteries. ? Normal appearing vertebral arteries. ? Any quantitative measurements of stenosis were performed using NASCET criteria.? ? ? Dictated by: Robert Wise M.D. on 09/26/2022 at 18:27 ? ? Approved by: Robert Wise M.D. on 09/26/2022 at 18:31?? [facility] Narrative Medical decision making narrative: This is a 52-year-old male with known aneurysm who presents with complaint of headache. He describes it as 2/10 with gradual onset not high-risk but he is concerned as he has known aneurysm he missed his appointment at [facility] to follow up regarding it and potential treatment versus interventions. He states he has been taking his blood pressure medication regularly he is due for his evening dose about 15 minutes upon arrival. Patient also continues to drink alcohol. Patient does not have any acute neurologic changes or red flags but does drink alcohol regularly, he is slightly hypertensive today he is due to take his evening medications and his mom went out to his car to get his home medications. Patient had head CT angio which shows a stable 3 mm aneurysm in the left MCA, no other acute changes. Patient did take his blood pressure medications we discussed return precautions. Patient did ask if he should take his sildenafil discussed I would hold this until he sees his specialist at [facility] further recommendations as is a Vasa dilator. Discharge Plan Departure Patient Disposition: Home Clinical Impression: Headache Activity Restrictions/Additional Instructions: Your aneurysm is stable with no increase in size today. Please follow-up at your scheduled appointment at [facility] for your aneurysm. Please continue your home medications as prescribed. Please return for severe headaches, new or sudden vision changes, passing out, persistent vomiting, new numbness weakness loss of sensation or other new or concerning changes. Prescriptions: No Action metformin 500 mg tablet 1,000 mg PO BIDWMEAL Qty: 360 3RF Rx Instructions: Increase dose to 2 tabs with food, twice daily. sildenafil 100 mg tablet 100 mg PO DAILY PRN (Reason: sexual activity) Qty: 30 2RF Rx Instructions: administer 1/2 tab 30 minutes to 4 hours before activity lisinopril 20 mg tablet See Rx Instructions .ROUTE .COMPLEX Qty: 180 0RF Dose Instruction: take 1 tablet by mouth twice a day Rx Instructions: take 1 tablet by mouth twice a day (DME) blood-glucose meter [OneTouch Verio Flex meter] [facility] [place] See Rx Instructions .ROUTE .COMPLEX Qty: 1 0RF Dose Instruction: use as directed Rx Instructions: use as directed gabapentin 300 mg capsule See Rx Instructions .ROUTE .COMPLEX Qty: 90 0RF Dose Instruction: take 1 capsule by mouth once daily if needed for nerve pain Rx Instructions: take 1 capsule by mouth once daily if needed for nerve pain peg 3350-electrolytes [Golytely] 236-22.74-6.74 -5.86 gram recon soln 240 ml PO Q10M Qty: 4000 0RF Rx Instructions: Take as directed by Physician diltiazem HCl 60 mg capsule,extended release 12 hr 60 mg PO BID 14 Days Qty: 180 3RF Rx Instructions: Take 1 tab by mouth twice per day for HTN, keep BP under 130/80 consistently goal omega-3 acid ethyl esters [Lovaza] 1 gram capsule 1 cap PO BID Qty: 180 3RF Rx Instructions: Take 1 tab twice daily for elevated triglycerides clonidine HCl 0.2 mg tablet 0.2 mg PO BID Rx Instructions: Take 1 tab twice per day to keep BP under 130/80 consistently. metoprolol succinate 25 mg tablet extended release 24 hr 25 mg PO DAILY Qty: 90 1RF doxepin 150 mg capsule 150 mg PO BEDTIME Qty: 90 3RF Rx Instructions: Take 1 capsule at bedtime daily for sleep. (DME) Glucometer Test Strips See Rx Instructions .Route .MEDSUPPLY Qty: 100 3RF Rx Instructions: Check blood sugars daily fasting each morning (DME) Lancettes See Rx Instructions .Route .MEDSUPPLY Qty: 100 3RF Rx Instructions: Check blood sugars fasting each morning and as needed (DME) Lancing Pen See Rx Instructions .Route .MEDSUPPLY Qty: 1 0RF Rx Instructions: As directed hydrochlorothiazide 25 mg tablet 50 mg PO DAILY Qty: 180 3RF Rx Instructions: Take 2 tabs each morning for HTN chlordiazepoxide HCl 25 mg capsule See Rx Instructions .ROUTE .COMPLEX PRN (Reason: alcohol withdrawal) Qty: 32 0RF Rx Instructions: Day 1: 50mg POq4 Day 2: 50mg POq6 Day 3: 50mg POq8 Day 4: 50mg POq12 Day 5: 50mg POqhs #32 clonidine HCl 0.2 mg tablet 0.2 mg PO BID Qty: 180 0RF Referrals: Carol Ann Dailey ARNP [Primary Care Provider] - Stand Alone Forms: Patient Portal/API
--- NOTE | 2022-09-26 18:37 | DI.CT.S_ITS ---
PROCEDURE: CT ANGIO HEAD AND NECK INDICATIONS: moreau mild worried aneurysm is changing, missed f/u with neuro TECHNIQUE: Pre-contrast 4.5 mm thick sections acquired from the foramen magnum to the vertex. After the administration of intravenous contrast, 1 mm thick sections acquired from the aortic arch through the [place]. Post-contrast 4.5 mm thick sections then re-acquired from the foramen magnum to the vertex. 3-dimensional biikvyg-ufybyyjfc-ejubmpfshk (MIP) and/or volume rendering reformats were acquired of the central intracranial vasculature and neck separately. For radiation dose reduction, the following was used: automated exposure control, adjustment of mA and/or kV according to patient size. COMPARISON: [facility], CT, CT HEAD/BRAIN WO CON, 07/07/2022, 16:48. [facility], CT, CT ANGIO HEAD AND NECK, 06/27/2022, 20:14. FINDINGS: Image quality: Mild streak artifact can be seen through the skull base. BRAIN: CSF spaces: Ventricles are normal in size and shape. Basal cisterns are patent. No extra-axial fluid collections. Brain: No midline shift. No intracranial bleeds or masses. [place]-white matter interface appears intact. Skull and face: Calvarium and facial bones appear intact, without suspicious lesions. Orbits appear normal. Sinuses: Sinuses and mastoids are clear. The ostiomeatal complexes are patent, yet they are constitutionally narrowed, with bilateral Dilshad cells. There is zlrp-rr-eotcihaz rightward nasal septal deviation seen. HEAD CT ANGIOGRAPHY: Anterior circulation: Intracranial internal carotid arteries are normal in size and flow. The flow within the paired anterior cerebral arteries is normal and symmetric. The flow within the middle cerebral arteries is normal and symmetric. The anterior communicating artery is seen. There is again seen a 3 mm broad-based aneurysm involving the distal left M1 segment at the trifurcation region, which is best seen on series 9, image 96. No additional aneurysms are seen. Posterior circulation: Visualized portions of the vertebral arteries demonstrate normal caliber, and join to form a normal appearing basilar artery. Flow within the posterior cerebral arteries is normal and symmetric. No aneurysms are seen. NECK CT ANGIOGRAPHY: Carotid system: The great vessels demonstrate a conventional anatomy as they arise from the aortic arch. The origins of the common carotid arteries appear patent. The common carotid arteries demonstrate normal caliber and courses. The bifurcation regions are both widely patent. The internal carotid arteries demonstrate normal calibers and courses. Posterior circulation: The origins of the vertebral arteries both appear widely patent. The more superior extracranial portions of both vertebral arteries also demonstrate normal courses and calibers. They join to form a normal appearing basilar artery. Soft tissues: Visualized neck soft tissues demonstrate no suspicious abnormalities. Bones: No suspicious bony lesions. Visualized cervical spine appears normally aligned. Iysj-ps-xpdrqlrb lower cervical spine degenerative change can be seen. IMPRESSION: Stable 3 mm distal left M1 aneurysm, with a broad base. No additional significant intracranial arterial abnormality is seen. No acute intracranial hemorrhage is seen. No acute intracranial process is seen. Normal appearing carotid arteries. Normal appearing vertebral arteries. Any quantitative measurements of stenosis were performed using NASCET criteria. Dictated by: Robert Wise M.D. on 09/26/2022 at 18:27 Approved by: Robert Wise M.D. on 09/26/2022 at 18:31
[2022-09-26] MEDS: ACETAMINOPHEN 325 MG TABLET 975 MG PO (18:45)
[2022-09-26 19:03] LABS: Add Manual Diff / Slide Review NO; Basophils Absolute Auto 0 /uL (0-100); Basophils Percent Auto 0.4 % (0-2); Eosinophils Absolute Auto 100 /uL (0-450); Hematocrit 37.5 % (41-53); Hemoglobin 13.1 g/dL (13.5-17.5); Lymphocytes Absolute Auto 1600 /uL (1100-4500); Lymphocytes Percent Auto 21.4 % (25-40); Mean Corpuscular Hemoglobin 32.2 PG (26-34); Monocytes Absolute Auto 400 /uL (0-900); Monocytes Percent Auto 5.2 % (3-14); Neutrophils Absolute Auto 5400 /uL (1500-7000); Platelet Count 226 X10^3/uL (150-400); Red Blood Cell Count 4.08 X10^6/uL (4.5-5.9); Red Cell Distribution Width 13.8 % (11.6-14.8); White Blood Cell Count 7.6 X10^3/uL (4.5-11.0)
[2022-09-26 19:13] LABS: Alanine Aminotransferase 34 IU/L (<50); Albumin 4.2 g/dL (3.5-5.0); Albumin Globulin Ratio 1.1 (1.0-2.8); Alkaline Phosphatase 83 U/L (38-126); Aspartate Aminotransferase 33 IU/L (17-59); BUN Creatinine Ratio 15.7 (6-22); Bilirubin Total 0.6 mg/dL (0.2-1.3); Blood Urea Nitrogen 13 mg/dL (9-20); Carbon Dioxide 38 mmol/L (22-32); Chloride 95 mmol/L (98-107); Estimated Glomerular Filt Rate > 60 mL/min (>60); Globulin 3.7 g/dL (1.7-4.1); Glucose 101 mg/dL (70-100); HEMOLYSIS < 15 (0-50); Potassium 3.5 mmol/L (3.4-5.1); Sodium 138 mmol/L (137-145); Total Protein 7.9 g/dL (6.3-8.2)
== END 2022-09-26 19:59 | disposition home or self-care (01) ==
PROVIDERS: Emergency Provider Emergency Medicine; Family Provider Nurse Practitioner; PCP Nurse Practitioner
DX: R51.9 Headache, unspecified (principal); Z86.79 Personal history of other diseases of the circulatory system
CPT/HCPCS: 36415; 70496; 70498; 80053; 81003; 85025; 99283; Q9967

== ENCOUNTER 2022-11-01 10:16 | Day surgery (SDC) | payer MEDICARE, MEDICAID, SELFPAY ==
[2022-11-01 10:37] VITALS: BP 177/97; PULSE 91; RESP 22; TEMP 35.9; O2SAT 94; BMI 64.7
[2022-11-01] MEDS: LACTATED RINGERS 1,000 ML 42 ML IV (10:47)
--- NOTE | 2022-11-01 12:01 | P.HP_ITS ---
History of Present Illness History of Present Illness Date Patient Seen: 11/01/22 Time Patient Seen: 12:01 Chief complaint: [facility] Narrative: Joao is here for his colonoscopy. He did see the neurosurgeon about his brain aneurysm and they told him nothing needed to be done and that he should ?live his life?. He admits that he did have some vodka and cranberry juice last night. [facility] Medical History (Updated 10/11/22 @ 00:01 by ) Alcohol cessation counseling Alcohol dependence, daily use Alcohol use disorder Alcohol use disorder, moderate, dependence Atypical chest pain Back pain Bilateral foot pain Blood glucose elevated Class 1 obesity in adult COVID-19 vaccine series declined Depression with anxiety Elevated fasting blood sugar Elevated LFTs High triglycerides Hyperlipidemia Hypertension Hypertension Insomnia Lower GI bleed Lumbosacral spondylosis Mixed hyperlipidemia due to type 2 diabetes mellitus Non-insulin dependent diabetes mellitus Paresthesia of both feet Rectal bleeding Recto-perineal fistula Smokes tobacco daily Tobacco use disorder, mild, in early remission Surgical History (Updated 11/01/22 @ 10:49 by Marcia Deleon RN) History of rectal surgery Family History Father Alive and well Mother Alive and well Social History marital status: unmarried,single household members: none occupational status: disabled Smoking Status: Former smoker second hand exposure: No alcohol intake: current Meds Home Medications and Allergies Home Medications Medication Instructions Recorded Confirmed Type doxepin 150 mg capsule 150 mg PO BEDTIME #90 caps 01/30/21 11/01/22 Rx Glucometer Test Strips #100 ea 10/12/21 09/12/22 Rx Lancettes #100 ea 10/12/21 09/12/22 Rx Lancing Pen #1 ea 10/12/21 09/12/22 Rx hydrochlorothiazide 25 mg tablet 50 mg PO DAILY #180 tabs 12/25/21 11/01/22 Rx metformin 500 mg tablet 1,000 mg PO BIDWMEAL #360 tabs 01/22/22 11/01/22 Rx omega-3 acid ethyl esters 1 gram 1 cap PO BID #180 caps 04/25/22 11/01/22 Rx capsule (Lovaza) lisinopril 20 mg tablet See Rx Instructions .Route 05/07/22 11/01/22 Rx .COMPLEX #180 tabs blood-glucose meter (OneTouch #1 ea 05/17/22 09/12/22 Rx Verio Flex Meter) chlordiazepoxide HCl 25 mg capsule See Rx Instructions .Route 08/31/22 11/01/22 Rx .COMPLEX PRN alcohol withdrawal #32 caps clonidine HCl 0.2 mg tablet 0.2 mg PO BID #180 tabs 10/26/22 11/01/22 Rx metoprolol tartrate 25 mg tablet See Rx Instructions .Route 10/26/22 11/01/22 Rx .COMPLEX #90 tabs Allergies Allergy/AdvReac Type Severity Reaction Status Date / Time No Known Drug Allergies Allergy Verified 11/01/22 10:28 Exam Vital Signs (past 8 hours): - 11/01/22 10:37 Temperature 96.6 F L Pulse Rate 91 H Respiratory Rate 22 Blood Pressure 177/97 H Pulse Oximetry 94 Oxygen Delivery Method Room Air Oxygen Delivery Method Room Air Const General: No acute distress Assessment & Plan Assessment and plan (1) Lower GI bleed: Status: Acute Plan We reviewed the risks and benefits of colonoscopy and he would like to proceed.
--- NOTE | 2022-11-01 12:33 | PM.OP.COLON ---
Operative Date/Time/Diagnoses Date of procedure: 11/01/22 Time of procedure: 12:33 Pre-op diagnosis: Colon cancer screening and rectal bleeding Post-op diagnosis: same Procedure & Clinicians Study performed: Colonoscopy Same procedure as scheduled: Yes Surgeon: Stu Monsalve Procedure Notes Procedure in detail: Surgeon: Stu Monsalve MD Anesthesia: Javier Hamilton D.O. Procedure: The patient was brought to the endoscopy suite, placed in left lateral decubitus position. The patient was connected to monitoring devices. A time-out was performed. Sedation was administered. Once the patient was adequately sedated, a digital rectal exam was performed and was normal. The scope was then inserted and advanced to the cecum where the appendiceal orifice was identified and photographed. The scope was then slowly withdrawn over greater than 6 minutes. The mucosa was thoroughly inspected. No abnormalities were seen except for some scattered sigmoid diverticulosis. The scope was retroflexed in the rectum. No abnormalities were seen in the rectum. The scope was straightened and removed. The patient was awakened and brought to recovery. Scope withdrawal time: 6 minutes Sedation time: 15 minutes EBL: 0 Findings: Sigmoid diverticulosis Post-procedure Recommendations: Colonoscopy in 10 years
[2022-11-01 12:34] VITALS: BP 147/94; PULSE 78; RESP 11; TEMP 36.2; O2SAT 95
[2022-11-01 12:39] VITALS: BP 141/96; PULSE 76; RESP 15; O2SAT 96
[2022-11-01 12:44] VITALS: BP 147/97; PULSE 79; RESP 16; O2SAT 98
== END 2022-11-01 13:22 | disposition home or self-care (01) ==
PROVIDERS: Family Provider Nurse Practitioner; PCP Nurse Practitioner; Referring Provider Surgery; Visit Provider Surgery
PROC: 0DJD8ZZ Inspection of Lower Intestinal Tract, Via Natural or Artificial Opening Endoscopic (ICD-10-PCS; CPT 45378; principal; 2022-11-01 11:15)
DX: K62.5 Hemorrhage of anus and rectum (principal); K57.30 Diverticulosis of large intestine without perforation or abscess without bleeding
CPT/HCPCS: 45378; J2250; J2704

== ENCOUNTER → 2022-11-30 16:15 | Outpatient (CLI) | payer MEDICARE, MEDICAID, SELFPAY ==
[2022-12-01 05:25] LABS: Labcorp Hemoglobin (Hb) A1c 5.4 % (4.8-5.6)
== END ==
PROVIDERS: Family Provider Nurse Practitioner; PCP Family Medicine; Referring Provider Family Medicine; Visit Provider Family Medicine
DX: E11.69 Type 2 diabetes mellitus with other specified complication (principal); L08.9 Local infection of the skin and subcutaneous tissue, unspecified
CPT/HCPCS: 36415; 83036; 87070; 87075; 87205

== ENCOUNTER → 2022-12-26 11:45 | Outpatient (CLI) | payer MEDICARE, MEDICAID, SELFPAY | PROVIDERS: Family Provider Nurse Practitioner; PCP Family Medicine; Referring Provider Family Medicine; Visit Provider Surgery | DX: S80.811A Abrasion, right lower leg, initial encounter (principal); E11.42 Type 2 diabetes mellitus with diabetic polyneuropathy | CPT/HCPCS: 99213; 99214 ==

== ENCOUNTER → 2023-01-08 16:33 | Outpatient (CLI) | payer MEDICARE, MEDICAID, SELFPAY ==
[2023-01-08 17:29] LABS: Add Manual Diff / Slide Review NO; Basophils Absolute Auto 0 /uL (0-100); Basophils Percent Auto 0.4 % (0-2); Eosinophils Absolute Auto 200 /uL (0-450); Eosinophils Percent Auto 3.1 % (2-4); Hematocrit 40.9 % (41-53); Hemoglobin 14.3 g/dL (13.5-17.5); Lymphocytes Absolute Auto 1500 /uL (1100-4500); Lymphocytes Percent Auto 26.9 % (25-40); Mean Corpuscular HGB Conc 34.9 % (30-36); Mean Corpuscular Hemoglobin 32.8 PG (26-34); Mean Corpuscular Volume 93.8 fL (80-100); Monocytes Absolute Auto 400 /uL (0-900); Monocytes Percent Auto 7.1 % (3-14); Neutrophils Absolute Auto 3500 /uL (1500-7000); Neutrophils Percent Auto 62.5 % (50-75); Platelet Count 166 X10^3/uL (150-400); Red Blood Cell Count 4.36 X10^6/uL (4.5-5.9); Red Cell Distribution Width 13.5 % (11.6-14.8); White Blood Cell Count 5.7 X10^3/uL (4.5-11.0)
[2023-01-08 17:37] LABS: Prothrombin Time 11.9 SECONDS (10.1-12.7)
[2023-01-08 17:50] LABS: Alanine Aminotransferase 21 IU/L (<50); Albumin 4.3 g/dL (3.5-5.0); Albumin Globulin Ratio 1.4 (1.0-2.8); Alkaline Phosphatase 82 U/L (38-126); Aspartate Aminotransferase 26 IU/L (17-59); BUN Creatinine Ratio 13.8 (6-22); Bilirubin Total 0.3 mg/dL (0.2-1.3); Blood Urea Nitrogen 13 mg/dL (9-20); Calcium 9.8 mg/dL (8.4-10.2); Carbon Dioxide 34 mmol/L (22-32); Chloride 95 mmol/L (98-107); Estimated Glomerular Filt Rate > 60 mL/min (>60); Gamma Glutamyl Transpeptidase 31 U/L (15-73); Glucose 129 mg/dL (70-100); HEMOLYSIS 17 (0-50); Potassium 3.5 mmol/L (3.4-5.1); Sodium 136 mmol/L (137-145); Total Protein 7.3 g/dL (6.3-8.2)
[2023-01-09 09:59] LABS: Hepatitis B Surf Ab Qualitativ Reactive (.)
[2023-01-10 17:25] LABS: Hepatitis B Surface Antigen NEGATIVE s/c (NEGATIVE)
[2023-01-10 17:48] LABS: Hep C Virus Ab w/Reflex Quant NEGATIVE s/c (NEGATIVE)
== END ==
PROVIDERS: Family Provider Nurse Practitioner; PCP Family Medicine; Referring Provider Family Medicine; Visit Provider Family Medicine
DX: G62.9 Polyneuropathy, unspecified (principal); R18.8 Other ascites
CPT/HCPCS: 36415; 80053; 82977; 85025; 85610; 86706; 86803; 87340

== ENCOUNTER → 2023-01-09 15:24 | Outpatient (CLI) | payer MEDICARE, MEDICAID, SELFPAY ==
--- NOTE | 2023-01-09 15:25 | DI.US.S_ITS ---
PROCEDURE: US ABDOMEN LIMITED INDICATIONS: ASCITES TECHNIQUE: Real-time focused scanning was performed of the abdomen, with image documentation. COMPARISON: [facility], CT, ABDOMEN WITH CONTRAST, 06/21/2015, 9:55. FINDINGS: No abdominal free fluid visualized in all 4 quadrants. IMPRESSION: No abdominal free fluid visualized. Dictated by: Nilay Olivia M.D. on 01/09/2023 at 17:23 Approved by: Nilay Olivia M.D. on 01/09/2023 at 17:24
== END ==
PROVIDERS: Family Provider Nurse Practitioner; PCP Family Medicine; Referring Provider Family Medicine; Visit Provider Family Medicine
DX: R18.8 Other ascites (principal)
CPT/HCPCS: 76705

== ENCOUNTER 2023-02-03 14:19 | Emergency (ER) | payer MEDICARE, MEDICAID, SELFPAY ==
[2023-02-03] VITALS (22 sets, daily range): BP systolic 88–142; BP diastolic 52–92; PULSE 65–78; RESP 15–18; O2SAT 91–97; BMI 29.9
--- NOTE | 2023-02-03 14:34 | DI.RAD.S_ITS ---
PROCEDURE: XR CHEST 1V INDICATIONS: chest pain TECHNIQUE: One view of the chest was acquired. COMPARISON: [facility], CR, XR CHEST 1V, 06/06/2022, 10:26. FINDINGS: Surgical changes and devices: None. Lungs and pleura: Lungs are clear. No pleural effusions or pneumothorax. Mediastinum: Mediastinal contours appear normal. Heart size is normal. Bones and chest wall: No suspicious bony lesions. Overlying soft tissues appear unremarkable. IMPRESSION: No acute cardiopulmonary findings Approved by: Tone Carrington M.D. on 02/03/2023 at 14:39
--- NOTE | 2023-02-03 14:35 | ED.WEAKNESS ---
HPI - Weakness General Chief complaint: Dizziness Stated complaint: Low B/P 60/40, dizzy Time Seen by Provider: 02/03/23 14:21 Source: patient Mode of arrival: Wheelchair History of Present Illness HPI Narrative: Patient is a 52-year-old male history of alcohol abuse hypertension, diabetes, known left NC a aneurysm presents today with hypotension. He reports that he woke up this morning around 8:00 a.m. he took his blood pressure pills as he usually does he decided that due to the smoke he was a good day to drink alcohol so he had a couple of shots fell asleep woke up again and did not remember that he took his blood pressure pills and took them all over again. He has no thoughts of self-harm. Dizzy and lightheaded. He went to the walk-in clinic where he was found to have a blood pressure in the 60s. He has not fallen over or passed out. Related Data Previous Rx's Medication Instructions Recorded doxepin 150 mg capsule 150 mg PO BEDTIME #90 caps 01/30/21 Glucometer Test Strips #100 ea 10/12/21 Lancettes #100 ea 10/12/21 Lancing Pen #1 ea 10/12/21 metformin 500 mg tablet 1,000 mg PO BIDWMEAL #360 tabs 01/22/22 blood-glucose meter (OneTouch #1 ea 05/17/22 Verio Flex Meter) chlordiazepoxide HCl 25 mg capsule See Rx Instructions .Route 08/31/22 .COMPLEX PRN alcohol withdrawal #32 caps clonidine HCl 0.2 mg tablet 0.2 mg PO BID #180 tabs 10/26/22 metoprolol tartrate 25 mg tablet See Rx Instructions .Route 10/26/22 .COMPLEX #90 tabs blood-glucose meter,continuous #1 ea 11/21/22 (Dexcom G6 Research Anthropologist) blood-glucose sensor (Dexcom G6 #3 ea 11/21/22 Sensor device) blood-glucose transmitter (Dexcom #1 ea 11/21/22 G6 Transmitter device) lisinopril 20 mg tablet See Rx Instructions .Route 12/04/22 .COMPLEX #180 tabs hydrochlorothiazide 25 mg tablet See Rx Instructions .Route 12/27/22 .COMPLEX #180 tabs omega-3 acid ethyl esters 1 gram 1 cap PO BID #180 caps 07/24/23 capsule (Lovaza) esomeprazole magnesium 40 mg 40 mg PO DAILY #30 caps 01/08/23 capsule,delayed release (Nexium) furosemide 20 mg tablet (Lasix) 20 mg PO DAILY edema #30 tabs 01/08/23 potassium chloride 20 mEq 20 meq PO DAILY #30 tabs 01/08/23 tablet,extended release(part/cryst) tadalafil 20 mg tablet (Cialis) 20 mg PO DAILY PRN sexual activity 01/08/23 #30 tabs Allergies Allergy/AdvReac Type Severity Reaction Status Date / Time No Known Drug Allergies Allergy Verified 01/08/23 15:29 Review of Systems Review of Systems ROS Unobtainable: All systems reviewed & are unremarkable except as noted in HPI and below Patient History Medical History Abdominal ascites Alcohol cessation counseling Alcohol dependence, daily use Alcohol use disorder Alcohol use disorder, moderate, dependence Atypical chest pain Back pain Bilateral foot pain Blood glucose elevated Class 1 obesity in adult COVID-19 vaccine series declined Depression with anxiety Elevated fasting blood sugar Elevated LFTs High triglycerides Hyperlipidemia Hypertension Hypertension Insomnia Lower GI bleed Lumbosacral spondylosis Mixed hyperlipidemia due to type 2 diabetes mellitus Non-insulin dependent diabetes mellitus Paresthesia of both feet Peripheral neuropathy Rectal bleeding Recto-perineal fistula Smokes tobacco daily Tobacco use disorder, mild, in early remission Surgical History History of rectal surgery Family History Father Alive and well Mother Alive and well Social History marital status: unmarried,single household members: none occupational status: disabled Smoking Status: Former smoker second hand exposure: No alcohol intake: current Smoking Status: Former smoker tobacco type: cigarettes alcohol intake frequency: 3 or more drinks per day Alcohol type: beer and hard liquor Substance Use Type: marijuana Exam Initial Vital Signs Initial Vital Signs: Vital Signs Pulse Rate 72 02/03/23 14:27 Respiratory Rate 18 02/03/23 14:27 Blood Pressure 93/55 L 02/03/23 14:27 Pulse Oximetry 94 02/03/23 14:27 Oxygen Delivery Method Room Air 02/03/23 14:27 GENERAL: Alert pleasant 52-year-old male and in no acute distress. HEENT: Head atraumatic,EOMI, pupils reactive, face symmetric, moist mucous membranes CARDIOVASCULAR: Regular rate and rhythm without murmurs, rubs or gallops. RESPIRATORY: Breath sounds equal bilaterally, no wheezes rales or rhonchi. ABDOMEN: Soft, nontender. Normoactive bowel sounds all 4 quadrants. No guarding or rebound. Small amount of ascites EXTREMITIES: Normal range of motion, no clubbing or edema. Neurovascularly intact NEUROLOGICAL: Alert and oriented x4. SKIN: Warm, dry, no laceration, no petechiae, no rashes or lesions. Course Orders Ordered: ED Orders 02/03/23 14:30 Complete Blood Count AUTO DIFF Stat Comprehensive Metabolic Panel Stat Lipase Stat Magnesium Stat PTT Partial Thromboplastin Jens Stat Prothrombin Time INR Stat Troponin & CK Cardiac Panel Stat 02/03/23 14:34 XR chest 1V Stat EKG-12 Lead Stat Discontinued Medications Sodium Chloride (Normal Saline 0.9%) 1,000 mls @ 1,000 mls/hr IV BOLUS ONE Stop: 02/03/23 15:42 Last Infusion: 02/03/23 15:18 Dose: 0 mls/hr Documented By: Admin: 02/03/23 14:51 Dose: 1,000 mls/hr Documented By: VON Sodium Chloride (Normal Saline 0.9%) 1,000 mls @ 1,000 mls/hr IV BOLUS ONE Stop: 02/03/23 15:49 Last Infusion: 02/03/23 16:17 Dose: 0 mls/hr Documented By: Admin: 02/03/23 15:25 Dose: 1,000 mls/hr Documented By: JESS Vital Signs Vital signs: Vital Signs - 8 hr 02/03/23 14:27 02/03/23 14:34 02/03/23 14:35 Pulse Rate 72 67 67 Respiratory Rate 18 15 15 Blood Pressure 93/55 L Pulse Oximetry 94 91 93 Oxygen Delivery Method Room Air 02/03/23 14:35 02/03/23 14:40 02/03/23 14:40 Pulse Rate 67 Respiratory Rate Blood Pressure 88/52 L 95/55 L Pulse Oximetry 95 Oxygen Delivery Method 02/03/23 14:45 02/03/23 14:45 02/03/23 14:50 Pulse Rate 66 Respiratory Rate Blood Pressure 100/60 103/56 L Pulse Oximetry 97 Oxygen Delivery Method 02/03/23 14:50 02/03/23 14:55 02/03/23 14:55 Pulse Rate 66 65 Respiratory Rate Blood Pressure 112/60 Pulse Oximetry 96 93 Oxygen Delivery Method 02/03/23 15:00 02/03/23 15:00 02/03/23 15:06 Pulse Rate 66 Respiratory Rate Blood Pressure 119/67 123/76 Pulse Oximetry 94 Oxygen Delivery Method 02/03/23 15:06 02/03/23 15:10 02/03/23 15:10 Pulse Rate 70 66 Respiratory Rate Blood Pressure 123/74 Pulse Oximetry 96 94 Oxygen Delivery Method 02/03/23 15:15 02/03/23 15:15 02/03/23 15:20 Pulse Rate 68 Respiratory Rate Blood Pressure 129/75 125/75 Pulse Oximetry 94 Oxygen Delivery Method 02/03/23 15:20 02/03/23 15:30 02/03/23 15:30 Pulse Rate 70 65 Respiratory Rate Blood Pressure 132/78 Pulse Oximetry 96 94 Oxygen Delivery Method 02/03/23 15:40 02/03/23 15:40 02/03/23 15:50 Pulse Rate 69 Respiratory Rate Blood Pressure 134/83 142/91 H Pulse Oximetry 95 Oxygen Delivery Method 02/03/23 15:50 02/03/23 16:00 02/03/23 16:00 Pulse Rate 69 69 Respiratory Rate Blood Pressure 119/63 Pulse Oximetry 95 96 Oxygen Delivery Method 02/03/23 16:10 02/03/23 16:10 02/03/23 16:20 Pulse Rate 71 Respiratory Rate Blood Pressure 135/73 129/68 Pulse Oximetry 96 Oxygen Delivery Method 02/03/23 16:20 02/03/23 16:30 02/03/23 16:30 Pulse Rate 70 73 Respiratory Rate Blood Pressure 132/70 Pulse Oximetry 96 95 Oxygen Delivery Method 02/03/23 16:40 02/03/23 16:40 02/03/23 16:50 Pulse Rate 74 Respiratory Rate Blood Pressure 133/74 131/86 Pulse Oximetry 95 Oxygen Delivery Method 02/03/23 16:50 02/03/23 16:56 02/03/23 16:56 Pulse Rate 78 73 Respiratory Rate Blood Pressure 142/92 H Pulse Oximetry 95 97 Oxygen Delivery Method [facility] Lab Data 02/03/23 14:30 02/03/23 14:30 Labs: Lab Results 02/03/23 02/03/23 02/03/23 Range/Units 14:30 14:30 14:30 WBC 5.0 (4.5-11.0) X10^3/uL RBC 4.34 L (4.5-5.9) X10^6/uL Hgb 14.2 (13.5-17.5) g/dL Hct 40.8 L (41-53) % MCV 94.1 (80-100) fL MCH 32.7 (26-34) PG MCHC 34.8 (30-36) % RDW 13.7 (11.6-14.8) % Plt Count 207 (150-400) X10^3/uL Neut % (Auto) 53.9 (50-75) % Lymph % (Auto) 33.8 (25-40) % [place] % (Auto) 7.9 (3-14) % Eos % (Auto) 4.0 (2-4) % Baso % (Auto) 0.4 (0-2) % Neut # (Auto) 2700 (5730-2044) /uL Lymph # (Auto) 1700 (4025-1381) /uL [place] # (Auto) 400 (0-900) /uL Eos # (Auto) 200 (0-450) /uL Baso # (Auto) 0 (0-100) /uL PT 11.6 (10.1-12.7) SECONDS INR 1.0 (0.9-1.3) APTT 36 (26-36) SECONDS Sodium 136 L (137-145) mmol/L Potassium 3.7 (3.4-5.1) mmol/L Chloride 93 L (98-107) mmol/L Carbon Dioxide 30 (22-32) mmol/L BUN 17 (9-20) mg/dL Creatinine 1.19 (0.66-1.25) mg/dL Estimated GFR > 60 (>60) mL/min BUN/Creatinine Ratio 14.3 (6-22) Glucose 137 H (70-100) mg/dL Calcium 9.6 (8.4-10.2) mg/dL Magnesium 1.5 L (1.6-2.3) mg/dL Total Bilirubin 0.5 (0.2-1.3) mg/dL AST 26 (17-59) IU/L ALT 22 (<50) IU/L Alkaline Phosphatase 66 (38-126) U/L Total Creatine Kinase 139 (55-170) U/L Troponin I < 0.012 (0.01-0.034) ng/mL Total Protein 8.1 (6.3-8.2) g/dL Albumin 4.7 (3.5-5.0) g/dL Globulin 3.4 (1.7-4.1) g/dL Albumin/Globulin Ratio 1.4 (1.0-2.8) Lipase 71 (23-300) U/L Imaging Data Chest x-ray: Radiologist Impression: PROCEDURE:? XR CHEST 1V ? INDICATIONS:? chest pain ? TECHNIQUE:? One view of the chest was acquired.? ? COMPARISON:? [facility], CR, XR CHEST 1V, 06/06/2022, 10:26. ? FINDINGS:? ? Surgical changes and devices:? None.? ? Lungs and pleura:? Lungs are clear.? No pleural effusions or pneumothorax.? ? Mediastinum:? Mediastinal contours appear normal.? Heart size is normal.? ? Bones and chest wall:? No suspicious bony lesions.? Overlying soft tissues appear unremarkable.? ? IMPRESSION:? No acute cardiopulmonary findings ? ? ? Approved by: Tone Carrington M.D. on 02/03/2023 at 14:39? ECG Data Interpretation: Throughout the sinus rhythm 56 QRS or QTC [address] changes, persistent ST elevation benign early repolarization 1 and AVF MDM Narrative Medical decision making narrative: Patient 52-year-old male history of hypertension and alcohol abuse presents today after height attention after taking double the dose of his blood pressure medications on X. No intent of harm. He received 2 L of fluid he ambulated blood pressure has remained stable. Recommend avoid taking any further blood pressure medications tonight. Blood work is overall reassuring no evidence of SONYA electrolyte abnormality or leukocytosis. Discharge Plan Departure Patient Disposition: Home Clinical Impression: Accidental overdose Instructions: High Blood Pressure Activity Restrictions/Additional Instructions: *You have been diagnosed with accidental overdose *What to do: Do not take anymore blood pressure medications today. May resume normal regimen tomorrow. *Continue to take medications as directed *Follow up with your primary care provider in 2-3 days or call [phone] *Return to ER if you should have chest pain shortness of breath dizziness or any new, worsening or concerning symptoms Prescriptions: No Action metformin 500 mg tablet 1,000 mg PO BIDWMEAL Qty: 360 3RF Rx Instructions: Increase dose to 2 tabs with food, twice daily. (DME) blood-glucose meter [OneTouch Verio Flex meter] Misc See Rx Instructions .ROUTE .COMPLEX Qty: 1 0RF Dose Instruction: use as directed Rx Instructions: use as directed clonidine HCl 0.2 mg tablet 0.2 mg PO BID Qty: 180 0RF Rx Instructions: Refill to get to [facility] appt in December Take 1 tab twice per day to keep BP under 130/80 consistently. metoprolol tartrate 25 mg tablet See Rx Instructions .ROUTE .COMPLEX Qty: 90 0RF Dose Instruction: take 1 tablet by mouth once daily Rx Instructions: take 1 tablet by mouth once daily lisinopril 20 mg tablet See Rx Instructions .ROUTE .COMPLEX Qty: 180 3RF Dose Instruction: take 1 tablet by mouth twice a day Rx Instructions: take 1 tablet by mouth twice a day hydrochlorothiazide 25 mg tablet See Rx Instructions .ROUTE .COMPLEX Qty: 180 1RF Dose Instruction: take 2 tablets by mouth every morning Rx Instructions: take 2 tablets by mouth every morning omega-3 acid ethyl esters [Lovaza] 1 gram capsule 1 cap PO BID Qty: 180 3RF Rx Instructions: Take 1 tab twice daily for elevated triglycerides doxepin 150 mg capsule 150 mg PO BEDTIME Qty: 90 3RF Rx Instructions: Take 1 capsule at bedtime daily for sleep. (DME) Glucometer Test Strips See Rx Instructions .Route .MEDSUPPLY Qty: 100 3RF Rx Instructions: Check blood sugars daily fasting each morning (DME) Lancettes See Rx Instructions .Route .MEDSUPPLY Qty: 100 3RF Rx Instructions: Check blood sugars fasting each morning and as needed (DME) Lancing Pen See Rx Instructions .Route .MEDSUPPLY Qty: 1 0RF Rx Instructions: As directed (DME) Dexcom G6 Research Anthropologist Misc See Rx Instructions .ROUTE .MEDSUPPLY Qty: 1 4RF Rx Instructions: As directed (DME) Dexcom G6 Transmitter Device See Rx Instructions .ROUTE .MEDSUPPLY Qty: 1 11RF Rx Instructions: As directed (DME) Dexcom G6 Sensor Device See Rx Instructions .ROUTE .MEDSUPPLY Qty: 3 11RF Rx Instructions: As directed, replace every 10 days tadalafil [Cialis] 20 mg tablet 20 mg PO DAILY PRN (Reason: sexual activity) Qty: 30 11RF Rx Instructions: administer approximately 30min before sexual activity; do not use more than 1 dose per 24hrs furosemide [Lasix] 20 mg tablet 20 mg PO DAILY Qty: 30 5RF potassium chloride 20 mEq tablet,ER particles/crystals 20 meq PO DAILY Qty: 30 5RF Rx Instructions: with Lasix esomeprazole magnesium [Nexium] 40 mg capsule,delayed release(DR/EC) 40 mg PO DAILY Qty: 30 11RF chlordiazepoxide HCl 25 mg capsule See Rx Instructions .ROUTE .COMPLEX PRN (Reason: alcohol withdrawal) Qty: 32 0RF Rx Instructions: Day 1: 50mg POq4 Day 2: 50mg POq6 Day 3: 50mg POq8 Day 4: 50mg POq12 Day 5: 50mg POqhs #32 Referrals: Andreas Whitten DO [Primary Care Provider] - Stand Alone Forms: Patient Portal/API
[2023-02-03 14:41] LABS: Add Manual Diff / Slide Review NO; Basophils Absolute Auto 0 /uL (0-100); Basophils Percent Auto 0.4 % (0-2); Eosinophils Absolute Auto 200 /uL (0-450); Hematocrit 40.8 % (41-53); Hemoglobin 14.2 g/dL (13.5-17.5); Lymphocytes Absolute Auto 1700 /uL (1100-4500); Lymphocytes Percent Auto 33.8 % (25-40); Mean Corpuscular HGB Conc 34.8 % (30-36); Mean Corpuscular Hemoglobin 32.7 PG (26-34); Mean Corpuscular Volume 94.1 fL (80-100); Monocytes Absolute Auto 400 /uL (0-900); Monocytes Percent Auto 7.9 % (3-14); Neutrophils Absolute Auto 2700 /uL (1500-7000); Neutrophils Percent Auto 53.9 % (50-75); Platelet Count 207 X10^3/uL (150-400); Red Blood Cell Count 4.34 X10^6/uL (4.5-5.9); Red Cell Distribution Width 13.7 % (11.6-14.8)
[2023-02-03 14:43] LABS: Prothrombin Time 11.6 SECONDS (10.1-12.7)
[2023-02-03 14:46] LABS: PTT Partial Thromboplastin Tim 36 SECONDS (26-36)
[2023-02-03 14:50] LABS: Alanine Aminotransferase 22 IU/L (<50); Albumin 4.7 g/dL (3.5-5.0); Albumin Globulin Ratio 1.4 (1.0-2.8); Alkaline Phosphatase 66 U/L (38-126); Aspartate Aminotransferase 26 IU/L (17-59); BUN Creatinine Ratio 14.3 (6-22); Bilirubin Total 0.5 mg/dL (0.2-1.3); Blood Urea Nitrogen 17 mg/dL (9-20); Calcium 9.6 mg/dL (8.4-10.2); Carbon Dioxide 30 mmol/L (22-32); Chloride 93 mmol/L (98-107); Creatine Kinase 139 U/L (55-170); Estimated Glomerular Filt Rate > 60 mL/min (>60); Globulin 3.4 g/dL (1.7-4.1); Glucose 137 mg/dL (70-100); HEMOLYSIS < 15 (0-50); Lipase 71 U/L (23-300); Magnesium 1.5 mg/dL (1.6-2.3); Potassium 3.7 mmol/L (3.4-5.1); Sodium 136 mmol/L (137-145); Total Protein 8.1 g/dL (6.3-8.2)
[2023-02-03] MEDS: SODIUM CHLORIDE 0.9% 1,000 ML 1000 ML IV ×2 (14:51→15:25)
[2023-02-03 15:01] LABS: Troponin I < 0.012 ng/mL (0.01-0.034)
--- NOTE | 2023-02-03 17:00 | PC.NURSE ---
pt ambulated to bathroom with stand by assist and said that he was feeling better. pt denies feeling dizzy or light headed while ambulating or using the bathroom.
== END 2023-02-03 17:25 | disposition home or self-care (01) ==
PROVIDERS: Emergency Provider Emergency Medicine; Family Provider Nurse Practitioner; PCP Family Medicine
DX: T50.901A Poisoning by unspecified drugs, medicaments and biological substances, accidental (unintentional), initial encounter (principal); R07.9 Chest pain, unspecified; I95.9 Hypotension, unspecified
CPT/HCPCS: 36415; 71045; 80053; 82550; 83690; 83735; 84484; 85025; 85610; 85730; 93005; 96360; 99284

== ENCOUNTER 2023-06-28 14:27 | Emergency (ER) | payer MEDICARE, MEDICAID, SELFPAY ==
[2023-06-28 14:36] VITALS: BP 150/82; PULSE 85; RESP 15; TEMP 36.6; O2SAT 99; BMI 29.6
--- NOTE | 2023-06-28 15:11 | PC.NURSE ---
patient refuses covid swab at this time due to chemicals in the swab.
[2023-06-28 15:12] LABS: Add Manual Diff / Slide Review NO; Basophils Absolute Auto 0 /uL (0-100); Basophils Percent Auto 0.6 % (0-2); Eosinophils Absolute Auto 100 /uL (0-450); Eosinophils Percent Auto 2.9 % (2-4); Hemoglobin 13.1 g/dL (13.5-17.5); Lymphocytes Absolute Auto 1000 /uL (1100-4500); Lymphocytes Percent Auto 23.4 % (25-40); Mean Corpuscular HGB Conc 34.4 % (30-36); Mean Corpuscular Volume 95.9 fL (80-100); Monocytes Absolute Auto 300 /uL (0-900); Monocytes Percent Auto 6.8 % (3-14); Neutrophils Absolute Auto 3000 /uL (1500-7000); Neutrophils Percent Auto 66.3 % (50-75); Platelet Count 138 X10^3/uL (150-400); Red Blood Cell Count 3.97 X10^6/uL (4.5-5.9); Red Cell Distribution Width 14.5 % (11.6-14.8); White Blood Cell Count 4.5 X10^3/uL (4.5-11.0)
[2023-06-28 15:26] LABS: Acetaminophen < 10 ug/mL (10-30); Alanine Aminotransferase 22 IU/L (<50); Albumin 4.3 g/dL (3.5-5.0); Albumin Globulin Ratio 1.3 (1.0-2.8); Alkaline Phosphatase 50 U/L (38-126); Aspartate Aminotransferase 35 IU/L (17-59); BUN Creatinine Ratio 10.5 (6-22); Bilirubin Total 0.9 mg/dL (0.2-1.3); Blood Urea Nitrogen 15 mg/dL (9-20); Calcium 8.9 mg/dL (8.4-10.2); Carbon Dioxide 29 mmol/L (22-32); Chloride 95 mmol/L (98-107); Estimated Glomerular Filt Rate 59 mL/min (>60); Ethanol (ETOH) 99 mg/dL; Globulin 3.4 g/dL (1.7-4.1); Glucose 134 mg/dL (70-100); HEMOLYSIS < 15 (0-50); Potassium 3.6 mmol/L (3.4-5.1); Salicylate < 1.0 mg/dL (<20); Sodium 135 mmol/L (137-145); Total Protein 7.7 g/dL (6.3-8.2)
[2023-06-28 15:42] LABS: Free T4, Direct Thyroxine 1.08 ng/dL (0.78-2.19)
[2023-06-28 15:56] LABS: Thyroid Stimulating Hormone 1.15 uIU/mL (0.47-4.68)
--- NOTE | 2023-06-28 15:58 | ED_ITS ---
HPI - Alcohol <Ev Miller DO - Last Filed: 06/29/23 08:36> General Chief Complaint: Toxicology Problem Stated Complaint: irritation on both eyes, detox Time Seen by Provider: 06/28/23 15:57 Source: patient Mode of arrival: Family Vehicle History of Present Illness HPI narrative: 52-year-old male with history of chronic alcohol abuse requesting detox, patient also has history of hypertension, diabetes and left known MCA aneurysm. Patient states he was there recently but started drinking again. He states last drink was early this morning drinks a 5th of vodka per day. Does take gabapentin. Has had issues with withdrawal but no seizures, denies any withdrawl symptoms currently. Patient states currently on his blood pressure medication doxepin and gabapentin. He states he has been taking these regularly. Denies any new allergies to medications. Smokes 5 cigarettes daily, 5th of vodka daily, denies any recreational drug. Related Data Previous Rx's Medication Instructions Recorded Glucometer Test Strips #100 ea 10/12/21 Lancettes #100 ea 10/12/21 Lancing Pen #1 ea 10/12/21 lisinopril 20 mg tablet See Rx Instructions .Route 12/04/22 .COMPLEX #180 tabs omega-3 acid ethyl esters 1 gram 1 cap PO BID #180 caps 01/07/23 capsule (Lovaza) doxepin 150 mg capsule 150 mg PO BEDTIME #90 caps 03/04/23 metoprolol tartrate 25 mg tablet See Rx Instructions .Route 04/19/23 .COMPLEX #90 tabs clonidine HCl 0.2 mg tablet 0.2 mg PO BID #180 tabs 05/06/23 gabapentin 600 mg tablet 300 - 600 mg (0.5 - 1 x 600 mg) PO 05/06/23 TID PRN nerve pain #90 tabs tadalafil 20 mg tablet (Cialis) See Rx Instructions .Route 05/06/23 .COMPLEX sexual activity #30 tabs blood-glucose meter (Blood Glucose #1 ea 05/27/23 Monitoring kit) hydrochlorothiazide 25 mg tablet See Rx Instructions .Route 06/24/23 .COMPLEX #180 tabs Allergies Allergy/AdvReac Type Severity Reaction Status Date / Time No Known Drug Allergies Allergy Verified 06/28/23 14:43 Review of Systems <Ev Miller DO - Last Filed: 06/29/23 08:36> Review of Systems ROS Unobtainable: All systems reviewed & are unremarkable except as noted in HPI and below Patient History <Ev Miller DO - Last Filed: 06/29/23 08:36> Medical History Abdominal ascites Peripheral neuropathy Alcohol use disorder, moderate, dependence Alcohol cessation counseling High triglycerides Non-insulin dependent diabetes mellitus Mixed hyperlipidemia due to type 2 diabetes mellitus Elevated fasting blood sugar Paresthesia of both feet Back pain Depression with anxiety Insomnia COVID-19 vaccine series declined Alcohol use disorder Tobacco use disorder, mild, in early remission Elevated LFTs Blood glucose elevated Class 1 obesity in adult Alcohol dependence, daily use Smokes tobacco daily Hyperlipidemia Hypertension Lumbosacral spondylosis Bilateral foot pain Recto-perineal fistula Hypertension Rectal bleeding Lower GI bleed Atypical chest pain Surgical History History of rectal surgery Family History Father Alive and well Mother Alive and well Social History marital status: unmarried,single household members: none occupational status: disabled Smoking Status: Current some day smoker second hand exposure: No alcohol intake: current (1/5 per day) Smoking Status: Current some day smoker tobacco type: cigarettes alcohol intake frequency: 3 or more drinks per day Alcohol type: beer and hard liquor Substance Use Type: does not use Exam <Ev Miller DO - Last Filed: 06/29/23 08:36> Narrative Exam Narrative: GEN: Well-nourished male, alert and oriented x 3, patient appears to be in mild distress. HEENT: Atraumatic, pupils are equal round reactive to light, extraocular movements are intact, nares are clear, there is no conjunctival pallor. Throat is clear without any exudates, erythema, tonsillar enlargement or uvular deviation HEART: Regular rate and rhythm without murmur, clicks, rubs. pulses are equal in upper and lower extremities LUNGS:Lungs clear to auscultation, no wheezes, rales, crackles, chest moves symmetrically ABD:bowel sounds normal, soft, non-tender, no guarding, rebound, rigidity, no masses noted, no hepatosplenomegaly :No CVA tenderness MSCL: Non-tender, no muscle atrophy, muscles strength 5/5 upper and lower extremities, full range of motion, normal gait NEURO:CN 2-12 intact, sensation normal, no tremor. normal speech. Initial Vital Signs Initial Vital Signs: Vital Signs Temperature 97.9 F 06/28/23 14:36 Pulse Rate 85 06/28/23 14:36 Respiratory Rate 15 06/28/23 14:36 Blood Pressure 150/82 H 06/28/23 14:36 Pulse Oximetry 99 06/28/23 14:36 Oxygen Delivery Method Room Air 06/28/23 14:36 <Edie Irizarry DO - Last Filed: 06/28/23 18:49> Initial Vital Signs Initial Vital Signs: Vital Signs Temperature 97.9 F 06/28/23 14:36 Pulse Rate 85 06/28/23 14:36 Respiratory Rate 15 06/28/23 14:36 Blood Pressure 150/82 H 06/28/23 14:36 Pulse Oximetry 99 06/28/23 14:36 Oxygen Delivery Method Room Air 06/28/23 14:36 Course <Ev Miller DO - Last Filed: 06/29/23 08:36> Orders Ordered: ED Orders 06/28/23 14:46 Consult to [facility] [place] Operator Assistant [place] Stat COVID19 -Nasal RAPID Stat 06/28/23 15:00 Acetaminophen Stat Complete Blood Count AUTO DIFF Stat Comprehensive Metabolic Panel Stat Ethanol (ETOH) Stat Free T4, Direct Thyroxine Stat Salicylate Stat Thyroid Stimulating Hormone Stat 06/28/23 16:35 Urine Drug Screen, Rapid Stat Vital Signs Vital signs: Vital Signs - 8 hr 06/28/23 14:36 06/28/23 18:11 Temperature 97.9 F Pulse Rate 85 77 Respiratory Rate 15 17 Blood Pressure 150/82 H 146/79 H Pulse Oximetry 99 98 Oxygen Delivery Method Room Air Room Air <Edie Irizarry DO - Last Filed: 06/28/23 18:49> Orders Ordered: ED Orders 06/28/23 14:46 Consult to [facility] [place] - Operator Assistant I [place] Stat COVID19 -Nasal RAPID Stat 06/28/23 15:00 Acetaminophen Stat Complete Blood Count AUTO DIFF Stat Comprehensive Metabolic Panel Stat Ethanol (ETOH) Stat Free T4, Direct Thyroxine Stat Salicylate Stat Thyroid Stimulating Hormone Stat 06/28/23 16:35 Urine Drug Screen, Rapid Stat Vital Signs Vital signs: Vital Signs - 8 hr 06/28/23 14:36 06/28/23 18:11 Temperature 97.9 F Pulse Rate 85 77 Respiratory Rate 15 17 Blood Pressure 150/82 H 146/79 H Pulse Oximetry 99 98 Oxygen Delivery Method Room Air Room Air MDM - Alcohol <Evchan Miller, DO - Last Filed: 06/29/23 08:36> Lab Data 06/28/23 15:00 06/28/23 15:00 Labs: Lab Results 06/28/23 06/28/23 Range/Units 15:00 16:35 WBC 4.5 (4.5-11.0) X10^3/uL RBC 3.97 L (4.5-5.9) X10^6/uL Hgb 13.1 L (13.5-17.5) g/dL Hct 38.0 L (41-53) % MCV 95.9 (80-100) fL MCH 33.0 (26-34) PG MCHC 34.4 (30-36) % RDW 14.5 (11.6-14.8) % Plt Count 138 L (150-400) X10^3/uL Neut % (Auto) 66.3 (50-75) % Lymph % (Auto) 23.4 L (25-40) % [place] % (Auto) 6.8 (3-14) % Eos % (Auto) 2.9 (2-4) % Baso % (Auto) 0.6 (0-2) % Neut # (Auto) 3000 (3499-9447) /uL Lymph # (Auto) 1000 L (8058-5069) /uL [place] # (Auto) 300 (0-900) /uL Eos # (Auto) 100 (0-450) /uL Baso # (Auto) 0 (0-100) /uL Sodium 135 L (137-145) mmol/L Potassium 3.6 (3.4-5.1) mmol/L Chloride 95 L (98-107) mmol/L Carbon Dioxide 29 (22-32) mmol/L BUN 15 (9-20) mg/dL Creatinine 1.43 H (0.66-1.25) mg/dL Estimated GFR 59 L (>60) mL/min BUN/Creatinine Ratio 10.5 (6-22) Glucose 134 H (70-100) mg/dL Calcium 8.9 (8.4-10.2) mg/dL Total Bilirubin 0.9 (0.2-1.3) mg/dL AST 35 (17-59) IU/L ALT 22 (<50) IU/L Alkaline Phosphatase 50 (38-126) U/L Total Protein 7.7 (6.3-8.2) g/dL Albumin 4.3 (3.5-5.0) g/dL Globulin 3.4 (1.7-4.1) g/dL Albumin/Globulin Ratio 1.3 (1.0-2.8) TSH 1.15 (0.47-4.68) uIU/mL Free T4 1.08 (0.78-2.19) ng/dL Salicylates < 1.0 (<20) mg/dL U Opiates 300ng/mL cut Negative (Negative) Ur Oxycodone Screen Negative (Negative) Urine Methadone Screen Negative (Negative) Acetaminophen < 10 (10-30) ug/mL Ur Barbiturates Screen Negative (Negative) U Tricyclic Antidepress Negative (Negative) Ur Phencyclidine Scrn Negative (Negative) Ur Amphetamines Screen Negative (Negative) U Methamphetamines Scrn Negative (Negative) Ur MDMA Scrn (Ecstasy) Negative (Negative) U Benzodiazepines Scrn Negative (Negative) Urine Cocaine Screen Negative (Negative) U Marijuana (THC) Screen Negative (Negative) Urine pH Normal (Normal) Urine Specific [place] Normal (Normal) Ethyl Alcohol 99 H ( - 10) mg/dL Ur Creatinine Normal (Normal) Urine Dip Bedside Urine Glucose Negative Bedside Urine Bilirubin - Negative Bedside Urine Ketone - Negative Urine Specific [place] 1.015 Bedside Urine Occult Blood - Negative Bedside Urine pH 5.5 Bedside Urine Protein - Negative Bedside Urine Urobilinogen - Negative Bedside Urine Nitrite - Negative Bedside Urine Leukocytes - Negative Esterase MDM Narrative Medical decision making narrative: Patient is requesting detox. Met with [facility]. No active withdrawal symptoms currently deferred anything for withdrawal. Patient is medically cleared does have a bump in his creatinine but no electrolyte changes. He is hydrating orally. ETOH is 99, salicylates and sediments levels are negative. Hemoglobin is 13 baseline for patient platelets are 138 similar to prior visits. White count 4.5. Sodium is 135 potassium 3 6 creatinine is 1.43 patient was 1.19 on 02/03/2023. Glucose is 134 with no she just LFTs. UDS is negative. =UA shows no protein, 1-5 WBC, 1-5 squamous epithelials. Patient medically cleared. Patient spoke with Scott on the phone. Was refusing covid swab here secondary to concern about exposure to chemicals. They state patient can perform swab at their facility and patient states he is agreeable. Information faxed, awaiting potential bed. Patient ambulating without issue. Patient signed out to Dr Irizarry while awaiting potential detox bed. Dr. Irizarry-patient was signed out to me by Dr. Miller. Patient was seen pacing the hallways. Social work has been involved waiting for acceptance or to hear back from local detox facility. Patient wanting to leave. Patient does not meet involuntary criteria. Patient left prior to my evaluation. <Edie Irizarry, DO - Last Filed: 06/28/23 18:49> Lab Data Labs: Lab Results 06/28/23 06/28/23 Range/Units 15:00 16:35 WBC 4.5 (4.5-11.0) X10^3/uL RBC 3.97 L (4.5-5.9) X10^6/uL Hgb 13.1 L (13.5-17.5) g/dL Hct 38.0 L (41-53) % MCV 95.9 (80-100) fL MCH 33.0 (26-34) PG MCHC 34.4 (30-36) % RDW 14.5 (11.6-14.8) % Plt Count 138 L (150-400) X10^3/uL Neut % (Auto) 66.3 (50-75) % Lymph % (Auto) 23.4 L (25-40) % [place] % (Auto) 6.8 (3-14) % Eos % (Auto) 2.9 (2-4) % Baso % (Auto) 0.6 (0-2) % Neut # (Auto) 3000 (8915-7436) /uL Lymph # (Auto) 1000 L (0142-7054) /uL [place] # (Auto) 300 (0-900) /uL Eos # (Auto) 100 (0-450) /uL Baso # (Auto) 0 (0-100) /uL Sodium 135 L (137-145) mmol/L Potassium 3.6 (3.4-5.1) mmol/L Chloride 95 L (98-107) mmol/L Carbon Dioxide 29 (22-32) mmol/L BUN 15 (9-20) mg/dL Creatinine 1.43 H (0.66-1.25) mg/dL Estimated GFR 59 L (>60) mL/min BUN/Creatinine Ratio 10.5 (6-22) Glucose 134 H (70-100) mg/dL Calcium 8.9 (8.4-10.2) mg/dL Total Bilirubin 0.9 (0.2-1.3) mg/dL AST 35 (17-59) IU/L ALT 22 (<50) IU/L Alkaline Phosphatase 50 (38-126) U/L Total Protein 7.7 (6.3-8.2) g/dL Albumin 4.3 (3.5-5.0) g/dL Globulin 3.4 (1.7-4.1) g/dL Albumin/Globulin Ratio 1.3 (1.0-2.8) TSH 1.15 (0.47-4.68) uIU/mL Free T4 1.08 (0.78-2.19) ng/dL Salicylates < 1.0 (<20) mg/dL U Opiates 300ng/mL cut Negative (Negative) Ur Oxycodone Screen Negative (Negative) Urine Methadone Screen Negative (Negative) Acetaminophen < 10 (10-30) ug/mL Ur Barbiturates Screen Negative (Negative) U Tricyclic Antidepress Negative (Negative) Ur Phencyclidine Scrn Negative (Negative) Ur Amphetamines Screen Negative (Negative) U Methamphetamines Scrn Negative (Negative) Ur MDMA Scrn (Ecstasy) Negative (Negative) U Benzodiazepines Scrn Negative (Negative) Urine Cocaine Screen Negative (Negative) U Marijuana (THC) Screen Negative (Negative) Urine pH Normal (Normal) Urine Specific [place] Normal (Normal) Ethyl Alcohol 99 H ( - 10) mg/dL Ur Creatinine Normal (Normal) Urine Dip Bedside Urine Glucose Negative Bedside Urine Bilirubin - Negative Bedside Urine Ketone - Negative Urine Specific [place] 1.015 Bedside Urine Occult Blood - Negative Bedside Urine pH 5.5 Bedside Urine Protein - Negative Bedside Urine Urobilinogen - Negative Bedside Urine Nitrite - Negative Bedside Urine Leukocytes - Negative Esterase MDM Narrative Medical decision making narrative: Patient is requesting detox. Met with [facility]. No active withdrawal symptoms currently deferred anything for withdrawal. Patient is medically cleared does have a bump in his creatinine but no electrolyte changes. He is hydrating orally. ETOH is 99, salicylates and sediments levels are negative. Hemoglobin is 13 baseline for patient platelets are 138 similar to prior visits. White count 4.5. Sodium is 135 potassium 3 6 creatinine is 1.43 patient was 1.19 on 02/03/2023. Glucose is 134 with no she just LFTs. UDS is negative. =UA shows no protein, 1-5 WBC, 1-5 squamous epithelials. Patient medically cleared. Patient spoke with Scott on the phone. Was refusing covid swab here secondary to concern about exposure to chemicals. They state patient can perform swab at their facility and patient states he is agreeable. Information faxed, awaiting potential bed. Patient ambulating without issue. Dr. Irizarry-patient was signed out to me by Dr. Miller. Patient was seen pacing the hallways. Social work has been involved waiting for acceptance or to hear back from local detox facility. Patient wanting to leave. Patient does not meet involuntary criteria. Patient left prior to my evaluation. Discharge Plan Departure Patient Disposition: Home Clinical Impression: Alcohol abuse, Desire for detoxification Prescriptions: No Action lisinopril 20 mg tablet See Rx Instructions .ROUTE .COMPLEX Qty: 180 3RF Dose Instruction: take 1 tablet by mouth twice a day Rx Instructions: take 1 tablet by mouth twice a day omega-3 acid ethyl esters [Lovaza] 1 gram capsule 1 cap PO BID Qty: 180 3RF Rx Instructions: Take 1 tab twice daily for elevated triglycerides doxepin 150 mg capsule 150 mg PO BEDTIME Qty: 90 3RF Rx Instructions: Take 1 capsule at bedtime daily for sleep. metoprolol tartrate 25 mg tablet See Rx Instructions .ROUTE .COMPLEX Qty: 90 0RF Dose Instruction: take 1 tablet by mouth once daily Rx Instructions: take 1 tablet by mouth once daily gabapentin 600 mg tablet 300 - 600 mg PO TID PRN (Reason: nerve pain) Qty: 90 11RF tadalafil [Cialis] 20 mg tablet See Rx Instructions .ROUTE .COMPLEX Qty: 30 3RF Rx Instructions: administer approximately 30min before sexual activity; do not use more than 1 dose per 24hrs; clonidine HCl 0.2 mg tablet 0.2 mg PO BID Qty: 180 0RF Rx Instructions: Take 1 tab twice per day to keep BP under 130/80 consistently. hydrochlorothiazide 25 mg tablet See Rx Instructions .ROUTE .COMPLEX Qty: 180 1RF Dose Instruction: take 2 tablets by mouth every morning Rx Instructions: take 2 tablets by mouth every morning (DME) blood-glucose meter [Blood Glucose Monitoring] Kit See Rx Instructions .Route Qty: 1 0RF Rx Instructions: As directed. (DME) Glucometer Test Strips See Rx Instructions .Route .MEDSUPPLY Qty: 100 3RF Rx Instructions: Check blood sugars daily fasting each morning (DME) Lancettes See Rx Instructions .Route .MEDSUPPLY Qty: 100 3RF Rx Instructions: Check blood sugars fasting each morning and as needed (DME) Lancing Pen See Rx Instructions .Route .MEDSUPPLY Qty: 1 0RF Rx Instructions: As directed Referrals: Andreas Whitten DO [Primary Care Provider] - Stand Alone Forms: Patient Portal/API
--- NOTE | 2023-06-28 16:28 | CM.SWNOTE ---
ED CIVIL LABORATORY TECHNICIAN Assessment CIVIL LABORATORY TECHNICIAN - Hazardous Materials Waste Technician Assessment CIVIL LABORATORY TECHNICIAN/Hazardous Materials Waste Technician Assessment Time Spent with Patient Start date 06/28/23 Visit Start Time 14:25 End date 06/28/23 Visit End Time 14:45 Total time Care Management spent on 20 patient visit-in minutes Substance Abuse Screening Include Onset, Duration, Intensity Presenting Problem Patient presents to ED seek detox. Patient endorses he has been drinking 1/5 of vodka daily and his last drink was at 7:30 this morning when he had a few shots of vodka. Patient's BAL is currently 99. Precipitating Event(s) Patient endorses he went to detox at [facility] on 05/19/23 and stayed for 4 days, stayed sober for 4 days and started drinking daily again. Patient endorses he is fearful that drinking will kill him and he knows he is going to drink again if he goes home. Patient endorses interest in a 30 day rehab program after detox. Patient Strengths Patient states he lives with his mother, patient is seeking help. Current Behavioral Health Provider(s) None reported Include Facility, Provider, Ph. # Family Hx of Behavioral Abuse None reported Rehab Facilities? ((Date(s), Location(s) Patient endorses he was at the ) [facility] in [place] and [facility] in [place] at the age of 17. History of Withdrawal? Seizures? Patient endorses hx of stuttering and shakes, patient denies hx of seizures. Longest Period of Sobriety Patient endorses he was sober for 3.5 years from the age of [age] years old. Psychosocial information & Support Patient is 52 y/o male who Systems resides in [place] at mother 's home. Patient has mother as support. School/Work Patient is disabled Legal Concerns Legal Matters - Outstanding Issues None reported Mental Status Orientation (Person/Place/Time) A/Ox4 Stated Mood tired Affect (Congruent with Mood?) euthymic, full range, congruent with mood Thought Content - Specify/Describe Patient presents with concerns Obsessions, Delusions, Hallucinations regarding the chemicals in the sterile covid swab and when informed that patient will need to be covid swabbed at hospital or detox facility in order to get into detox patient endorses preference for swab at facility. Thought Processes (Gisyepb-Wplqwcew-Clzg coherent, goal directed Dnuknpnh-Blbuezlt-Vreexvjuon- Israqxxrariqbb-Yfgetcz-Dnmpaagwijop- Thought Blocking) Speech (Zvczfp-Cufy-Bthrzos-Rapid-Soft- slurred,soft Loud-Pressured) Motor (Yhkgpm-Nvnktqvas-Whfs-Other) normal Insight (Vssi-Ayno-Nrux/Limited) fair Judgement (Dwrh-Walq-Xwql/Limited) fair Impulse Control (Adequate-Impaired) adequate Memory (Dzhegghnl-Vglnrb-Ywttnb, intact, not formally assessed Impaired-Intact) Concentration (Intact-Impaired) intact Attention (Intact-Impaired) intact Behavior (Appropriate-Inappropriate) appropriate Risk Assessment Suicidal Ideation (Plan) No Homicidal Ideation (Plan) No Intervention Intervention CIVIL LABORATORY TECHNICIAN enters triage room to meet with patient, present in triage is assistant associate full professor. Patient endorses he is seeking detox, patient states he was at detox a month ago and started drinking again a few days after he got back home. Patient endorses he is fearful that the alcohol is killing him and he is struggling with his ongoing drinking habits. Patient endorses he drinks to feel better. Patient endorses that he goes to and has a sponsor and that he is not engaged in any outpatient program. Patient endorses interest in 30 day rehab after detox. CIVIL LABORATORY TECHNICIAN calls [facility] and it is reported that they have detox beds. Patient engages in intake screening phone call. CIVIL LABORATORY TECHNICIAN to fax clinical records to [facility] for review. It is the opinion of this CIVIL LABORATORY TECHNICIAN that patient is appropriate for and will benefit from detox for stabilization and medication management. CIVIL LABORATORY TECHNICIAN reviews this with ED provider who indicates agreement and understanding. Plan RA Plan CIVIL LABORATORY TECHNICIAN to seek detox bed for patient upon medical clearance . Aaliyah Koehler, RECEPTION CENTRE MANAGER
--- NOTE | 2023-06-28 16:41 | PC.NURSE ---
Patient continues to refuse covid swab.
[2023-06-28 16:47] LABS: UR Morphine/Opiate cutoff 300 Negative (Negative); Ur Creatinine Normal (Normal); Ur Specific Gravity Normal (Normal); Urine Amphetamines Negative (Negative); Urine Barbiturates Negative (Negative); Urine Benzodiazepines Negative (Negative); Urine Cocaine Negative (Negative); Urine MDMA Negative (Negative); Urine Methadone Negative (Negative); Urine Methamphetamines Negative (Negative); Urine Oxycodone Negative (Negative); Urine Phencyclidine Negative (Negative); Urine Tetrahydrocannabinol Negative (Negative); Urine Tricyclic Antidepressant Negative (Negative); Urine pH Normal (Normal)
[2023-06-28 18:11] VITALS: BP 146/79; PULSE 77; RESP 17; O2SAT 98
--- NOTE | 2023-06-28 18:14 | PC.NURSE ---
Patient requests DC IV, Dr. Miller & Edie hall.
--- NOTE | 2023-06-28 18:41 | CM.SWNOTE ---
ED INSTRUMENT LENS GRINDER APPRENTICE Note INSTRUMENT LENS GRINDER APPRENTICE calls [facility] several times and it is reported that they have not finished reviewing patient. Patient approaches nursing station at [id number] and states that he has a meeting with his daughter and would like to go. Patient presents as A/Ox4, walking and talking appropriately. Patient states he will call [facility]. RENEE Carlson
--- NOTE | 2023-06-28 18:52 | PC.NURSE ---
patient stated that he drinks because he gets lonely. He is agreeable to change and has a sponser that he calls. he stated right before he left that he wanted to go to an AA meeting and that he enjoys those. He was alert and oriented at time of his departure.
--- NOTE | 2023-06-28 18:57 | PC.NURSE ---
Iv was taken out by another nurse. The patient was A&O x 4 when he left. He was able to ambulate approx 100ft and was not intoxicated when he left. He stated that he wanted to go to an AA meeting and been in contact with his sponser.
== END 2023-06-28 18:58 | disposition home or self-care (01) ==
PROVIDERS: Emergency Provider Emergency Medicine; Family Provider Nurse Practitioner; PCP Family Medicine
DX: F10.10 Alcohol abuse, uncomplicated (principal)
CPT/HCPCS: 36415; 80053; 80305; 80320; 80329; 81003; 84439; 84443; 85025; 99283; G0480

== ENCOUNTER 2023-07-03 15:13 | Emergency (ER) | payer MEDICARE, MEDICAID, SELFPAY ==
[2023-07-03 15:15] VITALS: BP 153/88; PULSE 80; RESP 16; TEMP 36.9; O2SAT 99; BMI 17.4
--- NOTE | 2023-07-03 15:29 | DI.RAD.S_ITS ---
PROCEDURE: XR KNEE RT 3V INDICATIONS: fall TECHNIQUE: 3 views of the knee were acquired. COMPARISON: [facility], , KNEE 3V RIGHT, 05/20/2013, 10:40. FINDINGS: Bones: No fractures or dislocations. No suspicious bony lesions. Soft tissues: No joint effusion. No suspicious soft tissue calcifications. IMPRESSION: No acute fracture. No osseous lesion. If symptoms and/or clinical suspicion for pathology persist, further assessment with repeat, or advanced imaging (e.g., CT, MRI, or bone scan) may be helpful for further assessment. Dictated by: Carolyn Patten M.D. on 07/03/2023 at 16:11 Approved by: Carolyn Patten M.D. on 07/03/2023 at 16:11
--- NOTE | 2023-07-03 16:19 | ED.LOWEXIN ---
HPI - Extremity Injury (Lower) <Jennifer Gonzalez PA-C - Last Filed: 07/03/23 17:36> General Chief Complaint: Extremity Injury, Lower Stated Complaint: glf, cut foot and hurt knee Time Seen by Provider: 07/03/23 16:10 Source: patient Mode of arrival: Family Vehicle History of Present Illness HPI Narrative: Patient is a 52-year-old male who presents due to right knee pain and right foot lacerations. Patient is a diabetic with significant peripheral neuropathy, states he can not feel his feet. Took the garbage out last night while barefoot and slipped on ice, landing on his right knee and sustaining lacerations to his right foot. He reports putting some alcohol on the foot lacerations and had drank some vodka prior to coming to the emergency room for pain control. He has not tried taking any NSAIDs, using compression or ice. Related Data Previous Rx's Medication Instructions Recorded Glucometer Test Strips #100 ea 10/12/21 Lancettes #100 ea 10/12/21 Lancing Pen #1 ea 10/12/21 lisinopril 20 mg tablet See Rx Instructions .Route 12/04/22 .COMPLEX #180 tabs omega-3 acid ethyl esters 1 gram 1 cap PO BID #180 caps 01/07/23 capsule (Lovaza) doxepin 150 mg capsule 150 mg PO BEDTIME #90 caps 03/04/23 metoprolol tartrate 25 mg tablet See Rx Instructions .Route 04/19/23 .COMPLEX #90 tabs clonidine HCl 0.2 mg tablet 0.2 mg PO BID #180 tabs 05/06/23 gabapentin 600 mg tablet 300 - 600 mg (0.5 - 1 x 600 mg) PO 05/06/23 TID PRN nerve pain #90 tabs tadalafil 20 mg tablet (Cialis) See Rx Instructions .Route 05/06/23 .COMPLEX sexual activity #30 tabs blood-glucose meter (Blood Glucose #1 ea 05/27/23 Monitoring kit) hydrochlorothiazide 25 mg tablet See Rx Instructions .Route 06/24/23 .COMPLEX #180 tabs Allergies Allergy/AdvReac Type Severity Reaction Status Date / Time No Known Drug Allergies Allergy Verified 06/28/23 14:43 Review of Systems <Jennifer Gonzalez PA-C - Last Filed: 07/03/23 17:36> Review of Systems ROS Unobtainable: All systems reviewed & are unremarkable except as noted in HPI and below Patient History <Jennifer Gonzalez PA-C - Last Filed: 07/03/23 17:36> Medical History Abdominal ascites Peripheral neuropathy Alcohol use disorder, moderate, dependence Alcohol cessation counseling High triglycerides Non-insulin dependent diabetes mellitus Mixed hyperlipidemia due to type 2 diabetes mellitus Elevated fasting blood sugar Paresthesia of both feet Back pain Depression with anxiety Insomnia COVID-19 vaccine series declined Alcohol use disorder Tobacco use disorder, mild, in early remission Elevated LFTs Blood glucose elevated Class 1 obesity in adult Alcohol dependence, daily use Smokes tobacco daily Hyperlipidemia Hypertension Lumbosacral spondylosis Bilateral foot pain Recto-perineal fistula Hypertension Rectal bleeding Lower GI bleed Atypical chest pain Surgical History History of rectal surgery Family History Father Alive and well Mother Alive and well Social History marital status: unmarried,single household members: none occupational status: disabled Smoking Status: Current some day smoker second hand exposure: No alcohol intake: current (1/5 per day) Smoking Status: Current some day smoker tobacco type: cigarettes alcohol intake frequency: 3 or more drinks per day Alcohol type: beer and hard liquor Substance Use Type: does not use Exam <Jennifer Gonzalez PA-C - Last Filed: 07/03/23 17:36> Narrative Exam Narrative: GENERAL: 52 year old patient appears stated age. Well-developed patient, in no acute distress. NEURO: AOx3. HEAD: Atraumatic. Normocephalic. EYES: Pupils equal round and reactive. Extraocular motions intact. No scleral icterus. No injection or drainage. ENT: Nose without bleeding or purulent drainage. Airway patent. RESPIRATORY: No distress. EXTREMITIES: Trace edema of the right knee, tenderness with palpation of the medial joint line, no significant laxity noted, no visible effusion. No visible abnormality. Patient is able to bear weight, although it is uncomfortable. SKIN: Scattered one cm superficial lacerations across right 1st and 2nd toes. Initial Vital Signs Initial Vital Signs: Vital Signs Temperature 98.4 F 07/03/23 15:15 Pulse Rate 80 07/03/23 15:15 Respiratory Rate 16 07/03/23 15:15 Blood Pressure 153/88 H 07/03/23 15:15 Pulse Oximetry 99 07/03/23 15:15 Oxygen Delivery Method Room Air 07/03/23 15:15 <Ev Leary MD - Last Filed: 07/04/23 07:17> Initial Vital Signs Initial Vital Signs: Vital Signs Temperature 98.4 F 07/03/23 15:15 Pulse Rate 80 07/03/23 15:15 Respiratory Rate 16 07/03/23 15:15 Blood Pressure 153/88 H 07/03/23 15:15 Pulse Oximetry 99 07/03/23 15:15 Oxygen Delivery Method Room Air 07/03/23 15:15 Course <Jennifer Gonzalez PA-C - Last Filed: 07/03/23 17:36> Orders Ordered: ED Orders 07/03/23 15:29 XR knee RT 3V Stat Vital Signs Vital signs: Vital Signs - 8 hr 07/03/23 15:15 Temperature 98.4 F Pulse Rate 80 Respiratory Rate 16 Blood Pressure 153/88 H Pulse Oximetry 99 Oxygen Delivery Method Room Air <Ev Leary MD - Last Filed: 07/04/23 07:17> Orders Ordered: ED Orders 07/03/23 15:29 XR knee RT 3V Stat Vital Signs Vital signs: Vital Signs - 8 hr 07/03/23 15:15 Temperature 98.4 F Pulse Rate 80 Respiratory Rate 16 Blood Pressure 153/88 H Pulse Oximetry 99 Oxygen Delivery Method Room Air MDM - Extremity Injury (Lower) <Jennifer Gonzalez PA-C - Last Filed: 07/03/23 17:36> Imaging Data Extremity x-ray #1: Radiologist's Impression: PROCEDURE: XR KNEE RT 3V INDICATIONS: fall TECHNIQUE: 3 views of the knee were acquired. COMPARISON: [facility], , KNEE 3V RIGHT, 05/20/2013, 10:40. FINDINGS: Bones: No fractures or dislocations. No suspicious bony lesions. Soft tissues: No joint effusion. No suspicious soft tissue calcifications. IMPRESSION: No acute fracture. No osseous lesion. If symptoms and/or clinical suspicion for pathology persist, further assessment with repeat, or advanced imaging (e.g., CT, MRI, or bone scan) may be helpful for further assessment. Dictated by: Carolyn Patten M.D. on 07/03/2023 at 16:11 Approved by: Carolyn Patten M.D. on 07/03/2023 at 16:11 [facility] Narrative Medical decision making narrative: Multiple etiologies for patient's symptoms considered including, but not limited to: Fracture, dislocation, joint effusion, soft tissue injury, laceration X-ray without any bony abnormality. Exam of knee is very reassuring. Foot wounds cleansed and found to be very superficial in nature. Covered with Band-Aids. 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 He does not know when his last tetanus booster was. Advised him to watch his foot closely for signs of infection, since he has diabetes and significant peripheral neuropathy he is at risk for impaired wound healing and infection. Advised RICE for his knee. Patient requests crutches and crutches given prior to discharge. If not improving or if worsened after 10 days of supportive care, he should follow up with his PCP/Orthopedics. Patient's symptoms improved over duration of stay with above-stated therapies. Findings and discharge diagnosis discussed with patient/family followed by verbalization of understanding Return precautions discussed with patient/family whom verbalize understanding of diagnosis and plan Discharge Plan Departure Patient Disposition: Home Clinical Impression: Sprain of right knee Qualifiers: Encounter type: initial encounter Involved ligament of knee: unspecified ligament Qualified Code(s): S83.91XA - Sprain of unspecified site of right knee, initial encounter Instructions: DI for Knee Sprain Activity Restrictions/Additional Instructions: *You have been diagnosed with right knee strain. There is no evidence of fracture or joint effusion on the x-ray. You are advised to use: R: rest. take it easy and listen to your body! I: ice. apply ice for 20 minutes every 2 hours while awake. Do not put ice directly on the skin. C: compression. Gentle compression with roberto carlos wrap or splint will decrease pain and swelling. E: elevation. Keep extremity elevated above the heart whenever possible. Use tylenol or ibuprofen for inflammation and pain. It is generally safe to take up to 3-4grams of tylenol in 24 hours, or 2400mg of ibuprofen in 24 hours. If you have questions about dosing or whether these medications are safe for you, please ask a healthcare provider. Please keep your feet clean and covered. Keep the wounds covered with Band-Aids. You should take the Band-Aid off and wash her foot gently with soap and water once a day and observe for signs of infection. If you notice any significant redness, heat, fever, pus coming from the wounds, please come back for reassessment. *What to do: *Please continue to take your regular medications as directed. [ ] New medication prescriptions sent to your pharmacy: [ ] [ ] New medication written as a paper prescription [x] No new medications given *Please follow up with your primary care provider in 2-3 days, call for an appointment. Let them know you were seen in the Emergency Department and that we ask that you be seen in follow up. We will electronically transmit a record of today's note if your PCP is in our system *If you do not have a primary care provider please contact the [facility] Resource line at [phone]. They will ask some questions about your medical history and help get you set up with a doctor in the community. *Return to Emergency Department if you should have any new, worsening or concerning symptoms, such as [fever greater than 101 F, shaking chills, worsening pain, persistent vomiting or other concerning symptoms]. Prescriptions: No Action lisinopril 20 mg tablet See Rx Instructions .ROUTE .COMPLEX Qty: 180 3RF Dose Instruction: take 1 tablet by mouth twice a day Rx Instructions: take 1 tablet by mouth twice a day omega-3 acid ethyl esters [Lovaza] 1 gram capsule 1 cap PO BID Qty: 180 3RF Rx Instructions: Take 1 tab twice daily for elevated triglycerides doxepin 150 mg capsule 150 mg PO BEDTIME Qty: 90 3RF Rx Instructions: Take 1 capsule at bedtime daily for sleep. metoprolol tartrate 25 mg tablet See Rx Instructions .ROUTE .COMPLEX Qty: 90 0RF Dose Instruction: take 1 tablet by mouth once daily Rx Instructions: take 1 tablet by mouth once daily gabapentin 600 mg tablet 300 - 600 mg PO TID PRN (Reason: nerve pain) Qty: 90 11RF tadalafil [Cialis] 20 mg tablet See Rx Instructions .ROUTE .COMPLEX Qty: 30 3RF Rx Instructions: administer approximately 30min before sexual activity; do not use more than 1 dose per 24hrs; clonidine HCl 0.2 mg tablet 0.2 mg PO BID Qty: 180 0RF Rx Instructions: Take 1 tab twice per day to keep BP under 130/80 consistently. hydrochlorothiazide 25 mg tablet See Rx Instructions .ROUTE .COMPLEX Qty: 180 1RF Dose Instruction: take 2 tablets by mouth every morning Rx Instructions: take 2 tablets by mouth every morning (DME) blood-glucose meter [Blood Glucose Monitoring] Kit See Rx Instructions .Route Qty: 1 0RF Rx Instructions: As directed. (DME) Glucometer Test Strips See Rx Instructions .Route .MEDSUPPLY Qty: 100 3RF Rx Instructions: Check blood sugars daily fasting each morning (DME) Lancettes See Rx Instructions .Route .MEDSUPPLY Qty: 100 3RF Rx Instructions: Check blood sugars fasting each morning and as needed (DME) Lancing Pen See Rx Instructions .Route .MEDSUPPLY Qty: 1 0RF Rx Instructions: As directed Referrals: Andreas Whitten DO [Primary Care Provider] - Stand Alone Forms: Patient Portal/API ED Sign-out <Ev Leary MD - Last Filed: 07/04/23 07:17> Cosign ED Attending Cosignature Attestation: I did not see this patient. I was available all times for consultation.
== END 2023-07-03 16:56 | disposition home or self-care (01) ==
PROVIDERS: Emergency Provider Physician Assistant; Family Provider Nurse Practitioner; PCP Family Medicine
DX: S83.91XA Sprain of unspecified site of right knee, initial encounter (principal); W00.0XXA Fall on same level due to ice and snow, initial encounter
CPT/HCPCS: 73562; 99283

== ENCOUNTER 2023-07-08 15:34 | Emergency (ER) | payer MEDICARE, MEDICAID, SELFPAY ==
[2023-07-08 15:40] VITALS: BP 177/103; PULSE 99; RESP 18; TEMP 36.7; O2SAT 94; BMI 29.9
--- NOTE | 2023-07-08 15:46 | DI.RAD.S_ITS ---
PROCEDURE: XR ANKLE RT MIN 3V INDICATIONS: slipped on ice 1 week ago TECHNIQUE: 3 views of the ankle were acquired. COMPARISON: [facility], CR, XR ANKLE LT MIN 3V, 12/26/2021, 2:47. FINDINGS: Bones: Mildly displaced fracture of the medial malleolus is present. Soft tissues: No tibiotalar joint effusion. Achilles tendon appears normal. IMPRESSION: Medial malleolar fracture. Dictated by: Carolyn Patten M.D. on 07/08/2023 at 16:21 Approved by: Carolyn Patten M.D. on 07/08/2023 at 16:22
--- NOTE | 2023-07-08 16:22 | ED_ITS ---
HPI - Extremity Injury (Lower) <Doris Horton PA-C - Last Filed: 07/08/23 17:22> General Chief Complaint: Extremity Injury, Lower Stated Complaint: rt ankle swelling/inj/post rt knee inj Time Seen by Provider: 07/08/23 15:48 Source: patient Mode of arrival: Ambulatory History of Present Illness HPI Narrative: 52-year-old male with past medical history diabetes, significant peripheral neuropathy, hypertension, hyperlipidemia, alcohol use disorder presents to the ED with right-sided ankle swelling and pain. Patient states that he has severe peripheral neuropathy from diabetes, therefore does not feel pain as much. However, patient noted that his right ankle was swollen which brought him to the ED. patient was seen in the ED on 07/03/23 for a right knee injury from a mechanical fall when he slipped on ice. Knee x-ray was negative and patient was discharged home. Patient states that he did not have any other injuries since that slip and fall. Patient denies tingling, weakness. Patient presents to the ED with crutches. Related Data Previous Rx's Medication Instructions Recorded Glucometer Test Strips #100 ea 10/12/21 Lancettes #100 ea 10/12/21 Lancing Pen #1 ea 10/12/21 lisinopril 20 mg tablet See Rx Instructions .Route 12/04/22 .COMPLEX #180 tabs omega-3 acid ethyl esters 1 gram 1 cap PO BID #180 caps 01/07/23 capsule (Lovaza) doxepin 150 mg capsule 150 mg PO BEDTIME #90 caps 03/04/23 metoprolol tartrate 25 mg tablet See Rx Instructions .Route 04/19/23 .COMPLEX #90 tabs clonidine HCl 0.2 mg tablet 0.2 mg PO BID #180 tabs 05/06/23 gabapentin 600 mg tablet 300 - 600 mg (0.5 - 1 x 600 mg) PO 05/06/23 TID PRN nerve pain #90 tabs tadalafil 20 mg tablet (Cialis) See Rx Instructions .Route 05/06/23 .COMPLEX sexual activity #30 tabs blood-glucose meter (Blood Glucose #1 ea 05/27/23 Monitoring kit) hydrochlorothiazide 25 mg tablet See Rx Instructions .Route 06/24/23 .COMPLEX #180 tabs Allergies Allergy/AdvReac Type Severity Reaction Status Date / Time No Known Drug Allergies Allergy Verified 06/28/23 14:43 Review of Systems <Doris Horton PA-C - Last Filed: 07/08/23 17:22> Constitutional Constitutional: Denies chills, Denies fatigue, Denies fever(s), Denies frequent falls, Denies lethargy and Denies weakness Eyes Eyes: Denies change in vision, Denies eye discharge, Denies irritation and Denies loss of vision ENT Ears, Nose, Mouth, and Throat: Denies change in voice, Denies dizziness, Denies neck pain, Denies sore throat and Denies throat swelling Cardiovascular Cardiovascular: Denies chest pain, Denies irregular heart rhythm, Denies lightheadedness, Denies palpitations, Denies dyspnea, Denies dyspnea on exertion and Denies orthopnea Respiratory Respiratory: Denies cough, Denies dyspnea, Denies dyspnea on exertion and Denies wheezing Gastrointestinal Gastrointestinal: Denies abdominal pain, Denies change in bowel habits, Denies diarrhea, Denies nausea and Denies vomiting Musculoskeletal Musculoskeletal: Denies neck pain and Denies numbness Comments: Right ankle pain, swelling Integumentary/Breasts Skin/Breast: Denies pruritus, Denies erythema, Denies rash and Denies wounds Neurologic Neurologic: Denies behavioral changes, Denies confusion, Denies dizziness, Denies frequent falls, Denies loss of vision, Denies numbness and Denies weakness Psychiatric Psychiatric: Denies anxiety, Denies behavioral changes, Denies confusion, Denies depression, Denies homicidal ideation and Denies suicidal ideation Endocrine Endocrine: Denies fatigue, Denies flushing and Denies palpitations Hematologic/Lymphatic Hematologic/Lymphatic: Denies easy bruising Allergic/Immunologic Allergic/Immunologic: Denies urticaria, Denies throat swelling and Denies wheezing Patient History <Doris Horton PA-C - Last Filed: 07/08/23 17:22> Medical History Abdominal ascites Peripheral neuropathy Alcohol use disorder, moderate, dependence Alcohol cessation counseling High triglycerides Non-insulin dependent diabetes mellitus Mixed hyperlipidemia due to type 2 diabetes mellitus Elevated fasting blood sugar Paresthesia of both feet Back pain Depression with anxiety Insomnia COVID-19 vaccine series declined Alcohol use disorder Tobacco use disorder, mild, in early remission Elevated LFTs Blood glucose elevated Class 1 obesity in adult Alcohol dependence, daily use Smokes tobacco daily Hyperlipidemia Hypertension Lumbosacral spondylosis Bilateral foot pain Recto-perineal fistula Hypertension Rectal bleeding Lower GI bleed Atypical chest pain Surgical History History of rectal surgery Family History Father Alive and well Mother Alive and well Social History marital status: unmarried,single household members: none occupational status: disabled Smoking Status: Current some day smoker second hand exposure: No alcohol intake: current (1/5 per day) Smoking Status: Current some day smoker tobacco type: cigarettes alcohol intake frequency: 3 or more drinks per day Alcohol type: beer and hard liquor Substance Use Type: does not use Exam <Doris Horton PA-C - Last Filed: 07/08/23 17:22> Narrative Exam Narrative: Const General:?cooperative, healthy appearing and comfortable HENOR Head:?normal to inspection Ears:?hearing grossly normal bilaterally Nose:?external nose normal Face and sinus:?normal facial exam and sinuses nontender Mouth:?oral mucosae normal Throat:?posterior oropharynx normal Eyes General:?appearance normal, both eyes and all related structures Neck Neck:?normal visual inspection and no lymphadenopathy noted Resp Effort & Inspection:?normal respiratory effort Auscultation:?clear to auscultation bilaterally Cardio Rate:?regular rate Rhythm:?regular rhythm Musculoskeletal Right ankle appears swollen. It is not erythematous. No bruising. Mild tenderness to palpation. Strength and sensation is intact. There is full range of motion. Patient is neurovascularly intact. Neuro General:?patient alert, patient awake and patient oriented x3 Initial Vital Signs Initial Vital Signs: Vital Signs Temperature 98.0 F 07/08/23 15:40 Pulse Rate 99 H 07/08/23 15:40 Respiratory Rate 18 07/08/23 15:40 Blood Pressure 177/103 H 07/08/23 15:40 Pulse Oximetry 94 07/08/23 15:40 Oxygen Delivery Method Room Air 07/08/23 15:40 <Ev Leary MD - Last Filed: 07/08/23 18:03> Initial Vital Signs Initial Vital Signs: Vital Signs Temperature 98.0 F 07/08/23 15:40 Pulse Rate 99 H 07/08/23 15:40 Respiratory Rate 18 07/08/23 15:40 Blood Pressure 177/103 H 07/08/23 15:40 Pulse Oximetry 94 07/08/23 15:40 Oxygen Delivery Method Room Air 07/08/23 15:40 Course <Doris Horton PA-C - Last Filed: 07/08/23 17:22> Orders Ordered: ED Orders 07/08/23 15:46 XR ankle RT min 3V Stat Vital Signs Vital signs: Vital Signs - 8 hr 07/08/23 15:40 07/08/23 17:35 Temperature 98.0 F Pulse Rate 99 H 86 Respiratory Rate 18 16 Blood Pressure 177/103 H 189/109 H Pulse Oximetry 94 96 Oxygen Delivery Method Room Air Room Air <Ev Leary MD - Last Filed: 07/08/23 18:03> Orders Ordered: ED Orders 07/08/23 15:46 XR ankle RT min 3V Stat Vital Signs Vital signs: Vital Signs - 8 hr 07/08/23 15:40 07/08/23 17:35 Temperature 98.0 F Pulse Rate 99 H 86 Respiratory Rate 18 16 Blood Pressure 177/103 H 189/109 H Pulse Oximetry 94 96 Oxygen Delivery Method Room Air Room Air MDM - Extremity Injury (Lower) <Doris Horton PA-C - Last Filed: 07/08/23 17:22> MDM Narrative Medical decision making narrative: 52-year-old male with past medical history diabetes, significant peripheral neuropathy, hypertension, hyperlipidemia, alcohol use disorder presents to the ED with right-sided ankle swelling and pain. Concern for fracture/dislocation versus musculoskeletal sprain/strain. Ankle x-ray shows a mildly displaced medial malleolar fracture. Discussed findings with patient. Patient was fitted with a boot. Recommend nonweightbearing for 4-6 weeks. Recommend follow-up with [facility]. ED return precautions were discussed with patient. Patient verbalized understanding. Medical records reviewed: Yes Discharge Plan Departure Patient Disposition: Home Clinical Impression: Ankle fracture, right Qualifiers: Encounter type: initial encounter Fracture type: closed Qualified Code(s): S82.891A - Other fracture of right lower leg, initial encounter for closed fracture Instructions: DI for Ankle Fracture Activity Restrictions/Additional Instructions: You were evaluated in the ED today for an ankle injury. The x-ray does show a ankle fracture. You are being fitted with a boot to stabilize the foot. It is also advisable to be nonweightbearing on the right foot. It appears that you have crutches already, so please ensure to use those for walking. You may rest, elevate your foot. You may take Tylenol or ibuprofen for pain. Please follow- up with [facility] at [phone]. Return to the ED if your worsening symptoms, numbness, tingling, weakness. Prescriptions: No Action lisinopril 20 mg tablet See Rx Instructions .ROUTE .COMPLEX Qty: 180 3RF Dose Instruction: take 1 tablet by mouth twice a day Rx Instructions: take 1 tablet by mouth twice a day omega-3 acid ethyl esters [Lovaza] 1 gram capsule 1 cap PO BID Qty: 180 3RF Rx Instructions: Take 1 tab twice daily for elevated triglycerides doxepin 150 mg capsule 150 mg PO BEDTIME Qty: 90 3RF Rx Instructions: Take 1 capsule at bedtime daily for sleep. metoprolol tartrate 25 mg tablet See Rx Instructions .ROUTE .COMPLEX Qty: 90 0RF Dose Instruction: take 1 tablet by mouth once daily Rx Instructions: take 1 tablet by mouth once daily gabapentin 600 mg tablet 300 - 600 mg PO TID PRN (Reason: nerve pain) Qty: 90 11RF tadalafil [Cialis] 20 mg tablet See Rx Instructions .ROUTE .COMPLEX Qty: 30 3RF Rx Instructions: administer approximately 30min before sexual activity; do not use more than 1 dose per 24hrs; clonidine HCl 0.2 mg tablet 0.2 mg PO BID Qty: 180 0RF Rx Instructions: Take 1 tab twice per day to keep BP under 130/80 consistently. hydrochlorothiazide 25 mg tablet See Rx Instructions .ROUTE .COMPLEX Qty: 180 1RF Dose Instruction: take 2 tablets by mouth every morning Rx Instructions: take 2 tablets by mouth every morning (DME) blood-glucose meter [Blood Glucose Monitoring] Kit See Rx Instructions .Route Qty: 1 0RF Rx Instructions: As directed. (DME) Glucometer Test Strips See Rx Instructions .Route .MEDSUPPLY Qty: 100 3RF Rx Instructions: Check blood sugars daily fasting each morning (DME) Lancettes See Rx Instructions .Route .MEDSUPPLY Qty: 100 3RF Rx Instructions: Check blood sugars fasting each morning and as needed (DME) Lancing Pen See Rx Instructions .Route .MEDSULY Qty: 1 0RF Rx Instructions: As directed Referrals: Andreas Whitten DO [Primary Care Provider] - Stand Alone Forms: Patient Portal/API ED Sign-out <Ev Leary MD - Last Filed: 07/08/23 18:03> Cosign ED Attending Cosalishaature Attestation: I did not see this patient. I was available all times for consultation.
--- NOTE | 2023-07-08 16:44 | PC.NURSE ---
Pt reports falling on ice last week. Pt has multiple small scratches that appear to be healing well on his right foot and right leg due to slipping on asphalt with no shoes/socks on. He also reports drinking a fifth of vodka nightly due to being lonely at night. Pt was recently at [facility] in [place] for detox and was sober for 4 days afterward back in may. Pt states he got his right knee x rayed the day after his fall, but he did not notice his right ankle pain/swelling until later.
[2023-07-08 17:35] VITALS: BP 189/109; PULSE 86; RESP 16; O2SAT 96
== END 2023-07-08 17:37 | disposition home or self-care (01) ==
PROVIDERS: Emergency Provider Student in an Organized Health Care Education/Training Program; Family Provider Nurse Practitioner; PCP Family Medicine
DX: S82.891A Other fracture of right lower leg, initial encounter for closed fracture (principal); W00.0XXA Fall on same level due to ice and snow, initial encounter; Z79.899 Other long term (current) drug therapy
CPT/HCPCS: 73610; 99283

== ENCOUNTER 2023-07-25 23:28 | Emergency (ER) | payer MEDICARE, MEDICAID, SELFPAY ==
[2023-07-25 23:33] VITALS: BP 167/63; PULSE 101; RESP 20; TEMP 36.8; O2SAT 93; BMI 29.9
[2023-07-25 23:36] VITALS: PULSE 97; O2SAT 94
[2023-07-25 23:59] LABS: COVID19 -Nasal RAPID Negative (Negative)
[2023-07-26] VITALS: BP 163/80; RESP 18; O2SAT 94
--- NOTE | 2023-07-26 00:12 | ED.GENADULT ---
HPI - General Adult General Chief complaint: Upper Respiratory Symptoms Stated complaint: flem build up in throat, can't sleep Time Seen by Provider: 07/25/23 23:35 Source: patient Mode of arrival: Ambulatory History of Present Illness HPI narrative: Patient is a 53-year-old male. Is here for evaluation of what he states is phlegm buildup in his throat. He states it is causing him to have problems sleeping at night. He states he is waking up gasping for air and coughing and choking. He was also concerned about potentially having COVID as other individuals that he spends time with have COVID and he has also been sleeping all the time. Has not tried anything for his symptoms prior to arrival. Related Data Previous Rx's Medication Instructions Recorded Glucometer Test Strips #100 ea 10/12/21 Lancettes #100 ea 10/12/21 Lancing Pen #1 ea 10/12/21 lisinopril 20 mg tablet See Rx Instructions .Route 12/04/22 .COMPLEX #180 tabs omega-3 acid ethyl esters 1 gram 1 cap PO BID #180 caps 01/07/23 capsule (Lovaza) doxepin 150 mg capsule 150 mg PO BEDTIME #90 caps 03/04/23 metoprolol tartrate 25 mg tablet See Rx Instructions .Route 04/19/23 .COMPLEX #90 tabs clonidine HCl 0.2 mg tablet 0.2 mg PO BID #180 tabs 05/06/23 gabapentin 600 mg tablet 300 - 600 mg (0.5 - 1 x 600 mg) PO 05/06/23 TID PRN nerve pain #90 tabs tadalafil 20 mg tablet (Cialis) See Rx Instructions .Route 05/06/23 .COMPLEX sexual activity #30 tabs blood-glucose meter (Blood Glucose #1 ea 05/27/23 Monitoring kit) hydrochlorothiazide 25 mg tablet See Rx Instructions .Route 06/24/23 .COMPLEX #180 tabs Allergies Allergy/AdvReac Type Severity Reaction Status Date / Time No Known Drug Allergies Allergy Verified 06/28/23 14:43 Review of Systems Constitutional Constitutional: Reports system reviewed and no additional complaints, except as documented ENT Ears, Nose, Mouth, and Throat: Reports system reviewed and no additional complaints, except as documented Respiratory Respiratory: Reports system reviewed and no additional complaints, except as documented Integumentary/Breasts Skin/Breast: Reports system reviewed and no additional complaints, except as documented Neurologic Neurologic: Reports system reviewed and no additional complaints, except as documented Patient History Medical History Abdominal ascites Peripheral neuropathy Alcohol use disorder, moderate, dependence Alcohol cessation counseling High triglycerides Non-insulin dependent diabetes mellitus Mixed hyperlipidemia due to type 2 diabetes mellitus Elevated fasting blood sugar Paresthesia of both feet Back pain Depression with anxiety Insomnia COVID-19 vaccine series declined Alcohol use disorder Tobacco use disorder, mild, in early remission Elevated LFTs Blood glucose elevated Class 1 obesity in adult Alcohol dependence, daily use Smokes tobacco daily Hyperlipidemia Hypertension Lumbosacral spondylosis Bilateral foot pain Recto-perineal fistula Hypertension Rectal bleeding Lower GI bleed Atypical chest pain Surgical History History of rectal surgery Family History Father Alive and well Mother Alive and well Social History marital status: unmarried,single household members: none occupational status: disabled Smoking Status: Current some day smoker second hand exposure: No alcohol intake: current Smoking Status: Current some day smoker tobacco type: cigarettes alcohol intake frequency: 3 or more drinks per day Alcohol type: beer and hard liquor Substance Use Type: does not use Exam Initial Vital Signs Initial Vital Signs: Vital Signs Temperature 98.3 F 07/25/23 23:33 Pulse Rate 101 H 07/25/23 23:33 Respiratory Rate 20 07/25/23 23:33 Blood Pressure 167/63 H 07/25/23 23:33 Pulse Oximetry 93 07/25/23 23:33 Oxygen Delivery Method Room Air 07/25/23 23:33 HENMT Head: normal to inspection and normocephalic Resp Effort & Inspection: normal respiratory effort Auscultation: clear to auscultation bilaterally Cardio Rate: regular rate Rhythm: regular rhythm Course Orders Ordered: ED Orders 07/25/23 23:40 COVID19 -Nasal RAPID Stat Vital Signs Vital signs: Vital Signs - 8 hr 07/25/23 23:33 07/25/23 23:36 07/26/23 00:00 Temperature 98.3 F Pulse Rate 101 H 97 H Respiratory Rate 20 18 Blood Pressure 167/63 H 163/80 H Pulse Oximetry 93 94 94 Oxygen Delivery Method Room Air Medical Decision Making Lab Data Lab results reviewed: Yes I reviewed the patient's lab results. Labs: Lab Results 07/25/23 Range/Units 23:40 SARS-CoV-2 (PCR) Negative (Negative) MDM Narrative Medical decision making narrative: No respiratory distress. Lungs are clear. Not hypoxic. No coughing. He was able to sleep in the exam room. I discussed his negative COVID result with him. There was no indication for radiologic studies as I have low suspicion for pneumonia. Informed him that he may benefit from sleeping in a chair or with several pillows for the next couple days in order to prop his head up this may keep some of the phlegm going into his throat. It does not sound like he is having issues with reflux. We discussed [id number] medications that he can take to include Mucinex and guaifenesin. No indication for admission to the hospital. He was given return precautions. Discharge Plan Departure Patient Disposition: Home Clinical Impression: Chest congestion Instructions: Decongestant/Expectorant (By mouth) Activity Restrictions/Additional Instructions: You can try [id number] cough and cold preparations an expectorant such as guaifenesin or Mucinex. Often these medicines take several doses/days to help. Until then you may want to consider sleeping in a inclined position or in a chair. I do recommend that you make contact with the primary doctor for a follow-up. Prescriptions: No Action lisinopril 20 mg tablet See Rx Instructions .ROUTE .COMPLEX Qty: 180 3RF Dose Instruction: take 1 tablet by mouth twice a day Rx Instructions: take 1 tablet by mouth twice a day omega-3 acid ethyl esters [Lovaza] 1 gram capsule 1 cap PO BID Qty: 180 3RF Rx Instructions: Take 1 tab twice daily for elevated triglycerides doxepin 150 mg capsule 150 mg PO BEDTIME Qty: 90 3RF Rx Instructions: Take 1 capsule at bedtime daily for sleep. metoprolol tartrate 25 mg tablet See Rx Instructions .ROUTE .COMPLEX Qty: 90 0RF Dose Instruction: take 1 tablet by mouth once daily Rx Instructions: take 1 tablet by mouth once daily gabapentin 600 mg tablet 300 - 600 mg PO TID PRN (Reason: nerve pain) Qty: 90 11RF tadalafil [Cialis] 20 mg tablet See Rx Instructions .ROUTE .COMPLEX Qty: 30 3RF Rx Instructions: administer approximately 30min before sexual activity; do not use more than 1 dose per 24hrs; clonidine HCl 0.2 mg tablet 0.2 mg PO BID Qty: 180 0RF Rx Instructions: Take 1 tab twice per day to keep BP under 130/80 consistently. hydrochlorothiazide 25 mg tablet See Rx Instructions .ROUTE .COMPLEX Qty: 180 1RF Dose Instruction: take 2 tablets by mouth every morning Rx Instructions: take 2 tablets by mouth every morning (DME) blood-glucose meter [Blood Glucose Monitoring] Kit See Rx Instructions .Route Qty: 1 0RF Rx Instructions: As directed. (DME) Glucometer Test Strips See Rx Instructions .Route .MEDSUPPLY Qty: 100 3RF Rx Instructions: Check blood sugars daily fasting each morning (DME) Lancettes See Rx Instructions .Route .MEDSUPPLY Qty: 100 3RF Rx Instructions: Check blood sugars fasting each morning and as needed (DME) Lancing Pen See Rx Instructions .Route .MEDSUPPLY Qty: 1 0RF Rx Instructions: As directed Referrals: Radha Peck MD [Primary Care Provider] - Stand Alone Forms: Patient Portal/API
== END 2023-07-26 00:26 | disposition home or self-care (01) ==
PROVIDERS: Emergency Provider Emergency Medicine; Family Provider Nurse Practitioner; PCP Family Medicine
DX: R05.9 Cough, unspecified (principal); R09.89 Other specified symptoms and signs involving the circulatory and respiratory systems; Z20.822 Contact with and (suspected) exposure to COVID-19
CPT/HCPCS: 87635; 99282

== ENCOUNTER 2023-07-27 05:57 | Emergency (ER) | payer MEDICARE, MEDICAID, SELFPAY ==
[2023-07-27 06:05] VITALS: BP 183/110; PULSE 93; RESP 18; TEMP 37.1; O2SAT 96; BMI 29.9
[2023-07-27 06:43] LABS: Strep Grp A by PCR Rapid Negative (Negative)
--- NOTE | 2023-07-27 06:48 | ED_ITS ---
HPI - General Adult <Fausto Rae DO - Last Filed: 07/27/23 17:49> General Chief complaint: Upper Respiratory Symptoms Stated complaint: Partial airway obstruction Time Seen by Provider: 07/27/23 06:44 Source: patient Mode of arrival: Ambulatory History of Present Illness HPI narrative: Patient is a 53-year-old female. I evaluated him here in the emergency department during my last shift for what he states was phlegm that was causing him to choke night. He states that when he tries to fall asleep he feels like he is choking. Under his medical problems it does show that he has a history of sleep apnea. He does not use a CPAP. He states he has having a sore throat. He does drink quite a bit of alcohol and his last drink was approximately 3 hours ago. He was here stating that he needs a ?emergent surgery? for his throat. He was also asking for alcohol detox. Related Data Previous Rx's Medication Instructions Recorded Glucometer Test Strips #100 ea 10/12/21 Lancettes #100 ea 10/12/21 Lancing Pen #1 ea 10/12/21 lisinopril 20 mg tablet See Rx Instructions .Route 12/04/22 .COMPLEX #180 tabs omega-3 acid ethyl esters 1 gram 1 cap PO BID #180 caps 01/07/23 capsule (Lovaza) doxepin 150 mg capsule 150 mg PO BEDTIME #90 caps 03/04/23 metoprolol tartrate 25 mg tablet See Rx Instructions .Route 04/19/23 .COMPLEX #90 tabs clonidine HCl 0.2 mg tablet 0.2 mg PO BID #180 tabs 05/06/23 gabapentin 600 mg tablet 300 - 600 mg (0.5 - 1 x 600 mg) PO 05/06/23 TID PRN nerve pain #90 tabs tadalafil 20 mg tablet (Cialis) See Rx Instructions .Route 05/06/23 .COMPLEX sexual activity #30 tabs blood-glucose meter (Blood Glucose #1 ea 05/27/23 Monitoring kit) hydrochlorothiazide 25 mg tablet See Rx Instructions .Route 06/24/23 .COMPLEX #180 tabs Allergies Allergy/AdvReac Type Severity Reaction Status Date / Time No Known Drug Allergies Allergy Verified 06/28/23 14:43 Review of Systems <Fausto Rae DO - Last Filed: 07/27/23 17:49> ENT Ears, Nose, Mouth, and Throat: Reports system reviewed and no additional complaints, except as documented Cardiovascular Cardiovascular: Reports system reviewed and no additional complaints, except as documented Respiratory Respiratory: Reports system reviewed and no additional complaints, except as documented Integumentary/Breasts Skin/Breast: Reports system reviewed and no additional complaints, except as documented Patient History <Fausto Rae DO - Last Filed: 07/27/23 17:49> Medical History Abdominal ascites Peripheral neuropathy Alcohol use disorder, moderate, dependence Alcohol cessation counseling High triglycerides Non-insulin dependent diabetes mellitus Mixed hyperlipidemia due to type 2 diabetes mellitus Elevated fasting blood sugar Paresthesia of both feet Back pain Depression with anxiety Insomnia COVID-19 vaccine series declined Alcohol use disorder Tobacco use disorder, mild, in early remission Elevated LFTs Blood glucose elevated Class 1 obesity in adult Alcohol dependence, daily use Smokes tobacco daily Hyperlipidemia Hypertension Lumbosacral spondylosis Bilateral foot pain Recto-perineal fistula Hypertension Rectal bleeding Lower GI bleed Atypical chest pain Surgical History History of rectal surgery Family History Father Alive and well Mother Alive and well Social History marital status: unmarried,single household members: none occupational status: disabled Smoking Status: Current some day smoker second hand exposure: No alcohol intake: current Smoking Status: Current some day smoker tobacco type: cigarettes alcohol intake frequency: 3 or more drinks per day Alcohol type: beer and hard liquor Substance Use Type: does not use Exam <Fausto Rae DO - Last Filed: 07/27/23 17:49> Initial Vital Signs Initial Vital Signs: Vital Signs Temperature 98.7 F 07/27/23 06:05 Pulse Rate 93 H 07/27/23 06:05 Respiratory Rate 18 07/27/23 06:05 Blood Pressure 183/110 H 07/27/23 06:05 Pulse Oximetry 96 07/27/23 06:05 Oxygen Delivery Method Room Air 07/27/23 06:05 Const General: cooperative and comfortable HENMT Mouth: moist mucous membranes Throat: uvula midline and other (Tonsils enlarged but no erythema or exudates) Resp Effort & Inspection: normal respiratory effort Neuro General: patient alert and patient awake <Ev Leary MD - Last Filed: 07/27/23 12:31> Initial Vital Signs Initial Vital Signs: Vital Signs Temperature 98.7 F 07/27/23 06:05 Pulse Rate 93 H 07/27/23 06:05 Respiratory Rate 18 07/27/23 06:05 Blood Pressure 183/110 H 07/27/23 06:05 Pulse Oximetry 96 07/27/23 06:05 Oxygen Delivery Method Room Air 07/27/23 06:05 Course <Fausto Rae DO - Last Filed: 07/27/23 17:49> Orders Ordered: ED Orders 07/27/23 09:30 Urinalysis and Microscopic Stat Urine Drug Screen, Rapid Stat Discontinued Medications Dexamethasone (Dexamethasone 4 Mg Tablet) 12 mg PO NOW ONE Stop: 07/27/23 06:50 Last Admin: 07/27/23 08:02 Dose: 12 mg Documented By: SPF Vital Signs Vital signs: Vital Signs - 8 hr 07/27/23 10:33 Pulse Rate 88 Respiratory Rate 20 Blood Pressure 191/110 H Pulse Oximetry 98 Oxygen Delivery Method Room Air <Ev Leary MD - Last Filed: 07/27/23 12:31> Orders Ordered: ED Orders 07/27/23 09:30 Urinalysis and Microscopic Stat Urine Drug Screen, Rapid Stat Discontinued Medications Dexamethasone (Dexamethasone 4 Mg Tablet) 12 mg PO NOW ONE Stop: 07/27/23 06:50 Last Admin: 07/27/23 08:02 Dose: 12 mg Documented By: SPF Vital Signs Vital signs: Vital Signs - 8 hr 07/27/23 10:33 Pulse Rate 88 Respiratory Rate 20 Blood Pressure 191/110 H Pulse Oximetry 98 Oxygen Delivery Method Room Air Medical Decision Making <DO Emil Leonard Last Filed: 07/27/23 17:49> Lab Data 07/27/23 08:20 07/27/23 08:20 Labs: Lab Results 07/27/23 07/27/23 07/27/23 Range/Units 06:32 07:54 08:20 WBC 4.9 (4.5-11.0) X10^3/uL RBC 3.68 L (4.5-5.9) X10^6/uL Hgb 12.5 L (13.5-17.5) g/dL Hct 35.5 L (41-53) % MCV 96.6 (80-100) fL MCH 33.9 (26-34) PG MCHC 35.1 (30-36) % RDW 15.8 H (11.6-14.8) % Plt Count 85 L (150-400) X10^3/uL Neut % (Auto) 74.4 (50-75) % Lymph % (Auto) 14.8 L (25-40) % [place] % (Auto) 8.3 (3-14) % Eos % (Auto) 2.1 (2-4) % Baso % (Auto) 0.4 (0-2) % Neut # (Auto) 3600 (2643-4133) /uL Lymph # (Auto) 700 L (4133-0715) /uL [place] # (Auto) 400 (0-900) /uL Eos # (Auto) 100 (0-450) /uL Baso # (Auto) 0 (0-100) /uL Sodium 129 L (137-145) mmol/L Potassium 3.5 (3.4-5.1) mmol/L Chloride 86 L (98-107) mmol/L Carbon Dioxide 27 (22-32) mmol/L BUN 9 (9-20) mg/dL Creatinine 0.71 (0.66-1.25) mg/dL Estimated GFR > 60 (>60) mL/min BUN/Creatinine Ratio 12.7 (6-22) Glucose 87 (70-100) mg/dL Calcium 9.6 (8.4-10.2) mg/dL Magnesium 1.0 L (1.6-2.3) mg/dL Total Bilirubin 1.4 H (0.2-1.3) mg/dL AST 159 H (17-59) IU/L ALT 111 H (<50) IU/L Alkaline Phosphatase 58 (38-126) U/L Total Protein 8.0 (6.3-8.2) g/dL Albumin 4.7 (3.5-5.0) g/dL Globulin 3.3 (1.7-4.1) g/dL Albumin/Globulin Ratio 1.4 (1.0-2.8) Lipase 108 (23-300) U/L TSH 1.42 (0.47-4.68) uIU/mL Urine Color Urine Appearance Urine pH (4.5-8.0) Ur Specific [place] (1.000-1.035) Urine Protein (Negative) Urine Glucose (UA) (Negative) g/dL Urine Ketones (NEGATIVE) Urine Occult Blood (Negative) Urine Nitrate (Negative) Urine Bilirubin (NEGATIVE) Urine Urobilinogen (0.2) E.U./dL Ur Leukocyte Esterase (NEGATIVE) Urine RBC (0-5/HPF) Urine WBC (0-5/HPF) Ur Squamous Epith Cells (0-5/HPF) Urine Bacteria (None) Ur Culture Indicated? Vol Urine Centrifuged U Opiates 300ng/mL cut (Negative) Ur Oxycodone Screen (Negative) Urine Methadone Screen (Negative) Ur Barbiturates Screen (Negative) U Tricyclic Antidepress (Negative) Ur Phencyclidine Scrn (Negative) Ur Amphetamines Screen (Negative) U Methamphetamines Scrn (Negative) Ur MDMA Scrn (Ecstasy) (Negative) U Benzodiazepines Scrn (Negative) Urine Cocaine Screen (Negative) U Marijuana (THC) Screen (Negative) Urine Specific [place] (Normal) Ethyl Alcohol < 10 ( - 10) mg/dL Ur Creatinine (Normal) SARS-CoV-2 (PCR) Negative (Negative) Group A Strep (PCR) Negative (Negative) 07/27/23 07/27/23 Range/Units 09:30 09:30 WBC (4.5-11.0) X10^3/uL RBC (4.5-5.9) X10^6/uL Hgb (13.5-17.5) g/dL Hct (41-53) % MCV (80-100) fL MCH (26-34) PG MCHC (30-36) % RDW (11.6-14.8) % Plt Count (150-400) X10^3/uL Neut % (Auto) (50-75) % Lymph % (Auto) (25-40) % [place] % (Auto) (3-14) % Eos % (Auto) (2-4) % Baso % (Auto) (0-2) % Neut # (Auto) (9007-6520) /uL Lymph # (Auto) (9752-4587) /uL [place] # (Auto) (0-900) /uL Eos # (Auto) (0-450) /uL Baso # (Auto) (0-100) /uL Sodium (137-145) mmol/L Potassium (3.4-5.1) mmol/L Chloride (98-107) mmol/L Carbon Dioxide (22-32) mmol/L BUN (9-20) mg/dL Creatinine (0.66-1.25) mg/dL Estimated GFR (>60) mL/min BUN/Creatinine Ratio (6-22) Glucose (70-100) mg/dL Calcium (8.4-10.2) mg/dL Magnesium (1.6-2.3) mg/dL Total Bilirubin (0.2-1.3) mg/dL AST (17-59) IU/L ALT (<50) IU/L Alkaline Phosphatase (38-126) U/L Total Protein (6.3-8.2) g/dL Albumin (3.5-5.0) g/dL Globulin (1.7-4.1) g/dL Albumin/Globulin Ratio (1.0-2.8) Lipase (23-300) U/L TSH (0.47-4.68) uIU/mL Urine Color Yellow Urine Appearance Clear Urine pH 6.5 Normal (4.5-8.0) Ur Specific [place] <=1.005 (1.000-1.035) Urine Protein Negative (Negative) Urine Glucose (UA) Negative (Negative) g/dL Urine Ketones 1+ H (NEGATIVE) Urine Occult Blood Negative (Negative) Urine Nitrate Negative (Negative) Urine Bilirubin Negative (NEGATIVE) Urine Urobilinogen 0.2 (0.2) E.U./dL Ur Leukocyte Esterase Negative (NEGATIVE) Urine RBC None seen (0-5/HPF) Urine WBC None seen (0-5/HPF) Ur Squamous Epith Cells None seen (0-5/HPF) Urine Bacteria None seen (None) Ur Culture Indicated? Cult not indicated Vol Urine Centrifuged 10ml (spun) U Opiates 300ng/mL cut Negative (Negative) Ur Oxycodone Screen Negative (Negative) Urine Methadone Screen Negative (Negative) Ur Barbiturates Screen Negative (Negative) U Tricyclic Antidepress Positive H (Negative) Ur Phencyclidine Scrn Negative (Negative) Ur Amphetamines Screen Negative (Negative) U Methamphetamines Scrn Negative (Negative) Ur MDMA Scrn (Ecstasy) Negative (Negative) U Benzodiazepines Scrn Negative (Negative) Urine Cocaine Screen Negative (Negative) U Marijuana (THC) Screen Negative (Negative) Urine Specific [place] Normal (Normal) Ethyl Alcohol ( - 10) mg/dL Ur Creatinine Normal (Normal) SARS-CoV-2 (PCR) (Negative) Group A Strep (PCR) (Negative) MDM Narrative Medical decision making narrative: His rapid strep is negative. He was afebrile. He does have enlarged tonsils but no other signs of infection. He was given a single dose of Decadron to try to help with any potential swelling. Inform the patient that unfortunately there is nothing more we can do in the emergency department with regard to his sleep apnea or enlarged tonsils. You will need to follow-up with his primary doctor or potentially ENT to discuss further evaluation. Patient states that he does want alcohol detox. States his last drink was 3 hours ago. He currently does not have any signs of withdrawal. He was alert and oriented and can talk in complete coherent sentences. Medical clearance labs obtained. Care turned over to Dr. Leary to follow-up and disposition. <Ev Leary MD - Last Filed: 07/27/23 12:31> Lab Data Labs: Lab Results 07/27/23 07/27/23 07/27/23 Range/Units 06:32 07:54 08:20 WBC 4.9 (4.5-11.0) X10^3/uL RBC 3.68 L (4.5-5.9) X10^6/uL Hgb 12.5 L (13.5-17.5) g/dL Hct 35.5 L (41-53) % MCV 96.6 (80-100) fL MCH 33.9 (26-34) PG MCHC 35.1 (30-36) % RDW 15.8 H (11.6-14.8) % Plt Count 85 L (150-400) X10^3/uL Neut % (Auto) 74.4 (50-75) % Lymph % (Auto) 14.8 L (25-40) % [place] % (Auto) 8.3 (3-14) % Eos % (Auto) 2.1 (2-4) % Baso % (Auto) 0.4 (0-2) % Neut # (Auto) 3600 (0937-6306) /uL Lymph # (Auto) 700 L (8982-0937) /uL [place] # (Auto) 400 (0-900) /uL Eos # (Auto) 100 (0-450) /uL Baso # (Auto) 0 (0-100) /uL Sodium 129 L (137-145) mmol/L Potassium 3.5 (3.4-5.1) mmol/L Chloride 86 L (98-107) mmol/L Carbon Dioxide 27 (22-32) mmol/L BUN 9 (9-20) mg/dL Creatinine 0.71 (0.66-1.25) mg/dL Estimated GFR > 60 (>60) mL/min BUN/Creatinine Ratio 12.7 (6-22) Glucose 87 (70-100) mg/dL Calcium 9.6 (8.4-10.2) mg/dL Magnesium 1.0 L (1.6-2.3) mg/dL Total Bilirubin 1.4 H (0.2-1.3) mg/dL AST 159 H (17-59) IU/L ALT 111 H (<50) IU/L Alkaline Phosphatase 58 (38-126) U/L Total Protein 8.0 (6.3-8.2) g/dL Albumin 4.7 (3.5-5.0) g/dL Globulin 3.3 (1.7-4.1) g/dL Albumin/Globulin Ratio 1.4 (1.0-2.8) Lipase 108 (23-300) U/L TSH 1.42 (0.47-4.68) uIU/mL Urine Color Urine Appearance Urine pH (4.5-8.0) Ur Specific [place] (1.000-1.035) Urine Protein (Negative) Urine Glucose (UA) (Negative) g/dL Urine Ketones (NEGATIVE) Urine Occult Blood (Negative) Urine Nitrate (Negative) Urine Bilirubin (NEGATIVE) Urine Urobilinogen (0.2) E.U./dL Ur Leukocyte Esterase (NEGATIVE) Urine RBC (0-5/HPF) Urine WBC (0-5/HPF) Ur Squamous Epith Cells (0-5/HPF) Urine Bacteria (None) Ur Culture Indicated? Vol Urine Centrifuged U Opiates 300ng/mL cut (Negative) Ur Oxycodone Screen (Negative) Urine Methadone Screen (Negative) Ur Barbiturates Screen (Negative) U Tricyclic Antidepress (Negative) Ur Phencyclidine Scrn (Negative) Ur Amphetamines Screen (Negative) U Methamphetamines Scrn (Negative) Ur MDMA Scrn (Ecstasy) (Negative) U Benzodiazepines Scrn (Negative) Urine Cocaine Screen (Negative) U Marijuana (THC) Screen (Negative) Urine Specific [place] (Normal) Ethyl Alcohol < 10 ( - 10) mg/dL Ur Creatinine (Normal) SARS-CoV-2 (PCR) Negative (Negative) Group A Strep (PCR) Negative (Negative) 07/27/23 07/27/23 Range/Units 09:30 09:30 WBC (4.5-11.0) X10^3/uL RBC (4.5-5.9) X10^6/uL Hgb (13.5-17.5) g/dL Hct (41-53) % MCV (80-100) fL MCH (26-34) PG MCHC (30-36) % RDW (11.6-14.8) % Plt Count (150-400) X10^3/uL Neut % (Auto) (50-75) % Lymph % (Auto) (25-40) % [place] % (Auto) (3-14) % Eos % (Auto) (2-4) % Baso % (Auto) (0-2) % Neut # (Auto) (4424-9681) /uL Lymph # (Auto) (0905-8654) /uL [place] # (Auto) (0-900) /uL Eos # (Auto) (0-450) /uL Baso # (Auto) (0-100) /uL Sodium (137-145) mmol/L Potassium (3.4-5.1) mmol/L Chloride (98-107) mmol/L Carbon Dioxide (22-32) mmol/L BUN (9-20) mg/dL Creatinine (0.66-1.25) mg/dL Estimated GFR (>60) mL/min BUN/Creatinine Ratio (6-22) Glucose (70-100) mg/dL Calcium (8.4-10.2) mg/dL Magnesium (1.6-2.3) mg/dL Total Bilirubin (0.2-1.3) mg/dL AST (17-59) IU/L ALT (<50) IU/L Alkaline Phosphatase (38-126) U/L Total Protein (6.3-8.2) g/dL Albumin (3.5-5.0) g/dL Globulin (1.7-4.1) g/dL Albumin/Globulin Ratio (1.0-2.8) Lipase (23-300) U/L TSH (0.47-4.68) uIU/mL Urine Color Yellow Urine Appearance Clear Urine pH 6.5 Normal (4.5-8.0) Ur Specific [place] <=1.005 (1.000-1.035) Urine Protein Negative (Negative) Urine Glucose (UA) Negative (Negative) g/dL Urine Ketones 1+ H (NEGATIVE) Urine Occult Blood Negative (Negative) Urine Nitrate Negative (Negative) Urine Bilirubin Negative (NEGATIVE) Urine Urobilinogen 0.2 (0.2) E.U./dL Ur Leukocyte Esterase Negative (NEGATIVE) Urine RBC None seen (0-5/HPF) Urine WBC None seen (0-5/HPF) Ur Squamous Epith Cells None seen (0-5/HPF) Urine Bacteria None seen (None) Ur Culture Indicated? Cult not indicated Vol Urine Centrifuged 10ml (spun) U Opiates 300ng/mL cut Negative (Negative) Ur Oxycodone Screen Negative (Negative) Urine Methadone Screen Negative (Negative) Ur Barbiturates Screen Negative (Negative) U Tricyclic Antidepress Positive H (Negative) Ur Phencyclidine Scrn Negative (Negative) Ur Amphetamines Screen Negative (Negative) U Methamphetamines Scrn Negative (Negative) Ur MDMA Scrn (Ecstasy) Negative (Negative) U Benzodiazepines Scrn Negative (Negative) Urine Cocaine Screen Negative (Negative) U Marijuana (THC) Screen Negative (Negative) Urine Specific [place] Normal (Normal) Ethyl Alcohol ( - 10) mg/dL Ur Creatinine Normal (Normal) SARS-CoV-2 (PCR) (Negative) Group A Strep (PCR) (Negative) MDM Narrative Medical decision making narrative: His rapid strep is negative. He was afebrile. He does have enlarged tonsils but no other signs of infection. He was given a single dose of Decadron to try to help with any potential swelling. Inform the patient that unfortunately there is nothing more we can do in the emergency department with regard to his sleep apnea or enlarged tonsils. You will need to follow-up with his primary doctor or potentially ENT to discuss further evaluation. Patient states that he does want alcohol detox. States his last drink was 3 hours ago. He currently does not have any signs of withdrawal. He was alert and oriented and can talk in complete coherent sentences. Medical clearance labs obtained. Care turned over to Dr. Leary to follow-up and disposition. Dr Leary -laboratory work is reviewed, no significant abnormalities. Patient given [facility] information and he is familiar with the facility and the intake process. He is medically cleared. Discharge Plan Departure Patient Disposition: Home Clinical Impression: Alcohol dependence, daily use Instructions: DI for Alcohol Use Disorder Activity Restrictions/Additional Instructions: [facility] [address] [place] [id number] Prescriptions: No Action lisinopril 20 mg tablet See Rx Instructions .ROUTE .COMPLEX Qty: 180 3RF Dose Instruction: take 1 tablet by mouth twice a day Rx Instructions: take 1 tablet by mouth twice a day omega-3 acid ethyl esters [Lovaza] 1 gram capsule 1 cap PO BID Qty: 180 3RF Rx Instructions: Take 1 tab twice daily for elevated triglycerides doxepin 150 mg capsule 150 mg PO BEDTIME Qty: 90 3RF Rx Instructions: Take 1 capsule at bedtime daily for sleep. metoprolol tartrate 25 mg tablet See Rx Instructions .ROUTE .COMPLEX Qty: 90 0RF Dose Instruction: take 1 tablet by mouth once daily Rx Instructions: take 1 tablet by mouth once daily gabapentin 600 mg tablet 300 - 600 mg PO TID PRN (Reason: nerve pain) Qty: 90 11RF tadalafil [Cialis] 20 mg tablet See Rx Instructions .ROUTE .COMPLEX Qty: 30 3RF Rx Instructions: administer approximately 30min before sexual activity; do not use more than 1 dose per 24hrs; clonidine HCl 0.2 mg tablet 0.2 mg PO BID Qty: 180 0RF Rx Instructions: Take 1 tab twice per day to keep BP under 130/80 consistently. hydrochlorothiazide 25 mg tablet See Rx Instructions .ROUTE .COMPLEX Qty: 180 1RF Dose Instruction: take 2 tablets by mouth every morning Rx Instructions: take 2 tablets by mouth every morning (DME) blood-glucose meter [Blood Glucose Monitoring] Kit See Rx Instructions .Route Qty: 1 0RF Rx Instructions: As directed. (DME) Glucometer Test Strips See Rx Instructions .Route .MEDSUPPLY Qty: 100 3RF Rx Instructions: Check blood sugars daily fasting each morning (DME) Lancettes See Rx Instructions .Route .MEDSUPPLY Qty: 100 3RF Rx Instructions: Check blood sugars fasting each morning and as needed (DME) Lancing Pen See Rx Instructions .Route .MEDSUPPLY Qty: 1 0RF Rx Instructions: As directed Referrals: Radha Peck MD [Primary Care Provider] - Stand Alone Forms: Patient Portal/API
--- NOTE | 2023-07-27 07:48 | PC.NURSE ---
Pt was given a hospital phone and the phone number to contact [facility] in [place] regarding his request for alcohol detox. Pt states he forgot a dose of his home medication which helps him sleep, and I'm concerned that when I go home to get it I will drink the vodka in my apartment. I asked pt if he had any friends/family that could retrieve his medication for him, but patient denied having someone available to assist him. He states he will call [facility] when he leaves here.
[2023-07-27] MEDS: dexAMETHasone 4 MG TABLET 12 MG PO (08:02)
[2023-07-27 08:09] LABS: COVID19 -Nasal RAPID Negative (Negative)
[2023-07-27 08:30] LABS: Add Manual Diff / Slide Review NO; Basophils Absolute Auto 0 /uL (0-100); Basophils Percent Auto 0.4 % (0-2); Eosinophils Absolute Auto 100 /uL (0-450); Eosinophils Percent Auto 2.1 % (2-4); Hematocrit 35.5 % (41-53); Hemoglobin 12.5 g/dL (13.5-17.5); Lymphocytes Absolute Auto 700 /uL (1100-4500); Lymphocytes Percent Auto 14.8 % (25-40); Mean Corpuscular HGB Conc 35.1 % (30-36); Mean Corpuscular Hemoglobin 33.9 PG (26-34); Mean Corpuscular Volume 96.6 fL (80-100); Monocytes Absolute Auto 400 /uL (0-900); Monocytes Percent Auto 8.3 % (3-14); Neutrophils Absolute Auto 3600 /uL (1500-7000); Neutrophils Percent Auto 74.4 % (50-75); Platelet Count 85 X10^3/uL (150-400); Red Blood Cell Count 3.68 X10^6/uL (4.5-5.9); Red Cell Distribution Width 15.8 % (11.6-14.8); White Blood Cell Count 4.9 X10^3/uL (4.5-11.0)
[2023-07-27 08:42] LABS: Alanine Aminotransferase 111 IU/L (<50); Albumin 4.7 g/dL (3.5-5.0); Albumin Globulin Ratio 1.4 (1.0-2.8); Alkaline Phosphatase 58 U/L (38-126); Aspartate Aminotransferase 159 IU/L (17-59); BUN Creatinine Ratio 12.7 (6-22); Bilirubin Total 1.4 mg/dL (0.2-1.3); Blood Urea Nitrogen 9 mg/dL (9-20); Calcium 9.6 mg/dL (8.4-10.2); Carbon Dioxide 27 mmol/L (22-32); Chloride 86 mmol/L (98-107); Estimated Glomerular Filt Rate > 60 mL/min (>60); Globulin 3.3 g/dL (1.7-4.1); Glucose 87 mg/dL (70-100); HEMOLYSIS < 15 (0-50); Potassium 3.5 mmol/L (3.4-5.1); Sodium 129 mmol/L (137-145)
[2023-07-27 08:43] LABS: Ethanol (ETOH) < 10 mg/dL; Lipase 108 U/L (23-300)
[2023-07-27 09:13] LABS: Thyroid Stimulating Hormone 1.42 uIU/mL (0.47-4.68)
[2023-07-27 10:19] LABS: Appearance Urine UA CLEAR; Bilirubin Urine UA NEGATIVE (NEGATIVE); Color Urine UA YELLOW; Glucose Urine UA NEGATIVE (Negative); Ketones Urine UA 1+ (NEGATIVE); Leukocyte Esterase Urine UA NEGATIVE (NEGATIVE); Nitrite Urine UA NEGATIVE (Negative); Occult Blood Urine UA NEGATIVE (Negative); Protein Urine UA NEGATIVE (Negative); Specific Gravity Urine UA <=1.005 (1.000-1.035); Urobilinogen Urine UA 0.2 E.U./dL (0.2); pH Urine UA 6.5 (4.5-8.0)
[2023-07-27 10:27] LABS: Ur Creatinine Normal (Normal); Ur Specific Gravity Normal (Normal); Urine pH Normal (Normal)
[2023-07-27 10:28] LABS: UR Morphine/Opiate cutoff 300 Negative (Negative); Urine Amphetamines Negative (Negative); Urine Barbiturates Negative (Negative); Urine Benzodiazepines Negative (Negative); Urine Cocaine Negative (Negative); Urine MDMA Negative (Negative); Urine Methadone Negative (Negative); Urine Methamphetamines Negative (Negative); Urine Oxycodone Negative (Negative); Urine Phencyclidine Negative (Negative); Urine Tetrahydrocannabinol Negative (Negative); Urine Tricyclic Antidepressant Positive (Negative)
[2023-07-27 10:33] VITALS: BP 191/110; PULSE 88; RESP 20; O2SAT 98
[2023-07-27 10:34] LABS: Bacteria Urine None Seen; Culture Indicated Urine Cult Not Indicated; RBC Urine None Seen (0-5/HPF); Squamous Epithelial Cell Urine None Seen (0-5/HPF); Urine Volume 10mL (spun); WBC Urine None Seen (0-5/HPF)
--- NOTE | 2023-07-27 15:45 | PC.NURSE ---
pt called stating that his throat was closing. Pt speaking in full sentences. told to call 911 if his throat is closing. He states that it happens only when he lies down and Dr. Rae told himhe was fine. Pt is requesting ENT to see him. Encouraged to be seen if he felt as if he had to be seen but I could not tell him what a provider would or would not do.
== END 2023-07-27 10:34 | disposition home or self-care (01) ==
PROVIDERS: Emergency Provider Emergency Medicine; Family Provider Nurse Practitioner; PCP Family Medicine
DX: F10.20 Alcohol dependence, uncomplicated (principal); Z79.899 Other long term (current) drug therapy; Z20.822 Contact with and (suspected) exposure to COVID-19
CPT/HCPCS: 36415; 80053; 80305; 80320; 81001; 83690; 83735; 84443; 85025; 87635; 87651; 99283

== ENCOUNTER 2023-08-15 00:13 | Emergency (ER) | payer MEDICARE, MEDICAID, SELFPAY ==
[2023-08-15 00:17] VITALS: BP 104/62; PULSE 91; RESP 18; TEMP 36.5; O2SAT 96; BMI 29.8
--- NOTE | 2023-08-15 00:38 | ED_ITS ---
HPI - Recheck/Abnormal Lab/Rx General Chief Complaint: Recheck/Abnormal Lab/Rx Stated Complaint: LBP 95/49 Time Seen by Provider: 08/15/23 00:29 Source: patient and family Mode of arrival: Ambulatory Limitations: no limitations History of Present Illness HPI narrative: Patient is a 53-year-old male. Here for evaluation because he states he thinks that he took an extra dose of his clonidine and lisinopril this evening. Normally he states he takes these medications twice a day. He took them this morning then he took them this afternoon but thinks maybe he took it 1 extra time this afternoon. He has not completely sure this. He has been drinking alcohol and has been drinking all day. His mother is at bedside stating that he has been sleeping most of the day. He thinks that he is somewhat lightheaded. Is also here because he was told by 1 of his friends that we had a shuttle to take him to a detox facility in [place]. Related Data Previous Rx's Medication Instructions Recorded Glucometer Test Strips #100 ea 10/12/21 Lancettes #100 ea 10/12/21 Lancing Pen #1 ea 10/12/21 lisinopril 20 mg tablet See Rx Instructions .Route 12/04/22 .COMPLEX #180 tabs omega-3 acid ethyl esters 1 gram 1 cap PO BID #180 caps 01/07/23 capsule (Lovaza) doxepin 150 mg capsule 150 mg PO BEDTIME #90 caps 03/04/23 metoprolol tartrate 25 mg tablet See Rx Instructions .Route 04/19/23 .COMPLEX #90 tabs gabapentin 600 mg tablet 300 - 600 mg (0.5 - 1 x 600 mg) PO 05/06/23 TID PRN nerve pain #90 tabs tadalafil 20 mg tablet (Cialis) See Rx Instructions .Route 05/06/23 .COMPLEX sexual activity #30 tabs blood-glucose meter (Blood Glucose #1 ea 05/27/23 Monitoring kit) hydrochlorothiazide 25 mg tablet See Rx Instructions .Route 06/24/23 .COMPLEX #180 tabs clonidine HCl 0.2 mg tablet 0.2 mg PO BID #180 tabs 07/30/23 Allergies Allergy/AdvReac Type Severity Reaction Status Date / Time No Known Drug Allergies Allergy Verified 07/31/23 16:26 Review of Systems Constitutional Constitutional: Reports system reviewed and no additional complaints, except as documented Cardiovascular Cardiovascular: Reports system reviewed and no additional complaints, except as documented Respiratory Respiratory: Reports system reviewed and no additional complaints, except as documented Neurologic Neurologic: Reports system reviewed and no additional complaints, except as documented Patient History Medical History Abdominal ascites Peripheral neuropathy Alcohol use disorder, moderate, dependence Alcohol cessation counseling High triglycerides Non-insulin dependent diabetes mellitus Mixed hyperlipidemia due to type 2 diabetes mellitus Elevated fasting blood sugar Paresthesia of both feet Back pain Depression with anxiety Insomnia COVID-19 vaccine series declined Alcohol use disorder Tobacco use disorder, mild, in early remission Elevated LFTs Blood glucose elevated Class 1 obesity in adult Alcohol dependence, daily use Smokes tobacco daily Hyperlipidemia Hypertension Lumbosacral spondylosis Bilateral foot pain Recto-perineal fistula Hypertension Rectal bleeding Lower GI bleed Atypical chest pain Surgical History History of rectal surgery Family History Father Alive and well Mother Alive and well Social History marital status: unmarried,single household members: none occupational status: disabled Smoking Status: Current some day smoker second hand exposure: No alcohol intake: current Smoking Status: Current some day smoker tobacco type: cigarettes alcohol intake frequency: 3 or more drinks per day Alcohol type: beer and hard liquor Substance Use Type: does not use Exam Initial Vital Signs Initial Vital Signs: Vital Signs Temperature 97.7 F 08/15/23 00:17 Pulse Rate 91 H 08/15/23 00:17 Respiratory Rate 18 08/15/23 00:17 Blood Pressure 104/62 08/15/23 00:17 Pulse Oximetry 96 08/15/23 00:17 Oxygen Delivery Method Room Air 08/15/23 00:17 Const General: cooperative and comfortable HENMT Head: normal to inspection and normocephalic Resp Effort & Inspection: normal respiratory effort Cardio Rate: regular rate Neuro General: patient alert, patient awake and moves all extremities Extrem General: normal to inspection Course Vital Signs Vital signs: Vital Signs - 8 hr 08/15/23 00:17 Temperature 97.7 F Pulse Rate 91 H Respiratory Rate 18 Blood Pressure 104/62 Pulse Oximetry 96 Oxygen Delivery Method Room Air MDM - Recheck/Abnormal Lab/Rx MDM Narrative Medical decision making narrative: Patient does admit to drinking alcohol. He has not completely sure whether or not he actually took an extra dose of his medication and if he did it would have been 1 extra dose of lisinopril and 1 extra dose of clonidine. Systolic blood pressure greater than 100. No indication for labs. No indication for radiologic studies. Advised patient that unfortunately we do not have transportation to any detox facilities. Patient states he was going to contact his sponsor and he has the phone number for the detox facility where he would like to go when will give them a call in the morning. Will discharge patient home with return precautions and with his mother. Discharge Plan Departure Patient Disposition: Home Clinical Impression: Alcohol intoxication, Accidental medication overdose Activity Restrictions/Additional Instructions: It is important that you keep your medications secure and that you take them as directed. I would advise that you contact the detox facility that you were seeking to go to in the morning to see if they have bed availability. Return to the emergency department for new symptoms. Prescriptions: No Action lisinopril 20 mg tablet See Rx Instructions .ROUTE .COMPLEX Qty: 180 3RF Dose Instruction: take 1 tablet by mouth twice a day Rx Instructions: take 1 tablet by mouth twice a day omega-3 acid ethyl esters [Lovaza] 1 gram capsule 1 cap PO BID Qty: 180 3RF Rx Instructions: Take 1 tab twice daily for elevated triglycerides doxepin 150 mg capsule 150 mg PO BEDTIME Qty: 90 3RF Rx Instructions: Take 1 capsule at bedtime daily for sleep. metoprolol tartrate 25 mg tablet See Rx Instructions .ROUTE .COMPLEX Qty: 90 0RF Dose Instruction: take 1 tablet by mouth once daily Rx Instructions: take 1 tablet by mouth once daily gabapentin 600 mg tablet 300 - 600 mg PO TID PRN (Reason: nerve pain) Qty: 90 11RF tadalafil [Cialis] 20 mg tablet See Rx Instructions .ROUTE .COMPLEX Qty: 30 3RF Rx Instructions: administer approximately 30min before sexual activity; do not use more than 1 dose per 24hrs; hydrochlorothiazide 25 mg tablet See Rx Instructions .ROUTE .COMPLEX Qty: 180 1RF Dose Instruction: take 2 tablets by mouth every morning Rx Instructions: take 2 tablets by mouth every morning clonidine HCl 0.2 mg tablet 0.2 mg PO BID Qty: 180 0RF (DME) blood-glucose meter [Blood Glucose Monitoring] Kit See Rx Instructions .Route Qty: 1 0RF Rx Instructions: As directed. (DME) Glucometer Test Strips See Rx Instructions .Route .MEDSUPPLY Qty: 100 3RF Rx Instructions: Check blood sugars daily fasting each morning (DME) Lancettes See Rx Instructions .Route .MEDSUPPLY Qty: 100 3RF Rx Instructions: Check blood sugars fasting each morning and as needed (DME) Lancing Pen See Rx Instructions .Route .MEDSUPPLY Qty: 1 0RF Rx Instructions: As directed Referrals: Radha Peck MD [Primary Care Provider] - Stand Alone Forms: Patient Portal/API
[2023-08-15 01:00] VITALS: BP 126/65; PULSE 72; RESP 18; O2SAT 97
== END 2023-08-15 01:00 | disposition home or self-care (01) ==
PROVIDERS: Emergency Provider Emergency Medicine; Family Provider Nurse Practitioner; PCP Family Medicine
DX: F10.129 Alcohol abuse with intoxication, unspecified (principal); T46.5X1A Poisoning by other antihypertensive drugs, accidental (unintentional), initial encounter
CPT/HCPCS: 99281

== ENCOUNTER 2023-08-22 16:35 | Emergency (ER) | payer MEDICARE, MEDICAID, SELFPAY ==
[2023-08-22] VITALS (10 sets, daily range): BP systolic 112–168; BP diastolic 63–97; PULSE 75–82; RESP 11–19; TEMP 36.7; O2SAT 95–100; BMI 25.9
--- NOTE | 2023-08-22 17:22 | DI.RAD.S_ITS ---
PROCEDURE: XR CHEST 1V INDICATIONS: chest pain TECHNIQUE: One view of the chest was acquired. COMPARISON: [facility], CR, XR CHEST 1V, 02/03/2023, 14:39. [facility], CR, XR CHEST 1V, 06/06/2022, 10:26. FINDINGS: Surgical changes and devices: None. Lungs and pleura: No dense consolidation or pleural effusion. Mediastinum: Normal heart size Bones and chest wall: Degenerative changes. IMPRESSION: Limited single view radiograph without acute abnormality. Dictated by: Zachary Tai M.D. on 08/22/2023 at 18:36 Approved by: Zachary Tai M.D. on 08/22/2023 at 18:36
--- NOTE | 2023-08-22 17:28 | PC.NURSE ---
This RN called poison control for possible extra dose ingestion of the following medications 20mg lisinopril BID, Metoprolol 25g daily, clonadine 0.2mg BID and Hydrochlorothiazide 25mg. [facility] poison control recommended a 6 hour observation period prior to discharge.
[2023-08-22 17:42] LABS: INR 0.9 (0.9-1.3); Prothrombin Time 10.5 SECONDS (9.4-12.5)
[2023-08-22 17:45] LABS: PTT Partial Thromboplastin Tim 34 SECONDS (25.1-36.5)
[2023-08-22 17:47] LABS: Alanine Aminotransferase 198 IU/L (<50); Albumin 4.9 g/dL (3.5-5.0); Albumin Globulin Ratio 1.5 (1.0-2.8); Alkaline Phosphatase 86 U/L (38-126); Aspartate Aminotransferase 268 IU/L (17-59); BUN Creatinine Ratio 9.8 (6-22); Bilirubin Total 1.1 mg/dL (0.2-1.3); Blood Urea Nitrogen 17 mg/dL (9-20); Calcium 9.9 mg/dL (8.4-10.2); Carbon Dioxide 25 mmol/L (22-32); Creatine Kinase 214 U/L (55-170); Estimated Glomerular Filt Rate 46 mL/min (>60); Globulin 3.3 g/dL (1.7-4.1); Glucose 138 mg/dL (70-100); HEMOLYSIS < 15 (0-50); Lipase 125 U/L (23-300); Magnesium 1.4 mg/dL (1.6-2.3); Potassium 3.2 mmol/L (3.4-5.1); Sodium 123 mmol/L (137-145); Total Protein 8.2 g/dL (6.3-8.2)
[2023-08-22 17:48] LABS: Acetaminophen < 10 ug/mL (10-30); Ethanol (ETOH) 126 mg/dL
[2023-08-22 17:58] LABS: Chloride 76 mmol/L (98-107); Troponin I 0.024 ng/mL (0.01-0.034)
[2023-08-22 18:03] LABS: Add Manual Diff / Slide Review NO; Basophils Absolute Auto 0 /uL (0-100); Basophils Percent Auto 0.8 % (0-2); Eosinophils Absolute Auto 200 /uL (0-450); Eosinophils Percent Auto 3.5 % (2-4); Hematocrit 38.7 % (41-53); Hemoglobin 13.7 g/dL (13.5-17.5); Lymphocytes Absolute Auto 1100 /uL (1100-4500); Lymphocytes Percent Auto 21.8 % (25-40); Mean Corpuscular HGB Conc 35.3 % (30-36); Mean Corpuscular Hemoglobin 33.3 PG (26-34); Mean Corpuscular Volume 94.1 fL (80-100); Monocytes Absolute Auto 700 /uL (0-900); Monocytes Percent Auto 12.5 % (3-14); Neutrophils Absolute Auto 3200 /uL (1500-7000); Neutrophils Percent Auto 61.4 % (50-75); Platelet Count 153 X10^3/uL (150-400); Red Blood Cell Count 4.11 X10^6/uL (4.5-5.9); Red Cell Distribution Width 14.4 % (11.6-14.8); White Blood Cell Count 5.3 X10^3/uL (4.5-11.0)
--- NOTE | 2023-08-22 18:06 | ED.GENADULT ---
HPI - General Adult General Chief complaint: Syncope Stated complaint: Syncope Time Seen by Provider: 08/22/23 17:56 Source: patient and EMS Mode of arrival: EMS History of Present Illness HPI narrative: 53-year-old male with a history of alcohol use disorder, hypertension presents by EMS from home for near syncopal event. Patient called 911 for being lightheaded with low blood pressure. Patient told nursing staff that sometimes he accidentally takes too many of his blood pressure medications and is concerned that that may have happened. Related Data Previous Rx's Medication Instructions Recorded Glucometer Test Strips #100 ea 10/12/21 Lancettes #100 ea 10/12/21 Lancing Pen #1 ea 10/12/21 lisinopril 20 mg tablet See Rx Instructions .Route 12/04/22 .COMPLEX #180 tabs omega-3 acid ethyl esters 1 gram 1 cap PO BID #180 caps 01/07/23 capsule (Lovaza) doxepin 150 mg capsule 150 mg PO BEDTIME #90 caps 03/04/23 metoprolol tartrate 25 mg tablet See Rx Instructions .Route 04/19/23 .COMPLEX #90 tabs gabapentin 600 mg tablet 300 - 600 mg (0.5 - 1 x 600 mg) PO 05/06/23 TID PRN nerve pain #90 tabs tadalafil 20 mg tablet (Cialis) See Rx Instructions .Route 05/06/23 .COMPLEX sexual activity #30 tabs blood-glucose meter (Blood Glucose #1 ea 05/27/23 Monitoring kit) hydrochlorothiazide 25 mg tablet See Rx Instructions .Route 06/24/23 .COMPLEX #180 tabs clonidine HCl 0.2 mg tablet 0.2 mg PO BID #180 tabs 07/30/23 Allergies Allergy/AdvReac Type Severity Reaction Status Date / Time No Known Drug Allergies Allergy Verified 08/22/23 18:16 Review of Systems Review of Systems Narrative: Negative except as noted above Patient History Medical History Abdominal ascites Peripheral neuropathy Alcohol use disorder, moderate, dependence Alcohol cessation counseling High triglycerides Non-insulin dependent diabetes mellitus Mixed hyperlipidemia due to type 2 diabetes mellitus Elevated fasting blood sugar Paresthesia of both feet Back pain Depression with anxiety Insomnia COVID-19 vaccine series declined Alcohol use disorder Tobacco use disorder, mild, in early remission Elevated LFTs Blood glucose elevated Class 1 obesity in adult Alcohol dependence, daily use Smokes tobacco daily Hyperlipidemia Hypertension Lumbosacral spondylosis Bilateral foot pain Recto-perineal fistula Hypertension Rectal bleeding Lower GI bleed Atypical chest pain Surgical History History of rectal surgery Family History Father Alive and well Mother Alive and well Social History marital status: unmarried,single household members: none occupational status: disabled Smoking Status: Current some day smoker second hand exposure: No alcohol intake: current Smoking Status: Current some day smoker tobacco type: cigarettes alcohol intake frequency: 3 or more drinks per day Alcohol type: beer and hard liquor Substance Use Type: does not use Exam Initial Vital Signs Initial Vital Signs: Vital Signs Blood Pressure 123/69 08/22/23 16:45 Pulse Oximetry 95 08/22/23 16:45 Const: Awake, alert, no acute distress Cardiac: regular rate, regular rhythm RESP: unlabored, clear bilaterally, no wheezing GI: Atraumatic, soft, nontender MSK: Atraumatic, full range of motion, pulses equal Skin: Warm, Dry, intact, no rashes Neuro: AO x3, CN II-XII grossly intact, moves all extremities Course Orders Ordered: Discontinued Medications Clonidine HCl (Clonidine 0.1 Mg Tablet) 0.2 mg PO NOW ONE Stop: 08/22/23 20:06 Last Admin: 08/22/23 20:14 Dose: Not Given Documented By: AB Folic Acid (Folic Acid 1 Mg Tablet) 1 mg PO NOW ONE Stop: 08/22/23 18:05 Last Admin: 08/22/23 18:16 Dose: 1 mg Documented By: RB Thiamine HCl 200 mg/ Sodium (Chloride) 102 mls @ 408 mls/hr IV NOW ONE Stop: 08/22/23 18:05 Last Infusion: 08/22/23 18:39 Dose: Infused Documented By: Admin: 08/22/23 18:16 Dose: 408 mls/hr Documented By: RB Sodium Chloride (Normal Saline 0.9%) 1,000 mls @ 1,000 mls/hr IV BOLUS ONE Stop: 08/22/23 19:03 Last Infusion: 08/22/23 19:21 Dose: Infused Documented By: Admin: 08/22/23 18:17 Dose: 1,000 mls/hr Documented By: RB Lisinopril (Lisinopril 20 Mg Tablet) 20 mg PO NOW ONE Stop: 08/22/23 20:06 Last Admin: 08/22/23 20:14 Dose: Not Given Documented By: AB Vital Signs Vital signs: Vital Signs - 8 hr 08/22/23 16:45 08/22/23 16:45 08/22/23 16:51 Temperature 98.1 F Pulse Rate 75 Respiratory Rate 18 Blood Pressure 123/69 112/63 Pulse Oximetry 95 98 Oxygen Delivery Method Room Air 08/22/23 17:00 08/22/23 17:00 08/22/23 17:30 Temperature Pulse Rate 75 76 Respiratory Rate 19 14 Blood Pressure 112/63 Pulse Oximetry 97 99 Oxygen Delivery Method 08/22/23 17:30 08/22/23 18:00 08/22/23 18:00 Temperature Pulse Rate 78 Respiratory Rate 12 Blood Pressure 113/65 131/77 Pulse Oximetry 97 Oxygen Delivery Method 08/22/23 18:30 08/22/23 18:45 08/22/23 18:45 Temperature Pulse Rate 78 80 Respiratory Rate 15 14 Blood Pressure 148/91 H Pulse Oximetry 99 100 Oxygen Delivery Method 08/22/23 19:00 08/22/23 19:00 08/22/23 19:30 Temperature Pulse Rate 82 82 Respiratory Rate 11 L 13 Blood Pressure 149/87 H Pulse Oximetry 100 98 Oxygen Delivery Method 08/22/23 19:30 Temperature Pulse Rate Respiratory Rate Blood Pressure 159/85 H Pulse Oximetry Oxygen Delivery Method Medical Decision Making Lab Data 08/22/23 17:37 08/22/23 17:37 Labs: Lab Results 08/22/23 08/22/23 Range/Units 17:37 18:15 WBC 5.3 (4.5-11.0) X10^3/uL RBC 4.11 L (4.5-5.9) X10^6/uL Hgb 13.7 (13.5-17.5) g/dL Hct 38.7 L (41-53) % MCV 94.1 (80-100) fL MCH 33.3 (26-34) PG MCHC 35.3 (30-36) % RDW 14.4 (11.6-14.8) % Plt Count 153 (150-400) X10^3/uL Neut % (Auto) 61.4 (50-75) % Lymph % (Auto) 21.8 L (25-40) % Wright % (Auto) 12.5 (3-14) % Eos % (Auto) 3.5 (2-4) % Baso % (Auto) 0.8 (0-2) % Neut # (Auto) 3200 (7376-0769) /uL Lymph # (Auto) 1100 (7880-6710) /uL Wright # (Auto) 700 (0-900) /uL Eos # (Auto) 200 (0-450) /uL Baso # (Auto) 0 (0-100) /uL PT 10.5 (9.4-12.5) SECONDS INR 0.9 (0.9-1.3) APTT 34 (25.1-36.5) SECONDS Sodium 123 L (137-145) mmol/L Potassium 3.2 L (3.4-5.1) mmol/L Chloride 76 L* (98-107) mmol/L Carbon Dioxide 25 (22-32) mmol/L BUN 17 (9-20) mg/dL Creatinine 1.73 H (0.66-1.25) mg/dL Estimated GFR 46 L (>60) mL/min BUN/Creatinine Ratio 9.8 (6-22) Glucose 138 H (70-100) mg/dL Calcium 9.9 (8.4-10.2) mg/dL Magnesium 1.4 L (1.6-2.3) mg/dL Total Bilirubin 1.1 (0.2-1.3) mg/dL AST 268 H (17-59) IU/L ALT 198 H (<50) IU/L Alkaline Phosphatase 86 (38-126) U/L Total Creatine Kinase 214 H (55-170) U/L Troponin I 0.024 (0.01-0.034) ng/mL Total Protein 8.2 (6.3-8.2) g/dL Albumin 4.9 (3.5-5.0) g/dL Globulin 3.3 (1.7-4.1) g/dL Albumin/Globulin Ratio 1.5 (1.0-2.8) Lipase 125 (23-300) U/L U Opiates 300ng/mL cut Negative (Negative) Ur Oxycodone Screen Negative (Negative) Urine Methadone Screen Negative (Negative) Acetaminophen < 10 (10-30) ug/mL Ur Barbiturates Screen Negative (Negative) U Tricyclic Antidepress Positive H (Negative) Ur Phencyclidine Scrn Negative (Negative) Ur Amphetamines Screen Negative (Negative) U Methamphetamines Scrn Negative (Negative) Ur MDMA Scrn (Ecstasy) Negative (Negative) U Benzodiazepines Scrn Negative (Negative) Urine Cocaine Screen Negative (Negative) U Marijuana (THC) Screen Negative (Negative) Urine pH Normal (Normal) Urine Specific [place] Normal (Normal) Ethyl Alcohol 126 H ( - 10) mg/dL Ur Creatinine Normal (Normal) MDM Narrative Medical decision making narrative: Low blood pressure and lightheadedness, possible accidental over ingestion of blood pressure medications. On the time my evaluation patient had been in the emergency department for 2 hours. He was awake, alert, no acute distress. Poison control was contacted by nursing staff upon the patient's arrival to the emergency department and they recommended a 6 hour observation. Based on patient's longstanding alcoholism thiamine and folic acid was ordered. Laboratory work is reviewed, no leukocytosis, hemoglobin 13.7. Sodium 123, which appears to be down trending since June of 2023. Potassium 3.2, chloride 76. Baseline chloride appears to be mid 90s. Creatinine 1.73, baseline approximately 1. T bili 1.1, AST 268, ALT 198, liver enzymes appear to be up trending, consistent with the patient's ongoing alcohol abuse. Patient was given IV fluids and observed, there did not appear to be any signs or symptoms of alcohol withdrawal. After approximately 4 hours in the emergency department patient began demanding his home blood pressure medications because his blood pressure began to elevate. He demanded to leave so that he go home and take his medications. I explained to the patient that poison control recommended that he remain for 6 hours, however he pointed to his blood pressure reading and states ?I probably did not end up taking extra since my blood pressure is now high and I do not want to stay here anymore?. Patient signed out against medical advice. Counseled to go to [facility] for alcohol detox. Patient has been referred to [facility] several times in the past. Discharge Plan Departure Patient Disposition: Home Clinical Impression: Hypertension, Alcohol use disorder, Left against medical advice, Accidental drug overdose Instructions: DI for Syncope in Adults (Fainting), DI for Alcohol Use Disorder Activity Restrictions/Additional Instructions: Follow up with [facility] Prescriptions: No Action lisinopril 20 mg tablet See Rx Instructions .ROUTE .COMPLEX Qty: 180 3RF Dose Instruction: take 1 tablet by mouth twice a day Rx Instructions: take 1 tablet by mouth twice a day omega-3 acid ethyl esters [Lovaza] 1 gram capsule 1 cap PO BID Qty: 180 3RF Rx Instructions: Take 1 tab twice daily for elevated triglycerides doxepin 150 mg capsule 150 mg PO BEDTIME Qty: 90 3RF Rx Instructions: Take 1 capsule at bedtime daily for sleep. metoprolol tartrate 25 mg tablet See Rx Instructions .ROUTE .COMPLEX Qty: 90 0RF Dose Instruction: take 1 tablet by mouth once daily Rx Instructions: take 1 tablet by mouth once daily gabapentin 600 mg tablet 300 - 600 mg PO TID PRN (Reason: nerve pain) Qty: 90 11RF tadalafil [Cialis] 20 mg tablet See Rx Instructions .ROUTE .COMPLEX Qty: 30 3RF Rx Instructions: administer approximately 30min before sexual activity; do not use more than 1 dose per 24hrs; hydrochlorothiazide 25 mg tablet See Rx Instructions .ROUTE .COMPLEX Qty: 180 1RF Dose Instruction: take 2 tablets by mouth every morning Rx Instructions: take 2 tablets by mouth every morning clonidine HCl 0.2 mg tablet 0.2 mg PO BID Qty: 180 0RF (DME) blood-glucose meter [Blood Glucose Monitoring] Kit See Rx Instructions .Route Qty: 1 0RF Rx Instructions: As directed. (DME) Glucometer Test Strips See Rx Instructions .Route .MEDSUPPLY Qty: 100 3RF Rx Instructions: Check blood sugars daily fasting each morning (DME) Lancettes See Rx Instructions .Route .MEDSUPPLY Qty: 100 3RF Rx Instructions: Check blood sugars fasting each morning and as needed (DME) Lancing Pen See Rx Instructions .Route .MEDSUPPLY Qty: 1 0RF Rx Instructions: As directed Referrals: Radha Peck MD [Primary Care Provider] - Stand Alone Forms: Patient Portal/API
[2023-08-22] MEDS: THIAMINE 200 MG in SODIUM CHLORIDE 0.9% 100 ML 408 MG IV (18:16)
[2023-08-22] MEDS: FOLIC ACID 1 MG TABLET PO (18:16)
[2023-08-22] MEDS: SODIUM CHLORIDE 0.9% 1,000 ML 1000 ML IV (18:17)
[2023-08-22 18:39] LABS: Ur Creatinine Normal (Normal); Ur Specific Gravity Normal (Normal); Urine pH Normal (Normal)
[2023-08-22 18:40] LABS: UR Morphine/Opiate cutoff 300 Negative (Negative); Urine Amphetamines Negative (Negative); Urine Barbiturates Negative (Negative); Urine Benzodiazepines Negative (Negative); Urine Cocaine Negative (Negative); Urine MDMA Negative (Negative); Urine Methadone Negative (Negative); Urine Methamphetamines Negative (Negative); Urine Oxycodone Negative (Negative); Urine Phencyclidine Negative (Negative); Urine Tetrahydrocannabinol Negative (Negative); Urine Tricyclic Antidepressant Positive (Negative)
== END 2023-08-22 20:16 | disposition home or self-care (01) ==
PROVIDERS: Emergency Medicine; Emergency Provider Emergency Medicine; Family Provider Nurse Practitioner; PCP Family Medicine
DX: I10 Essential (primary) hypertension (principal); F10.129 Alcohol abuse with intoxication, unspecified; Y90.6 Blood alcohol level of 120-199 mg/100 ml; T50.901A Poisoning by unspecified drugs, medicaments and biological substances, accidental (unintentional), initial encounter; R07.9 Chest pain, unspecified
CPT/HCPCS: 36415; 71045; 80053; 80305; 80320; 80329; 82550; 83690; 83735; 84484; 85025; 85610; 85730; 93005; 93010; 96360; 99284; G0480

== ENCOUNTER 2023-09-18 23:26 | Emergency (ER) | payer MEDICARE, MEDICAID, SELFPAY ==
--- NOTE | 2023-09-18 23:39 | PC.NURSE ---
Got patient to room. checked BP and bp was 117/66. Pt stated since his bp was in a normal range he wanted to go. Unable to completely triage
== END 2023-09-18 23:42 | disposition left against medical advice (07) ==
PROVIDERS: Emergency Provider Emergency Medicine; Family Provider Nurse Practitioner; PCP Family Medicine
DX: R42 Dizziness and giddiness (principal)

== ENCOUNTER 2023-09-30 13:13 | Emergency (ER) | payer MEDICARE, MEDICAID, SELFPAY ==
[2023-09-30 13:34] VITALS: BP 195/104; PULSE 95; RESP 16; TEMP 36.7; O2SAT 98; BMI 29.3
[2023-09-30 14:03] LABS: Add Manual Diff / Slide Review NO; Basophils Absolute Auto 0 /uL (0-100); Basophils Percent Auto 1.1 % (0-2); Eosinophils Absolute Auto 100 /uL (0-450); Eosinophils Percent Auto 2.4 % (2-4); Hematocrit 34.4 % (41-53); Hemoglobin 11.9 g/dL (13.5-17.5); Lymphocytes Absolute Auto 1000 /uL (1100-4500); Lymphocytes Percent Auto 22.6 % (25-40); Mean Corpuscular HGB Conc 34.5 % (30-36); Mean Corpuscular Hemoglobin 33.8 PG (26-34); Mean Corpuscular Volume 97.9 fL (80-100); Monocytes Absolute Auto 500 /uL (0-900); Monocytes Percent Auto 10.2 % (3-14); Neutrophils Absolute Auto 2900 /uL (1500-7000); Neutrophils Percent Auto 63.7 % (50-75); Platelet Count 188 X10^3/uL (150-400); Red Blood Cell Count 3.51 X10^6/uL (4.5-5.9); Red Cell Distribution Width 14.5 % (11.6-14.8); White Blood Cell Count 4.6 X10^3/uL (4.5-11.0)
[2023-09-30 14:12] LABS: PTT Partial Thromboplastin Tim 38 SECONDS (25.1-36.5)
[2023-09-30 14:15] LABS: Alanine Aminotransferase 48 IU/L (<50); Albumin 5.1 g/dL (3.5-5.0); Albumin Globulin Ratio 1.5 (1.0-2.8); Alkaline Phosphatase 68 U/L (38-126); Aspartate Aminotransferase 58 IU/L (17-59); Bilirubin Total 0.8 mg/dL (0.2-1.3); Blood Urea Nitrogen 8 mg/dL (9-20); Calcium 10.1 mg/dL (8.4-10.2); Carbon Dioxide 33 mmol/L (22-32); Chloride 99 mmol/L (98-107); Estimated Glomerular Filt Rate > 60 mL/min (>60); Globulin 3.3 g/dL (1.7-4.1); Glucose 118 mg/dL (70-100); HEMOLYSIS < 15 (0-50); Potassium 3.5 mmol/L (3.4-5.1); Sodium 137 mmol/L (137-145); Total Protein 8.4 g/dL (6.3-8.2)
[2023-09-30 16:33] LABS: Bacteria Urine Occasional (0-1); RBC Urine 0-1/HPF (0-5/HPF); Squamous Epithelial Cell Urine 1-5 /HPF (0-5/HPF); Urine Volume 10mL (spun); WBC Urine 1-5/HPF (0-5/HPF)
[2023-09-30 16:34] LABS: Culture Indicated Urine Specimen Cultured; Mucus Urine 2+ (Negative)
[2023-09-30 16:47] VITALS: PULSE 101
[2023-09-30 16:49] VITALS: BP 155/103; PULSE 98; RESP 16; O2SAT 94
[2023-09-30 17:00] VITALS: PULSE 97; RESP 15; O2SAT 97
[2023-09-30] MEDS: PANTOPRAZOLE 40 MG VIAL 80 MG IV (17:00)
[2023-09-30 17:30] VITALS: PULSE 93; RESP 21; O2SAT 97
[2023-09-30 18:00] VITALS: PULSE 94; RESP 22; O2SAT 97
--- NOTE | 2023-09-30 18:09 | ED_ITS ---
HPI - GI Bleed General Chief complaint: GI Bleed Stated complaint: blood in stool x7 days Time Seen by Provider: 09/30/23 17:54 Source: patient Mode of arrival: Ambulatory History of Present Illness HPI Narrative: 53-year-old male with history of hypertension, alcohol use disorder presents by private vehicle from home for blood in his stool. Patient states that for the last 7 days he has had bright red blood in the toilet bowl when he goes to the bathroom. He states that this has happened previously and usually resolves after 3-4 days. It has never lasted this long. Reports 2 recent negative colonoscopies for this issue. States occasionally he feels abdominal pain but none currently. Related Data Previous Rx's Medication Instructions Recorded Glucometer Test Strips #100 ea 10/12/21 Lancettes #100 ea 10/12/21 Lancing Pen #1 ea 10/12/21 lisinopril 20 mg tablet See Rx Instructions .Route 12/04/22 .COMPLEX #180 tabs omega-3 acid ethyl esters 1 gram 1 cap PO BID #180 caps 01/07/23 capsule (Lovaza) doxepin 150 mg capsule 150 mg PO BEDTIME #90 caps 03/04/23 gabapentin 600 mg tablet 300 - 600 mg (0.5 - 1 x 600 mg) PO 05/06/23 TID PRN nerve pain #90 tabs tadalafil 20 mg tablet (Cialis) See Rx Instructions .Route 05/06/23 .COMPLEX sexual activity #30 tabs blood-glucose meter (Blood Glucose #1 ea 05/27/23 Monitoring kit) hydrochlorothiazide 25 mg tablet See Rx Instructions .Route 06/24/23 .COMPLEX #180 tabs clonidine HCl 0.2 mg tablet 0.2 mg PO BID #180 tabs 07/30/23 metoprolol tartrate 25 mg tablet See Rx Instructions .Route 09/03/23 .COMPLEX #30 tabs Allergies Allergy/AdvReac Type Severity Reaction Status Date / Time No Known Drug Allergies Allergy Verified 09/27/23 16:24 Review of Systems Review of Systems Narrative: Negative except as noted above Patient History Medical History Back pain Abdominal ascites Peripheral neuropathy Alcohol use disorder, moderate, dependence High triglycerides Non-insulin dependent diabetes mellitus Elevated fasting blood sugar Paresthesia of both feet Depression with anxiety Insomnia COVID-19 vaccine series declined Tobacco use disorder, mild, in early remission Elevated LFTs Blood glucose elevated Class 1 obesity in adult Alcohol dependence, daily use Smokes tobacco daily Hyperlipidemia Hypertension Lumbosacral spondylosis Recto-perineal fistula Lower GI bleed Atypical chest pain Surgical History History of rectal surgery Family History Father Alive and well Mother Alive and well Social History marital status: unmarried,single household members: none occupational status: disabled Smoking Status: Current some day smoker second hand exposure: No alcohol intake: current Smoking Status: Current some day smoker tobacco type: cigarettes alcohol intake frequency: 3 or more drinks per day Alcohol type: hard liquor Substance Use Type: does not use Exam Initial Vital Signs Initial Vital Signs: Vital Signs Temperature 98.1 F 09/30/23 13:34 Pulse Rate 95 H 09/30/23 13:34 Respiratory Rate 16 09/30/23 13:34 Blood Pressure 195/104 H 09/30/23 13:34 Pulse Oximetry 98 09/30/23 13:34 Oxygen Delivery Method Room Air 09/30/23 13:34 Const: Awake, alert, no acute distress, nontoxic appearing Cardiac: regular rate, regular rhythm RESP: unlabored, clear bilaterally, no wheezing GI: Soft, nontender, nondistended, no rebound, no guarding Skin: Warm, Dry, intact, no rashes Neuro: AO x3, CN II-XII grossly intact, moves all extremities Course Orders Ordered: Discontinued Medications Ondansetron HCl (Ondansetron 4 Mg/2 Ml Inj) 4 mg IV NOW PRN PRN Reason: Nausea And Vomiting Ondansetron HCl (Ondansetron 4 Mg Odt) 4 mg SL NOW PRN PRN Reason: Nausea And Vomiting Pantoprazole Sodium (Pantoprazole 40 Mg Vial) 80 mg IV NOW ONE Stop: 09/30/23 13:41 Last Admin: 09/30/23 17:00 Dose: 80 mg Documented By: BJ Vital Signs Vital signs: Vital Signs - 8 hr 09/30/23 16:47 09/30/23 16:49 09/30/23 16:49 Pulse Rate 101 H 98 H Respiratory Rate 16 Blood Pressure 155/103 H Pulse Oximetry 94 Oxygen Delivery Method 09/30/23 17:00 09/30/23 17:30 09/30/23 18:00 Pulse Rate 97 H 93 H 94 H Respiratory Rate 15 21 22 Blood Pressure Pulse Oximetry 97 97 97 Oxygen Delivery Method Room Air MDM - GI Bleed Differential Diagnosis Differential diagnosis: Likely hemorrhoids, infectious diarrhea and esophageal varices Lab Data 09/30/23 13:53 09/30/23 13:53 Labs: Lab Results 09/30/23 09/30/23 09/30/23 Range/Units 13:53 15:00 15:02 WBC 4.6 (4.5-11.0) X10^3/uL RBC 3.51 L (4.5-5.9) X10^6/uL Hgb 11.9 L (13.5-17.5) g/dL Hct 34.4 L (41-53) % MCV 97.9 (80-100) fL MCH 33.8 (26-34) PG MCHC 34.5 (30-36) % RDW 14.5 (11.6-14.8) % Plt Count 188 (150-400) X10^3/uL Neut % (Auto) 63.7 (50-75) % Lymph % (Auto) 22.6 L (25-40) % [place] % (Auto) 10.2 (3-14) % Eos % (Auto) 2.4 (2-4) % Baso % (Auto) 1.1 (0-2) % Neut # (Auto) 2900 (3289-4401) /uL Lymph # (Auto) 1000 L (1055-1021) /uL [place] # (Auto) 500 (0-900) /uL Eos # (Auto) 100 (0-450) /uL Baso # (Auto) 0 (0-100) /uL PT 12.0 (9.4-12.5) SECONDS INR 1.0 (0.9-1.3) APTT 38 H (25.1-36.5) SECONDS Sodium 137 (137-145) mmol/L Potassium 3.5 (3.4-5.1) mmol/L Chloride 99 (98-107) mmol/L Carbon Dioxide 33 H (22-32) mmol/L BUN 8 L (9-20) mg/dL Creatinine 0.73 (0.66-1.25) mg/dL Estimated GFR > 60 (>60) mL/min BUN/Creatinine Ratio 11.0 (6-22) Glucose 118 H (70-100) mg/dL Calcium 10.1 (8.4-10.2) mg/dL Total Bilirubin 0.8 (0.2-1.3) mg/dL AST 58 (17-59) IU/L ALT 48 (<50) IU/L Alkaline Phosphatase 68 (38-126) U/L Total Protein 8.4 H (6.3-8.2) g/dL Albumin 5.1 H (3.5-5.0) g/dL Globulin 3.3 (1.7-4.1) g/dL Albumin/Globulin Ratio 1.5 (1.0-2.8) Urine RBC 0-1/hpf (0-5/HPF) Urine WBC 1-5/hpf (0-5/HPF) Ur Squamous Epith Cells 1-5 /hpf (0-5/HPF) Urine Bacteria Occasional (0-1) (None) Urine Mucus 2+ H (Negative) Ur Culture Indicated? Specimen cultured Vol Urine Centrifuged 10ml (spun) Stl C. cayetanensis PCR Not detected (Not Detect) Stool Rotavirus (PCR) Not detected (Not Detect) Stool Adenovirus (PCR) Not detected (Not Detect) Stool Astrovirus (PCR) Not detected (Not Detect) Stool Cryptosporidium PCR Not detected (Not Detect) Stl E.coli Shiga Tox PCR Not detected (Not Detect) St Sh/Enteroin Ecoli PCR Not detected (Not Detect) Stl Enterotoxigenic E PCR Not detected (Not Detect) Stool EPEC (PCR) Not detected (Not Detect) Stl E. histolytica PCR Not detected (Not Detect) Stool Giardia Lamblia PCR Not detected (Not Detect) Stool Sapovirus (PCR) Not detected (Not Detect) Stl P. shigelloides PCR Not detected (Not Detect) St Y.enterocolitica PCR Not detected (Not Detect) Stool Vibrio (PCR) Not detected (Not Detect) Stl Vibrio cholerae PCR Not detected (Not Detect) Stl Enteroaggr Ecoli PCR Not detected (Not Detect) Stl Norovirus GI/GII PCR Not detected (Not Detect) Campylobacter (PCR) Not detected (Not Detect) C. difficile Tox (PCR) Not detected (Not Detect) Salmonella (PCR) Not detected (Not Detect) Blood Type O Positive Antibody Screen Negative Point of Care Testing Stool Occult Blood Positive Urine Dip Bedside Urine Glucose Negative Bedside Urine Bilirubin - Negative Bedside Urine Ketone +/- 5 Urine Specific [place] 1.025 Bedside Urine Occult Blood - Negative Bedside Urine pH 5.5 Bedside Urine Protein +/- 15 Bedside Urine Urobilinogen - Negative Bedside Urine Nitrite - Negative Bedside Urine Leukocytes +/- 15 Esterase MDM Narrative Medical decision making narrative: Nontoxic patient presenting for 1 week of blood in his stools. Stool guaiac positive, sent for culture. On my evaluation patient was hemodynamically stable, resting comfortably in bed, anxious to go home. Abdomen is soft, no reproducible tenderness to palpation, at this time no indication for advanced imaging. Laboratory work today significant for hemoglobin 11.9, platelets 188, sodium 137, potassium 3.5, creatinine 0.7, normal liver enzymes. Patient's baseline hemoglobin is approximately 12 to 13, patient is not significantly different from his baseline. Clinically significant bleed would likely show much lower hemoglobin, especially since this is reported to has been ongoing for 1 week. Patient states that he does not want to wait for stool culture results and will follow up with his primary care physician. ED return precautions discussed at bedside. Discharge Plan Departure Patient Disposition: Home Clinical Impression: Bloody stool Instructions: Gastrointestinal Bleeding Activity Restrictions/Additional Instructions: Follow up with your primary care physician. If you notice shortness of breath, chest pain, severe abdominal pain or worsening bleeding please return to the emergency department for evaluation. Follow up with the physician who did your colonoscopy Prescriptions: No Action lisinopril 20 mg tablet See Rx Instructions .ROUTE .COMPLEX Qty: 180 3RF Dose Instruction: take 1 tablet by mouth twice a day Rx Instructions: take 1 tablet by mouth twice a day omega-3 acid ethyl esters [Lovaza] 1 gram capsule 1 cap PO BID Qty: 180 3RF Rx Instructions: Take 1 tab twice daily for elevated triglycerides doxepin 150 mg capsule 150 mg PO BEDTIME Qty: 90 3RF Rx Instructions: Take 1 capsule at bedtime daily for sleep. gabapentin 600 mg tablet 300 - 600 mg PO TID PRN (Reason: nerve pain) Qty: 90 11RF tadalafil [Cialis] 20 mg tablet See Rx Instructions .ROUTE .COMPLEX Qty: 30 3RF Rx Instructions: administer approximately 30min before sexual activity; do not use more than 1 dose per 24hrs; hydrochlorothiazide 25 mg tablet See Rx Instructions .ROUTE .COMPLEX Qty: 180 1RF Dose Instruction: take 2 tablets by mouth every morning Rx Instructions: take 2 tablets by mouth every morning clonidine HCl 0.2 mg tablet 0.2 mg PO BID Qty: 180 0RF metoprolol tartrate 25 mg tablet See Rx Instructions .ROUTE .COMPLEX Qty: 30 0RF Dose Instruction: take 1 tablet by mouth once daily Rx Instructions: take 1 tablet by mouth once daily. NEED TO COME TO SCHEDULED APPT FOR REFILLS (DME) blood-glucose meter [Blood Glucose Monitoring] Kit See Rx Instructions .Route Qty: 1 0RF Rx Instructions: As directed. (DME) Glucometer Test Strips See Rx Instructions .Route .MEDSUPPLY Qty: 100 3RF Rx Instructions: Check blood sugars daily fasting each morning (DME) Lancettes See Rx Instructions .Route .MEDSUPPLY Qty: 100 3RF Rx Instructions: Check blood sugars fasting each morning and as needed (DME) Lancing Pen See Rx Instructions .Route .MEDSUPPLY Qty: 1 0RF Rx Instructions: As directed Referrals: Radha Peck MD [Primary Care Provider] - Stand Alone Forms: Patient Portal/API
[2023-09-30 19:04] LABS: Adenovirus F 40/41 Not Detected (Not Detect); Astrovirus Not Detected (Not Detect); Campylobacter Not Detected (Not Detect); Clostridium difficile toxin AB Not Detected (Not Detect); Cryptosporidium Not Detected (Not Detect); Cyclospora cayetanensis Not Detected (Not Detect); Entamoeba histolytica Not Detected (Not Detect); Enteroaggregative E.coli Not Detected (Not Detect); Enteropathogenic E.coli Not Detected (Not Detect); Enterotoxigenic E.coli It/st Not Detected (Not Detect); Giardia lamblia Not Detected (Not Detect); Norovirus GI/GII Not Detected (Not Detect); Plesiomonsa shigelloides Not Detected (Not Detect); Rotavirus A Not Detected (Not Detect); Salmonella Not Detected (Not Detect); Sapovirus Not Detected (Not Detect); Shiga-like toxin-prod E.coli Not Detected (Not Detect); Shigella/Enteroinvasive E.coli Not Detected (Not Detect); Vibrio Not Detected (Not Detect); Vibrio cholerae Not Detected (Not Detect); Yersinia enterocolitica Not Detected (Not Detect)
== END 2023-09-30 18:35 | disposition home or self-care (01) ==
PROVIDERS: Emergency Medicine; Emergency Provider Emergency Medicine; Family Provider Nurse Practitioner; PCP Family Medicine
DX: K92.1 Melena (principal)
CPT/HCPCS: 36415; 80053; 81003; 81015; 82272; 85025; 85610; 85730; 86850; 86900; 86901; 87086; 87507; 93005; 96374; 99284; C9113

== ENCOUNTER 2023-11-11 15:50 | Emergency (ER) | payer MEDICARE, MEDICAID, SELFPAY ==
[2023-11-11] VITALS (9 sets, daily range): BP systolic 157–191; BP diastolic 91–110; PULSE 89–120; RESP 18–20; TEMP 36.6–37; O2SAT 96–98; BMI 29.3
--- NOTE | 2023-11-11 16:20 | PC.NURSE ---
This RN checked for patient in lobby several times and unable to locate at this time. Admissions stated that patient went outside. This RN attempted to call patient on cell phone and patient answered and is returning to the lobby.
--- NOTE | 2023-11-11 16:46 | DI.CT.S_ITS ---
PROCEDURE: CT HEAD/BRAIN WO CON INDICATIONS: Intermittent left head burning pain Dx aneurysm per pt 2021 TECHNIQUE: Noncontrast 4.5 mm thick angled axial sections acquired from the foramen magnum to the vertex, with coronal and sagittal reformats. For radiation dose reduction, the following was used: automated exposure control, adjustment of mA and/or kV according to patient size. COMPARISON: [facility], CT, CT HEAD/BRAIN WO CON, 07/07/2022, 16:48. FINDINGS: Image quality: Diagnostic. CSF spaces: Basal cisterns are patent. No extra-axial fluid collections. Ventricles are normal in size and shape. Brain: No midline shift. No intracranial masses or hemorrhage. [place]-white matter interface is normal. Skull and face: Calvarium and visualized facial bones are intact, without suspicious lesions. Sinuses: Visualized sinuses and mastoids are clear. IMPRESSION: No acute intracranial pathology. Approved by: Deisy Gunn M.D.,Ph.D. on 11/11/2023 at 16:46
[2023-11-11 17:08] LABS: Add Manual Diff / Slide Review NO; Basophils Absolute Auto 0 /uL (0-100); Basophils Percent Auto 1.1 % (0-2); Eosinophils Absolute Auto 100 /uL (0-450); Eosinophils Percent Auto 2.3 % (2-4); Hematocrit 38.2 % (41-53); Hemoglobin 13.3 g/dL (13.5-17.5); Lymphocytes Absolute Auto 1000 /uL (1100-4500); Lymphocytes Percent Auto 28.7 % (25-40); Mean Corpuscular Hemoglobin 36.3 PG (26-34); Mean Corpuscular Volume 103.9 fL (80-100); Monocytes Absolute Auto 300 /uL (0-900); Monocytes Percent Auto 8.2 % (3-14); Neutrophils Absolute Auto 2000 /uL (1500-7000); Neutrophils Percent Auto 59.7 % (50-75); Platelet Count 142 X10^3/uL (150-400); Red Blood Cell Count 3.67 X10^6/uL (4.5-5.9); Red Cell Distribution Width 15.7 % (11.6-14.8); White Blood Cell Count 3.3 X10^3/uL (4.5-11.0)
[2023-11-11 17:17] LABS: Alanine Aminotransferase 72 IU/L (<50); Albumin 4.8 g/dL (3.5-5.0); Albumin Globulin Ratio 1.5 (1.0-2.8); Alkaline Phosphatase 76 U/L (38-126); Aspartate Aminotransferase 113 IU/L (17-59); BUN Creatinine Ratio 14.1 (6-22); Bilirubin Total 0.6 mg/dL (0.2-1.3); Blood Urea Nitrogen 11 mg/dL (9-20); Calcium 9.3 mg/dL (8.4-10.2); Carbon Dioxide 31 mmol/L (22-32); Chloride 95 mmol/L (98-107); Estimated Glomerular Filt Rate > 60 mL/min (>60); Ethanol (ETOH) 181 mg/dL; Globulin 3.1 g/dL (1.7-4.1); Glucose 174 mg/dL (70-100); HEMOLYSIS < 15 (0-50); Potassium 3.6 mmol/L (3.4-5.1); Sodium 138 mmol/L (137-145); Total Protein 7.9 g/dL (6.3-8.2)
--- NOTE | 2023-11-11 19:40 | ED.HA ---
HPI - Headache General Chief Complaint: Dizziness Stated Complaint: pain lt side of brain/states brain anurism/dizzy Time Seen by Provider: 11/11/23 19:35 Mode of arrival: Ambulatory History of Present Illness HPI Narrative: 53-year-old male with history of alcohol use disorder, hypertension presents by private vehicle from home for left-sided head pain for the last 2-3 days. Patient states that last year he was diagnosed with a small aneurysm. He followed up with Neurosurgery, who stated that there was nothing to be done at this time due to the small size of the aneurysm, but recommended yearly follow up for 2 years to ensure no growth. Patient states that he has not had follow up in 16 months. He states that the left side of his head is painful and he feels like there is a ?tingling? sensation on the side of his head. He was concerned that the aneurysm may have grown and is causing issues. Related Data Previous Rx's Medication Instructions Recorded Glucometer Test Strips #100 ea 10/12/21 Lancettes #100 ea 10/12/21 Lancing Pen #1 ea 10/12/21 lisinopril 20 mg tablet See Rx Instructions .Route 12/04/22 .COMPLEX #180 tabs omega-3 acid ethyl esters 1 gram 1 cap PO BID #180 caps 01/07/23 capsule (Lovaza) doxepin 150 mg capsule 150 mg PO BEDTIME #90 caps 03/04/23 gabapentin 600 mg tablet 300 - 600 mg (0.5 - 1 x 600 mg) PO 05/06/23 TID PRN nerve pain #90 tabs tadalafil 20 mg tablet (Cialis) See Rx Instructions .Route 05/06/23 .COMPLEX sexual activity #30 tabs blood-glucose meter (Blood Glucose #1 ea 05/27/23 Monitoring kit) clonidine HCl 0.2 mg tablet 0.2 mg PO BID #180 tabs 07/30/23 hydrochlorothiazide 25 mg tablet 50 mg (2 x 25 mg) PO QAM #180 tabs 10/29/23 metoprolol tartrate 25 mg tablet 25 mg PO DAILY #30 tabs 10/29/23 Allergies Allergy/AdvReac Type Severity Reaction Status Date / Time No Known Drug Allergies Allergy Verified 10/28/23 14:19 Review of Systems Review of Systems Narrative: See HPI Patient History Medical History Back pain Abdominal ascites Peripheral neuropathy Alcohol use disorder, moderate, dependence High triglycerides Non-insulin dependent diabetes mellitus Elevated fasting blood sugar Paresthesia of both feet Depression with anxiety Insomnia COVID-19 vaccine series declined Tobacco use disorder, mild, in early remission Elevated LFTs Blood glucose elevated Class 1 obesity in adult Alcohol dependence, daily use Smokes tobacco daily Hyperlipidemia Hypertension Lumbosacral spondylosis Recto-perineal fistula Lower GI bleed Atypical chest pain Surgical History History of rectal surgery Family History Father Alive and well Mother Alive and well Social History marital status: unmarried,single household members: none occupational status: disabled Smoking Status: Current some day smoker second hand exposure: No alcohol intake: current Smoking Status: Current some day smoker tobacco type: cigarettes alcohol intake frequency: 3 or more drinks per day Alcohol type: hard liquor Substance Use Type: does not use Exam Initial Vital Signs Initial Vital Signs: Vital Signs Temperature 97.9 F 11/11/23 16:22 Pulse Rate 120 H 11/11/23 16:22 Respiratory Rate 18 11/11/23 16:22 Blood Pressure 157/91 H 11/11/23 16:22 Pulse Oximetry 96 11/11/23 16:22 Oxygen Delivery Method Room Air 11/11/23 16:22 Const: Awake, alert, no acute distress, nontoxic appearing Cardiac: regular rate, regular rhythm RESP: unlabored, clear bilaterally, no wheezing GI: Soft, nontender, nondistended, no rebound, no guarding MSK: Atraumatic, full range of motion, pulses equal Skin: Warm, Dry, intact, no rashes Neuro: AO x3, CN II-XII grossly intact, moves all extremities Course Orders Ordered: ED Orders 11/11/23 19:39 CT angio head and neck Stat Discontinued Medications Folic Acid (Folic Acid 1 Mg Tablet) 1 mg PO NOW ONE Stop: 11/11/23 19:41 Last Admin: 11/11/23 20:12 Dose: 1 mg Documented By: TC Thiamine HCl 200 mg/ Sodium (Chloride) 102 mls @ 408 mls/hr IV NOW ONE Stop: 11/11/23 19:41 Last Infusion: 11/11/23 20:38 Dose: Infused Documented By: VICTOR HUGO Admin: 11/11/23 20:12 Dose: 408 mls/hr Documented By: TC Vital Signs Vital signs: Vital Signs - 8 hr 11/11/23 19:36 11/11/23 19:38 11/11/23 19:38 Temperature Pulse Rate 99 H 96 H Respiratory Rate Blood Pressure 170/96 H Pulse Oximetry 97 96 Oxygen Delivery Method 11/11/23 19:59 11/11/23 19:59 11/11/23 20:00 Temperature Pulse Rate 89 95 H Respiratory Rate Blood Pressure 175/107 H Pulse Oximetry 98 97 Oxygen Delivery Method 11/11/23 20:01 11/11/23 20:01 11/11/23 20:30 Temperature Pulse Rate 95 H 92 H Respiratory Rate Blood Pressure 164/92 H Pulse Oximetry 96 96 Oxygen Delivery Method 11/11/23 20:31 11/11/23 20:31 11/11/23 20:51 Temperature 98.6 F Pulse Rate 90 90 Respiratory Rate 20 Blood Pressure 190/110 H 191/110 H Pulse Oximetry 96 96 Oxygen Delivery Method Room Air MDM - Headache Differential Diagnosis Differential diagnosis: Likely migraine, tension headache and subarachnoid hemorrhage Lab Data 11/11/23 16:55 11/11/23 16:55 Labs: Lab Results 11/11/23 Range/Units 16:55 WBC 3.3 L (4.5-11.0) X10^3/uL RBC 3.67 L (4.5-5.9) X10^6/uL Hgb 13.3 L (13.5-17.5) g/dL Hct 38.2 L (41-53) % MCV 103.9 H (80-100) fL MCH 36.3 H (26-34) PG MCHC 35.0 (30-36) % RDW 15.7 H (11.6-14.8) % Plt Count 142 L (150-400) X10^3/uL Neut % (Auto) 59.7 (50-75) % Lymph % (Auto) 28.7 (25-40) % [place] % (Auto) 8.2 (3-14) % Eos % (Auto) 2.3 (2-4) % Baso % (Auto) 1.1 (0-2) % Neut # (Auto) 2000 (9623-2029) /uL Lymph # (Auto) 1000 L (4315-6544) /uL [place] # (Auto) 300 (0-900) /uL Eos # (Auto) 100 (0-450) /uL Baso # (Auto) 0 (0-100) /uL Sodium 138 (137-145) mmol/L Potassium 3.6 (3.4-5.1) mmol/L Chloride 95 L (98-107) mmol/L Carbon Dioxide 31 (22-32) mmol/L BUN 11 (9-20) mg/dL Creatinine 0.78 (0.66-1.25) mg/dL Estimated GFR > 60 (>60) mL/min BUN/Creatinine Ratio 14.1 (6-22) Glucose 174 H (70-100) mg/dL Calcium 9.3 (8.4-10.2) mg/dL Total Bilirubin 0.6 (0.2-1.3) mg/dL AST 113 H (17-59) IU/L ALT 72 H (<50) IU/L Alkaline Phosphatase 76 (38-126) U/L Total Protein 7.9 (6.3-8.2) g/dL Albumin 4.8 (3.5-5.0) g/dL Globulin 3.1 (1.7-4.1) g/dL Albumin/Globulin Ratio 1.5 (1.0-2.8) Ethyl Alcohol 181 H ( - 10) mg/dL Imaging Data CT scan - head: Radiologist's Impression: PROCEDURE: CT HEAD/BRAIN WO CON INDICATIONS: Intermittent left head burning pain Dx aneurysm per pt 2021 TECHNIQUE: Noncontrast 4.5 mm thick angled axial sections acquired from the foramen magnum to the vertex, with coronal and sagittal reformats. For radiation dose reduction, the following was used: automated exposure control, adjustment of mA and/or kV according to patient size. COMPARISON: [facility], CT, CT HEAD/BRAIN WO CON, 07/07/2022, 16:48. FINDINGS: Image quality: Diagnostic. CSF spaces: Basal cisterns are patent. No extra-axial fluid collections. Ventricles are normal in size and shape. Brain: No midline shift. No intracranial masses or hemorrhage. [place]-white matter interface is normal. Skull and face: Calvarium and visualized facial bones are intact, without suspicious lesions. Sinuses: Visualized sinuses and mastoids are clear. IMPRESSION: No acute intracranial pathology. Approved by: Deisy Gunn M.D.,Ph.D. on 11/11/2023 at 16:46 CTA - brain/neck: Radiologist's Impression: PROCEDURE: CT ANGIO HEAD AND NECK INDICATIONS: HX L M1 ANEURYSM, HEADACHE TECHNIQUE: After the administration of intravenous contrast, 1 mm thick sections acquired from the aortic arch through the [place] of [place]. 3-dimensional qlytmhw-nvrxnklfj-fgibrpzosa (MIP) and/or volume rendering reformats were acquired of the central intracranial vasculature and neck separately. For radiation dose reduction, the following was used: automated exposure control, adjustment of mA and/or kV according to patient size. COMPARISON: [facility], CT, CT HEAD/BRAIN WO CON, 11/11/2023, 17:02. [facility], CT, CT ANGIO HEAD AND NECK, 09/26/2022, 19:05. [facility], CT, CT ANGIO HEAD AND NECK, 06/27/2022, 20:14. FINDINGS: Image quality: Diagnostic. BRAIN: CSF spaces: Ventricles are normal in size and shape. Basal cisterns are patent. No extra-axial fluid collections. Brain: No significant abnormality of the brain can be seen. Skull and face: Calvarium and facial bones appear intact, without suspicious lesions. Orbits appear normal. Sinuses: Sinuses and mastoids are clear. HEAD CT ANGIOGRAPHY: Anterior circulation: Intracranial internal carotid arteries are normal in size and flow. The flow within the paired anterior cerebral arteries is normal and symmetric. The flow within the middle cerebral arteries is normal and symmetric. Again noted is a minimal contour bulge along the superior margin of the left M1 segment middle cerebral artery previously identified as a broad-based 3 mm aneurysm. This has not enlarged. No new abnormality has developed. The anterior communicating artery is seen. No aneurysms are seen. Posterior circulation: Visualized portions of the vertebral arteries demonstrate normal caliber, and join to form a normal appearing basilar artery. Flow within the posterior cerebral arteries is normal and symmetric. No aneurysms are seen. NECK CT ANGIOGRAPHY: Carotid system: The great vessels demonstrate a conventional anatomy as they arise from the aortic arch. The origins of the common carotid arteries appear patent. The common carotid arteries demonstrate normal caliber and courses. The bifurcation regions are both widely patent. The internal carotid arteries demonstrate normal calibers and courses. Posterior circulation: The origins of the vertebral arteries both appear widely patent. The more superior extracranial portions of both vertebral arteries also demonstrate normal courses and calibers. They join to form a normal appearing basilar artery. Soft tissues: Visualized neck soft tissues demonstrate no suspicious abnormalities. Bones: No suspicious bony lesions. Visualized cervical spine appears normally aligned. IMPRESSION: No significant intracranial arterial stenosis is seen. Stable appearance of a minimal contour bulge along the upper margin of the M1 segment left middle cerebral artery. No evidence of enlargement no evidence of hemorrhage. No significant abnormality is seen within the arteries of the neck. Any quantitative measurements of stenosis were performed using NASCET criteria. Dictated by: Roverto Cedeno M.D. on 11/11/2023 at 20:32 Approved by: Roverto Cedeno M.D. on 11/11/2023 at 20:36 MDM Narrative Medical decision making narrative: Patient presenting for left-sided head pain, known history of brain aneurysm. He was supposed to follow up at least 4 months ago but has not and there are no interval studies since his last CT scan in early 2022. Patient is neurologically intact, denies worst headache of life, there are no focal deficits on exam. Laboratory work is reviewed, WBC count 3.3, hemoglobin 13.3, platelets 142 (roughly baseline for patient). Sodium 138, potassium 3.6, creatinine 0.78, AST 113, ALT 72, T bili 0.6. Patient given thiamine and folic acid due to history of chronic alcoholism. CT brain and CT angio of the head and neck negative for acute findings. Patient informed of CT results. He was relieved to know that his aneurysm has not grown in size. Patient noted to be hypertensive at time of discharge, he has blood pressure medications that he takes every night and has not taken yet. Patient counseled to take his blood pressure medications when he gets home. Discharge Plan Departure Patient Disposition: Home Clinical Impression: Head pain Instructions: DI for Headache Activity Restrictions/Additional Instructions: Your CT today showed no change in the appearance of your 3mm aneurysm. Follow up with your neurosurgeon as previously instructed. I do not know the exact cause of your symptoms but you do not have any bleeding or enlargement of your aneurysm. Prescriptions: No Action lisinopril 20 mg tablet See Rx Instructions .ROUTE .COMPLEX Qty: 180 3RF Dose Instruction: take 1 tablet by mouth twice a day Rx Instructions: take 1 tablet by mouth twice a day omega-3 acid ethyl esters [Lovaza] 1 gram capsule 1 cap PO BID Qty: 180 3RF Rx Instructions: Take 1 tab twice daily for elevated triglycerides doxepin 150 mg capsule 150 mg PO BEDTIME Qty: 90 3RF Rx Instructions: Take 1 capsule at bedtime daily for sleep. gabapentin 600 mg tablet 300 - 600 mg PO TID PRN (Reason: nerve pain) Qty: 90 11RF tadalafil [Cialis] 20 mg tablet See Rx Instructions .ROUTE .COMPLEX Qty: 30 3RF Rx Instructions: administer approximately 30min before sexual activity; do not use more than 1 dose per 24hrs; clonidine HCl 0.2 mg tablet 0.2 mg PO BID Qty: 180 0RF metoprolol tartrate 25 mg tablet 25 mg PO DAILY Qty: 30 0RF hydrochlorothiazide 25 mg tablet 50 mg PO QAM Qty: 180 0RF (DME) blood-glucose meter [Blood Glucose Monitoring] Kit See Rx Instructions .Route Qty: 1 0RF Rx Instructions: As directed. (DME) Glucometer Test Strips See Rx Instructions .Route .MEDSUPPLY Qty: 100 3RF Rx Instructions: Check blood sugars daily fasting each morning (DME) Lancettes See Rx Instructions .Route .MEDSUPPLY Qty: 100 3RF Rx Instructions: Check blood sugars fasting each morning and as needed (DME) Lancing Pen See Rx Instructions .Route .MEDSUPPLY Qty: 1 0RF Rx Instructions: As directed Referrals: Miscellaneous,Doctor, MD [Primary Care Provider] - Stand Alone Forms: Patient Portal/API
[2023-11-11] MEDS: THIAMINE 200 MG in SODIUM CHLORIDE 0.9% 100 ML 408 MG IV (20:12)
[2023-11-11] MEDS: FOLIC ACID 1 MG TABLET PO (20:12)
== END 2023-11-11 20:52 | disposition home or self-care (01) ==
PROVIDERS: Emergency Medicine; Emergency Provider Emergency Medicine; Family Provider Nurse Practitioner
DX: R51.9 Headache, unspecified (principal); Z86.69 Personal history of other diseases of the nervous system and sense organs
CPT/HCPCS: 36415; 70450; 70496; 70498; 80053; 80320; 85025; 96365; 99284; Q9967

== ENCOUNTER 2023-12-10 16:27 | Inpatient (IN) | payer MEDICARE, MEDICAID, SELFPAY ==
[2023-12-10] VITALS (15 sets, daily range): BP systolic 117–178; BP diastolic 67–100; PULSE 90–97; RESP 15–23; TEMP 36.5–36.8; O2SAT 92–100; BMI 29.0
--- NOTE | 2023-12-10 17:17 | DI.RAD.S_ITS ---
PROCEDURE: XR CHEST 1V INDICATIONS: chest pain TECHNIQUE: One view of the chest was acquired. COMPARISON: [facility], CR, XR CHEST 1V, 08/22/2023, 17:59. [facility], CR, XR CHEST 1V, 02/03/2023, 14:39. FINDINGS: Surgical changes and devices: None. Lungs and pleura: Lungs are clear. No pleural effusions or pneumothorax. Mediastinum: Mediastinal contours appear normal. Heart size is normal. Bones and chest wall: No suspicious bony lesions. Overlying soft tissues appear unremarkable. IMPRESSION: No acute cardiopulmonary abnormality is seen. Approved by: Nilay Guevara M.D. on 12/10/2023 at 18:03
--- NOTE | 2023-12-10 17:23 | EKG_ITS ---
[place] [address] [place] [id number] Test Date: 2023-12-10 Pat Name: Joao Candelaria Department: [facility] Room: Gender: Male Application Penetration Tester: NOE : 1970 Requested By: Order Number: [id number] Reading MD: Wilian Stinson Measurements Intervals [place] Rate: 85 P: 116 OR: 168 QRS: 25 QRSD: 108 T: 43 QT: 374 QTc: 445 Interpretive Statements Normal sinus rhythm Nonspecific ST abnormality Electronically Signed On 12-11-2023 19:43:04 PDT by Wilian Stinson
[2023-12-10 17:32] LABS: Ur Creatinine Normal (Normal); Ur Specific Gravity Normal (Normal); Urine Amphetamines Negative (Negative); Urine Barbiturates Negative (Negative); Urine Benzodiazepines Negative (Negative); Urine Cocaine Negative (Negative); Urine MDMA Negative (Negative); Urine Methadone Negative (Negative); Urine Methamphetamines Negative (Negative); Urine Opiates Negative (Negative); Urine Oxycodone Negative (Negative); Urine Phencyclidine Negative (Negative); Urine THC Negative (Negative); Urine Tricyclic Antidepressant Positive (Negative); Urine pH Normal (Normal)
[2023-12-10 17:34] LABS: Bacteria Urine Occasional (0-1); RBC Urine None Seen (0-5/HPF); Squamous Epithelial Cell Urine 0-1 /HPF (0-5/HPF); Urine Volume 10mL (spun); WBC Urine 0-1/HPF (0-5/HPF)
[2023-12-10 17:35] LABS: Culture Indicated Urine Cult Not Indicated
[2023-12-10 17:37] LABS: Add Manual Diff / Slide Review NO; Basophils Absolute Auto 0 /uL (0-100); Basophils Percent Auto 0.8 % (0-2); Eosinophils Absolute Auto 100 /uL (0-450); Eosinophils Percent Auto 2.1 % (2-4); Hematocrit 30.7 % (41-53); Hemoglobin 11.1 g/dL (13.5-17.5); Lymphocytes Absolute Auto 1000 /uL (1100-4500); Lymphocytes Percent Auto 16.9 % (25-40); Mean Corpuscular HGB Conc 36.3 % (30-36); Mean Corpuscular Hemoglobin 35.1 PG (26-34); Mean Corpuscular Volume 96.7 fL (80-100); Monocytes Absolute Auto 400 /uL (0-900); Monocytes Percent Auto 7.5 % (3-14); Neutrophils Absolute Auto 4300 /uL (1500-7000); Neutrophils Percent Auto 72.7 % (50-75); Platelet Count 204 X10^3/uL (150-400); Red Blood Cell Count 3.17 X10^6/uL (4.5-5.9); Red Cell Distribution Width 13.8 % (11.6-14.8)
[2023-12-10 17:38] LABS: Prothrombin Time 11.2 SECONDS (9.4-12.5)
[2023-12-10 17:41] LABS: PTT Partial Thromboplastin Tim 33 SECONDS (25.1-36.5)
[2023-12-10 17:44] LABS: Alanine Aminotransferase 84 IU/L (<50); Albumin 4.8 g/dL (3.5-5.0); Albumin Globulin Ratio 1.5 (1.0-2.8); Alkaline Phosphatase 101 U/L (38-126); Aspartate Aminotransferase 131 IU/L (17-59); BUN Creatinine Ratio 6.9 (6-22); Bilirubin Total 0.9 mg/dL (0.2-1.3); Blood Urea Nitrogen 6 mg/dL (9-20); Calcium 10.1 mg/dL (8.4-10.2); Creatine Kinase 242 U/L (55-170); Estimated Glomerular Filt Rate > 60 mL/min (>60); Globulin 3.2 g/dL (1.7-4.1); Glucose 191 mg/dL (70-100); HEMOLYSIS < 15 (0-50); Lipase 264 U/L (23-300); Magnesium 1.3 mg/dL (1.6-2.3)
[2023-12-10 17:56] LABS: NT-proBNP (BNP-Adult 18+) 27 pg/mL (<125); Troponin I 0.013 ng/mL (0.01-0.034)
[2023-12-10 17:59] LABS: Carbon Dioxide 40 mmol/L (22-32); Chloride 68 mmol/L (98-107); Sodium 119 mmol/L (137-145)
--- NOTE | 2023-12-10 18:40 | ED_ITS ---
HPI - Dizziness General Chief Complaint: Syncope Stated Complaint: weakness, fainting, bruised RUE Time Seen by Provider: 12/10/23 18:09 Source: patient Mode of arrival: Wheelchair History of Present Illness HPI Narrative: 53-year-old male with history of chronic alcohol use disorder, hypertension presents by private vehicle from home for generalized weakness, near syncopal episodes, feeling off balance for the last several months. Reports multiple falls at home due to losing his balance. Family member at bedside states that during at least 1 of these episodes patient has hit his head. Patient states that his last drink was early this morning to help him go back to sleep Related Data Previous Rx's Medication Instructions Recorded Glucometer Test Strips #100 ea 10/12/21 Lancettes #100 ea 10/12/21 Lancing Pen #1 ea 10/12/21 lisinopril 20 mg tablet See Rx Instructions .Route 12/04/22 .COMPLEX #180 tabs omega-3 acid ethyl esters 1 gram 1 cap PO BID #180 caps 01/07/23 capsule (Lovaza) doxepin 150 mg capsule 150 mg PO BEDTIME #90 caps 03/04/23 gabapentin 600 mg tablet 300 - 600 mg (0.5 - 1 x 600 mg) PO 05/06/23 TID PRN nerve pain #90 tabs tadalafil 20 mg tablet (Cialis) See Rx Instructions .Route 05/06/23 .COMPLEX sexual activity #30 tabs blood-glucose meter (Blood Glucose #1 ea 05/27/23 Monitoring kit) hydrochlorothiazide 25 mg tablet 50 mg (2 x 25 mg) PO QAM #180 tabs 10/29/23 clonidine HCl 0.2 mg tablet 0.2 mg PO BID #180 tabs 11/26/23 metoprolol tartrate 25 mg tablet 25 mg PO DAILY #30 tabs 11/26/23 Allergies Allergy/AdvReac Type Severity Reaction Status Date / Time No Known Drug Allergies Allergy Verified 12/10/23 17:05 Patient History Medical History Back pain Abdominal ascites Peripheral neuropathy Alcohol use disorder, moderate, dependence High triglycerides Non-insulin dependent diabetes mellitus Elevated fasting blood sugar Paresthesia of both feet Depression with anxiety Insomnia COVID-19 vaccine series declined Tobacco use disorder, mild, in early remission Elevated LFTs Blood glucose elevated Class 1 obesity in adult Alcohol dependence, daily use Smokes tobacco daily Hyperlipidemia Hypertension Lumbosacral spondylosis Recto-perineal fistula Lower GI bleed Atypical chest pain Surgical History History of rectal surgery Family History Father Alive and well Mother Alive and well Social History marital status: unmarried,single household members: none occupational status: disabled Smoking Status: Current some day smoker second hand exposure: No alcohol intake: current Smoking Status: Current some day smoker tobacco type: cigarettes alcohol intake frequency: 3 or more drinks per day Alcohol type: hard liquor Substance Use Type: does not use Exam Initial Vital Signs Initial Vital Signs: Vital Signs Temperature 97.7 F 12/10/23 17:01 Pulse Rate 90 12/10/23 17:01 Respiratory Rate 18 12/10/23 17:01 Blood Pressure 117/73 12/10/23 17:01 Pulse Oximetry 100 12/10/23 17:01 Oxygen Delivery Method Room Air 12/10/23 17:01 Const: Awake, alert, no acute distress, appears chronically unwell Cardiac: regular rate, regular rhythm RESP: unlabored, clear bilaterally, no wheezing GI: Soft, nontender, nondistended, no rebound, no guarding MSK: Extensive bruising right shoulder and right bicep, no deformity, full range of motion Skin: Intact, extensive bruising over anterior chest wall and right shoulder and biceps, warm, dry Neuro: AO x3, CN II-XII grossly intact, moves all extremities, mild tremor Course Orders Ordered: ED Orders 12/10/23 17:15 Complete Blood Count AUTO DIFF Stat Comprehensive Metabolic Panel Stat Ethanol (ETOH) Stat Lipase Stat Magnesium Stat NT-proBNP (BNP-Adult 18+) Stat PTT Partial Thromboplastin Jens Stat Prothrombin Time INR Stat Troponin & CK Cardiac Panel Stat Urine Drug Screen, Rapid Stat Urine Microscopic Stat 12/10/23 17:17 XR chest 1V Stat EKG-12 Lead Stat 12/10/23 20:06 CT head/brain wo con Stat XR humerus RT 2V Stat 12/10/23 21:53 VBG [Venous Blood Gas] Stat Folic Acid (Folic Acid 1 Mg Tablet) 1 mg PO DAILY NINO Thiamine HCl 200 mg/ Sodium (Chloride) 102 mls @ 408 mls/hr IV TID NINO Magnesium Sulfate (Magnesium Sulfate) 4 gm in 100 mls @ 25 mls/hr IV NOW ONE Stop: 12/11/23 02:17 Last Admin: 12/10/23 23:48 Dose: 25 mls/hr Documented By: LOUIS Co-signed By: PRECIOUS Lorazepam (Lorazepam 2 Mg/Ml Inj) 0 mg IV CIWAPRN PRN; Protocol PRN Reason: Alcohol Withdrawal Last Admin: 12/11/23 01:50 Dose: 2 mg Multivitamins (Multivitamin 1 Tablet) 1 tab PO DAILY NINO Naloxone HCl (Naloxone 0.4 Mg/Ml Vial) 0.2 mg IV Q2MIN PRN PRN Reason: Opiate Reversal Ondansetron HCl (Ondansetron 4 Mg/2 Ml Inj) 4 mg IV Q6HR PRN PRN Reason: Nausea And Vomiting Discontinued Medications Aspirin (Aspirin 81 Mg Chew Tab) 324 mg PO NOW ONE Stop: 12/10/23 17:18 Last Admin: 12/10/23 17:26 Dose: Not Given Documented By: SONNY Folic Acid (Folic Acid 1 Mg Tablet) 1 mg PO NOW ONE Stop: 12/10/23 18:10 Last Admin: 12/10/23 18:53 Dose: 1 mg Documented By: JESS Sodium Chloride (Normal Saline 0.9%) 1,000 mls @ 1,000 mls/hr IV BOLUS ONE Stop: 12/10/23 19:08 Last Infusion: 12/10/23 20:10 Dose: Infused Documented By: Admin: 12/10/23 18:53 Dose: 1,000 mls/hr Documented By: JESS Thiamine HCl 200 mg/ Sodium (Chloride) 102 mls @ 408 mls/hr IV NOW ONE Stop: 12/10/23 18:10 Last Infusion: 12/10/23 19:30 Dose: Infused Documented By: Admin: 12/10/23 18:54 Dose: 408 mls/hr Documented By: JESS Phenobarbital (Phenobarbital 65 Mg/Ml Vial) 260 mg IV NOW ONE Stop: 12/10/23 20:55 Last Admin: 12/10/23 21:15 Dose: 260 mg Documented By: JADIEL Vital Signs Vital signs: Vital Signs - 8 hr 12/10/23 18:30 12/10/23 18:31 12/10/23 18:31 Pulse Rate 90 Respiratory Rate Blood Pressure 165/92 H Pulse Oximetry 92 99 12/10/23 19:00 12/10/23 19:00 12/10/23 19:30 Pulse Rate 92 H Respiratory Rate 23 Blood Pressure 150/96 H 178/100 H Pulse Oximetry 97 12/10/23 19:30 12/10/23 20:00 12/10/23 20:00 Pulse Rate 94 H 97 H Respiratory Rate 15 15 Blood Pressure 167/92 H Pulse Oximetry 97 96 12/10/23 20:27 12/10/23 20:27 12/10/23 20:30 Pulse Rate 94 H Respiratory Rate Blood Pressure 153/76 H 154/84 H Pulse Oximetry 97 12/10/23 20:30 Pulse Rate 96 H Respiratory Rate 18 Blood Pressure Pulse Oximetry 96 MDM - Dizziness Lab Data 12/10/23 17:15 12/10/23 17:15 Labs: Lab Results 12/10/23 Range/Units 17:15 WBC 6.0 (4.5-11.0) X10^3/uL RBC 3.17 L (4.5-5.9) X10^6/uL Hgb 11.1 L (13.5-17.5) g/dL Hct 30.7 L (41-53) % MCV 96.7 (80-100) fL MCH 35.1 H (26-34) PG MCHC 36.3 H (30-36) % RDW 13.8 (11.6-14.8) % Plt Count 204 (150-400) X10^3/uL Neut % (Auto) 72.7 (50-75) % Lymph % (Auto) 16.9 L (25-40) % [place] % (Auto) 7.5 (3-14) % Eos % (Auto) 2.1 (2-4) % Baso % (Auto) 0.8 (0-2) % Neut # (Auto) 4300 (0729-2152) /uL Lymph # (Auto) 1000 L (4553-0889) /uL [place] # (Auto) 400 (0-900) /uL Eos # (Auto) 100 (0-450) /uL Baso # (Auto) 0 (0-100) /uL PT 11.2 (9.4-12.5) SECONDS INR 1.0 (0.9-1.3) APTT 33 (25.1-36.5) SECONDS Sodium 119 L* (137-145) mmol/L Potassium 3.0 L (3.4-5.1) mmol/L Chloride 68 L* (98-107) mmol/L Carbon Dioxide 40 H* (22-32) mmol/L BUN 6 L (9-20) mg/dL Creatinine 0.87 (0.66-1.25) mg/dL Estimated GFR > 60 (>60) mL/min BUN/Creatinine Ratio 6.9 (6-22) Glucose 191 H (70-100) mg/dL Calcium 10.1 (8.4-10.2) mg/dL Magnesium 1.3 L (1.6-2.3) mg/dL Total Bilirubin 0.9 (0.2-1.3) mg/dL AST 131 H (17-59) IU/L ALT 84 H (<50) IU/L Alkaline Phosphatase 101 (38-126) U/L Total Creatine Kinase 242 H (55-170) U/L Troponin I 0.013 (0.01-0.034) ng/mL NT-Pro-B Natriuret Pep 27 (<125) pg/mL Total Protein 8.0 (6.3-8.2) g/dL Albumin 4.8 (3.5-5.0) g/dL Globulin 3.2 (1.7-4.1) g/dL Albumin/Globulin Ratio 1.5 (1.0-2.8) Lipase 264 (23-300) U/L Urine RBC None seen (0-5/HPF) Urine WBC 0-1/hpf (0-5/HPF) Ur Squamous Epith Cells 0-1 /hpf (0-5/HPF) Urine Bacteria Occasional (0-1) (None) Ur Culture Indicated? Cult not indicated Vol Urine Centrifuged 10ml (spun) U Opiates 300ng/mL cut Negative (Negative) Ur Oxycodone Screen Negative (Negative) Urine Methadone Screen Negative (Negative) Ur Barbiturates Screen Negative (Negative) U Tricyclic Antidepress Positive H (Negative) Ur Phencyclidine Scrn Negative (Negative) Ur Amphetamines Screen Negative (Negative) U Methamphetamines Scrn Negative (Negative) Ur MDMA Scrn (Ecstasy) Negative (Negative) U Benzodiazepines Scrn Negative (Negative) Urine Cocaine Screen Negative (Negative) U Marijuana (THC) Screen Negative (Negative) Urine pH Normal (Normal) Urine Specific [place] Normal (Normal) Ethyl Alcohol 65 H ( - 10) mg/dL Ur Creatinine Normal (Normal) Urine Dip Bedside Urine Glucose Negative Bedside Urine Bilirubin - Negative Bedside Urine Ketone - Negative Urine Specific [place] 1.000 Bedside Urine Occult Blood - Negative Bedside Urine pH 6.5 Bedside Urine Protein - Negative Bedside Urine Urobilinogen - Negative Bedside Urine Nitrite - Negative Bedside Urine Leukocytes - Negative Esterase MDM Narrative Medical decision making narrative: Chronically unwell appearing patient, very well known to this emergency department presenting with multiple complaints, primarily generalized weakness, near fainting spells. Last drink reported to be earlier this morning, patient was not appear to be in acute withdrawal, he was not tachycardic, tremulous, or agitated. Thiamine, folic acid ordered due to longstanding alcohol use disorder. Laboratory work showed WBC count 6.0, hemoglobin 11.1, platelets 204, sodium 119, potassium 3.0, chloride 68, CO2 40, creatinine 0.87, T bili 0.9, AST 131, ALT 84, troponin 0.013, alcohol level 65. Chest x-ray and x-ray of the humerus negative for acute findings. CT brain negative for acute findings. Patient is started on gentle fluids. Suspect hyponatremia secondary to alcohol use disorder. Despite sodium of 119 patient was awake, alert, he was well known to us and at his mental baseline. Patient to be admitted for further treatment of hyponatremia. Although patient was not appear to be in acute withdrawal at this time in order to prevent withdrawal and agitation a loading dose of phenobarbital was ordered. Critical Care Time Critical Care Time Critical Care Time: Yes Total Critical Care Time: 39 Attestation: Severe hyponatremia requiring admission Discharge Plan Departure Patient Disposition: Admitted As Inpatient Clinical Impression: Acute hyponatremia, Alcohol use disorder, Obstructive sleep apnea syndrome Admit Date/Time: 12/10/23 20:58 Admit Provider: Jose Maria Cheema
[2023-12-10] MEDS: FOLIC ACID 1 MG TABLET PO (18:53)
[2023-12-10] MEDS: SODIUM CHLORIDE 0.9% 1,000 ML 1000 ML IV (18:53)
[2023-12-10 18:54] LABS: Ethanol (ETOH) 65 mg/dL
[2023-12-10] MEDS: THIAMINE 200 MG in SODIUM CHLORIDE 0.9% 100 ML 408 MG IV (18:54)
--- NOTE | 2023-12-10 20:06 | DI.RAD.S_ITS ---
PROCEDURE: XR HUMERUS RT 2V INDICATIONS: FALLS, R BICEP BRUISING/PAIN TECHNIQUE: 4 views of the humerus were acquired. COMPARISON: None. FINDINGS: Bones: No fractures or dislocations. Benign-appearing ext ostosis projecting over anterior and medial aspect of distal humeral shaft. No suspicious bony lesions. Soft tissues: No suspicious soft tissue calcifications. IMPRESSION: No acute right humeral fracture or dislocation. No gross soft tissue abnormalities. Incidentally noted of benign-appearing ext ostosis in distal humeral shaft as above likely represent osteochondroma. Dictated by: Greg Erickson M.D. on 12/10/2023 at 20:43 Approved by: Greg Erickson M.D. on 12/10/2023 at 20:44
--- NOTE | 2023-12-10 20:06 | DI.CT.S_ITS ---
PROCEDURE: CT HEAD/BRAIN WO CON INDICATIONS: ETOH, FREQUENT FALLS, OFF BALANCE TECHNIQUE: Noncontrast 4.5 mm thick angled axial sections acquired from the foramen magnum to the vertex, with coronal and sagittal reformats. For radiation dose reduction, the following was used: automated exposure control, adjustment of mA and/or kV according to patient size. COMPARISON: [facility], CT, CT HEAD/BRAIN WO CON, 11/11/2023, 17:02. FINDINGS: Image quality: Diagnostic. CSF spaces: Basal cisterns are patent. No extra-axial fluid collections. Ventricles are normal in size and shape. Brain: No midline shift. No intracranial masses or hemorrhage. [place]-white matter interface is normal. Skull and face: Calvarium and visualized facial bones are intact, without suspicious lesions. Sinuses: Visualized sinuses and mastoids are clear. IMPRESSION: No acute intracranial pathology. No significant changes from recent study. Dictated by: Greg Erickson M.D. on 12/10/2023 at 20:26 Approved by: Greg Erickson M.D. on 12/10/2023 at 20:27
[2023-12-10] MEDS: PHENobarbital 65 MG/ML VIAL 260 MG IV (21:15)
[2023-12-10 22:09] LABS: Base Excess VBG 18.8 mmol/L (0-4); HCO3 VBG 43 mmol/L (24-28); Oxygen Saturation VBG 26 % (70-75); PCO2 VBG 48.1 mmHg (45-50); PO2 VBG 16 mmHg (35-45); Total CO2 VBG 43 mmol/L (24-29); pH VBG 7.56 (7.33-7.43)
[2023-12-10 22:10] LABS: Fractionated Inspired Oxygen 21
--- NOTE | 2023-12-10 22:20 | PM.HP.1 ---
History of Present Illness History of Present Illness Date Patient Seen: 12/10/23 Time Patient Seen: 21:30 Chief complaint: weakness, fainting, bruised RUE Alcohol use/intoxi Narrative: 53 years old male with a history of alcohol abuse, hypertension, neuropathy, diabetes mellitus and multiple other medical issues was brought to the emergency room by private vehicle from home for generalized weakness with near syncopal events and balance issues. Patient has had multiple falls. Had 1 episode of trauma to the head. Denies any complete loss of consciousness. Denies any blurred vision. Further workup in the emergency room is showed a sodium of 119 with a potassium of 3.0, chloride of 68, CO2 of 48 and creatinine of 0.87 with a blood sugar of 191. Hemoglobin is 11.1, WBC 6.0 in the platelet count of 204. CT scan of the brain shows no acute process. Urine analysis is positive for tricyclic depressants. Ethyl alcohol level emergency room is 65. Patient was initiated on IV fluids with a dose of phenobarbital due to risk of alcohol withdrawal. Admitted for further evaluation [facility] Medical History Back pain Abdominal ascites Peripheral neuropathy Alcohol use disorder, moderate, dependence High triglycerides Non-insulin dependent diabetes mellitus Elevated fasting blood sugar Paresthesia of both feet Depression with anxiety Insomnia COVID-19 vaccine series declined Tobacco use disorder, mild, in early remission Elevated LFTs Blood glucose elevated Class 1 obesity in adult Alcohol dependence, daily use Smokes tobacco daily Hyperlipidemia Hypertension Lumbosacral spondylosis Recto-perineal fistula Lower GI bleed Atypical chest pain Surgical History History of rectal surgery Family History Father Alive and well Mother Alive and well Social History marital status: unmarried,single household members: none occupational status: disabled Smoking Status: Current some day smoker second hand exposure: No alcohol intake: current Meds Home Medications and Allergies Home Medications Medication Instructions Recorded Confirmed Type Glucometer Test Strips #100 ea 10/12/21 10/28/23 Rx Lancettes #100 ea 10/12/21 10/28/23 Rx Lancing Pen #1 ea 10/12/21 10/28/23 Rx lisinopril 20 mg tablet See Rx Instructions .Route 12/04/22 10/28/23 Rx .COMPLEX #180 tabs omega-3 acid ethyl esters 1 gram 1 cap PO BID #180 caps 01/07/23 10/28/23 Rx capsule (Lovaza) doxepin 150 mg capsule 150 mg PO BEDTIME #90 caps 03/04/23 10/28/23 Rx gabapentin 600 mg tablet 300 - 600 mg (0.5 - 1 x 600 mg) PO 05/06/23 10/28/23 Rx TID PRN nerve pain #90 tabs tadalafil 20 mg tablet (Cialis) See Rx Instructions .Route 05/06/23 10/28/23 Rx .COMPLEX sexual activity #30 tabs blood-glucose meter (Blood Glucose #1 ea 05/27/23 10/28/23 Rx Monitoring kit) hydrochlorothiazide 25 mg tablet 50 mg (2 x 25 mg) PO QAM #180 tabs 10/29/23 Rx clonidine HCl 0.2 mg tablet 0.2 mg PO BID #180 tabs 11/26/23 Rx metoprolol tartrate 25 mg tablet 25 mg PO DAILY #30 tabs 11/26/23 Rx Allergies Allergy/AdvReac Type Severity Reaction Status Date / Time No Known Drug Allergies Allergy Verified 12/10/23 17:05 Review of Systems Review of Systems Narrative: A 12 point review of system is negative unless otherwise stated in the history of present illness Exam Vital Signs (past 8 hours): - 12/10/23 17:01 12/10/23 18:30 12/10/23 18:31 Temperature 97.7 F Pulse Rate 90 Respiratory Rate 18 Blood Pressure 117/73 165/92 H Pulse Oximetry 100 92 Oxygen Delivery Method Room Air 12/10/23 18:31 12/10/23 19:00 12/10/23 19:00 Temperature Pulse Rate 90 92 H Respiratory Rate 23 Blood Pressure 150/96 H Pulse Oximetry 99 97 Oxygen Delivery Method 12/10/23 19:30 12/10/23 19:30 12/10/23 20:00 Temperature Pulse Rate 94 H 97 H Respiratory Rate 15 15 Blood Pressure 178/100 H Pulse Oximetry 97 96 Oxygen Delivery Method 12/10/23 20:00 12/10/23 20:27 12/10/23 20:27 Temperature Pulse Rate 94 H Respiratory Rate Blood Pressure 167/92 H 153/76 H Pulse Oximetry 97 Oxygen Delivery Method 12/10/23 20:30 12/10/23 20:30 12/10/23 21:00 Temperature Pulse Rate 96 H Respiratory Rate 18 Blood Pressure 154/84 H 149/70 H Pulse Oximetry 96 Oxygen Delivery Method 12/10/23 21:00 12/10/23 21:30 12/10/23 21:30 Temperature Pulse Rate 96 H 94 H Respiratory Rate 18 Blood Pressure 158/82 H Pulse Oximetry 98 96 Oxygen Delivery Method 12/10/23 22:00 12/10/23 22:00 Temperature Pulse Rate 96 H Respiratory Rate 18 Blood Pressure 153/87 H Pulse Oximetry 98 Oxygen Delivery Method Oxygen Delivery Method Room Air Narrative Exam Narrative: Patient is awake alert oriented and able to give a decent history. Bruise noted in the shoulder Air entry equal bilaterally no wheezes no crackles Awake alert oriented and following commands. No focal deficits Objective Labs 12/10/23 17:15 12/10/23 17:15 Labs: Laboratory Results - last 24 hr 12/10/23 12/10/23 17:15 21:53 WBC 6.0 RBC 3.17 L Hgb 11.1 L Hct 30.7 L MCV 96.7 MCH 35.1 H MCHC 36.3 H RDW 13.8 Plt Count 204 Neut % (Auto) 72.7 Lymph % (Auto) 16.9 L [place] % (Auto) 7.5 Eos % (Auto) 2.1 Baso % (Auto) 0.8 Neut # (Auto) 4300 Lymph # (Auto) 1000 L [place] # (Auto) 400 Eos # (Auto) 100 Baso # (Auto) 0 PT 11.2 INR 1.0 APTT 33 VBG pH 7.56 H VBG pCO2 48.1 VBG pO2 16 L VBG HCO3 43 H VBG Total CO2 43 H VBG O2 Saturation 26 L VBG Base Excess 18.8 H FiO2 21 Sodium 119 L* Potassium 3.0 L Chloride 68 L* Carbon Dioxide 40 H* BUN 6 L Creatinine 0.87 Estimated GFR > 60 BUN/Creatinine Ratio 6.9 Glucose 191 H Calcium 10.1 Magnesium 1.3 L Total Bilirubin 0.9 AST 131 H ALT 84 H Alkaline Phosphatase 101 Total Creatine Kinase 242 H Troponin I 0.013 NT-Pro-B Natriuret Pep 27 Total Protein 8.0 Albumin 4.8 Globulin 3.2 Albumin/Globulin Ratio 1.5 Lipase 264 Urine RBC None seen Urine WBC 0-1/hpf Ur Squamous Epith Cells 0-1 /hpf Urine Bacteria Occasional (0-1) Ur Culture Indicated? Cult not indicated Vol Urine Centrifuged 10ml (spun) U Opiates 300ng/mL cut Negative Ur Oxycodone Screen Negative Urine Methadone Screen Negative Ur Barbiturates Screen Negative U Tricyclic Antidepress Positive H Ur Phencyclidine Scrn Negative Ur Amphetamines Screen Negative U Methamphetamines Scrn Negative Ur MDMA Scrn (Ecstasy) Negative U Benzodiazepines Scrn Negative Urine Cocaine Screen Negative U Marijuana (THC) Screen Negative Urine pH Normal Urine Specific [place] Normal Ethyl Alcohol 65 H Ur Creatinine Normal Assessment & Plan Assessment & Plan narrative: 53 years old male with a history of alcohol abuse, hypertension, neuropathy, diabetes mellitus and multiple other medical issues was brought to the emergency room by private vehicle from home for generalized weakness with near syncopal events and balance issues. Patient has had multiple falls. Had 1 episode of trauma to the head. Denies any complete loss of consciousness. Denies any blurred vision. Further workup in the emergency room is showed a sodium of 119 with a potassium of 3.0, chloride of 68, CO2 of 48 and creatinine of 0.87 with a blood sugar of 191. Hemoglobin is 11.1, WBC 6.0 in the platelet count of 204. CT scan of the brain shows no acute process. Urine analysis is positive for tricyclic depressants. Ethyl alcohol level emergency room is 65. Patient was initiated on IV fluids with a dose of phenobarbital due to risk of alcohol withdrawal. Admitted for further evaluation 1 acute hyponatremia with cognitive changes in the setting of heavy alcohol abuse. Also does have high free water intake. Likely secondary to hypovolemia and further complicated by alcohol abuse. Gradual correction of the sodium at 0.5 mmol/h and watch the mental status very closely. Fluid restriction for now and continue IV fluids 2 alcohol abuse heavy with risk of withdrawal. Given the clinician change, will initiate high-dose vitamin B1. He does have a history of chronic heavy alcohol abuse and at risk for Wernicke's. Initiate alcohol withdrawal protocol and monitor closely 3 hypomagnesemia. Supplemented IV and trend for now 4 diabetes mellitus type 2. Show blood sugar ACHS insulin sliding scale. Check an A1c level 5 DVT prophylaxis will be with Lovenox Patient is being admitted under inpatient status given the severe acute hyponatremia in the setting of alcohol abuse/multiple electrolyte imbalance needing IV medications and other intervention with expected length of stay greater than 2 midnights
[2023-12-10] MEDS: MAGNESIUM SULFATE 4 GM/100 ML PIGGYBACK IV (23:48)
[2023-12-11] VITALS (9 sets, daily range): BP systolic 110–163; BP diastolic 65–90; PULSE 85–104; RESP 12–19; TEMP 36.2–36.8; O2SAT 94–100
[2023-12-11 00:48] LABS: MRSA (Nasal) PCR NOT DETECTED (Not Detect)
[2023-12-11] MEDS: LORazepam 2 MG/ML INJ IV ×2 (01:50→05:34)
[2023-12-11 02:10] LABS: BUN Creatinine Ratio 8.8 (6-22); Blood Urea Nitrogen 6 mg/dL (9-20); Calcium 9.8 mg/dL (8.4-10.2); Estimated Glomerular Filt Rate > 60 mL/min (>60); Glucose 176 mg/dL (70-100); HEMOLYSIS < 15 (0-50); Potassium 2.9 mmol/L (3.4-5.1)
[2023-12-11 02:17] LABS: Carbon Dioxide 39 mmol/L (22-32)
[2023-12-11 02:19] LABS: Chloride 71 mmol/L (98-107); Sodium 118 mmol/L (137-145)
--- NOTE | 2023-12-11 02:25 | PC.NURSE ---
Patient currently sleeping, hospitalist on duty updated of most recent BMP result, new order for KCl 40 meq PO, Magnesium IVPB 4gm infusing.
[2023-12-11] MEDS: POTASSIUM CHLORIDE 20 MEQ TAB 40 MEQ PO (03:06)
[2023-12-11 07:09] LABS: Alanine Aminotransferase 63 IU/L (<50); Albumin 4.1 g/dL (3.5-5.0); Albumin Globulin Ratio 1.5 (1.0-2.8); Alkaline Phosphatase 73 U/L (38-126); Aspartate Aminotransferase 101 IU/L (17-59); BUN Creatinine Ratio 7.1 (6-22); Bilirubin Total 0.9 mg/dL (0.2-1.3); Blood Urea Nitrogen 5 mg/dL (9-20); Calcium 9.2 mg/dL (8.4-10.2); Estimated Glomerular Filt Rate > 60 mL/min (>60); Globulin 2.7 g/dL (1.7-4.1); Glucose 154 mg/dL (70-100); HEMOLYSIS < 15 (0-50); Magnesium 2.3 mg/dL (1.6-2.3); Phosphorous 1.6 mg/dL (2.5-4.5); Total Protein 6.8 g/dL (6.3-8.2)
[2023-12-11 07:15] LABS: Carbon Dioxide 39 mmol/L (22-32)
[2023-12-11 07:16] LABS: Sodium 119 mmol/L (137-145)
[2023-12-11 07:18] LABS: Chloride 71 mmol/L (98-107); Potassium 2.7 mmol/L (3.4-5.1)
[2023-12-11 07:25] LABS: Basophils Absolute Auto 100 /uL (0-100); Basophils Percent Auto 1.2 % (0-2); Eosinophils Absolute Auto 100 /uL (0-450); Eosinophils Percent Auto 3.1 % (2-4); Hematocrit 27.9 % (41-53); Hemoglobin 10.2 g/dL (13.5-17.5); Lymphocytes Absolute Auto 900 /uL (1100-4500); Lymphocytes Percent Auto 19.1 % (25-40); Mean Corpuscular HGB Conc 36.7 % (30-36); Mean Corpuscular Hemoglobin 35.4 PG (26-34); Mean Corpuscular Volume 96.6 fL (80-100); Monocytes Absolute Auto 300 /uL (0-900); Monocytes Percent Auto 7.5 % (3-14); Neutrophils Absolute Auto 3100 /uL (1500-7000); Neutrophils Percent Auto 69.1 % (50-75); Platelet Count 141 X10^3/uL (150-400); Red Blood Cell Count 2.89 X10^6/uL (4.5-5.9); Red Cell Distribution Width 13.8 % (11.6-14.8); White Blood Cell Count 4.6 X10^3/uL (4.5-11.0)
[2023-12-11 07:26] LABS: Add Manual Diff / Slide Review SLIDE REVIEW
[2023-12-11 07:28] LABS: RBC Morphology Normal Morphology
[2023-12-11] MEDS: SODIUM CHLORIDE 0.9% 1,000 ML 150 ML IV ×3 (08:11→23:39)
[2023-12-11] MEDS: POTASSIUM CHLORIDE IN WATER 10 MEQ/100 ML PIGGYBACK 100 MEQ IV ×8 (08:11→16:13)
--- NOTE | 2023-12-11 08:26 | CM.DANOTE ---
Initial DCP Assessment Visit Note Reviewed EMR and team rounds for pt's medical status. Met with pt at bedside to introduce self and role, pt was found to be very drowsy, and was unable to engage with assessment questions other than acknowledging that he lives with his mother, and that she will drive him home once he's medically stable for d/c. Payor: Jonatan PCP: Carol Ann Dailey Pt is a 53 year-old M with a hx of chronic alcohol use disorder presented to the ED last evening with c/o weakness, balance issues, and several sycopal episodes over the last several days. Pt has a hx of presenting to the ED every month since 2021, however has never followed through with his plan to start outpatient AURELIA tx. He is unemployed, states that his last drink was yesterday morning. CIWA protocol was started, pt was given IV fluids for hyponatremia secondary to alcohol use, and a dose of phenobarbital for withdrawl prophylaxis. This DCP will continue to monitor and assist with further evolving needs during this admission. Once pt is more alert and stable, PAD EXTRACTOR TENDER will conduct a AURELIA assessment and offer AURELIA tx resources. Discharge Planning/Care Management Advanced directive, confirm from FAMILY Start: 12/11/23 01:39 Freq: Q24H Status: Active Protocol: Document 12/11/23 01:39 FM (Rec: 12/11/23 01:42 FM [id number]) Advance Directive, confirm on record Time 01:42 Person contacted . Copy received No Copy received No Advanced directive available on record No CM Discharge Assessment Start: 12/11/23 08:05 Freq: Status: Active Protocol: Document 12/11/23 08:06 DPL (Rec: 12/11/23 08:24 DPL [id number]) Discharge Planning Assessment Assigned Scorekeeper BILL Mace Advance Directives? No Advance Directives on File No History Provided By Patient,Medical Record Has Patient been admitted in last 30 No days? Comment He has presented to the ED every month since 2021, but this is his first admission. Prior Living Arrangements House Household Members family Comment Pt lives with his mother. Type of transporation used prior to Drives own vehicle admit Independent with ADL's Yes Is patient alert and oriented? Yes Comment N/A Patient/Family Preference Drug/Alcohol Rehab Comment Will discuss when pt is more alert and able to participate in discussion. Barriers to Discharge No Discharge Plan Drug Rehabilitation Transportation Arrangement mother Additional Comment Will discuss AURELIA tx once pt is more stable. Whiteboard Updated in Patient Room with Yes name and ext. # of Scorekeeper Review Status In Process Please Provide Date Initial DC 12/11/23 Assessment Was Performed
[2023-12-11] MEDS: FOLIC ACID 1 MG TABLET PO (10:07)
[2023-12-11] MEDS: THIAMINE 200 MG in SODIUM CHLORIDE 0.9% 100 ML 408 MG IV ×2 (10:07→14:41)
[2023-12-11] MEDS: MULTIVITAMIN 1 TABLET 1 TAB PO (10:07)
[2023-12-11] MEDS: SODIUM CHLORIDE 1,000 MG TABLET 1000 MG PO (10:07)
--- NOTE | 2023-12-11 11:19 | PM.PN.1 ---
Subjective Subjective Interval history: This is a 53 year old male with PMH of HTN, EtOH use admitted with hyponatremia. He is fairly somnolent today, falls asleep easily but is AxOx3 and answers questions appropriately though with his eyes closed. He feels a bit off, but has no chest or abdominal pain, nausea, shortness of breath. He had been given phenobarb in the ER. He is on a thiazide diuretic, urine sodium to be collected but suspect likely hypovolemic etiology. Have started on IV fluids, Na stable at 119. Exam Vital Signs (past 8 hours): - 12/11/23 08:00 12/11/23 08:42 12/11/23 10:12 Temperature 98.2 F Pulse Rate 95 H Respiratory Rate 16 Blood Pressure 119/72 Pulse Oximetry 94 98 Oxygen Delivery Method Nasal Cannula Oximask Oximask Oxygen Flow Rate 0 4 Oxygen Delivery Method Oximask Oxygen Flow Rate 4 Narrative Exam Narrative: General:? Patient is well developed and well nourished, in no distress at this time. HEENT:? Normocephalic, atraumatic, extraocular muscles intact, oral pharynx is clear and mucous membranes are moist. Neck: supple and symmetric, trachea is midline, no cervical adenopathy. Chest:? Normal AP diameter and contour without kyphoscoliosis, no tachypnea, equal chest rise bilaterally. Lungs:? CTA b/l no wheezing rhonchi or rales. Poor effort Cardio:?RRR no m/r/g. Abdomen: S NT ND. Musculoskeletal:? Muscle strength and tone are equal within normal limits, no deformity. Extremities: No edema or joint effusions. No cyanosis or clubbing. Skin:? Pale,? Warm to touch,dry and intact without rashes, ulcerations or petechiae.? Neuro:? Alert and orientated x3,?falls asleep once you stop talking to him. sensation to touch intact in all extremities, no gross deficits noted of cranial nerves. Objective Labs 12/11/23 06:13 12/11/23 06:13 Labs: Laboratory Results - last 24 hr 12/10/23 12/10/23 12/10/23 17:15 21:53 23:20 WBC 6.0 RBC 3.17 L Hgb 11.1 L Hct 30.7 L MCV 96.7 MCH 35.1 H MCHC 36.3 H RDW 13.8 Plt Count 204 Neut % (Auto) 72.7 Lymph % (Auto) 16.9 L [place] % (Auto) 7.5 Eos % (Auto) 2.1 Baso % (Auto) 0.8 Neut # (Auto) 4300 Lymph # (Auto) 1000 L [place] # (Auto) 400 Eos # (Auto) 100 Baso # (Auto) 0 RBC Morphology PT 11.2 INR 1.0 APTT 33 VBG pH 7.56 H VBG pCO2 48.1 VBG pO2 16 L VBG HCO3 43 H VBG Total CO2 43 H VBG O2 Saturation 26 L VBG Base Excess 18.8 H FiO2 21 Sodium 119 L* Potassium 3.0 L Chloride 68 L* Carbon Dioxide 40 H* BUN 6 L Creatinine 0.87 Estimated GFR > 60 BUN/Creatinine Ratio 6.9 Glucose 191 H Calcium 10.1 Phosphorus Magnesium 1.3 L Total Bilirubin 0.9 AST 131 H ALT 84 H Alkaline Phosphatase 101 Total Creatine Kinase 242 H Troponin I 0.013 NT-Pro-B Natriuret Pep 27 Total Protein 8.0 Albumin 4.8 Globulin 3.2 Albumin/Globulin Ratio 1.5 Lipase 264 Urine RBC None seen Urine WBC 0-1/hpf Ur Squamous Epith Cells 0-1 /hpf Urine Bacteria Occasional (0-1) Ur Culture Indicated? Cult not indicated Vol Urine Centrifuged 10ml (spun) Nasal Screen MRSA (PCR) Not detected U Opiates 300ng/mL cut Negative Ur Oxycodone Screen Negative Urine Methadone Screen Negative Ur Barbiturates Screen Negative U Tricyclic Antidepress Positive H Ur Phencyclidine Scrn Negative Ur Amphetamines Screen Negative U Methamphetamines Scrn Negative Ur MDMA Scrn (Ecstasy) Negative U Benzodiazepines Scrn Negative Urine Cocaine Screen Negative U Marijuana (THC) Screen Negative Urine pH Normal Urine Specific [place] Normal Ethyl Alcohol 65 H Ur Creatinine Normal 12/11/23 12/11/23 01:45 06:13 WBC 4.6 RBC 2.89 L Hgb 10.2 L Hct 27.9 L MCV 96.6 MCH 35.4 H MCHC 36.7 H RDW 13.8 Plt Count 141 L Neut % (Auto) 69.1 Lymph % (Auto) 19.1 L [place] % (Auto) 7.5 Eos % (Auto) 3.1 Baso % (Auto) 1.2 Neut # (Auto) 3100 Lymph # (Auto) 900 L [place] # (Auto) 300 Eos # (Auto) 100 Baso # (Auto) 100 RBC Morphology Normal morphology PT INR APTT VBG pH VBG pCO2 VBG pO2 VBG HCO3 VBG Total CO2 VBG O2 Saturation VBG Base Excess FiO2 Sodium 118 L* 119 L* Potassium 2.9 L 2.7 L* Chloride 71 L* 71 L* Carbon Dioxide 39 H 39 H BUN 6 L 5 L Creatinine 0.68 0.70 Estimated GFR > 60 > 60 BUN/Creatinine Ratio 8.8 7.1 Glucose 176 H 154 H Calcium 9.8 9.2 Phosphorus 1.6 L Magnesium 2.3 Total Bilirubin 0.9 AST 101 H ALT 63 H Alkaline Phosphatase 73 Total Creatine Kinase Troponin I NT-Pro-B Natriuret Pep Total Protein 6.8 Albumin 4.1 Globulin 2.7 Albumin/Globulin Ratio 1.5 Lipase Urine RBC Urine WBC Ur Squamous Epith Cells Urine Bacteria Ur Culture Indicated? Vol Urine Centrifuged Nasal Screen MRSA (PCR) U Opiates 300ng/mL cut Ur Oxycodone Screen Urine Methadone Screen Ur Barbiturates Screen U Tricyclic Antidepress Ur Phencyclidine Scrn Ur Amphetamines Screen U Methamphetamines Scrn Ur MDMA Scrn (Ecstasy) U Benzodiazepines Scrn Urine Cocaine Screen U Marijuana (THC) Screen Urine pH Urine Specific [place] Ethyl Alcohol Ur Creatinine PFSH Medical History Back pain Abdominal ascites Peripheral neuropathy Alcohol use disorder, moderate, dependence High triglycerides Non-insulin dependent diabetes mellitus Elevated fasting blood sugar Paresthesia of both feet Depression with anxiety Insomnia COVID-19 vaccine series declined Tobacco use disorder, mild, in early remission Elevated LFTs Blood glucose elevated Class 1 obesity in adult Alcohol dependence, daily use Smokes tobacco daily Hyperlipidemia Hypertension Lumbosacral spondylosis Recto-perineal fistula Lower GI bleed Atypical chest pain Surgical History History of rectal surgery Family History Father Alive and well Mother Alive and well Social History marital status: unmarried,single household members: family occupational status: disabled Smoking Status: Current some day smoker second hand exposure: No alcohol intake: current Assessment & Plan Assessment & Plan narrative: 53 years old male with a history of alcohol abuse, hypertension, neuropathy, diabetes mellitus and multiple other medical issues was brought to the emergency room by private vehicle from home for generalized weakness with near syncopal events and balance issues. Patient has had multiple falls. Had 1 episode of trauma to the head. Denies any complete loss of consciousness. Denies any blurred vision. Further workup in the emergency room is showed a sodium of 119 with a potassium of 3.0, chloride of 68, CO2 of 48 and creatinine of 0.87 with a blood sugar of 191. Hemoglobin is 11.1, WBC 6.0 in the platelet count of 204. CT scan of the brain shows no acute process. Urine analysis is positive for tricyclic depressants. Ethyl alcohol level emergency room is 65. Patient was initiated on IV fluids with a dose of phenobarbital due to risk of alcohol withdrawal. Admitted for further evaluation 1. Acute metabolic encephalopathy - probably related to the hyponatremia and possible alcohol intoxication or mild withdrawal currently. - seems to be improving, got 260 mg of phenobarb in the ED, low CIWA score today - continue management as noted below - with imbalance started on high dose Thiamine replacement, continue for a couple of days. 2. Hyponatremia - suspect hypovolemic, patient also on HCTZ which should likely be stopped as an outpatient, as he has had sodium as low as 123 previously. - urine sodium ordered, urine osm pending. - continue IV fluids, trend BMP q4-6 hr. Na thus far is 119>118>119. 3. Alcohol use with alcoholic hepatitis - AST/ALT 101/63. Tbili 0.9. INR 1.0 Low DF no indication for steroids - last drink approx 24 hours ago, continue to monitor for withdrawal 4. hypomagnesemia - replete and continue to follow Mg level 5. DM2 - not currently on medications, continue diabetic diet and low dose sliding scale. Code: Full, surrogate is patient's mother DVT: Lovenox daily Dispo: patient admitted under inpatient status. Likely discharge home Additional history obtained via discussions with the overnight provider, nursing and case management staff.. These discussions contributed to the creation of the above assessment and plan. I have reviewed patient's presenting documentation, labs, and imaging personally.
[2023-12-11 14:56] LABS: BUN Creatinine Ratio 9.6 (6-22); Blood Urea Nitrogen 7 mg/dL (9-20); Calcium 8.9 mg/dL (8.4-10.2); Carbon Dioxide 39 mmol/L (22-32); Estimated Glomerular Filt Rate > 60 mL/min (>60); Glucose 188 mg/dL (70-100); HEMOLYSIS < 15 (0-50); Potassium 3.4 mmol/L (3.4-5.1); Sodium 120 mmol/L (137-145)
[2023-12-11 14:57] LABS: Chloride 75 mmol/L (98-107)
[2023-12-11 16:46] LABS: Sodium Urine Random 48 mmol/L (30-90)
[2023-12-11] MEDS: INSULIN LISPRO 100 UNIT/ML 3ML VIAL SUBCUT (17:07)
[2023-12-11] MEDS: CYCLOBENZAPRINE 10 MG TABLET PO (17:42)
--- NOTE | 2023-12-11 18:47 | PC.NURSE ---
Day Shift Note Pt extremely drowsy at start of shift but would awaken easily and answer questions, oriented x3. Pt desatted to the 40s multiple times while sleeping while on RA, placed on oximask 3L with rapid rise to the 90s and MD updated. Pt reports he needs a sleep machine but hasn't gotten one yet. Pt weaned to RA by end of shift as pt became more alert, SpO2 now upper 90s. CIWA 0 all shift, pt reports drinking a fifth of vodka daily and reports he has never withdrawn when he has stopped drinking in the past. Instructed that we will be assessing him for withdrawal symptoms and on what these are and that we will medicate as needed. Pt acknowledged understanding. Up SBA with FWW to void and able to walk into bathroom, steady on feet, no tremors noted. HR up to the 130s sinus with activity, 90s at rest. Bed alarm on. Call light within reach, using appropriately to make needs known.
[2023-12-11 20:24] LABS: BUN Creatinine Ratio 8.9 (6-22); Blood Urea Nitrogen 7 mg/dL (9-20); Calcium 9.5 mg/dL (8.4-10.2); Carbon Dioxide 39 mmol/L (22-32); Chloride 82 mmol/L (98-107); Estimated Glomerular Filt Rate > 60 mL/min (>60); Glucose 200 mg/dL (70-100); HEMOLYSIS < 15 (0-50); Potassium 3.7 mmol/L (3.4-5.1); Sodium 126 mmol/L (137-145)
[2023-12-11] MEDS: lisinopriL 20 MG TABLET PO (21:26)
[2023-12-11] MEDS: THIAMINE 200 MG in SODIUM CHLORIDE 0.9% 100 ML 400 MG IV (21:27)
[2023-12-11] MEDS: GABAPENTIN 300 MG CAPSULE PO (21:27)
[2023-12-11] MEDS: METOPROLOL IR 25 MG TABLET PO (21:27)
[2023-12-12] VITALS (37 sets, daily range): BP systolic 146–179; BP diastolic 60–103; PULSE 66–121; RESP 13–24; TEMP 36.1–36.9; O2SAT 95–100
[2023-12-12] MEDS: CYCLOBENZAPRINE 10 MG TABLET PO (01:30)
[2023-12-12 05:28] LABS: Add Manual Diff / Slide Review NO; Basophils Absolute Auto 0 /uL (0-100); Basophils Percent Auto 0.9 % (0-2); Eosinophils Absolute Auto 100 /uL (0-450); Eosinophils Percent Auto 3.4 % (2-4); Hematocrit 28.9 % (41-53); Hemoglobin 10.3 g/dL (13.5-17.5); Lymphocytes Absolute Auto 900 /uL (1100-4500); Lymphocytes Percent Auto 22.2 % (25-40); Mean Corpuscular HGB Conc 35.6 % (30-36); Mean Corpuscular Hemoglobin 35.1 PG (26-34); Mean Corpuscular Volume 98.5 fL (80-100); Monocytes Absolute Auto 300 /uL (0-900); Monocytes Percent Auto 6.7 % (3-14); Neutrophils Absolute Auto 2700 /uL (1500-7000); Neutrophils Percent Auto 66.8 % (50-75); Platelet Count 142 X10^3/uL (150-400); Red Blood Cell Count 2.93 X10^6/uL (4.5-5.9); Red Cell Distribution Width 13.8 % (11.6-14.8)
[2023-12-12 05:34] LABS: Alanine Aminotransferase 78 IU/L (<50); Albumin 4.3 g/dL (3.5-5.0); Albumin Globulin Ratio 1.4 (1.0-2.8); Alkaline Phosphatase 90 U/L (38-126); Aspartate Aminotransferase 126 IU/L (17-59); BUN Creatinine Ratio 10.8 (6-22); Bilirubin Total 0.6 mg/dL (0.2-1.3); Blood Urea Nitrogen 9 mg/dL (9-20); Calcium 9.8 mg/dL (8.4-10.2); Carbon Dioxide 38 mmol/L (22-32); Chloride 89 mmol/L (98-107); Estimated Glomerular Filt Rate > 60 mL/min (>60); Glucose 129 mg/dL (70-100); HEMOLYSIS < 15 (0-50); Sodium 131 mmol/L (137-145); Total Protein 7.3 g/dL (6.3-8.2)
--- NOTE | 2023-12-12 08:09 | PM.PN.1 ---
Subjective Subjective Interval history: S: Nataliia and has been hallucinating overnight. Notes he has been drinking a 5th of alcohol a day for many years but recently has stepped up to about 1.5 bottles a day. He does have a history of periods of sobriety up 2 years in the past. He lives with his mother, for the last 22 years. From [place]: Interval history: This is a 53 year old male with PMH of HTN, EtOH use admitted with hyponatremia. He is fairly somnolent today, falls asleep easily but is AxOx3 and answers questions appropriately though with his eyes closed. He feels a bit off, but has no chest or abdominal pain, nausea, shortness of breath. He had been given phenobarb in the ER. He is on a thiazide diuretic, urine sodium to be collected but suspect likely hypovolemic etiology. Have started on IV fluids, Na stable at 119. Na 131 this AM. Exam Vital Signs (past 8 hours): - 12/12/23 04:00 Temperature 97.2 F L Pulse Rate 93 H Respiratory Rate 24 Blood Pressure 175/95 H Pulse Oximetry 100 Oxygen Flow Rate 1 Oxygen Delivery Method Room Air,Oximask Oxygen Flow Rate 1 Narrative Exam Narrative: NAD, alert and oriented. Fluent speech. Mild tremor, anxious in appearance. Lungs are clear, normal rate and effort. Heart is regular, no murmur gallop or rub. Abdomen is soft, non distended. Extremities are free of edema. Objective Labs 12/12/23 04:40 12/12/23 04:40 Labs: Laboratory Results - last 24 hr 12/11/23 12/11/23 12/11/23 13:20 13:32 19:47 WBC RBC Hgb Hct MCV MCH MCHC RDW Plt Count Neut % (Auto) Lymph % (Auto) [place] % (Auto) Eos % (Auto) Baso % (Auto) Neut # (Auto) Lymph # (Auto) [place] # (Auto) Eos # (Auto) Baso # (Auto) Sodium 120 L 126 L Potassium 3.4 3.7 Chloride 75 L* 82 L Carbon Dioxide 39 H 39 H BUN 7 L 7 L Creatinine 0.73 0.79 Estimated GFR > 60 > 60 BUN/Creatinine Ratio 9.6 8.9 Glucose 188 H 200 H Calcium 8.9 9.5 Magnesium Total Bilirubin AST ALT Alkaline Phosphatase Total Protein Albumin Globulin Albumin/Globulin Ratio Ur Random Sodium 48 12/12/23 04:40 WBC 4.0 L RBC 2.93 L Hgb 10.3 L Hct 28.9 L MCV 98.5 MCH 35.1 H MCHC 35.6 RDW 13.8 Plt Count 142 L Neut % (Auto) 66.8 Lymph % (Auto) 22.2 L [place] % (Auto) 6.7 Eos % (Auto) 3.4 Baso % (Auto) 0.9 Neut # (Auto) 2700 Lymph # (Auto) 900 L [place] # (Auto) 300 Eos # (Auto) 100 Baso # (Auto) 0 Sodium 131 L Potassium 4.0 Chloride 89 L Carbon Dioxide 38 H BUN 9 Creatinine 0.83 Estimated GFR > 60 BUN/Creatinine Ratio 10.8 Glucose 129 H Calcium 9.8 Magnesium 2.0 Total Bilirubin 0.6 AST 126 H ALT 78 H Alkaline Phosphatase 90 Total Protein 7.3 Albumin 4.3 Globulin 3.0 Albumin/Globulin Ratio 1.4 Ur Random Sodium PFS Medical History Back pain Abdominal ascites Peripheral neuropathy Alcohol use disorder, moderate, dependence High triglycerides Non-insulin dependent diabetes mellitus Elevated fasting blood sugar Paresthesia of both feet Depression with anxiety Insomnia COVID-19 vaccine series declined Tobacco use disorder, mild, in early remission Elevated LFTs Blood glucose elevated Class 1 obesity in adult Alcohol dependence, daily use Smokes tobacco daily Hyperlipidemia Hypertension Lumbosacral spondylosis Recto-perineal fistula Lower GI bleed Atypical chest pain Surgical History History of rectal surgery Family History Father Alive and well Mother Alive and well Social History marital status: unmarried,single household members: family occupational status: disabled Smoking Status: Current some day smoker second hand exposure: No alcohol intake: current Assessment & Plan Assessment & Plan narrative: 53 years old male with a history of alcohol abuse, hypertension, neuropathy, diabetes mellitus and multiple other medical issues was brought to the emergency room by private vehicle from home for generalized weakness with near syncopal events and balance issues. Patient has had multiple falls. Had 1 episode of trauma to the head. Denies any complete loss of consciousness. Denies any blurred vision. Further workup in the emergency room is showed a sodium of 119 with a potassium of 3.0, chloride of 68, CO2 of 48 and creatinine of 0.87 with a blood sugar of 191. Hemoglobin is 11.1, WBC 6.0 in the platelet count of 204. CT scan of the brain shows no acute process. Urine analysis is positive for tricyclic depressants. Ethyl alcohol level emergency room is 65. Patient was initiated on IV fluids with a dose of phenobarbital due to risk of alcohol withdrawal. Admitted for further evaluation 1. Acute metabolic encephalopathy, present on admission and active. - probably related to the hyponatremia and possible alcohol intoxication or mild withdrawal currently. - seems to be improving, got 260 mg of phenobarb in the ED, low CIWA score today - continue management as noted below - with imbalance started on high dose Thiamine replacement, continue for a couple of days. 2. Hyponatremia (beer potomania), present on admission and improved. - suspect hypovolemic, patient also on HCTZ which should likely be stopped as an outpatient, as he has had sodium as low as 123 previously. - urine sodium ordered, urine osm pending. - continue IV fluids, trend BMP q4-6 hr. Na thus far is 119>118>119. 3. Severe alcohol use disorder with alcoholic hepatitis and acute alcohol withdrawal, present on admission and active. - AST/ALT 101/63. Tbili 0.9. INR 1.0 Low DF no indication for steroids - last drink approx 24 hours ago, continue to monitor for withdrawal 4. hypomagnesemia, present on admission and active. - replete and continue to follow Mg level 5. DM2, present on admission and active. - not currently on medications, continue diabetic diet and low dose sliding scale. PLAN: -add D5W to bring Na down a bit (avoid sustained over correction). -CIWA and Thiamine (PO) -monitor mental status. Estimated date of discharge is 12/13. Code: Full, surrogate is patient's mother DVT: Lovenox daily Dispo: patient admitted under inpatient status. Likely discharge home
[2023-12-12] MEDS: lisinopriL 20 MG TABLET PO ×2 (08:36→20:22)
[2023-12-12] MEDS: MULTIVITAMIN 1 TABLET 1 TAB PO (08:36)
[2023-12-12] MEDS: FOLIC ACID 1 MG TABLET PO (08:36)
[2023-12-12] MEDS: INSULIN LISPRO 100 UNIT/ML 3ML VIAL SUBCUT ×3 (08:36→17:36)
[2023-12-12] MEDS: METOPROLOL IR 25 MG TABLET PO (08:37)
[2023-12-12] MEDS: DEXTROSE 5% WATER 1,000 ML 125 ML IV ×2 (08:37→16:42)
[2023-12-12] MEDS: THIAMINE 100 MG TABLET 200 MG PO ×3 (08:42→20:22)
[2023-12-12] MEDS: LORazepam 2 MG/ML INJ IV ×3 (10:57→18:21)
[2023-12-12] MEDS: ENOXAPARIN 40 MG/0.4 ML SYRINGE SUBCUT (10:57)
--- NOTE | 2023-12-12 11:03 | DIET.CONS ---
Dietary Consultation Note Admission Date: 12/10/2023 20:58 Assessment: 53 y M with PMH of alcohol use disorder admitted with hyponatremia, acute alcohol withdrawal. Nutrition consulted for alcohol use. Met with pt at bedside. Reports 3 days before admission only had half a sandwich + alcohol. Before, reports intake of sandwiches, noodles, soups in evening time when he woke up for the day or going out to eat at fast food. Reports he plans to stop drinking and follow up with provider for diabetic management. Ht: 191.77 cm Wt: 106.594 kg BMI: 29.0 UBW: 106.651 kg on 09/27/23, 108.862 kg on 11/21/22, no significant weight loss noted Last BM: 12/11/23 (12/11/23 22:33) MNA: 12 Jason Score: 19 Diet: 12/11/23 Lunch Carbohydrate Consistent Diet Diet Modifications: Carbohydrate level: Large (4 CHO) Reflex DM orders: No Food Texture: Level 7 - Regular Liquid Consistency: Level 0 - Thin Nutrition Percent Meal Consumed 100% 12/12/23 09:15 Labs: RBC 2.93 X10^6/uL (4.5-5.9) L 12/12/23 04:40 Hgb 10.3 g/dL (13.5-17.5) L 12/12/23 04:40 Hct 28.9 % (41-53) L 12/12/23 04:40 Creatinine 0.83 mg/dL (0.66-1.25) 12/12/23 04:40 NT-Pro-B Natriuret Pep 27 pg/mL (<125) 12/10/23 17:15 Nutrition Diagnosis: Excessive alcohol intake r/t alcohol addiction aeb alcoholic hepatitis, hx of alcohol use disorder Interventions: 1. Encouraged adequate intake upon d/c and f/u outpatient with provider for diabetic management 2. Reviewed plate method for meals Monitoring/Evaluations: po intakes Electronically Signed by: Gauri Dailey 12/12/23 11:03 Clinical Dietitian [address] [address]
--- NOTE | 2023-12-12 11:10 | CM.DPC ---
DCP Cont. Reviewed EMR and team rounds for status updates. Pt has just started to show symptoms of ETOH withdrawl. Will continue to monitor for pt's stability so one of the CONTACT L[employer] LATHE OPERATOR's can do the AURELIA assessment and discuss tx options.
[2023-12-12 13:36] LABS: Osmolality, Serum 252 mOsmol/kg (275-295)
[2023-12-12] MEDS: chlordiazePOXIDE 10 MG CAPSULE PO ×2 (14:45→20:22)
--- NOTE | 2023-12-12 15:09 | PC.NURSE ---
In am, brought up to provider that patient's sodium jumped from 119 yesterday to 131 today. Pt alert and oriented, but confused on date, and had nystagmus on exam. Provider gave orders. Throughout day pt having intermittent visual hallucinations, ativan administered per [facility] protocol. Pt's home meds sent to pharmacy.
[2023-12-12] MEDS: GABAPENTIN 600 MG 300 EACH PO (20:50)
[2023-12-12] MEDS: DOXEPIN 25 MG 150 EACH PO (21:45)
[2023-12-13] VITALS (35 sets, daily range): BP systolic 139–175; BP diastolic 85–110; PULSE 79–120; RESP 14–30; TEMP 36.1–37.2; O2SAT 92–100
[2023-12-13] MEDS: DEXTROSE 5% WATER 1,000 ML 125 ML IV (01:07)
[2023-12-13] MEDS: LORazepam 2 MG/ML INJ IV (02:37)
[2023-12-13 04:33] LABS: Add Manual Diff / Slide Review NO; Basophils Absolute Auto 0 /uL (0-100); Basophils Percent Auto 0.9 % (0-2); Eosinophils Absolute Auto 200 /uL (0-450); Eosinophils Percent Auto 3.9 % (2-4); Hematocrit 26.9 % (41-53); Hemoglobin 9.8 g/dL (13.5-17.5); Lymphocytes Absolute Auto 1200 /uL (1100-4500); Lymphocytes Percent Auto 23.6 % (25-40); Mean Corpuscular HGB Conc 36.2 % (30-36); Mean Corpuscular Hemoglobin 35.6 PG (26-34); Mean Corpuscular Volume 98.4 fL (80-100); Monocytes Absolute Auto 500 /uL (0-900); Monocytes Percent Auto 9.2 % (3-14); Neutrophils Absolute Auto 3100 /uL (1500-7000); Neutrophils Percent Auto 62.4 % (50-75); Platelet Count 153 X10^3/uL (150-400); Red Blood Cell Count 2.74 X10^6/uL (4.5-5.9); Red Cell Distribution Width 13.7 % (11.6-14.8); White Blood Cell Count 4.9 X10^3/uL (4.5-11.0)
[2023-12-13 05:17] LABS: Alanine Aminotransferase 82 IU/L (<50); Albumin 4.2 g/dL (3.5-5.0); Albumin Globulin Ratio 1.6 (1.0-2.8); Alkaline Phosphatase 94 U/L (38-126); Aspartate Aminotransferase 111 IU/L (17-59); BUN Creatinine Ratio 12.9 (6-22); Bilirubin Total 0.6 mg/dL (0.2-1.3); Blood Urea Nitrogen 11 mg/dL (9-20); Calcium 9.9 mg/dL (8.4-10.2); Carbon Dioxide 34 mmol/L (22-32); Chloride 92 mmol/L (98-107); Estimated Glomerular Filt Rate > 60 mL/min (>60); Globulin 2.7 g/dL (1.7-4.1); Glucose 177 mg/dL (70-100); HEMOLYSIS < 15 (0-50); Magnesium 1.7 mg/dL (1.6-2.3); Potassium 3.8 mmol/L (3.4-5.1); Sodium 130 mmol/L (137-145); Total Protein 6.9 g/dL (6.3-8.2)
--- NOTE | 2023-12-13 07:55 | PM.PN.1 ---
Subjective Subjective Interval history: He was feeling better today. Less shaky. He had no hallucinations overnight. Denies any dyspnea or pain issues. Exam Vital Signs (past 8 hours): - 12/13/23 00:00 12/13/23 02:55 12/13/23 04:00 Temperature 97.0 F L 97.5 F L Pulse Rate 97 H 116 H 97 H Respiratory Rate 20 24 19 Blood Pressure 175/110 H 155/93 H 155/93 H Pulse Oximetry 100 97 Oxygen Flow Rate 0 0 Oxygen Delivery Method Room Air Oxygen Flow Rate 0 Narrative Exam Narrative: NAD, alert and oriented. Fluent speech. Lungs are clear, normal rate and effort. Heart is regular, no murmur gallop or rub. Abdomen is soft, non distended. Extremities are free of edema. Objective Labs 12/13/23 04:03 12/13/23 04:03 Labs: Laboratory Results - last 24 hr 12/11/23 12/13/23 06:13 04:03 WBC 4.9 RBC 2.74 L Hgb 9.8 L Hct 26.9 L MCV 98.4 MCH 35.6 H MCHC 36.2 H RDW 13.7 Plt Count 153 Neut % (Auto) 62.4 Lymph % (Auto) 23.6 L [place] % (Auto) 9.2 Eos % (Auto) 3.9 Baso % (Auto) 0.9 Neut # (Auto) 3100 Lymph # (Auto) 1200 [place] # (Auto) 500 Eos # (Auto) 200 Baso # (Auto) 0 Sodium 130 L Potassium 3.8 Chloride 92 L Carbon Dioxide 34 H BUN 11 Creatinine 0.85 Estimated GFR > 60 BUN/Creatinine Ratio 12.9 Glucose 177 H Serum Osmolality 252 L Calcium 9.9 Magnesium 1.7 Total Bilirubin 0.6 AST 111 H ALT 82 H Alkaline Phosphatase 94 Total Protein 6.9 Albumin 4.2 Globulin 2.7 Albumin/Globulin Ratio 1.6 PFSH Medical History Back pain Abdominal ascites Peripheral neuropathy Alcohol use disorder, moderate, dependence High triglycerides Non-insulin dependent diabetes mellitus Elevated fasting blood sugar Paresthesia of both feet Depression with anxiety Insomnia COVID-19 vaccine series declined Tobacco use disorder, mild, in early remission Elevated LFTs Blood glucose elevated Class 1 obesity in adult Alcohol dependence, daily use Smokes tobacco daily Hyperlipidemia Hypertension Lumbosacral spondylosis Recto-perineal fistula Lower GI bleed Atypical chest pain Surgical History History of rectal surgery Family History Father Alive and well Mother Alive and well Social History marital status: unmarried,single household members: family occupational status: disabled Smoking Status: Current some day smoker second hand exposure: No alcohol intake: current Assessment & Plan Assessment & Plan narrative: 1. Acute metabolic encephalopathy, present on admission and resolved. - probably related to the hyponatremia and possible alcohol intoxication or mild withdrawal currently. 2. Hyponatremia (beer potomania), present on admission and improved. - Potomania. 3. Severe alcohol use disorder with alcoholic hepatitis and acute alcohol withdrawal, present on admission and improving. - AST/ALT 101/63. Tbili 0.9. INR 1.0 Low DF no indication for steroids - last drink approx 24 hours ago, continue to monitor for withdrawal 4. Hypomagnesemia, present on admission and improved. - replete and continue to follow Mg level 5. DM2, present on admission and active. - not currently on medications, continue diabetic diet and low dose sliding scale. Estimated date of discharge: December 13.
[2023-12-13] MEDS: hydroCHLOROthiazide 25 MG TABLET 50 MG PO (09:30)
[2023-12-13] MEDS: FOLIC ACID 1 MG TABLET PO (09:30)
[2023-12-13] MEDS: GABAPENTIN 600 MG 300 EACH PO ×3 (09:30→20:50)
[2023-12-13] MEDS: lisinopriL 20 MG TABLET PO ×2 (09:30→20:49)
[2023-12-13] MEDS: METOPROLOL IR 25 MG TABLET PO (09:30)
[2023-12-13] MEDS: ENOXAPARIN 40 MG/0.4 ML SYRINGE SUBCUT (09:30)
[2023-12-13] MEDS: chlordiazePOXIDE 10 MG CAPSULE PO ×3 (09:31→20:48)
[2023-12-13] MEDS: MULTIVITAMIN 1 TABLET 1 TAB PO (09:31)
[2023-12-13] MEDS: THIAMINE 100 MG TABLET 200 MG PO ×3 (09:33→20:50)
[2023-12-13] MEDS: INSULIN LISPRO 100 UNIT/ML 3ML VIAL SUBCUT ×3 (09:34→17:24)
[2023-12-13 10:11] LABS: Osmolality Urine 192 mOsmol/kg (.)
--- NOTE | 2023-12-13 13:57 | CM.DPC ---
DCP Continued Reviewed EMR and team rounds for pt?s medical status. Per hospitalist, anticipating pt to discharge on 12/13. Per WRAPPER STEMMER OPERATOR, pt is gaining insight and was endorsing a preference for outpatient treatment upon discharge. DCP entered room, introduced self and role. Pt discussed interest in outpatient [facility] treatment, has a hx with a facility in [place], pt could not confirm name. DCP provided list of [facility] treatment agencies in the area as well as detox facilities. DCP discussed [facility] who specialize in Medication Assisted Treatment and peer-support/A[facility]LIA counseling. Pt very interested in this agency and consented for this DCP to send referral via online form ([email or web address]). [facility] to reach out to pt via phone or email ([email or web address]). Plan: Anticipating to discharge home on 12/13, mother to transport home. Pt to follow up with OP [facility] treatment with [facility]. CM Team will continue to follow for coordination of discharge plans. ELISE Solis
[2023-12-13] MEDS: DOXEPIN 25 MG 150 EACH PO (20:48)
[2023-12-14] VITALS (19 sets, daily range): BP systolic 146–151; BP diastolic 83–95; PULSE 85–116; RESP 12–22; TEMP 36–36.3; O2SAT 94–99
[2023-12-14 05:35] LABS: Add Manual Diff / Slide Review NO; Basophils Absolute Auto 100 /uL (0-100); Basophils Percent Auto 1.4 % (0-2); Eosinophils Absolute Auto 200 /uL (0-450); Eosinophils Percent Auto 3.6 % (2-4); Hematocrit 28.8 % (41-53); Hemoglobin 10.2 g/dL (13.5-17.5); Lymphocytes Absolute Auto 1500 /uL (1100-4500); Lymphocytes Percent Auto 26.3 % (25-40); Mean Corpuscular HGB Conc 35.5 % (30-36); Mean Corpuscular Hemoglobin 35.2 PG (26-34); Mean Corpuscular Volume 99.2 fL (80-100); Monocytes Absolute Auto 700 /uL (0-900); Neutrophils Absolute Auto 3300 /uL (1500-7000); Neutrophils Percent Auto 56.7 % (50-75); Platelet Count 191 X10^3/uL (150-400); Red Blood Cell Count 2.91 X10^6/uL (4.5-5.9); White Blood Cell Count 5.7 X10^3/uL (4.5-11.0)
[2023-12-14 05:54] LABS: Alanine Aminotransferase 94 IU/L (<50); Albumin 4.3 g/dL (3.5-5.0); Albumin Globulin Ratio 1.4 (1.0-2.8); Alkaline Phosphatase 99 U/L (38-126); Aspartate Aminotransferase 101 IU/L (17-59); BUN Creatinine Ratio 20.4 (6-22); Bilirubin Total 0.5 mg/dL (0.2-1.3); Blood Urea Nitrogen 19 mg/dL (9-20); Calcium 10.3 mg/dL (8.4-10.2); Carbon Dioxide 34 mmol/L (22-32); Chloride 92 mmol/L (98-107); Estimated Glomerular Filt Rate > 60 mL/min (>60); Glucose 176 mg/dL (70-100); HEMOLYSIS < 15 (0-50); Magnesium 1.6 mg/dL (1.6-2.3); Potassium 3.9 mmol/L (3.4-5.1); Sodium 131 mmol/L (137-145); Total Protein 7.3 g/dL (6.3-8.2)
[2023-12-14] MEDS: METOPROLOL IR 25 MG TABLET PO (08:15)
[2023-12-14] MEDS: THIAMINE 100 MG TABLET 200 MG PO (08:15)
[2023-12-14] MEDS: ENOXAPARIN 40 MG/0.4 ML SYRINGE SUBCUT (08:15)
[2023-12-14] MEDS: lisinopriL 20 MG TABLET PO (08:15)
[2023-12-14] MEDS: FOLIC ACID 1 MG TABLET PO (08:16)
[2023-12-14] MEDS: MULTIVITAMIN 1 TABLET 1 TAB PO (08:16)
[2023-12-14] MEDS: hydroCHLOROthiazide 25 MG TABLET 50 MG PO (08:16)
[2023-12-14] MEDS: chlordiazePOXIDE 10 MG CAPSULE PO (08:16)
[2023-12-14] MEDS: GABAPENTIN 600 MG 300 EACH PO (08:19)
--- NOTE | 2023-12-14 08:26 | PM.DS.1 ---
History of Present Illness History of Present Illness Chief complaint: weakness, fainting, bruised RUE Alcohol use/intoxi Narrative: From H&P: 53 years old male with a history of alcohol abuse, hypertension, neuropathy, diabetes mellitus and multiple other medical issues was brought to the emergency room by private vehicle from home for generalized weakness with near syncopal events and balance issues. Patient has had multiple falls. Had 1 episode of trauma to the head. Denies any complete loss of consciousness. Denies any blurred vision. Further workup in the emergency room is showed a sodium of 119 with a potassium of 3.0, chloride of 68, CO2 of 48 and creatinine of 0.87 with a blood sugar of 191. Hemoglobin is 11.1, WBC 6.0 in the platelet count of 204. CT scan of the brain shows no acute process. Urine analysis is positive for tricyclic depressants. Ethyl alcohol level emergency room is 65. Patient was initiated on IV fluids with a dose of phenobarbital due to risk of alcohol withdrawal. Admitted for further evaluation. Discharge Providers Provider Date of admission: 12/10/23 20:58 Discharge Date: 12/14/23 Primary care physician: Doctor Cesia MD Consults: 12/10/23 22:19 Consult to Dietitian, Adult Routine Comment: Reason For Exam: alchol use Discharge provider: Daron Al MD Summary Hospital Course Discharge Diagnosis: 1. Acute metabolic encephalopathy, present on admission and resolved. - probably related to the hyponatremia and possible alcohol intoxication or mild withdrawal currently. 2. Hyponatremia (beer potomania), present on admission and improved. - Potomania. Improved with saline. 3. Severe alcohol use disorder with alcoholic hepatitis and acute alcohol withdrawal, present on admission and improving. - AST/ALT 101/63. Tbili 0.9. INR 1.0 Low DF no indication for steroids - last drink approx 24 hours ago, continue to monitor for withdrawal 4. Hypomagnesemia, present on admission and improved. - repleted. 5. DM2, present on admission and active. - not currently on medications, continue diabetic diet and low dose sliding scale. Hospital Course: This is a 53-year-old male with a history of severe alcohol use disorder who was admitted with an acute encephalopathy secondary to beer potomania. The patient underwent correction with normal saline. The patient had improvement of his mental status but did have a moderate alcohol withdrawal syndrome which is treated with CIWA protocol. He would hallucinations in the 1st night of his hospitalization. All of these symptoms did improve and he was able to return to his mental baseline. On the day of discharge he requested discharge home and had no evidence of encephalopathy withdrawal symptoms. He we will be provided with Librium t.i.d. as needed for anxiety or shakes. He does have a sponsor intends to start AA meetings again. Social work did meet with him in discussed his various options with treatment programs which she understands and apparently he was going to consider following up with ease in the next several days. He does have persistent right shoulder pain and requested a sling at the time of discharge. Radiographs were negative for fracture, if this persists he will need to have further evaluation and potential advanced imaging. Status at Discharge Cognitive/behavioral status at discharge: at baseline, oriented Functional status at discharge: independent ambulation Overall status at discharge: patient is back to baseline Time Spent with Patient Time spent: Greater than 30 minutes Exam Vital Signs (past 8 hours): - 12/14/23 00:30 12/14/23 01:00 12/14/23 01:30 Temperature Pulse Rate 95 H 93 H 95 H Respiratory Rate 12 15 20 Blood Pressure Pulse Oximetry 98 98 97 Oxygen Delivery Method Oxygen Flow Rate 12/14/23 02:00 12/14/23 02:30 12/14/23 03:00 Temperature Pulse Rate 96 H 103 H 106 H Respiratory Rate 19 18 21 Blood Pressure Pulse Oximetry 98 98 98 Oxygen Delivery Method Oxygen Flow Rate 12/14/23 03:06 12/14/23 03:06 12/14/23 03:30 Temperature Pulse Rate 116 H 109 H Respiratory Rate 22 20 Blood Pressure 146/83 H Pulse Oximetry 96 96 Oxygen Delivery Method Oxygen Flow Rate 12/14/23 04:00 12/14/23 04:00 12/14/23 04:30 Temperature 97.2 F L Pulse Rate 116 H 97 H 93 H Respiratory Rate 19 15 13 Blood Pressure 146/83 H Pulse Oximetry 97 96 94 Oxygen Delivery Method Oxygen Flow Rate 0 12/14/23 05:00 12/14/23 05:30 12/14/23 06:00 Temperature Pulse Rate 89 89 85 Respiratory Rate 13 16 13 Blood Pressure Pulse Oximetry 96 96 97 Oxygen Delivery Method Oxygen Flow Rate 12/14/23 06:30 12/14/23 07:00 12/14/23 07:00 Temperature Pulse Rate 85 86 Respiratory Rate 14 13 Blood Pressure Pulse Oximetry 96 96 Oxygen Delivery Method Room Air Oxygen Flow Rate 12/14/23 07:30 12/14/23 07:49 12/14/23 07:49 Temperature Pulse Rate 94 H 110 H Respiratory Rate 13 15 Blood Pressure 151/95 H Pulse Oximetry 99 97 Oxygen Delivery Method Oxygen Flow Rate Oxygen Delivery Method Room Air Oxygen Flow Rate 0 Narrative Exam Narrative: NAD, alert and oriented. Fluent speech. Lungs are clear, normal rate and effort. Heart is regular, no murmur gallop or rub. Abdomen is soft, non distended. Extremities are free of edema. Objective Imaging CT scan - head: Radiologist's impression: No acute intracranial pathology. No significant changes from recent study. R Humerus XRay: Radiologist's impression: No acute right humeral fracture or dislocation. No gross soft tissue abnormalities. Incidentally noted of benign-appearing ext ostosis in distal humeral shaft as above likely represent osteochondroma. Labs 12/14/23 04:47 12/14/23 04:47 Labs: Laboratory Results - last 24 hr 12/11/23 12/14/23 13:20 04:47 WBC 5.7 RBC 2.91 L Hgb 10.2 L Hct 28.8 L MCV 99.2 MCH 35.2 H MCHC 35.5 RDW 14.0 Plt Count 191 Neut % (Auto) 56.7 Lymph % (Auto) 26.3 [place] % (Auto) 12.0 Eos % (Auto) 3.6 Baso % (Auto) 1.4 Neut # (Auto) 3300 Lymph # (Auto) 1500 [place] # (Auto) 700 Eos # (Auto) 200 Baso # (Auto) 100 Sodium 131 L Potassium 3.9 Chloride 92 L Carbon Dioxide 34 H BUN 19 Creatinine 0.93 Estimated GFR > 60 BUN/Creatinine Ratio 20.4 Glucose 176 H Calcium 10.3 H Magnesium 1.6 Total Bilirubin 0.5 AST 101 H ALT 94 H Alkaline Phosphatase 99 Total Protein 7.3 Albumin 4.3 Globulin 3.0 Albumin/Globulin Ratio 1.4 Urine Osmolality 192 PFSH Medical History Back pain Abdominal ascites Peripheral neuropathy Alcohol use disorder, moderate, dependence High triglycerides Non-insulin dependent diabetes mellitus Elevated fasting blood sugar Paresthesia of both feet Depression with anxiety Insomnia COVID-19 vaccine series declined Tobacco use disorder, mild, in early remission Elevated LFTs Blood glucose elevated Class 1 obesity in adult Alcohol dependence, daily use Smokes tobacco daily Hyperlipidemia Hypertension Lumbosacral spondylosis Recto-perineal fistula Lower GI bleed Atypical chest pain Surgical History History of rectal surgery Family History Father Alive and well Mother Alive and well Social History marital status: unmarried,single household members: family occupational status: disabled Smoking Status: Current some day smoker second hand exposure: No alcohol intake: current Discharge Assessment & Plan Assessment and Plan Assessment: 1. Acute metabolic encephalopathy, present on admission and resolved. 2. Hyponatremia (beer potomania), present on admission and improved. 3. Severe alcohol use disorder with alcoholic hepatitis and acute alcohol withdrawal, present on admission and improving. 4. Hypomagnesemia, present on admission and improved. 5. DM2, present on admission and active. Plan of Treatment: Stable for discharge home, Librium 10 p.o. t.i.d. as needed 20. Provided. He was urged to contact sponsor and begin means tonight. He will continue to consider inpatient rehab options. Discharge Plan Discharge Plan Patient Disposition: Home Provider Discharge Comment: Stable for discharge home. Discharge orders & Medications Prescriptions: New chlordiazepoxide HCl 10 mg Capsule 10 mg PO TID Qty: 20 0RF Continued lisinopril 20 mg tablet See Rx Instructions .ROUTE .COMPLEX Qty: 180 3RF Dose Instruction: take 1 tablet by mouth twice a day Rx Instructions: take 1 tablet by mouth twice a day omega-3 acid ethyl esters [Lovaza] 1 gram capsule 1 cap PO BID Qty: 180 3RF Rx Instructions: Take 1 tab twice daily for elevated triglycerides doxepin 150 mg capsule 150 mg PO BEDTIME Qty: 90 3RF Rx Instructions: Take 1 capsule at bedtime daily for sleep. gabapentin 600 mg tablet 300 - 600 mg PO TID PRN (Reason: nerve pain) Qty: 90 11RF tadalafil [Cialis] 20 mg tablet See Rx Instructions .ROUTE .COMPLEX Qty: 30 3RF Rx Instructions: administer approximately 30min before sexual activity; do not use more than 1 dose per 24hrs; hydrochlorothiazide 25 mg tablet 50 mg PO QAM Qty: 180 0RF metoprolol tartrate 25 mg tablet 25 mg PO DAILY Qty: 30 0RF Rx Instructions: pt dismissed from clinic, no further refills (DME) blood-glucose meter [Blood Glucose Monitoring] Kit See Rx Instructions .Route Qty: 1 0RF Rx Instructions: As directed. (DME) Glucometer Test Strips See Rx Instructions .Route .MEDSUPPLY Qty: 100 3RF Rx Instructions: Check blood sugars daily fasting each morning (DME) Lancettes See Rx Instructions .Route .MEDSUPPLY Qty: 100 3RF Rx Instructions: Check blood sugars fasting each morning and as needed (DME) Lancing Pen See Rx Instructions .Route .MEDSUPPLY Qty: 1 0RF Rx Instructions: As directed Medication counseling provided by Pharmacist: No Follow up/Referrals: Doctor Callaway MD [Primary Care Provider] - Discharge Health Status Multidrug resistant organism: No MDRO Diet/Activity/Treatments Diet: Regular Activity: As tolerated/ Visit Report/Discharge Packet Instructions: DI for Alcohol Use Disorder Stand Alone Forms: Patient Portal/API Discharge Data Primary Care Provider: Doctor Cesia
--- NOTE | 2023-12-14 08:57 | CM.DPC ---
DCP Discharge Home Per MD, pt medically stable to d/c home today with librium taper for ETOH withdrawal and no identified barriers to discharge and per pt request placed order for shoulder sling due to pain from falling on it. RN and PT kindly secured sling to fit pt with for discharge. BLANCHE met bedside with pt and explained role and pt confirms he is agreeable to discharge home today and that his mom plans to provide transport home today. SW inquired about ETOH tx as previous SW had made referral to [facility] OP facility in [place] per pt request. Pt states he is considering outpt tx vs Inpt tx as he had previously called [facility] in [place] prior to admission for withdrawal. SW printed off the ETOH resources and provided to pt again and he states he plans to d/c home with his mom and instantly start back up with AA meetings and then determine Inpt vs Outpt tx after discharge. BLANCHE updated MD and RN. Plan: Patient to discharge home today via mother POV and pt has ETOH resources and plans to follow up after discharge. BILL Modi
== END 2023-12-14 10:16 | disposition home or self-care (01) | DRG 640 ==
LOC: ED 20:58 → AC 20:59 → ICU 22:02
PROVIDERS: Emergency Medicine; Internal Medicine; Admitting Provider Internal Medicine; Emergency Provider Emergency Medicine; Family Provider Nurse Practitioner; Referring Provider Emergency Medicine; Visit Provider Internal Medicine
DX: E87.1 Hypo-osmolality and hyponatremia (principal); G93.41 Metabolic encephalopathy; F10.939 Alcohol use, unspecified with withdrawal, unspecified; F17.200 Nicotine dependence, unspecified, uncomplicated; E11.9 Type 2 diabetes mellitus without complications; E83.42 Hypomagnesemia; S09.90XA Unspecified injury of head, initial encounter; G47.33 Obstructive sleep apnea (adult) (pediatric); K70.10 Alcoholic hepatitis without ascites; Y90.3 Blood alcohol level of 60-79 mg/100 ml; I10 Essential (primary) hypertension; W19.XXXA Unspecified fall, initial encounter; Z91.81 History of falling
CPT/HCPCS: 36415; 36592; 70450; 71045; 73060; 80048; 80053; 80305; 80320; 81003; 81015; 82550; 82805; 82962; 83690; 83735; 83880; 83930; 83935; 84100; 84300; 84484; 85025; 85610; 85730; 87797; 93005; 96365; 96375; 99284; 99291; J1650; J1815; J2060; J2560; J3475

== ENCOUNTER 2024-05-03 18:10 | Emergency (ER) | payer MEDICARE, MEDICAID, SELFPAY ==
[2023-12-10 23:30] VITALS: BMI 29.0
[2024-05-03 18:13] VITALS: BP 166/97; PULSE 112; RESP 16; TEMP 36.7; O2SAT 95; BMI 29.3
--- NOTE | 2024-05-03 18:36 | ED_ITS ---
HPI - Wound/Laceration General Chief Complaint: Wound/Laceration Stated Complaint: diabetic neuropathy, wounds on feet Time Seen by Provider: 05/03/24 18:17 Source: patient Mode of arrival: Ambulatory History of Present Illness HPI narrative: 53-year-old male with history of alcohol use disorder, diabetes, neuropathy presents concerned that he may have gangrene in his feet. Patient noticed some wounds on his feet several days ago. On 04/28 he went to the walk-in clinic for wounds on his feet. He was given wound care instructions and Podiatry referral was placed. Patient states that this evening it looked like there was black mat erial on his foot concern for gangrene. He states he was not want to lose his feet and is here for evaluation. Related Data Previous Rx's Medication Instructions Recorded Glucometer Test Strips #100 ea 10/12/21 Lancettes #100 ea 10/12/21 Lancing Pen #1 ea 10/12/21 omega-3 acid ethyl esters 1 gram 1 cap PO BID #180 caps 01/07/23 capsule (Lovaza) doxepin 150 mg capsule 150 mg PO BEDTIME #90 caps 03/04/23 gabapentin 600 mg tablet 300 - 600 mg (0.5 - 1 x 600 mg) PO 05/06/23 TID PRN nerve pain #90 tabs tadalafil 20 mg tablet (Cialis) See Rx Instructions .Route 05/06/23 .COMPLEX sexual activity #30 tabs blood-glucose meter (Blood Glucose #1 ea 05/27/23 Monitoring kit) metoprolol tartrate 25 mg tablet 25 mg PO DAILY #30 tabs 11/26/23 chlordiazepoxide HCl 10 mg capsule 10 mg PO TID #20 caps 12/14/23 hydrochlorothiazide 25 mg tablet 50 mg (2 x 25 mg) PO QAM #180 tabs 01/27/24 lisinopril 20 mg tablet 20 mg PO BID #180 tabs 03/04/24 Allergies Allergy/AdvReac Type Severity Reaction Status Date / Time No Known Drug Allergies Allergy Verified 05/03/24 18:13 Patient History Medical History Back pain Abdominal ascites Peripheral neuropathy Alcohol use disorder, moderate, dependence High triglycerides Non-insulin dependent diabetes mellitus Elevated fasting blood sugar Paresthesia of both feet Depression with anxiety Insomnia COVID-19 vaccine series declined Tobacco use disorder, mild, in early remission Elevated LFTs Blood glucose elevated Class 1 obesity in adult Alcohol dependence, daily use Smokes tobacco daily Hyperlipidemia Hypertension Lumbosacral spondylosis Recto-perineal fistula Lower GI bleed Atypical chest pain Surgical History History of rectal surgery Family History Father Alive and well Mother Alive and well Social History marital status: unmarried,single household members: family occupational status: disabled Smoking Status: Current some day smoker second hand exposure: No alcohol intake: current Smoking Status: Current some day smoker tobacco type: cigarettes alcohol intake frequency: 3 or more drinks per day Alcohol type: hard liquor Substance Use Type: does not use Exam Initial Vital Signs Initial Vital Signs: Vital Signs Temperature 98.0 F 05/03/24 18:13 Pulse Rate 112 H 05/03/24 18:13 Respiratory Rate 16 05/03/24 18:13 Blood Pressure 166/97 H 05/03/24 18:13 Pulse Oximetry 95 05/03/24 18:13 Oxygen Delivery Method Room Air 05/03/24 18:13 Const: Awake, alert, no acute distress, nontoxic appearing MSK: Atraumatic, full range of motion, pulses equal Skin: Warm, Dry, small 1.5cm linear skin break base of R great toe, no surrounding erythema or warmth. Shallow 2x2cm ulceration on ball of L foot Neuro: AO x3, CN II-XII grossly intact, moves all extremities Course Vital Signs Vital signs: Vital Signs - 8 hr 05/03/24 18:13 Temperature 98.0 F Pulse Rate 112 H Respiratory Rate 16 Blood Pressure 166/97 H Pulse Oximetry 95 Oxygen Delivery Method Room Air MDM - Wound/Laceration MDM Narrative Medical decision making narrative: Patient presenting for wounds on his feet, he was concerned that he may have gangrene. Patient has 2 wounds on his feet that were cleaned and evaluated by myself. They have shallow bases, clean margins, no surrounding erythema, no drainage, no foul odor. Nothing to suggest present or evolving gangrene. Patient wounds were dressed, he was given an outpatient referral to wound care. Patient relieved to know that he does not have gangrene at this time. Discharge Plan Departure Patient Disposition: Home Clinical Impression: Wound of foot Instructions: DI for Wound Infection Activity Restrictions/Additional Instructions: Your wounds do not appear to be infected today. I did fax a referral to wound care. Please make sure that you monitor your feet to make sure that your wounds do not spread or change. Make sure to wear clean dry socks and cushioned shoes. Prescriptions: No Action omega-3 acid ethyl esters [Lovaza] 1 gram capsule 1 cap PO BID Qty: 180 3RF Rx Instructions: Take 1 tab twice daily for elevated triglycerides doxepin 150 mg capsule 150 mg PO BEDTIME Qty: 90 3RF Rx Instructions: Take 1 capsule at bedtime daily for sleep. gabapentin 600 mg tablet 300 - 600 mg PO TID PRN (Reason: nerve pain) Qty: 90 11RF tadalafil [Cialis] 20 mg tablet See Rx Instructions .ROUTE .COMPLEX Qty: 30 3RF Rx Instructions: administer approximately 30min before sexual activity; do not use more than 1 dose per 24hrs; metoprolol tartrate 25 mg tablet 25 mg PO DAILY Qty: 30 0RF Rx Instructions: pt dismissed from clinic, no further refills hydrochlorothiazide 25 mg tablet 50 mg PO QAM Qty: 180 4RF lisinopril 20 mg tablet 20 mg PO BID Qty: 180 0RF (DME) blood-glucose meter [Blood Glucose Monitoring] Kit See Rx Instructions .Route Qty: 1 0RF Rx Instructions: As directed. (DME) Glucometer Test Strips See Rx Instructions .Route .MEDSUPPLY Qty: 100 3RF Rx Instructions: Check blood sugars daily fasting each morning (DME) Lancettes See Rx Instructions .Route .MEDSUPPLY Qty: 100 3RF Rx Instructions: Check blood sugars fasting each morning and as needed (DME) Lancing Pen See Rx Instructions .Route .MEDSUPPLY Qty: 1 0RF Rx Instructions: As directed chlordiazepoxide HCl 10 mg Capsule 10 mg PO TID Qty: 20 0RF Referrals: Bi Dejesus MD [Primary Care Provider] - Stand Alone Forms: Patient Portal/API/Survey
== END 2024-05-03 18:55 | disposition home or self-care (01) ==
PROVIDERS: Emergency Provider Emergency Medicine; Family Provider Nurse Practitioner; PCP Internal Medicine
DX: S91.302A Unspecified open wound, left foot, initial encounter (principal); E11.40 Type 2 diabetes mellitus with diabetic neuropathy, unspecified
CPT/HCPCS: 99281; 99282

== ENCOUNTER 2024-06-01 14:49 | Emergency (ER) | payer MEDICARE, MEDICAID, SELFPAY ==
[2023-12-10 23:30] VITALS: BMI 29.0
[2024-06-01 15:04] VITALS: BP 104/64; PULSE 101; RESP 17; TEMP 36.1; O2SAT 93; BMI 29.3
--- NOTE | 2024-06-01 16:05 | ED.SKABFB ---
HPI - Skin/Abscess/Foreign Bdy <Beckie Aguilar PA-C - Last Filed: 06/01/24 16:39> General Chief complaint: Skin/Abscess/Foreign Body Stated complaint: leg wounds Time Seen by Provider: 06/01/24 16:05 Source: patient Mode of arrival: Ambulatory History of Present Illness HPI narrative: Mr. Candelaria is a pleasant 53-year-old male with a past medical history of peripheral neuropathy, T2 DM, alcohol use disorder who presents to the emergency department for bilateral lower extremity legs, he reports ?gangrene both legs today?. Patient notes that he has had some wounds on his bilateral lower extremities for some time now. He went to urgent care on 05/29/2024 and was diagnosed with tinea corporis and reports that he was recommended to take ketoconazole. He was scheduled for an appointment with wound care on Saturday. Reports that today he became more concerned about these wounds that they were wet gangrene and he might need his legs removed. Denies fevers, chills, systemic symptoms. Notes large red wounds worse on the left calf but also on the left medial ankle and right calf. Also a small on right thigh and left hip. Related Data Home Medications Medication Instructions Recorded Confirmed atorvastatin 20 mg tablet 20 mg PO DAILY 05/29/24 05/29/24 clonidine HCl 0.2 mg tablet mg PO 05/29/24 05/29/24 Previous Rx's Medication Instructions Recorded Glucometer Test Strips #100 ea 10/12/21 Lancettes #100 ea 10/12/21 Lancing Pen #1 ea 10/12/21 omega-3 acid ethyl esters 1 gram 1 cap PO BID #180 caps 01/07/23 capsule (Lovaza) doxepin 150 mg capsule 150 mg PO BEDTIME #90 caps 03/04/23 gabapentin 600 mg tablet 300 - 600 mg (0.5 - 1 x 600 mg) PO 05/06/23 TID PRN nerve pain #90 tabs tadalafil 20 mg tablet (Cialis) See Rx Instructions .Route 05/06/23 .COMPLEX sexual activity #30 tabs blood-glucose meter (Blood Glucose #1 ea 05/27/23 Monitoring kit) metoprolol tartrate 25 mg tablet 25 mg PO DAILY #30 tabs 11/26/23 chlordiazepoxide HCl 10 mg capsule 10 mg PO TID #20 caps 12/14/23 hydrochlorothiazide 25 mg tablet 50 mg (2 x 25 mg) PO QAM #180 tabs 01/27/24 lisinopril 20 mg tablet 20 mg PO BID #180 tabs 03/04/24 ketoconazole 2 % topical cream 1 applic topical DAILY #60 grams 05/29/24 naftifine 2 % topical cream 1 applic topical DAILY 2 weeks #60 06/05/24 grams Allergies Allergy/AdvReac Type Severity Reaction Status Date / Time No Known Drug Allergies Allergy Verified 06/01/24 15:04 Review of Systems <Beckie Aguilar PA-C - Last Filed: 06/01/24 16:39> Review of Systems ROS Unobtainable: All systems reviewed & are unremarkable except as noted in HPI and below Patient History <Beckie Aguilar PA-C - Last Filed: 06/01/24 16:39> Medical History Back pain Abdominal ascites Peripheral neuropathy Alcohol use disorder, moderate, dependence High triglycerides Non-insulin dependent diabetes mellitus Elevated fasting blood sugar Paresthesia of both feet Depression with anxiety Insomnia COVID-19 vaccine series declined Tobacco use disorder, mild, in early remission Elevated LFTs Blood glucose elevated Class 1 obesity in adult Alcohol dependence, daily use Smokes tobacco daily Hyperlipidemia Hypertension Lumbosacral spondylosis Recto-perineal fistula Lower GI bleed Atypical chest pain Surgical History History of rectal surgery Family History Father Alive and well Mother Alive and well Social History marital status: unmarried,single household members: family occupational status: disabled Smoking Status: Current some day smoker second hand exposure: No alcohol intake: current Smoking Status: Current some day smoker tobacco type: cigarettes alcohol intake frequency: 3 or more drinks per day Alcohol type: hard liquor Exam <Beckie Aguilar PA-C - Last Filed: 06/01/24 16:39> Narrative Exam Narrative: GENERAL: 53 year old patient appears stated age. Well-developed patient, in no acute distress. HEAD: Atraumatic. Normocephalic. EYES: Extraocular motions intact. No scleral icterus. No injection or drainage. ENT: Nose without bleeding, purulent drainage. CARDIOVASCULAR: Regular rate and rhythm. Strong DP and PT pulses bilaterally. Brisk capillary refill. RESPIRATORY: ?Nonlabored respirations. ?Speaking in clear, full sentences. ? EXTREMITIES: No edema or joint tenderness. NEURO: AOx3. ?Clear speech. ?Moves all 4 extremities appropriately. SKIN: Erythematous, scaly plaques on bilateral lower extremity. Largest plaque on left calf, right calf, left medial ankle. On right anterior thigh and left hip there are erythematous scaly circular plaques. No erythema or tenderness surrounding areas. No increased warmth. Initial Vital Signs Initial Vital Signs: Vital Signs Temperature 97.0 F L 06/01/24 15:04 Pulse Rate 101 H 06/01/24 15:04 Respiratory Rate 17 06/01/24 15:04 Blood Pressure 104/64 06/01/24 15:04 Pulse Oximetry 93 06/01/24 15:04 Oxygen Delivery Method Room Air 06/01/24 15:04 <Edie Irizarry DO - Last Filed: 06/07/24 03:53> Initial Vital Signs Initial Vital Signs: Vital Signs Temperature 97.0 F L 06/01/24 15:04 Pulse Rate 101 H 06/01/24 15:04 Respiratory Rate 17 06/01/24 15:04 Blood Pressure 104/64 06/01/24 15:04 Pulse Oximetry 93 06/01/24 15:04 Oxygen Delivery Method Room Air 06/01/24 15:04 Course <Beckie Aguilar PA-C - Last Filed: 06/01/24 16:39> Orders Ordered: Discontinued Medications Bacitracin (Bacitracin Oint 0.9 Gm Pckt) 5 applic TOP NOW ONE Stop: 06/01/24 16:21 Last Admin: 06/01/24 16:37 Dose: Not Given Documented By: [facility] Vital Signs Vital signs: Vital Signs - 8 hr 06/01/24 15:04 Temperature 97.0 F L Pulse Rate 101 H Respiratory Rate 17 Blood Pressure 104/64 Pulse Oximetry 93 Oxygen Delivery Method Room Air <Edie Irizarry DO - Last Filed: 06/07/24 03:53> Orders Ordered: Discontinued Medications Bacitracin (Bacitracin Oint 0.9 Gm Pckt) 5 applic TOP NOW ONE Stop: 06/01/24 16:21 Last Admin: 06/01/24 16:37 Dose: Not Given Documented By: [facility] Vital Signs Vital signs: Vital Signs - 8 hr 06/01/24 15:04 Temperature 97.0 F L Pulse Rate 101 H Respiratory Rate 17 Blood Pressure 104/64 Pulse Oximetry 93 Oxygen Delivery Method Room Air MDM - Skin/Abscess/Foreign Bdy <Beckie Aguilar PA-C - Last Filed: 06/01/24 16:39> [facility] Narrative Medical decision making narrative: 53-year-old male with a past medical history of peripheral neuropathy, T2 DM, alcohol use disorder who presents to the emergency department for bilateral lower extremity legs, he reports ?gangrene both legs today?. Differential diagnosis includes but is not limited to peripheral vascular disease, cellulitis, abscess, psoriasis, eczema, tinea corporis, etc. On exam patient is in no acute distress, nontoxic appearing, afebrile. He is chronic appearing erythematous, scaly plaques on bilateral lower legs. Some areas do appear to be tinea corporis as they are circular in nature but not all of them. No drainage or increased warmth concerning for cellulitis. Advised patient use ketoconazole wash twice daily in addition to moisturizer such as Vanicream for dry skin. Advised to follow up on Saturday with wound care as scheduled, I also advised he see dermatology for skin biopsy testing. Patient verbalizing understanding of all information. Ketoconazole ointment and gauze wrap were applied to his legs for comfort. Patient is stable for discharge. Discharge Plan Departure Patient Disposition: Home Clinical Impression: Rash Instructions: DI for Tinea Corporis Activity Restrictions/Additional Instructions: Today you were evaluated for rash/wounds on your bilateral lower extremities. We are treating you with a topical antifungal cream and antifungal body wash called Nizoral (ketoconazole wash). Wash your body wants to twice daily with Nizoral leaving it on for 5 minutes in the shower. I also want you to use a daily moisturizer such as Vanicream or Cetaphil which you can purchase at the drugstore. Please follow up with wound care on Saturday as discussed. Return to the ER for any concerns such as fever, redness streaking up your leg. Please follow up with your primary care doctor within the next 2-3 days for ER follow-up. (If you do not have a PCP you can call [phone]. ?to schedule an appointment with an [facility] Primary Care Provider) IF YOU DEVELOP ANY NEW OR WORSENING SYMPTOMS, RETURN TO THE ER! Please read the attached instructions, they highlight more specific treatments and interventions for you at home. Thank you for letting me participate in your care, Beckie Aguilar PA-C Prescriptions: No Action atorvastatin 20 mg tablet 20 mg PO DAILY clonidine HCl 0.2 mg tablet PO ketoconazole 2 % cream 1 applic topical DAILY Qty: 60 0RF Rx Instructions: Applied daily to affected areas until resolution of symptoms omega-3 acid ethyl esters [Lovaza] 1 gram capsule 1 cap PO BID Qty: 180 3RF Rx Instructions: Take 1 tab twice daily for elevated triglycerides doxepin 150 mg capsule 150 mg PO BEDTIME Qty: 90 3RF Rx Instructions: Take 1 capsule at bedtime daily for sleep. gabapentin 600 mg tablet 300 - 600 mg PO TID PRN (Reason: nerve pain) Qty: 90 11RF tadalafil [Cialis] 20 mg tablet See Rx Instructions .ROUTE .COMPLEX Qty: 30 3RF Rx Instructions: administer approximately 30min before sexual activity; do not use more than 1 dose per 24hrs; metoprolol tartrate 25 mg tablet 25 mg PO DAILY Qty: 30 0RF Rx Instructions: pt dismissed from clinic, no further refills hydrochlorothiazide 25 mg tablet 50 mg PO QAM Qty: 180 4RF lisinopril 20 mg tablet 20 mg PO BID Qty: 180 0RF (DME) blood-glucose meter [Blood Glucose Monitoring] Kit See Rx Instructions .Route Qty: 1 0RF Rx Instructions: As directed. (DME) Glucometer Test Strips See Rx Instructions .Route .MEDSUPPLY Qty: 100 3RF Rx Instructions: Check blood sugars daily fasting each morning (DME) Lancettes See Rx Instructions .Route .MEDSUPPLY Qty: 100 3RF Rx Instructions: Check blood sugars fasting each morning and as needed (DME) Lancing Pen See Rx Instructions .Route .MEDSUPPLY Qty: 1 0RF Rx Instructions: As directed chlordiazepoxide HCl 10 mg Capsule 10 mg PO TID Qty: 20 0RF naftifine 2 % cream 1 applic topical DAILY 14 Days Qty: 60 0RF Referrals: Bi Dejesus MD [Primary Care Provider] - Stand Alone Forms: Patient Portal/API/Survey ED Sign-out <Edie Irizarry DO - Last Filed: 06/07/24 03:53> Cosign ED Attending Cosignature Attestation: I was available for consultation.
--- NOTE | 2024-06-01 16:25 | PC.NURSE ---
Patients lower extremities over all appear very dry. Has several areas of redness, cracks in the skin. One area on upper right thigh appears fungal in nature. With similar spot on left side of abd. No fevers, no streaking and not warm to touch.
[2024-06-01 16:42] VITALS: BP 105/78; PULSE 98; RESP 16; O2SAT 100
== END 2024-06-01 16:43 | disposition home or self-care (01) ==
PROVIDERS: Emergency Provider Physician Assistant; Family Provider Nurse Practitioner; PCP Internal Medicine
DX: R21 Rash and other nonspecific skin eruption (principal)
CPT/HCPCS: 99281

== ENCOUNTER 2024-06-05 04:40 | Emergency (ER) | payer MEDICARE, SELFPAY ==
[2023-12-10 23:30] VITALS: BMI 29.0
[2024-06-05 04:58] VITALS: BP 119/70; PULSE 101; RESP 18; TEMP 36.8; O2SAT 96; BMI 29.0
--- NOTE | 2024-06-05 05:04 | ED.SKABFB ---
HPI - Skin/Abscess/Foreign Bdy General Chief complaint: Skin/Abscess/Foreign Body Stated complaint: legs are hurting Time Seen by Provider: 06/05/24 04:42 Source: patient Mode of arrival: Ambulatory Limitations: no limitations History of Present Illness HPI narrative: 53-year-old male with history of diabetes, alcohol use disorder, hypertension, peripheral neuropathy presents for wounds on his lower extremities. Patient was seen in the emergency department 4 days ago for same complaint. He is currently using ketoconazole washes and moisturizing lotions. He was supposed to follow up with wound care 2 days ago, but he states that he missed his appointment by 5 minutes. He was trying to get into see dermatology. Patient was very worried that these wounds are not improving in his concerned that it will lead to him having amputated legs. Related Data Home Medications Medication Instructions Recorded Confirmed atorvastatin 20 mg tablet 20 mg PO DAILY 05/29/24 05/29/24 clonidine HCl 0.2 mg tablet mg PO 05/29/24 05/29/24 Previous Rx's Medication Instructions Recorded Glucometer Test Strips #100 ea 10/12/21 Lancettes #100 ea 10/12/21 Lancing Pen #1 ea 10/12/21 omega-3 acid ethyl esters 1 gram 1 cap PO BID #180 caps 01/07/23 capsule (Lovaza) doxepin 150 mg capsule 150 mg PO BEDTIME #90 caps 03/04/23 gabapentin 600 mg tablet 300 - 600 mg (0.5 - 1 x 600 mg) PO 05/06/23 TID PRN nerve pain #90 tabs tadalafil 20 mg tablet (Cialis) See Rx Instructions .Route 05/06/23 .COMPLEX sexual activity #30 tabs blood-glucose meter (Blood Glucose #1 ea 05/27/23 Monitoring kit) metoprolol tartrate 25 mg tablet 25 mg PO DAILY #30 tabs 11/26/23 chlordiazepoxide HCl 10 mg capsule 10 mg PO TID #20 caps 12/14/23 hydrochlorothiazide 25 mg tablet 50 mg (2 x 25 mg) PO QAM #180 tabs 01/27/24 lisinopril 20 mg tablet 20 mg PO BID #180 tabs 03/04/24 ketoconazole 2 % topical cream 1 applic topical DAILY #60 grams 05/29/24 naftifine 2 % topical cream 1 applic topical DAILY 2 weeks #60 06/05/24 grams Allergies Allergy/AdvReac Type Severity Reaction Status Date / Time No Known Drug Allergies Allergy Verified 06/01/24 15:04 Patient History Medical History Back pain Abdominal ascites Peripheral neuropathy Alcohol use disorder, moderate, dependence High triglycerides Non-insulin dependent diabetes mellitus Elevated fasting blood sugar Paresthesia of both feet Depression with anxiety Insomnia COVID-19 vaccine series declined Tobacco use disorder, mild, in early remission Elevated LFTs Blood glucose elevated Class 1 obesity in adult Alcohol dependence, daily use Smokes tobacco daily Hyperlipidemia Hypertension Lumbosacral spondylosis Recto-perineal fistula Lower GI bleed Atypical chest pain Surgical History History of rectal surgery Family History Father Alive and well Mother Alive and well Social History marital status: unmarried,single household members: family occupational status: disabled Smoking Status: Current some day smoker second hand exposure: No alcohol intake: current Smoking Status: Current some day smoker tobacco type: cigarettes alcohol intake frequency: 3 or more drinks per day Alcohol type: hard liquor Exam Initial Vital Signs Initial Vital Signs: Vital Signs Temperature 98.3 F 06/05/24 04:58 Pulse Rate 101 H 06/05/24 04:58 Respiratory Rate 18 06/05/24 04:58 Blood Pressure 119/70 06/05/24 04:58 Pulse Oximetry 96 06/05/24 04:58 Oxygen Delivery Method Room Air 06/05/24 04:58 Const: Awake, alert, intoxicated, no acute distress MSK: Atraumatic, full range of motion, pulses equal Skin: erythematous scaling rash medial L ankle, medial L calf, medial R ankle, small R anteromedial thigh scale. No excessive warmth, induration, fluctuance Neuro: AO x3, CN II-XII grossly intact, moves all extremities Course Vital Signs Vital signs: Vital Signs - 8 hr 06/05/24 04:58 Temperature 98.3 F Pulse Rate 101 H Respiratory Rate 18 Blood Pressure 119/70 Pulse Oximetry 96 Oxygen Delivery Method Room Air MDM - Skin/Abscess/Foreign Bdy MDM Narrative Medical decision making narrative: Patient presenting for bilateral skin rashes. He was very concerned that the rashes do not appear to be improving and he was afraid that this will lead to gangrene in his legs that will cause him to be amputated. Patient does appear to have a scaling, circular rash on his left medial ankle, left figueroa, right figueroa, medial right thigh. These do not have excessive warmth, fluctuance, or induration to suggest acute bacterial infection. It was possible that patient was either under utilizing the ketoconazole washes or improperly applying them. It was also possible that it was not been enough time for the treatment to be effective. Compared to description from ED visit on 06/01 there is no significant change. Patient denies leg pain, just concern that the wounds are not improving. Patient was advised to continue the ketoconazole wash, naftifine cream also sent to pharmacy. Patient advised and the importance of following up with wound care and Dermatology. ED return precautions discussed with both patient and mother at bedside. Discharge Plan Departure Patient Disposition: Home Clinical Impression: Skin rash Instructions: DI for Atopic Dermatitis-Adult Activity Restrictions/Additional Instructions: Continue to use the washes given to you. The prescribed cream can help if this is a fungal skin rash. If this does not work then I recommend seeing your wound care team or a pen or pencil assembly machine operator for further help in figuring out what this rash is being caused by. It does not look or feel like cellulitis. Prescriptions: New naftifine 2 % cream 1 applic topical DAILY 14 Days Qty: 60 0RF No Action atorvastatin 20 mg tablet 20 mg PO DAILY clonidine HCl 0.2 mg tablet PO ketoconazole 2 % cream 1 applic topical DAILY Qty: 60 0RF Rx Instructions: Applied daily to affected areas until resolution of symptoms omega-3 acid ethyl esters [Lovaza] 1 gram capsule 1 cap PO BID Qty: 180 3RF Rx Instructions: Take 1 tab twice daily for elevated triglycerides doxepin 150 mg capsule 150 mg PO BEDTIME Qty: 90 3RF Rx Instructions: Take 1 capsule at bedtime daily for sleep. gabapentin 600 mg tablet 300 - 600 mg PO TID PRN (Reason: nerve pain) Qty: 90 11RF tadalafil [Cialis] 20 mg tablet See Rx Instructions .ROUTE .COMPLEX Qty: 30 3RF Rx Instructions: administer approximately 30min before sexual activity; do not use more than 1 dose per 24hrs; metoprolol tartrate 25 mg tablet 25 mg PO DAILY Qty: 30 0RF Rx Instructions: pt dismissed from clinic, no further refills hydrochlorothiazide 25 mg tablet 50 mg PO QAM Qty: 180 4RF lisinopril 20 mg tablet 20 mg PO BID Qty: 180 0RF (DME) blood-glucose meter [Blood Glucose Monitoring] Kit See Rx Instructions .Route Qty: 1 0RF Rx Instructions: As directed. (DME) Glucometer Test Strips See Rx Instructions .Route .MEDSUPPLY Qty: 100 3RF Rx Instructions: Check blood sugars daily fasting each morning (DME) Lancettes See Rx Instructions .Route .MEDSUPPLY Qty: 100 3RF Rx Instructions: Check blood sugars fasting each morning and as needed (DME) Lancing Pen See Rx Instructions .Route .MEDSUPPLY Qty: 1 0RF Rx Instructions: As directed chlordiazepoxide HCl 10 mg Capsule 10 mg PO TID Qty: 20 0RF Referrals: Bi Dejesus MD [Primary Care Provider] - Stand Alone Forms: Patient Portal/API/Survey
== END 2024-06-05 05:29 | disposition home or self-care (01) ==
PROVIDERS: Emergency Provider Emergency Medicine; Family Provider Nurse Practitioner; PCP Internal Medicine
DX: L30.9 Dermatitis, unspecified (principal)
CPT/HCPCS: 99281

== ENCOUNTER → 2024-06-12 14:08 | Outpatient (CLI) | payer MEDICARE, MEDICAID, SELFPAY ==
[2023-12-10 23:30] VITALS: BMI 29.0
== END ==
PROVIDERS: Family Provider Nurse Practitioner; PCP Internal Medicine; Referring Provider Emergency Medicine; Visit Provider Physician Assistant
DX: E11.621 Type 2 diabetes mellitus with foot ulcer (principal); L97.512 Non-pressure chronic ulcer of other part of right foot with fat layer exposed; L98.8 Other specified disorders of the skin and subcutaneous tissue; R21 Rash and other nonspecific skin eruption; E11.40 Type 2 diabetes mellitus with diabetic neuropathy, unspecified; I10 Essential (primary) hypertension; F17.210 Nicotine dependence, cigarettes, uncomplicated; F10.99 Alcohol use, unspecified with unspecified alcohol-induced disorder
CPT/HCPCS: 11042; 87070; 87075; 87077; 87147; 87186; 87205; 99214

== ENCOUNTER → 2024-06-12 15:42 | Outpatient (CLI) | payer MEDICARE, MEDICAID, SELFPAY ==
[2023-12-10 23:30] VITALS: BMI 29.0
--- NOTE | 2024-06-12 15:44 | DI.RAD.S_ITS ---
PROCEDURE: XR FOOT RT MIN 3V INDICATIONS: ulcer at base of R great toe TECHNIQUE: 3 views of the foot were acquired. COMPARISON: [facility], CR, XR FOOT LT MIN 3V, 12/26/2021, 2:47. FINDINGS: Bones: There is moderate hallux valgus. Osteoarthritic changes are noted in right foot most notably involving great toe at 1st MTP joint and 1st interphalangeal joint. Well-defined plantar and dorsal calcaneal enthesophytes are seen. No acute fracture or dislocation. No gross bony erosive changes are noted. No suspicious bony lesions. Soft tissues: No tibiotalar joint effusion. Achilles tendon appears normal. IMPRESSION: Moderate hallux valgus and [id number] right great toe osteoarthritis. No acute fracture or dislocation. No radiographic evidence of osteomyelitis. Dictated by: Greg Erickson M.D. on 06/12/2024 at 17:27 Approved by: Greg Erickson M.D. on 06/12/2024 at 17:29
== END ==
PROVIDERS: Family Provider Nurse Practitioner; PCP Internal Medicine; Referring Provider Physician Assistant; Visit Provider Physician Assistant
DX: E11.621 Type 2 diabetes mellitus with foot ulcer (principal); L97.512 Non-pressure chronic ulcer of other part of right foot with fat layer exposed; M20.11 Hallux valgus (acquired), right foot; M19.071 Primary osteoarthritis, right ankle and foot; E11.40 Type 2 diabetes mellitus with diabetic neuropathy, unspecified; L98.8 Other specified disorders of the skin and subcutaneous tissue; R21 Rash and other nonspecific skin eruption; I10 Essential (primary) hypertension; F17.210 Nicotine dependence, cigarettes, uncomplicated; F10.99 Alcohol use, unspecified with unspecified alcohol-induced disorder
CPT/HCPCS: 11042; 73630; 87070; 87075; 87077; 87147; 87186; 87205; 99214

== ENCOUNTER → 2024-06-19 13:51 | Outpatient (CLI) | payer MEDICARE, MEDICAID, SELFPAY ==
[2023-12-10 23:30] VITALS: BMI 29.0
== END ==
PROVIDERS: Family Provider Nurse Practitioner; PCP Internal Medicine; Referring Provider Internal Medicine; Visit Provider Physician Assistant
DX: E11.621 Type 2 diabetes mellitus with foot ulcer (principal); E11.40 Type 2 diabetes mellitus with diabetic neuropathy, unspecified; L97.512 Non-pressure chronic ulcer of other part of right foot with fat layer exposed; L98.8 Other specified disorders of the skin and subcutaneous tissue; R21 Rash and other nonspecific skin eruption; I10 Essential (primary) hypertension; M20.11 Hallux valgus (acquired), right foot; F10.20 Alcohol dependence, uncomplicated
CPT/HCPCS: 11042; 99214

== ENCOUNTER → 2024-07-03 10:31 | Outpatient (CLI) | payer MEDICARE, MEDICAID, SELFPAY ==
[2023-12-10 23:30] VITALS: BMI 29.0
== END ==
PROVIDERS: Family Provider Nurse Practitioner; PCP Internal Medicine; Referring Provider Family Medicine; Visit Provider Surgery
DX: Z09 Encounter for follow-up examination after completed treatment for conditions other than malignant neoplasm (principal); Z86.31 Personal history of diabetic foot ulcer; F42.4 Excoriation (skin-picking) disorder
CPT/HCPCS: 99213

== ENCOUNTER → 2024-07-03 14:56 | Outpatient (CLI) | payer MEDICARE, SELFPAY ==
[2023-12-10 23:30] VITALS: BMI 29.0
[2024-07-03 16:24] LABS: Appearance Urine UA CLEAR; Bilirubin Urine UA NEGATIVE (NEGATIVE); Color Urine UA YELLOW; Glucose Urine UA NEGATIVE (Negative); Ketones Urine UA NEGATIVE (NEGATIVE); Leukocyte Esterase Urine UA NEGATIVE (NEGATIVE); Nitrite Urine UA NEGATIVE (Negative); Occult Blood Urine UA NEGATIVE (Negative); Protein Urine UA NEGATIVE (Negative); Urobilinogen Urine UA 0.2 E.U./dL (0.2); pH Urine UA 6.5 (4.5-8.0)
[2024-07-03 16:35] LABS: Bacteria Urine Occasional (0-1); Culture Indicated Urine Cult Not Indicated; RBC Urine 0-1/HPF (0-5/HPF); Squamous Epithelial Cell Urine 1-5 /HPF (0-5/HPF); Urine Volume 10mL (spun); WBC Urine 0-1/HPF (0-5/HPF)
[2024-07-03 16:40] LABS: Erythrocyte Sedimentation Rate 13 MM/HR (0-15)
[2024-07-03 17:33] LABS: Prostate Specific Antigen 3.02 ng/mL (0.10-4.00)
[2024-07-03 18:13] LABS: Urine N gonorrhoeae NOT DETECTED
[2024-07-03 18:14] LABS: Urine Chlamydia NOT DETECTED
[2024-07-04 05:09] LABS: RPR Screen Non Reactive (Non Reactive)
== END ==
PROVIDERS: Family Provider Nurse Practitioner; PCP Internal Medicine; Referring Provider Internal Medicine; Visit Provider Internal Medicine
DX: N53.19 Other ejaculatory dysfunction (principal); G62.9 Polyneuropathy, unspecified; Z11.3 Encounter for screening for infections with a predominantly sexual mode of transmission
CPT/HCPCS: 36415; 81001; 84153; 84155; 84165; 84443; 85651; 86038; 86592; 87491; 87535; 87591

== ENCOUNTER → 2024-07-27 09:12 | Outpatient (CLI) | payer MEDICARE, MEDICAID, SELFPAY ==
[2023-12-10 23:30] VITALS: BMI 29.0
[2024-07-27 10:29] LABS: Add Manual Diff / Slide Review NO; Basophils Absolute Auto 100 /uL (0-100); Basophils Percent Auto 1.8 % (0-2); Eosinophils Absolute Auto 200 /uL (0-450); Hemoglobin 13.6 g/dL (13.5-17.5); Lymphocytes Absolute Auto 1200 /uL (1100-4500); Lymphocytes Percent Auto 33.3 % (25-40); Mean Corpuscular HGB Conc 34.9 % (30-36); Mean Corpuscular Hemoglobin 35.3 PG (26-34); Mean Corpuscular Volume 101.2 fL (80-100); Monocytes Absolute Auto 400 /uL (0-900); Neutrophils Absolute Auto 1800 /uL (1500-7000); Neutrophils Percent Auto 47.9 % (50-75); Platelet Count 135 X10^3/uL (150-400); Red Blood Cell Count 3.85 X10^6/uL (4.5-5.9); Red Cell Distribution Width 15.2 % (11.6-14.8); White Blood Cell Count 3.7 X10^3/uL (4.5-11.0)
[2024-07-27 10:52] LABS: BUN Creatinine Ratio 13.8 (6-22); Blood Urea Nitrogen 11 mg/dL (9-20); Calcium 10.2 mg/dL (8.4-10.2); Carbon Dioxide 29 mmol/L (22-32); Chloride 93 mmol/L (98-107); Estimated Glomerular Filt Rate > 60 mL/min (>60); Glucose 92 mg/dL (70-100); HEMOLYSIS < 15 (0-50); Potassium 3.4 mmol/L (3.4-5.1); Sodium 138 mmol/L (137-145)
== END ==
PROVIDERS: Family Provider Nurse Practitioner; PCP Internal Medicine; Referring Provider Physician Assistant; Visit Provider Physician Assistant
DX: L20.89 Other atopic dermatitis (principal)
CPT/HCPCS: 36415; 80048; 82172; 82247; 82465; 82947; 82977; 83010; 83883; 84450; 84460; 85025

== ENCOUNTER 2024-09-23 15:49 | Emergency (ER) | payer MEDICARE, MEDICAID, SELFPAY ==
[2023-12-10 23:30] VITALS: BMI 29.0
[2024-09-23 15:55] VITALS: BP 117/76; PULSE 95; RESP 17; TEMP 36.6; O2SAT 98; BMI 27.7
--- NOTE | 2024-09-23 16:56 | ED.RECABL ---
HPI - Recheck/Abnormal Lab/Rx <Beckie Aguilar PA-C - Last Filed: 09/23/24 17:55> General Chief Complaint: Recheck/Abnormal Lab/Rx Stated Complaint: liver problem Time Seen by Provider: 09/23/24 16:56 Source: patient Mode of arrival: Ambulatory History of Present Illness HPI narrative: Mr. Candelaria is a pleasant 54-year-old male with a past medical history of alcohol use disorder, hypertension, peripheral neuropathy who presents to the emergency department for evaluation after leaving rehab. Patient states that he has an alcoholic and has been sober for 28 days, he got out of rehab 2 hours ago. He reports that he would blood work done over a month ago and they stated his level of risk for elevated which prompted him to go to rehab. States that now that he is out of rehab he wants to get his liver checked and also have multiple other things checked out. Patient states he intermittently gets right scapular/right upper quadrant abdominal pain that he is concerned is related to his liver. He has not currently having this pain. States that he had an outpatient ultrasound ordered for this by his primary care doctor however he did not go to it because this was before rehab. He also reports he occasionally has some left-sided neck pain when he moves his head to the neck. He also has some enlargement of his left and right breast that he is noticed. Denies abdominal pain, nausea, vomiting, fevers, chills. He has not yet called his primary care doctor for follow up. Related Data Home Medications Medication Instructions Recorded Confirmed metoprolol succinate 25 mg 25 mg PO DAILY 07/11/24 09/23/24 tablet,extended release 24 hr doxepin 50 mg capsule 50 mg PO BEDTIME 09/23/24 09/23/24 gabapentin 600 mg tablet 600 mg PO 3XD 09/23/24 09/23/24 Previous Rx's Medication Instructions Recorded Lancing Pen #1 ea 10/12/21 hydrochlorothiazide 25 mg tablet 50 mg (2 x 25 mg) PO QAM #180 tabs 01/27/24 lisinopril 20 mg tablet 20 mg PO BID #180 tabs 03/04/24 ketoconazole 2 % topical cream 1 applic topical DAILY #60 grams 05/29/24 Allergies Allergy/AdvReac Type Severity Reaction Status Date / Time No Known Drug Allergies Allergy Verified 09/23/24 16:00 Review of Systems <Beckie Aguilar PA-C - Last Filed: 09/23/24 17:55> Review of Systems ROS Unobtainable: All systems reviewed & are unremarkable except as noted in HPI and below Patient History <Beckie Aguilar PA-C - Last Filed: 09/23/24 17:55> Medical History Back pain Abdominal ascites Peripheral neuropathy Alcohol use disorder, moderate, dependence High triglycerides Non-insulin dependent diabetes mellitus Elevated fasting blood sugar Paresthesia of both feet Depression with anxiety Insomnia COVID-19 vaccine series declined Tobacco use disorder, mild, in early remission Elevated LFTs Blood glucose elevated Class 1 obesity in adult Alcohol dependence, daily use Smokes tobacco daily Hyperlipidemia Hypertension Lumbosacral spondylosis Recto-perineal fistula Lower GI bleed Atypical chest pain Surgical History History of rectal surgery Family History Father Alive and well Mother Alive and well Social History marital status: unmarried,single household members: family occupational status: disabled second hand exposure: No alcohol intake: current tobacco type: cigarettes alcohol intake frequency: 3 or more drinks per day Alcohol type: hard liquor Exam <Beckie Aguilar PA-C - Last Filed: 09/23/24 17:55> Narrative Exam Narrative: GENERAL: 54 year old patient appears stated age. Well-developed patient, in no acute distress. HEAD: Atraumatic. Normocephalic. EYES: No scleral icterus. No injection or drainage. ENT: Nose without bleeding, purulent drainage. Airway patent. NECK: Trachea midline. Cervical ROM intact. No midline cervical tenderness. CARDIOVASCULAR: Regular rate and rhythm. CHEST: There is some palpable fullness behind the left nipple, slight fullness behind the right nipple. No nipple drainage, no skin puckering, no erythema or increased warmth. RESPIRATORY: ?Nonlabored respirations. ?Speaking in clear, full sentences. ?Clear to auscultation. Breath sounds equal bilaterally. No wheezes, rales, or rhonchi. ? GASTROINTESTINAL: Abdomen soft, non-tender, nondistended. Protuberant. Normal bowel sounds. Negative Vega's sign. EXTREMITIES: No edema or joint tenderness. NEURO: AOx3. ?Clear speech. ?Moves all 4 extremities appropriately. SKIN: No rash or erythema of visible areas. Initial Vital Signs Initial Vital Signs: Vital Signs Temperature 98 F 09/23/24 15:55 Pulse Rate 95 H 09/23/24 15:55 Respiratory Rate 17 09/23/24 15:55 Blood Pressure 117/76 09/23/24 15:55 Pulse Oximetry 98 09/23/24 15:55 Oxygen Delivery Method Room Air 09/23/24 15:55 <Avinash Marshall MD - Last Filed: 09/23/24 20:09> Initial Vital Signs Initial Vital Signs: Vital Signs Temperature 98 F 09/23/24 15:55 Pulse Rate 95 H 09/23/24 15:55 Respiratory Rate 17 09/23/24 15:55 Blood Pressure 117/76 09/23/24 15:55 Pulse Oximetry 98 09/23/24 15:55 Oxygen Delivery Method Room Air 09/23/24 15:55 Course <Beckie Aguilar PA-C - Last Filed: 09/23/24 17:55> Vital Signs Vital signs: Vital Signs - 8 hr 09/23/24 15:55 Temperature 98 F Pulse Rate 95 H Respiratory Rate 17 Blood Pressure 117/76 Pulse Oximetry 98 Oxygen Delivery Method Room Air <Avinash Marshall MD - Last Filed: 09/23/24 20:09> Vital Signs Vital signs: Vital Signs - 8 hr 09/23/24 15:55 Temperature 98 F Pulse Rate 95 H Respiratory Rate 17 Blood Pressure 117/76 Pulse Oximetry 98 Oxygen Delivery Method Room Air MDM - Recheck/Abnormal Lab/Rx <Beckie Aguilar PA-C - Last Filed: 09/23/24 17:55> Medical Records Attestation: I reviewed the patient's medical records. Medical records narrative: Prior ED visit 06/05/2024, 06/01/2024 [facility] Narrative Medical decision making narrative: 54-year-old male with a past medical history of alcohol use disorder, hypertension, peripheral neuropathy who presents to the emergency department for evaluation after leaving rehab. Patient states that he has an alcoholic and has been sober for 28 days, he got out of rehab 2 hours ago. Differential diagnosis includes but is not limited to medical evaluation, cervical degenerative disc disease, alcoholic liver disease, biliary colic, gynecomastia, medication side effect, etc. On exam patient is in no acute distress, nontoxic appearing, vital signs appropriate. He would like to be evaluated after leaving rehab. He is some intermittent abdominal/scapular pain, intermittent neck pain, enlargement of his breasts. Physical exam is not concerning for an emergent cause of breast enlargement, neck pain or intermittent abdominal pain, he has not currently having any abdominal pain or tenderness. Discussed with the patient that gynecomastia can be a result of medication use, there are no signs of breast abscess or infection at this time, I did recommend that he follow up his primary care doctor for further evaluation as he may require mammogram or ultrasound of his breast to rule out tumor or mass. Also encouraged him to have the liver ultrasound that was already previously ordered for him. Recommended Lidoderm, heat therapy for his neck pain. Patient is not interested in any labs or imaging at this time or medications and is agreeable to follow up with his primary care doctor who can manage his chronic conditions. We did discuss reasons to return to the emergency department which he verbalized understanding. He is agreeable with the plan and stable for discharge home. Discharge Plan Departure Patient Disposition: Home Clinical Impression: Encounter for medical assessment, Neck pain Instructions: DI for Neck Pain Activity Restrictions/Additional Instructions: Dear Mr. Candelaria, Thank you for coming to the emergency department and congratulations on completing rehab. Please follow up with your primary care doctor for right upper quadrant liver ultrasound, routine lab work, and further evaluation of your small breast swelling and neck pain. Please rest, hydrate, use heat therapy on your neck, and return to the emergency department if you develop any fevers, abdominal pain or other concerns. Please follow up with your primary care doctor within the next 2-3 days for ER follow-up. (If you do not have a PCP you can call [phone]. ?to schedule an appointment with an [facility] Primary Care Provider) IF YOU DEVELOP ANY NEW OR WORSENING SYMPTOMS, RETURN TO THE ER! Please read the attached instructions, they highlight more specific treatments and interventions for you at home. Thank you for letting me participate in your care, Beckie C. Jeff, PA-C Prescriptions: No Action metoprolol succinate 25 mg tablet extended release 24 hr 25 mg PO DAILY ketoconazole 2 % cream 1 applic topical DAILY Qty: 60 0RF Rx Instructions: Applied daily to affected areas until resolution of symptoms hydrochlorothiazide 25 mg tablet 50 mg PO QAM Qty: 180 4RF lisinopril 20 mg tablet 20 mg PO BID Qty: 180 0RF (DME) Lancing Pen See Rx Instructions .Route .MEDSUPPLY Qty: 1 0RF Rx Instructions: As directed doxepin 50 mg Capsule 50 mg PO BEDTIME gabapentin 600 mg tablet 600 mg PO 3XD Referrals: Bi Dejesus MD [Primary Care Provider] - Stand Alone Forms: Patient Portal/API/Survey ED Sign-out <Avinash Marshall MD - Last Filed: 09/23/24 20:09> Cosign ED Attending Cosalishaature Attestation: I was immediately available in the department for consultation. This documentation has been reviewed and I agree with assessment and plan. Supervised by Avinash Marshall MD
== END 2024-09-23 17:22 | disposition home or self-care (01) ==
PROVIDERS: Emergency Provider Physician Assistant; Family Provider Nurse Practitioner; PCP Internal Medicine
DX: M54.2 Cervicalgia (principal)
CPT/HCPCS: 99281

== ENCOUNTER 2024-10-13 20:22 | Emergency (ER) | payer MEDICARE, MEDICAID, SELFPAY ==
[2023-12-10 23:30] VITALS: BMI 29.0
[2024-10-13 20:32] VITALS: BP 117/64; PULSE 82; RESP 16; TEMP 36.9; O2SAT 98; BMI 27.1
--- NOTE | 2024-10-13 20:40 | DI.RAD.S_ITS ---
PROCEDURE: XR SHOULDER RT MIN 2V INDICATIONS: shoulder pain TECHNIQUE: 3 views of the shoulder were acquired. COMPARISON: [facility], CR, XR HUMERUS RT 2V, 12/10/2023, 20:12. [facility], CR, XR CHEST 1V, 06/06/2022, 10:26. [facility], CR, XR CHEST 1V, 12/10/2023, 17:21. FINDINGS: Bones: No acute fracture. Robust callus formation at the prior distal right clavicle fracture. No dislocations. No suspicious bony lesions. Visualized ribs appear intact. Soft tissues: No suspicious soft tissue calcifications. IMPRESSION: Robust callus formation at the prior distal right clavicle fracture. Dictated by: Tim Carvalho M.D. on 10/13/2024 at 21:02 Approved by: Tim Carvalho M.D. on 10/13/2024 at 21:07
== END 2024-10-13 22:08 | disposition left against medical advice (07) ==
PROVIDERS: Emergency Provider Emergency Medicine; Family Provider Nurse Practitioner; PCP Internal Medicine
DX: M25.511 Pain in right shoulder (principal); M54.2 Cervicalgia
CPT/HCPCS: 73030; 99281

== ENCOUNTER 2024-10-14 17:15 | Emergency (ER) | payer MEDICARE, SELFPAY ==
[2023-12-10 23:30] VITALS: BMI 29.0
[2024-10-14 17:18] VITALS: BP 106/67; PULSE 83; RESP 18; TEMP 36.6; O2SAT 97; BMI 27.1
--- NOTE | 2024-10-14 18:42 | ED_ITS ---
HPI - Neck Pain/Injury General Chief Complaint: Neck Pain/Injury Stated Complaint: neck px Time Seen by Provider: 10/14/24 18:41 Mode of arrival: Ambulatory History of Present Illness HPI Narrative: Patient complains 4 weeks of non injury left-sided posterior neck pain. Denies any chest pain or shortness of breath. Does not radiate to his arm. No numbness tingling weakness. No new pillow or hobbies or sports activity. No known injury. Pain is worse with tilting head up and rotating to the right. No prior history of surgery to the neck or MRI or physical therapy. No recent illness fever chills cough cold or congestion. Denies any IV drug use or imm unosuppression medications. However review of previous CT scan of the cervical spine and lumbar MRI, patient does have history of degenerative disease in the spine. No bowel or bladder incontinence. Related Data Home Medications Medication Instructions Recorded Confirmed metoprolol succinate 25 mg 25 mg PO DAILY 07/11/24 09/23/24 tablet,extended release 24 hr doxepin 50 mg capsule 50 mg PO BEDTIME 09/23/24 09/23/24 gabapentin 600 mg tablet 600 mg PO 3XD 09/23/24 09/23/24 Previous Rx's Medication Instructions Recorded Lancing Pen #1 ea 10/12/21 hydrochlorothiazide 25 mg tablet 50 mg (2 x 25 mg) PO QAM #180 tabs 01/27/24 lisinopril 20 mg tablet 20 mg PO BID #180 tabs 03/04/24 ketoconazole 2 % topical cream 1 applic topical DAILY #60 grams 05/29/24 baclofen 20 mg tablet 20 mg PO TID PRN pain (scale score 10/14/24 4-6) #20 tabs Allergies Allergy/AdvReac Type Severity Reaction Status Date / Time No Known Drug Allergies Allergy Verified 09/23/24 16:00 Review of Systems Review of Systems Narrative: GENERAL: Negative chills, fatigue, malaise, fever, sweats. HEENT: Negative sinus pain, ear pain, sore throat RESPIRATORY: Negative dyspnea, cough CARDIOVASCULAR: Negative chest pain, palpitations GASTROINTESTINAL: Negative vomiting, nausea, abdominal pain : Negative dysuria, frequency, hematuria MUSCULOSKELETAL: Negative muscle or bony pain, positive neck pain SKIN: Negative rash, skin lesions NEUROLOGIC: Negative weakness, numbness ROS Unobtainable: All systems reviewed & are unremarkable except as noted in HPI and below Patient History Medical History Back pain Abdominal ascites Peripheral neuropathy Alcohol use disorder, moderate, dependence High triglycerides Non-insulin dependent diabetes mellitus Elevated fasting blood sugar Paresthesia of both feet Depression with anxiety Insomnia COVID-19 vaccine series declined Tobacco use disorder, mild, in early remission Elevated LFTs Blood glucose elevated Class 1 obesity in adult Alcohol dependence, daily use Smokes tobacco daily Hyperlipidemia Hypertension Lumbosacral spondylosis Recto-perineal fistula Lower GI bleed Atypical chest pain Surgical History History of rectal surgery Family History Father Alive and well Mother Alive and well Social History marital status: unmarried,single household members: family occupational status: disabled second hand exposure: No alcohol intake: current Smoking Status: Current every day smoker tobacco type: vaping alcohol intake frequency: 3 or more drinks per day Alcohol type: hard liquor Exam Narrative Exam Narrative: GENERAL: in no distress, not toxic not dyspneic HEAD: Normocephalic. EYES: Pupils equal round ENT: Mucous membranes moist. NECK: Trachea midline. No midline tenderness or step-off of the cervical spine. There is reproducible left paracervical muscle tenderness and spasm. Increased pain with flexion of the neck and rotating head and neck to the right. CARDIOVASCULAR: Regular rate and rhythm RESPIRATORY: Clear to auscultation. Breath sounds equal bilaterally. No wheezes, rales, or rhonchi. GASTROINTESTINAL: Abdomen soft, non-tender EXTREMITIES: No gross deformities. BACK: No flank tenderness. NEURO: AOx4. Clear speech, no facial droop steady self gait no foot drop. Light touch intact to bilateral face hands with strong equal environmental health and safety intern. SKIN: Warm and dry PSYCH: Not anxious, is cooperative Initial Vital Signs Initial Vital Signs: Vital Signs Temperature 98 F 10/14/24 17:18 Pulse Rate 83 10/14/24 17:18 Respiratory Rate 18 10/14/24 17:18 Blood Pressure 106/67 10/14/24 17:18 Pulse Oximetry 97 10/14/24 17:18 Oxygen Delivery Method Room Air 10/14/24 17:18 Course Orders Ordered: ED Orders 10/14/24 18:42 XR cervical spine 2V or 3V Stat Vital Signs Vital signs: Vital Signs - 8 hr 10/14/24 17:18 Temperature 98 F Pulse Rate 83 Respiratory Rate 18 Blood Pressure 106/67 Pulse Oximetry 97 Oxygen Delivery Method Room Air MDM - Neck Pain/Injury Imaging Data X-ray cervical spine: Radiologist's Impression: [address] [address] XRay Report Signed Patient: Joao Candelaria MR#: [id number] : 1970 Acct:[id number] Age/Sex: 54 / M Date of Service: 10/14/24 Loc: ED Accession Number: [id number] Procedure: XR cervical spine 2V or 3V Ordering Provider: Yazan Vick MD PROCEDURE: XR CERVICAL SPINE 2V OR 3V INDICATIONS: Left-sided neck pain TECHNIQUE: 3 view(s) of the cervical spine were acquired. COMPARISON: None. FINDINGS: Bones: No fractures or dislocations to the C7 level. The lateral masses of C1 appear intact on the odontoid view. No suspicious bony lesions. Straightening of cervical lordosis. Moderate multilevel cervical spondylosis. Moderate bilateral facet arthropathy. Soft tissues: No prevertebral soft tissue swelling. IMPRESSION: No displaced fracture or traumatic subluxation. Moderate multilevel cervical spondylosis. Straightening of cervical lordosis likely related to positioning and/or concurrent muscle spasms. Dictated by: Steven Lay M.D. on 10/14/2024 at 19:06 Approved by: Steven Lay M.D. on 10/14/2024 at 19:07 [facility] Narrative Medical decision making narrative: Patient complains 4 weeks of non injury left-sided posterior neck pain. Denies any chest pain or shortness of breath. Does not radiate to his arm. No numbness tingling weakness. No new pillow or hobbies or sports activity. No known injury. Pain is worse with tilting head up and rotating to the right. No prior history of surgery to the neck or MRI or physical therapy. No recent illness fever chills cough cold or congestion. Denies any IV drug use or immunosuppression medications. However review of previous CT scan of the cervical spine and lumbar MRI, patient does have history of degenerative disease in the spine. No bowel or bladder incontinence. After history and exam, x-ray cervical spine. No blood work indicated at this time. Exam is reassuring. Neurovascularly intact. [facility] Medical records reviewed: MRI lumbar spine November 05, 2019 CT cervical spine July 07, 2022 Differential considered: Includes but not limited to cervical radiculopathy degenerative disc disease Imaging studies independently reviewed: X-ray cervical spine moderate multilevel cervical spondylosis. Straightening of cervical lordosis likely related to positioning and/or concurrent muscle spasms Re-evaluations: Reviewed with patient treatment plan per agrees for x-ray of cervical spine. Will likely need outpatient MRI of the cervical spine if this continues not improving in 7 or 10 days. Prescription for baclofen will be provided. He does have a family doctor to follow up with. He may need physical therapy through family doctor as well. He desires discharge home Discussion: Appropriate for discharge home exam is reassuring. Return precautions reviewed with patient. Nontoxic at discharge. Patient neurovascularly intact. No neuro deficits. He desires discharge home. Diagnosis: Cervical radiculopathy Discharge Plan Departure Patient Disposition: Home Clinical Impression: Cervical radiculopathy Instructions: DI for Cervical Radiculopathy, DI for Neck Pain Activity Restrictions/Additional Instructions: Please see your family doctor this week for re-evaluation. 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 You may need referral from your family doctor for MRI of your cervical spine/neck and possibly also physical therapy. Return if worse if any questions or concerns. It is likely the discs in your neck causing you problems and may be pinching on a nerve. Prescriptions: New baclofen 20 mg tablet 20 mg PO TID PRN (Reason: pain (scale score 4-6)) Qty: 20 0RF No Action metoprolol succinate 25 mg tablet extended release 24 hr 25 mg PO DAILY ketoconazole 2 % cream 1 applic topical DAILY Qty: 60 0RF Rx Instructions: Applied daily to affected areas until resolution of symptoms hydrochlorothiazide 25 mg tablet 50 mg PO QAM Qty: 180 4RF lisinopril 20 mg tablet 20 mg PO BID Qty: 180 0RF (DME) Lancing Pen See Rx Instructions .Route .MEDSUPPLY Qty: 1 0RF Rx Instructions: As directed doxepin 50 mg Capsule 50 mg PO BEDTIME gabapentin 600 mg tablet 600 mg PO 3XD Referrals: Bi Dejesus MD [Primary Care Provider] - Stand Alone Forms: Patient Portal/API/Survey
[2024-10-14 19:16] VITALS: BP 105/64; PULSE 80; RESP 18; O2SAT 98
== END 2024-10-14 19:17 | disposition home or self-care (01) ==
PROVIDERS: Emergency Provider Emergency Medicine; Family Provider Nurse Practitioner; PCP Internal Medicine
DX: M54.12 Radiculopathy, cervical region (principal)
CPT/HCPCS: 72040; 99281; 99283

== ENCOUNTER 2024-10-19 11:31 | Emergency (ER) | payer MEDICARE, SELFPAY ==
[2023-12-10 23:30] VITALS: BMI 29.0
--- NOTE | 2024-10-19 12:02 | PC.NURSE ---
Patient told registration he had somewhere to be and left.
== END 2024-10-19 11:45 | disposition left against medical advice (07) ==
PROVIDERS: Emergency Provider Emergency Medicine; Family Provider Nurse Practitioner; PCP Internal Medicine

== ENCOUNTER → 2024-12-04 18:38 | Outpatient (CLI) | payer MEDICARE, MEDICAID, SELFPAY ==
[2023-12-10 23:30] VITALS: BMI 29.0
--- NOTE | 2024-12-04 18:40 | DI.MRI.S_ITS ---
PROCEDURE: MR CERVICAL SPINE WO CON INDICATIONS: NECK PAIN TECHNIQUE: Noncontrast sagittal T1 spin echo and T2 fast spin echo, sagittal STIR, foraminal oblique sagittal T2 fast spin echo, and axial gradient echo or T2 fast spin echo through the cervical spine. COMPARISON: None. FINDINGS: Image quality: Excellent. Alignment and Curvature: There is normal bony alignment. Bone Marrow: Marrow demonstrates normal overall signal. Spinal Cord: Visualized spinal cord has normal size and signal. No cerebellar tonsillar herniation. Paraspinous Soft Tissues: No paravertebral masses. Prevertebral soft tissues are normal in thickness. C2-C3: Facet and uncovertebral arthropathy. No central canal stenosis. Mild right and no left neural foraminal stenosis. C3-C4: Disc desiccation and posterior disc osteophyte complex. Facet and uncovertebral arthropathy. Moderate central canal stenosis. Severe bilateral neural foraminal stenosis. C4-C5: Disc desiccation and posterior disc osteophyte complex. Facet uncovertebral arthropathy. Mild central canal stenosis. Severe left and moderate to severe right neural foraminal stenosis. C5-C6: Disc desiccation and posterior disc osteophyte complex mildly indenting the ventral cord. Facet and uncovertebral arthropathy. Moderate to severe central canal stenosis. Severe left and moderate to severe right neural foraminal stenosis. C6-C7: Disc desiccation and mild posterior disc osteophyte complex. Facet and uncovertebral arthropathy. No significant central canal stenosis. Severe left and moderate to severe right neural foraminal stenosis. C7-T1: Disc desiccation. Facet uncovertebral arthropathy. No significant central canal or neural foraminal stenosis. IMPRESSION: 1. Multilevel degenerative changes of the cervical spine as described above. 2. Moderate to severe central canal stenosis at C5-C6. Moderate central canal stenosis at C3-C4. 3. Multilevel high-grade neural foraminal stenosis as above. Dictated by: Miguel A Madrid M.D. on 12/07/2024 at 8:57 Approved by: Miguel A Madrid M.D. on 12/07/2024 at 9:04
== END ==
LOC: MRI 18:39
PROVIDERS: Family Provider Nurse Practitioner; PCP Internal Medicine; Referring Provider Internal Medicine; Visit Provider Internal Medicine
DX: M47.812 Spondylosis without myelopathy or radiculopathy, cervical region (principal); M48.02 Spinal stenosis, cervical region; M54.2 Cervicalgia
CPT/HCPCS: 72141

== ENCOUNTER 2025-03-12 15:57 | Emergency (ER) | payer MEDICARE, MEDICAID, SELFPAY ==
[2023-12-10 23:30] VITALS: BMI 29.0
[2025-03-12] VITALS (13 sets, daily range): BP systolic 167–196; BP diastolic 90–114; PULSE 83–96; RESP 12–22; TEMP 37.1; O2SAT 94–98; BMI 29.3
[2025-03-12 16:57] LABS: Add Manual Diff / Slide Review NO; Hematocrit 38.7 % (41-53); Hemoglobin 13.4 g/dL (13.5-17.5); Lymphocytes Absolute Auto 700 /uL (1100-4500); Mean Corpuscular HGB Conc 34.5 % (30-36); Mean Corpuscular Hemoglobin 32.0 PG (26-34); Mean Corpuscular Volume 92.6 fL (80-100); Platelet Count 130 X10^3/uL (150-400)
[2025-03-12 17:26] LABS: Ethanol (ETOH) < 10 mg/dL (<10)
[2025-03-12 17:27] LABS: Alanine Aminotransferase 47 IU/L (<50); Albumin 5.2 g/dL (3.5-5.0); Albumin Globulin Ratio 1.4 (1.0-2.8); Alkaline Phosphatase 84 U/L (38-126); Blood Urea Nitrogen 15 mg/dL (9-20); Calcium 9.8 mg/dL (8.4-10.2); Carbon Dioxide 27 mmol/L (22-32); Chloride 93 mmol/L (98-107); Estimated Glomerular Filt Rate > 60 mL/min (>60); Globulin 3.7 g/dL (1.7-4.1); Glucose 116 mg/dL (70-99); HEMOLYSIS < 15 (0-50); Potassium 4.0 mmol/L (3.4-5.1); Sodium 134 mmol/L (137-145); Total Protein 8.9 g/dL (6.3-8.2)
[2025-03-12] MEDS: SODIUM CHLORIDE 0.9% 1,000 ML 1000 ML IV (17:27)
[2025-03-12] MEDS: MAGNESIUM SULFATE 2 GM/50 ML PIGGYBACK IV (17:28)
[2025-03-12] MEDS: THIAMINE 100 MG TABLET PO (18:59)
[2025-03-12] MEDS: MULTIVITAMIN 1 TABLET 1 TAB PO (19:09)
--- NOTE | 2025-03-12 20:26 | ED.GENADULT ---
HPI - General Adult General Chief complaint: Toxicology Problem Stated complaint: Alcohol Withdrawal Time Seen by Provider: 03/12/25 16:10 History of Present Illness HPI narrative: 54-year-old gentleman with a 30 years your history of alcohol use disorder, episodes of sobriety, periods of relapse most recently was in detox in an inpatient facility 4 months ago, over the last 3 weeks he has had a returned to use in his back to 1-1/2 5th of alcohol a day. He says he has never had seizures and has not needed hospitalization when he has gone through withdrawals. He has done well with outpatient benzodiazepine tapers. There is a distant history of benzodiazepine addiction as well. He apparently is quite active in AA. He is primarily looking for help with acute withdrawal so that he can get back to AA. He is not particularly interested in repeating detox or inpatient treatment and does seem to have a very clear understanding of why he did return to drinking with this episode Related Data Home Medications ?Medication ?Instructions ?Recorded ?Confirmed metoprolol succinate 25 mg 25 mg PO DAILY 07/11/24 09/23/24 tablet,extended release 24 hr doxepin 50 mg capsule 50 mg PO BEDTIME 09/23/24 09/23/24 gabapentin 600 mg tablet 600 mg PO 3XD 09/23/24 09/23/24 Previous Rx's ?Medication ?Instructions ?Recorded Lancing Pen #1 ea 10/12/21 hydrochlorothiazide 25 mg tablet 50 mg (2 x 25 mg) PO QAM #180 tabs 01/27/24 lisinopril 20 mg tablet 20 mg PO BID #180 tabs 03/04/24 ketoconazole 2 % topical cream 1 applic topical DAILY #60 grams 05/29/24 baclofen 20 mg tablet 20 mg PO TID PRN pain (scale score 10/14/24 4-6) #20 tabs chlordiazepoxide HCl 25 mg capsule 25 mg PO TID PRN alcohol 03/12/25 withdrawal #14 caps Allergies Allergy/AdvReac Type Severity Reaction Status Date / Time No Known Drug Allergies Allergy Verified 09/23/24 16:00 Review of Systems Review of Systems Narrative: Pertinent positive and negative findings as per HPI Patient History Medical History Back pain Abdominal ascites Peripheral neuropathy Alcohol use disorder, moderate, dependence High triglycerides Non-insulin dependent diabetes mellitus Elevated fasting blood sugar Paresthesia of both feet Depression with anxiety Insomnia COVID-19 vaccine series declined Tobacco use disorder, mild, in early remission Elevated LFTs Blood glucose elevated Class 1 obesity in adult Alcohol dependence, daily use Smokes tobacco daily Hyperlipidemia Hypertension Lumbosacral spondylosis Recto-perineal fistula Lower GI bleed Atypical chest pain Surgical History History of rectal surgery Family History Father Alive and well Mother Alive and well Social History marital status: unmarried,single household members: family occupational status: disabled second hand exposure: No alcohol intake: current tobacco type: vaping alcohol intake frequency: 3 or more drinks per day Alcohol type: hard liquor Exam Initial Vital Signs Initial Vital Signs: Vital Signs Temperature 98.7 F 03/12/25 16:16 Pulse Rate 95 H 03/12/25 16:16 Respiratory Rate 16 03/12/25 16:16 Blood Pressure 186/104 H 03/12/25 16:16 Pulse Oximetry 97 03/12/25 16:16 Oxygen Delivery Method Room Air 03/12/25 16:16 General: Healthy appearing, in no acute distress. Able to give a complete and coherent history. Well-nourished well-developed HEENT: Moist mucous membranes, normal sclera with reactive pupils, Respiratory: Lungs are clear to auscultation, no wheezing no rales no rhonchi. Full and symmetrical air movement Cardiac: Mild tachycardia otherwise Regular rate and rhythm no murmurs Abdomen: Soft, nontender, no rebound or guarding, no flank pain Skin: Warm and dry, no rashes Neurologic: Fine motor tremor, anxiety, CIWA score equals 16 Psych: Cooperative, appropriate insight and affect Course Orders Ordered: ED Orders 03/12/25 16:39 Consult to FREELANCE TRANSLATOR - Construction Mgr Stat 03/12/25 16:45 Complete Blood Count AUTO DIFF Stat Comprehensive Metabolic Panel Stat ETOH [Ethanol (ETOH)] Stat Sodium Chloride (Normal Saline 0.9%) 1,000 mls @ 100 mls/hr IV CONT NINO Last Admin: 03/12/25 18:42 Dose: Not Given Documented By: EB Lorazepam (Lorazepam 2 Mg/Ml Inj) 0 mg IV CIWAPRN PRN; Protocol PRN Reason: Alcohol Withdrawal Last Admin: 03/12/25 17:27 Dose: 1 mg Documented By: KEANU Lorazepam (Lorazepam 1 Mg Tablet) 0 mg PO CIWAPRN PRN; Protocol PRN Reason: Alcohol Withdrawal Discontinued Medications Magnesium Sulfate (Magnesium Sulfate) 2 gm in 50 mls @ 25 mls/hr IV NOW ONE Stop: 03/12/25 18:38 Last Infusion: 03/12/25 19:39 Dose: Infused Documented By: CECILIA Co-signed By: JAMMIE Admin: 03/12/25 17:28 Dose: 25 mls/hr Documented By: KEANU Co-signed By: JAMMIE Sodium Chloride (Normal Saline 0.9%) 1,000 mls @ 1,000 mls/hr IV BOLUS ONE Stop: 03/12/25 19:42 Last Infusion: 03/12/25 19:00 Dose: Infused Documented By: Admin: 03/12/25 17:27 Dose: 1,000 mls/hr Documented By: KEANU Multivitamins (Multivitamin 1 Tablet) 1 tab PO DAILY [facility] Multivitamins (Multivitamin 1 Tablet) 1 tab PO NOW ONE Stop: 03/12/25 18:44 Last Admin: 03/12/25 19:09 Dose: 1 tab Documented By: JAMMIE Phenobarbital (Phenobarbital 65 Mg/Ml Vial) 260 mg IV NOW ONE Stop: 03/12/25 16:40 Last Admin: 03/12/25 17:29 Dose: 260 mg Documented By: KEANU Thiamine HCl (Thiamine 100 Mg Tablet) 100 mg PO DAILY [facility] Stop: 03/16/25 09:01 Thiamine HCl (Thiamine 100 Mg Tablet) 100 mg PO NOW ONE Stop: 03/12/25 18:44 Last Admin: 03/12/25 18:59 Dose: 100 mg Documented By: KEANU Vital Signs Vital signs: Vital Signs - 8 hr 03/12/25 16:16 03/12/25 16:53 03/12/25 16:55 Temperature 98.7 F Pulse Rate 95 H 96 H Respiratory Rate 16 Blood Pressure 186/104 H 190/103 H Pulse Oximetry 97 Oxygen Delivery Method Room Air 03/12/25 16:55 03/12/25 17:00 03/12/25 17:00 Temperature Pulse Rate 95 H 95 H Respiratory Rate 16 16 Blood Pressure 179/103 H Pulse Oximetry 96 96 Oxygen Delivery Method 03/12/25 17:30 03/12/25 17:30 03/12/25 18:00 Temperature Pulse Rate 93 H Respiratory Rate 12 Blood Pressure 173/90 H 186/95 H Pulse Oximetry 94 Oxygen Delivery Method 03/12/25 18:00 03/12/25 18:30 03/12/25 18:30 Temperature Pulse Rate 92 H 89 Respiratory Rate 13 14 Blood Pressure 167/98 H Pulse Oximetry 96 95 Oxygen Delivery Method 03/12/25 19:00 03/12/25 19:00 03/12/25 19:30 Temperature Pulse Rate 91 H Respiratory Rate 22 Blood Pressure 196/114 H 180/106 H Pulse Oximetry 96 Oxygen Delivery Method Room Air 03/12/25 19:30 Temperature Pulse Rate 87 Respiratory Rate 14 Blood Pressure Pulse Oximetry 98 Oxygen Delivery Method Medical Decision Making Lab Data 03/12/25 16:45 03/12/25 16:45 Labs: Lab Results 03/12/25 Range/Units 16:45 WBC 6.0 (4.5-11.0) X10^3/uL RBC 4.18 L (4.5-5.9) X10^6/uL Hgb 13.4 L (13.5-17.5) g/dL Hct 38.7 L (41-53) % MCV 92.6 (80-100) fL MCH 32.0 (26-34) PG MCHC 34.5 (30-36) % RDW 18.0 H (11.6-14.8) % Plt Count 130 L (150-400) X10^3/uL Neut % (Auto) 80.3 H (50-75) % Lymph % (Auto) 10.9 L (25-40) % [place] % (Auto) 7.7 (3-14) % Eos % (Auto) 0.5 L (2-4) % Baso % (Auto) 0.6 (0-2) % Neut # (Auto) 4800 (9282-3452) /uL Lymph # (Auto) 700 L (5547-5065) /uL [place] # (Auto) 500 (0-900) /uL Eos # (Auto) 0 (0-450) /uL Baso # (Auto) 0 (0-100) /uL Sodium 134 L (137-145) mmol/L Potassium 4.0 (3.4-5.1) mmol/L Chloride 93 L (98-107) mmol/L Carbon Dioxide 27 (22-32) mmol/L BUN 15 (9-20) mg/dL Creatinine 0.87 (0.66-1.25) mg/dL Estimated GFR > 60 (>60) mL/min BUN/Creatinine Ratio 17.2 (6-22) Glucose 116 H (70-99) mg/dL Calcium 9.8 (8.4-10.2) mg/dL Total Bilirubin 0.9 (0.2-1.3) mg/dL AST 67 H (17-59) IU/L ALT 47 (<50) IU/L Alkaline Phosphatase 84 (38-126) U/L Total Protein 8.9 H (6.3-8.2) g/dL Albumin 5.2 H (3.5-5.0) g/dL Globulin 3.7 (1.7-4.1) g/dL Albumin/Globulin Ratio 1.4 (1.0-2.8) Ethyl Alcohol < 10 (<10) mg/dL Urine Dip Bedside Urine Glucose Negative Bedside Urine Bilirubin - Negative Bedside Urine Ketone - Negative Urine Specific [place] 1.005 Bedside Urine Occult Blood - Negative Bedside Urine pH 6.0 Bedside Urine Protein - Negative Bedside Urine Urobilinogen - Negative Bedside Urine Nitrite - Negative Bedside Urine Leukocytes - Negative Esterase Point of care testing: Urine Dip Bedside Urine Glucose Negative Bedside Urine Bilirubin - Negative Bedside Urine Ketone - Negative Urine Specific [place] 1.005 Bedside Urine Occult Blood - Negative Bedside Urine pH 6.0 Bedside Urine Protein - Negative Bedside Urine Urobilinogen - Negative Bedside Urine Nitrite - Negative Bedside Urine Leukocytes - Negative Esterase [facility] Narrative Medical decision making narrative: 54-year-old gentleman with alcohol use disorder multiple periods of sobriety recently had for months sober after an inpatient detox and inpatient rehab stay. Is actively going to . Had a returned to use with drinking approximately 3 weeks ago was back to 1-1/2 fifth size bottles of alcohol daily. Comes in for help with detoxing. He has not had seizures in the past. He has had luck with simple outpatient tapers and is hoping for similar. He agrees to workup this time. CBC is unremarkable for acute abnormality Chemistries show sodium of 134, potassium is appropriate, appropriate renal function. Liver show slightly elevated AST at 67 Alcohol is less than 10 Patient is given a L of fluid, 260 mg of IV phenobarbital, oral thiamine, IV magnesium. He is doing much better and would prefer to go home rather than doing any type of inpatient detox. CIWA currently as at 4. We talked about a Librium taper. He is given 50 mg of Librium to take at approximately 3:00 a.m. and Librium taper is written. Encouraged him to continue with his AA meetings, follow up with his sponsor and return if he feels like he needs any additional assistance with his alcohol use disorder. Discharge Plan Departure Patient Disposition: Home Clinical Impression: Alcohol use disorder Alcohol withdrawal Qualifiers: Complication of substance-induced condition: uncomplicated Qualified Code(s): F10.930 - Alcohol use, unspecified with withdrawal, uncomplicated Instructions: DI for Alcohol Use Disorder Activity Restrictions/Additional Instructions: I am glad that you chose to stop drinking again You were given phenobarbital in the emergency department. I am giving you a dose of Librium/chlordiazepoxide to take around 3:00 a.m. or when you wake up with signs of alcohol withdrawal I am sending a prescription of Librium/chlordiazepoxide to [facility] here in [place]. You can use a tapering dose to help with your withdrawal symptoms. If the symptoms become more severe please do return to the emergency department I would strongly encourage you to get to AA meetings every day for the next week including tomorrow Prescriptions: New chlordiazepoxide HCl 25 mg capsule 25 mg PO TID PRN (Reason: alcohol withdrawal) Qty: 14 0RF No Action metoprolol succinate 25 mg tablet extended release 24 hr 25 mg PO DAILY ketoconazole 2 % cream 1 applic topical DAILY Qty: 60 0RF Rx Instructions: Applied daily to affected areas until resolution of symptoms hydrochlorothiazide 25 mg tablet 50 mg PO QAM Qty: 180 4RF lisinopril 20 mg tablet 20 mg PO BID Qty: 180 0RF (DME) Lancing Pen See Rx Instructions .Route .MEDSUPPLY Qty: 1 0RF Rx Instructions: As directed doxepin 50 mg Capsule 50 mg PO BEDTIME gabapentin 600 mg tablet 600 mg PO 3XD baclofen 20 mg tablet 20 mg PO TID PRN (Reason: pain (scale score 4-6)) Qty: 20 0RF Referrals: Bi Dejesus MD [Primary Care Provider, Internal Medicine] Stand Alone Forms: Patient Portal/API
== END 2025-03-12 21:27 | disposition home or self-care (01) ==
PROVIDERS: Emergency Provider Emergency Medicine; Family Provider Nurse Practitioner; PCP Internal Medicine
DX: F10.239 Alcohol dependence with withdrawal, unspecified (principal)
CPT/HCPCS: 36415; 80053; 80320; 81003; 85025; 96365; 96366; 96375; 99284; J2060; J2560; J3475